=== PATIENT | female | born 1980 | race Caucasian/White ===

== ENCOUNTER 2016-10-06 09:18 | Day surgery (SDC) | payer OTHER ==
--- NOTE | 2016-10-05 11:55 | NUR ---
NN PT HAS HISTORY OF TAKAYASU ARTERITIS, CAUSES CHRONIC INFLAMMATION OF THE BLOOD VESSELS. NO BLOOD PRESSURE OR IV STARTS SHOULD BE DONE ON THE RIGHT SIDE PER PT. SHE STATES THAT SHE HAS SOME BLOCKAGE THERE AND IT HAS CAUSED PROBLEMS WITH OBTAINING SEDATION IN THE PAST DURING PROCEDURES AT ANOTHER FACILITY.
[~2016-10-06] VITALS: Ht 167.6 cm; Wt 71.5 kg
[2016-10-06] VITALS (25 sets, daily range): BP systolic 113–127; BP diastolic 60–86; PULSE 67–91; RESP 14–24; TEMP 97.4–98.2; O2SAT 96–100; Ht 167.6 cm; Wt 71.5 kg
[~2016-10-06 09:18] MED LIST: ACYC-1 PO; ASPI-725 PO; ATEN-36 PO; ATOR40TA20 PO; CALC1TAB PO; CHOL200024 PO; CLINDAMYCIN 900mg in D5W 50ml IV ONE; DULO60CA25 PO; FERR325T6 PO; FOLI-40 PO; GLIM1TAB2 PO; LEFL20TA PO; LEVO75CA5 PO; LIDOCAINE 1% (10mg/ml) 2ml SDV INJ ONE; LR 1,000 ML IV SCH; METF-200 PO; MULT-806 PO; NEBI10TA2 PO; OMEP20CA10 PO; PRAS10TA6 PO; PRED10TA PO; SAXA5TAB PO; SOLI10TA5 PO; TOPI25TA37 PO; TRAM50TA4 PO
--- OUTSIDE RECORDS SUMMARY | 2016-10-06 09:21 | XMS REPORT | Continuity of Care Document ---
Author Author [facility] Organization [facility] Address Unknown Phone Unavailable Care Team Providers Care Product Handler Name Role Phone Aleena Salcido Primary Care Physician [phone] Source Comments Some departments are not documenting in the electronic medical record. If you do not see the information that you expected, contact Release of Information in the Health Information Management department at [phone] for further assistance in locating additional records.[facility] Active Allergies and Adverse Reactions Allergen Noted Date Severity Reactions Comments Humira 03/01/2015 Medium HIVES Methotrexate 03/01/2015 Medium HIVES Penicillins 03/01/2015 High ANAPHYLAXIS Tetanus And Diphtheria 03/01/2015 High ANAPHYLAXIS Toxoids, Adsorbed, Adult Current Medications Prescription Sig. Disp. Refills Start End Date Status Date levothyroxine (SYNTHROID) Take 125 mcg by mouth Active 125 mcg tablet daily. DULoxetine DR (CYMBALTA) Take 60 mg by mouth twice Active 60 mg capsule daily. prasugrel (EFFIENT) 10 mg Take 10 mg by mouth Active tab tablet daily. aspirin (ASPIRIN Take 81 mg by mouth Active CHILDRENS) 81 mg chewable daily. tablet atorvastatin (LIPITOR) 40 Take 40 mg by mouth Active mg tablet daily. metFORMIN (GLUCOPHAGE) Take 1,000 mg by mouth Active 500 mg tablet twice daily with meals. Saxagliptin (ONGLYZA) 5 Take 1 Tab by mouth twice Active mg tab daily. folic acid (FOLVITE) 1 mg Take 5 mg by mouth daily. Active tablet CALCIUM CARBONATE Take 1 Tab by mouth Active (CALCIUM 500 PO) daily. cholecalciferol (VITAMIN Take 1,000 Units by mouth Active D-3) 1,000 units tablet daily. VIT Take 1 Tab by mouth Active W-CA,FE,FA(<1 MG) daily. ( VITAMIN PO) ferrous sulfate 325 mg Take 325 mg by mouth Active (65 mg iron) tablet twice daily. alendronate (FOSAMAX) 35 Take 35 mg by mouth every Active mg tablet 7 days. loperamide (IMODIUM) 2 mg Take 1 Cap by mouth four 90 Cap 1 03/24/20 Active capsule times daily as needed for 15 Diarrhea. psyllium (METAMUCIL) 3.4 Take 1 Packet by mouth 60 Packet 3 03/24/20 Active gram packet twice daily. 15 Food Supplement, Please drink 1 can of 30 Can 1 06/10/20 Active Lactose-Free (ENSURE) ensure per day. 15 liqd predniSONE (DELTASONE) 5 Take 4 tabs x 3 days, 3 30 Tab 1 09/29/19 Active mg tablet tabs x 3 days, 2 tabs x 3 16 days, 1 tab x 3 days, then stop apremilast 30 mg tab Take 30 mg by mouth twice Active daily. ketoconazole (NIZORAL) 2 Apply to affected area 60 g 3 11/09/19 Active % topical cream twice daily. 16 ketoconazole (NIZORAL) 2 Apply to affected area 120 mL 3 11/10/19 Active % topical shampoo three times weekly. 16 ondansetron (ZOFRAN ODT) Take 1 Tab by mouth every 30 Tab 2 12/08/19 Active 4 mg rapid dissolve 8 hours as needed for 16 tablet Nausea. TOCILIZUMAB (ACTEMRA IV) Administer through vein. Active metFORMIN (GLUCOPHAGE) Take 1,000 mg by mouth Active 1,000 mg tablet twice daily with meals. diphenoxylate/atropine Take 1 Tab by mouth four 90 Tab 3 12/15/19 Active (LOMOTIL) 2.5/0.025 mg times daily as needed for 16 tablet Diarrhea. prochlorperazine Take 1 Tab by mouth every 30 Tab 2 01/05/20 Active (COMPAZINE) 10 mg tablet 6 hours as needed. 16 betamethasone APPLY OINTMENT TOPICALLY 45 g 0 02/15/20 Active dipropionate 0.05 % TWICE DAILY FOR ONE TO 16 topical ointment TWO WEEKS TO RED ITCHY AREAS ( NOT FOR FACE/ARMPIT/GROIN) apremilast (OTEZLA) 30 mg Take 1 Tab by mouth twice 60 Tab 2 02/29/20 Active tab daily. 16 dicyclomine (BENTYL) 20 Take 1-2 Tabs by mouth 120 Tab 2 03/01/20 Active mg tablet every 6 hours. 16 prednisone (DELTASONE) 5 TAKE TWO TABLETS BY MOUTH 60 Tab 3 06/12/20 Active mg tablet ONCE DAILY 16 traMADol (ULTRAM) 50 mg Take 1 Tab by mouth every 180 Tab 2 09/20/19 Active tablet 8 hours as needed for 17 Pain. 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 03/13/14 - MRA Carotid - Patent right subclavian graft to right MCA. Collateral filling of A1, M1 and M2 segment likely from Reduced flow, patent. Distal left ICA patent, normal caliber. Left REY[place]LDO and MCA patent normal caliber. Hi-grade stenosis at preauricular segment, right subclavian to right MCA bypass graft. Occluded right ICA and miniscule caliber right hCCA. Nonvisualization of right VA may be secondary to occlusion, slow flow or retrograde flow. 2. 03/13/14 - MRA chest w/contrast - suspected moderate stenosis of proximal right subclavian artery. - assessment limited d/t overlap with signal in adjacent vein. RA patent with luminal irregularities of mid and distal right RA. 3. 03/16/14 -- UE Arterial Duplex, bilateral - Right - subclavian, axillary or innominate disease. Left - no evidence of abnormality at rest. 4. 03/16/14 - Carotid Duplex - RIGHT - 50-99% stenosis CCA; wall thickening suggestive of inflammatory disease, velocity shift consistent with stenosis at proximal vessel. ICA occluded; ECA patent; Vertebral artery with retrograde flow consistent with subclvaian steal; Innominate thickened; Subclavian 50-99% stenosis with thickened wall and elevated velocities proximally (elevated velocities distal to origin of subclavian-intracranial bypass - patent). LEFT - CCA, ECA, Subclavian - patent; ICA 0-19% stenosis; vertebral patent with antegrade flow. 5. 03/16/14 - Coronary CTA - Normal size chamger, atrioventricular and ventriculoarterial concordance. Thoracic aorta normal. Aortic arch not included. Normal coronaory artery anatomy without stnotic disease. 6. 10/15/14 - Echo - EF 70%; moderate MV prolapse with trace MR. No PHTN; normal LV systolic function. 7. 10/14/14 - MPI - No ischemia; EF 55%/rest - 65%/stress; no wall motion abnormality. Chronic diarrhea 03/24/2015 Weight loss 03/24/2015 Most Recent Encounters Date Type Specialty Providers Description 09/25/2016 Telephone Allergy,Immunology and Portillo Stephen MD Results Rheumatology 09/25/2016 Telephone Allergy,Immunology and Portillo Stephen MD Appointment Request Rheumatology 09/19/2016 [facility] Portillo Stephen MD Aortic arch syndrome Encounter (takayasu) ([facility]) 09/19/2016 Office Visit Allergy,Immunology and Portillo Stephen MD Takayasu's arteritis Rheumatology ([facility]) (Primary Dx); buttermaker continuous churn (current) use of systemic steroids; Psoriasis; Neck pain on right side; Myofacial muscle pain; Claudication ([facility]) 09/19/2016 Hospital Radiology Portillo Stephen MD Encounter 09/19/2016 Hospital Radiology Portillo Stephen MD Encounter 09/18/2016 Screening Form 09/18/2016 Ancillary Allergy,Immunology and Portillo Stephen MD Takayasu arteriopathy Orders Rheumatology ([facility]) (Primary Dx) 08/22/2016 Telephone Allergy,Immunology and Portillo Stephen MD Chest Pain Rheumatology Social History Tobacco Use Types Packs/Day Years Used Date Former Smoker Cigarettes 0.5 4 Quit: 03/01/2000 Smokeless Tobacco: Never Used Alcohol Use Drinks/Week oz/Week Comments No 0 Standard 0.0 drinks or equivalent Last Filed Vital Signs Vital Sign Reading Time Taken Blood Pressure 124/81 09/19/2016 3:17 PM CDT Pulse 88 09/19/2016 3:17 PM CDT Temperature 36.7 C (98 F) 09/19/2016 3:17 PM CDT Respiratory Rate 16 09/19/2016 3:17 PM CDT Height 1.651 m (5' 5") 09/19/2016 3:17 PM CDT Weight 72.666 kg (160 lb 3.2 oz) 09/19/2016 3:17 PM CDT Body Mass Index 26.66 09/19/2016 3:17 PM CDT Oxygen Saturation 99% 02/29/2016 10:52 AM CDT Plan of Care Health Maintenance Due Date Last Done Comments Physical (Comprehensive) 1985 Exam Pertussis Vaccine 1989 Tetanus Vaccine 11/15/1995 Cervical Cancer Screening 11/15/1999 Influenza Vaccine 03/02/2017 Results from Last 3 Months * C REACTIVE PROTEIN (CRP) (09/19/2016 4:59 PM) Component Value Range C-Reactive Protein <0.02 <1.0 MG/DL Specimen Blood * SED RATE (09/19/2016 4:59 PM) Component Value Range Sed Rate -ESR 4 0-20 MM/HR Specimen Blood * CBC AND DIFF (09/19/2016 4:59 PM) Component Value Range White Blood Cells 8.0 4.5-11.0 K/UL RBC 4.17 4.0-5.0 M/UL Hemoglobin 12.9 12.0-15.0 GM/DL Hematocrit 37.5 36-45 % MCV 89.9 80-100 FL MCH 30.9 26-34 PG MCHC 34.4 32.0-36.0 G/DL RDW 12.8 11-15 % Platelet Count 293 150-400 K/UL MPV 7.2 7-11 FL Neutrophils 72 41-77 % Lymphocytes 19 (L) 24-44 % Monocytes 8 4-12 % Eosinophils 1 0-5 % Basophils 0 0-2 % Absolute Neutrophil Count 5.80 1.8-7.0 K/UL Absolute Lymph Count 1.50 1.0-4.8 K/UL Absolute Monocyte Count 0.60 0-0.80 K/UL Absolute Eosinophil Count 0.10 0-0.45 K/UL Absolute Basophil Count 0.00 0-0.20 K/UL Specimen Blood * COMPREHENSIVE METABOLIC PANEL (09/19/2016 4:59 PM) Component Value Range Sodium 137 137-147 MMOL/L Potassium 3.6 3.5-5.1 MMOL/L Chloride 105 98-110 MMOL/L Glucose 116 (H) 70-100 MG/DL Blood Urea Nitrogen 4 (L) 7-25 MG/DL Creatinine 1.04 (H) 0.4-1.00 MG/DL Calcium 9.2 8.5-10.6 MG/DL Total Protein 7.0 6.0-8.0 G/DL Total Bilirubin 0.2 (L) 0.3-1.2 MG/DL Albumin 4.3 3.5-5.0 G/DL Alk Phosphatase 46 25-110 U/L AST (SGOT) 11 7-40 U/L CO2 26 21-30 MMOL/L ALT (SGPT) 12 7-56 U/L Anion Gap 6 3-12 eGFR Non 60 (L)Comment: >60 mL/min The eGFR is not validated for use in drug dosing adjustments. Continue to use estimated creatinine clearance per dosing reference text. Please contact the Clinical Pharmacist for questions. eGFR >60Comment: >60 mL/min The eGFR is not validated for use in drug dosing adjustments. Continue to use estimated creatinine clearance per dosing reference text. Please contact the Clinical Pharmacist for questions. Specimen Blood * MRA NECK W CONTRAST (09/19/2016 8:47 AM) Impressions MRA NECK: 1. Continued patency of right extracranial to intracranial graft. The left carotid and left vertebral arteries remain patent, however, vascular detail is limited. The [place] right internal carotid and right vertebral arteries remain occluded. MRA CHEST: 1. Persistent moderate stenosis of the right subclavian artery distal to the graft origin. Otherwise, normal appearance of the thoracic aorta and great vessels of the arch. MRI ABDOMEN: 1. Stable mild eccentric mural thickening of the aorta which most likely relates to mild involvement by known arteritis. Otherwise, normal appearance of the abdominal aorta and major visceral arteries. MRI PELVIS: 1. Normal appearance of the major pelvic arteries. Approved by Vianeny Hunt M.D. on 09/19/2016 10:27 AM By my electronic signature, I attest that I have personally reviewed the images for this examination and formulated the interpretations and opinions expressed in this report Finalized by Bill Juarez M.D. on 09/19/2016 10:39 AM. Dictated by Vianney Hunt M.D. on 09/19/2016 9:23 AM. Narrative MRA NECK, CHEST, ABDOMEN, AND PELVIS Clinical Indication:Takayasu arteritis. Diminished pulses, arm Technique:Multisequence and multiplanar MR imaging was obtained through the abdomen before and following the administration of IV gadolinium contrast. IV Contrast:20 mL Multihance Bowel contrast: None Magnet:1.5 Farzaneh Siemens Comparison: MRA chest/abdomen/pelvis 03/15/2015, CT abdomen/pelvis 01/17/2016 FINDINGS: MRA NECK: Examination is somewhat compromised by patient motion artifact. The left common carotid and left vertebral artery are opacified to the skull base, however, detail of the vessel wall is limited by motion artifact. 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 Redemonstration of graft extending from the right subclavian artery to the cerebral circulation. The graft is patent. The intracranial arteries are not imaged at this examination. The proximal right vertebral artery is not seen, however, there is collateral vertebral artery flow at the skull base. MRA CHEST: Normal caliber of the ascending thoracic aorta. The mid ascending aorta measures 3 cm diameter, previously 3 cm. The descending thoracic aorta is normal caliber. Three-vessel configuration of the aortic arch. The arch vessel origins are patent, however, vessel detail is limited secondary to motion artifact. There is continued moderate stenosis of the right subclavian artery just distal to the graft takeoff. The axillary arteries appear symmetric. MRA ABDOMEN: The abdominal aorta is normal caliber. There is mild eccentric mural thickening of the infrarenal abdominal aorta which appears unchanged since a CT examination on 01/17/2016. No significant luminal narrowing. The celiac, SMA, and renal artery origins are opacified, however, vessel detail is limited secondary to motion artifact. The VANE is patent. MRA PELVIS: The common iliac, external iliac, and internal iliac arteries are normal caliber and well opacified. The common femoral, superficial femoral, and deep femoral arteries are patent with without high-grade narrowing. Bilateral ovarian cysts or follicles are noted. Procedure Note Interface, Radiant Results - Tue Sep 19, 2016 10:42 AM CDT MRA NECK, CHEST, ABDOMEN, AND PELVIS Clinical Indication: Takayasu arteritis. Diminished pulses, arm Technique: Multisequence and multiplanar MR imaging was obtained through the abdomen before and following the administration of IV gadolinium contrast. IV Contrast:20 mL Multihance Bowel contrast: None Magnet:1.5 Farzaneh Siemens Comparison: MRA chest/abdomen/pelvis 03/15/2015, CT abdomen/pelvis 01/17/2016 FINDINGS: MRA NECK: Examination is somewhat compromised by patient motion artifact. The left common carotid and left vertebral artery are opacified to the skull base, however, detail of the vessel wall is limited by motion artifact. 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 Redemonstration of graft extending from the right subclavian artery to the cerebral circulation. The graft is patent. The intracranial arteries are not imaged at this examination. The proximal right vertebral artery is not seen, however, there is collateral vertebral artery flow at the skull base. MRA CHEST: Normal caliber of the ascending thoracic aorta. The mid ascending aorta measures 3 cm diameter, previously 3 cm. The descending thoracic aorta is normal caliber. Three-vessel configuration of the aortic arch. The arch vessel origins are patent, however, vessel detail is limited secondary to motion artifact. There is continued moderate stenosis of the right subclavian artery just distal to the graft takeoff. The axillary arteries appear symmetric. MRA ABDOMEN: The abdominal aorta is normal caliber. There is mild eccentric mural thickening of the infrarenal abdominal aorta which appears unchanged since a CT examination on 01/17/2016. No significant luminal narrowing. The celiac, SMA, and renal artery origins are opacified, however, vessel detail is limited secondary to motion artifact. The VANE is patent. MRA PELVIS: The common iliac, external iliac, and internal iliac arteries are normal caliber and well opacified. The common femoral, superficial femoral, and deep femoral arteries are patent with without high-grade narrowing. Bilateral ovarian cysts or follicles are noted. IMPRESSION MRA NECK: 1. Continued patency of right extracranial to intracranial graft. The left carotid and left vertebral arteries remain patent, however, vascular detail is limited. The [place] right internal carotid and right vertebral arteries remain occluded. MRA CHEST: 1. Persistent moderate stenosis of the right subclavian artery distal to the graft origin. Otherwise, normal appearance of the thoracic aorta and great vessels of the arch. MRI ABDOMEN: 1. Stable mild eccentric mural thickening of the aorta which most likely relates to mild involvement by known arteritis. Otherwise, normal appearance of the abdominal aorta and major visceral arteries. MRI PELVIS: 1. Normal appearance of the major pelvic arteries. Approved by Vianney Hunt M.D. on 09/19/2016 10:27 AM By my electronic signature, I attest that I have personally reviewed the images for this examination and formulated the interpretations and opinions expressed in this report Finalized by Bill Juarez M.D. on 09/19/2016 10:39 AM. Dictated by Vianney Hunt M.D. on 09/19/2016 9:23 AM. * MRA CHEST W CONTRAST (09/19/2016 8:47 AM) Impressions MRA NECK: 1. Continued patency of right extracranial to intracranial graft. The left carotid and left vertebral arteries remain patent, however, vascular detail is limited. The [place] right internal carotid and right vertebral arteries remain occluded. MRA CHEST: 1. Persistent moderate stenosis of the right subclavian artery distal to the graft origin. Otherwise, normal appearance of the thoracic aorta and great vessels of the arch. MRI ABDOMEN: 1. Stable mild eccentric mural thickening of the aorta which most likely relates to mild involvement by known arteritis. Otherwise, normal appearance of the abdominal aorta and major visceral arteries. MRI PELVIS: 1. Normal appearance of the major pelvic arteries. Approved by Vianney Hunt M.D. on 09/19/2016 10:27 AM By my electronic signature, I attest that I have personally reviewed the images for this examination and formulated the interpretations and opinions expressed in this report Finalized by Bill Juarez M.D. on 09/19/2016 10:39 AM. Dictated by Vianney Hunt M.D. on 09/19/2016 9:23 AM. Narrative MRA NECK, CHEST, ABDOMEN, AND PELVIS Clinical Indication:Takayasu arteritis. Diminished pulses, arm Technique:Multisequence and multiplanar MR imaging was obtained through the abdomen before and following the administration of IV gadolinium contrast. IV Contrast:20 mL Multihance Bowel contrast: None Magnet:1.5 Farzaneh Siemens Comparison: MRA chest/abdomen/pelvis 03/15/2015, CT abdomen/pelvis 01/17/2016 FINDINGS: MRA NECK: Examination is somewhat compromised by patient motion artifact. The left common carotid and left vertebral artery are opacified to the skull base, however, detail of the vessel wall is limited by motion artifact. 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 Redemonstration of graft extending from the right subclavian artery to the cerebral circulation. The graft is patent. The intracranial arteries are not imaged at this examination. The proximal right vertebral artery is not seen, however, there is collateral vertebral artery flow at the skull base. MRA CHEST: Normal caliber of the ascending thoracic aorta. The mid ascending aorta measures 3 cm diameter, previously 3 cm. The descending thoracic aorta is normal caliber. Three-vessel configuration of the aortic arch. The arch vessel origins are patent, however, vessel detail is limited secondary to motion artifact. There is continued moderate stenosis of the right subclavian artery just distal to the graft takeoff. The axillary arteries appear symmetric. MRA ABDOMEN: The abdominal aorta is normal caliber. There is mild eccentric mural thickening of the infrarenal abdominal aorta which appears unchanged since a CT examination on 01/17/2016. No significant luminal narrowing. The celiac, SMA, and renal artery origins are opacified, however, vessel detail is limited secondary to motion artifact. The VANE is patent. MRA PELVIS: The common iliac, external iliac, and internal iliac arteries are normal caliber and well opacified. The common femoral, superficial femoral, and deep femoral arteries are patent with without high-grade narrowing. Bilateral ovarian cysts or follicles are noted. Procedure Note Interface, Radiant Results - Tue Sep 19, 2016 10:42 AM CDT MRA NECK, CHEST, ABDOMEN, AND PELVIS Clinical Indication: Takayasu arteritis. Diminished pulses, arm Technique: Multisequence and multiplanar MR imaging was obtained through the abdomen before and following the administration of IV gadolinium contrast. IV Contrast:20 mL Multihance Bowel contrast: None Magnet:1.5 Farzaneh Siemens Comparison: MRA chest/abdomen/pelvis 03/15/2015, CT abdomen/pelvis 01/17/2016 FINDINGS: MRA NECK: Examination is somewhat compromised by patient motion artifact. The left common carotid and left vertebral artery are opacified to the skull base, however, detail of the vessel wall is limited by motion artifact. 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 Redemonstration of graft extending from the right subclavian artery to the cerebral circulation. The graft is patent. The intracranial arteries are not imaged at this examination. The proximal right vertebral artery is not seen, however, there is collateral vertebral artery flow at the skull base. MRA CHEST: Normal caliber of the ascending thoracic aorta. The mid ascending aorta measures 3 cm diameter, previously 3 cm. The descending thoracic aorta is normal caliber. Three-vessel configuration of the aortic arch. The arch vessel origins are patent, however, vessel detail is limited secondary to motion artifact. There is continued moderate stenosis of the right subclavian artery just distal to the graft takeoff. The axillary arteries appear symmetric. MRA ABDOMEN: The abdominal aorta is normal caliber. There is mild eccentric mural thickening of the infrarenal abdominal aorta which appears unchanged since a CT examination on 01/17/2016. No significant luminal narrowing. The celiac, SMA, and renal artery origins are opacified, however, vessel detail is limited secondary to motion artifact. The VANE is patent. MRA PELVIS: The common iliac, external iliac, and internal iliac arteries are normal caliber and well opacified. The common femoral, superficial femoral, and deep femoral arteries are patent with without high-grade narrowing. Bilateral ovarian cysts or follicles are noted. IMPRESSION MRA NECK: 1. Continued patency of right extracranial to intracranial graft. The left carotid and left vertebral arteries remain patent, however, vascular detail is limited. The [place] right internal carotid and right vertebral arteries remain occluded. MRA CHEST: 1. Persistent moderate stenosis of the right subclavian artery distal to the graft origin. Otherwise, normal appearance of the thoracic aorta and great vessels of the arch. MRI ABDOMEN: 1. Stable mild eccentric mural thickening of the aorta which most likely relates to mild involvement by known arteritis. Otherwise, normal appearance of the abdominal aorta and major visceral arteries. MRI PELVIS: 1. Normal appearance of the major pelvic arteries. Approved by Vianney Hunt M.D. on 09/19/2016 10:27 AM By my electronic signature, I attest that I have personally reviewed the images for this examination and formulated the interpretations and opinions expressed in this report Finalized by Bill Juarez M.D. on 09/19/2016 10:39 AM. Dictated by Vianney Hunt M.D. on 09/19/2016 9:23 AM. * MRA PELVIS W CONTRAST (09/19/2016 8:46 AM) Impressions MRA NECK: 1. Continued patency of right extracranial to intracranial graft. The left carotid and left vertebral arteries remain patent, however, vascular detail is limited. The [place] right internal carotid and right vertebral arteries remain occluded. MRA CHEST: 1. Persistent moderate stenosis of the right subclavian artery distal to the graft origin. Otherwise, normal appearance of the thoracic aorta and great vessels of the arch. MRI ABDOMEN: 1. Stable mild eccentric mural thickening of the aorta which most likely relates to mild involvement by known arteritis. Otherwise, normal appearance of the abdominal aorta and major visceral arteries. MRI PELVIS: 1. Normal appearance of the major pelvic arteries. Approved by Vianney Hunt M.D. on 09/19/2016 10:27 AM By my electronic signature, I attest that I have personally reviewed the images for this examination and formulated the interpretations and opinions expressed in this report Finalized by Bill Juarez M.D. on 09/19/2016 10:39 AM. Dictated by Vianney Hunt M.D. on 09/19/2016 9:23 AM. Narrative MRA NECK, CHEST, ABDOMEN, AND PELVIS Clinical Indication:Takayasu arteritis. Diminished pulses, arm Technique:Multisequence and multiplanar MR imaging was obtained through the abdomen before and following the administration of IV gadolinium contrast. IV Contrast:20 mL Multihance Bowel contrast: None Magnet:1.5 Farzaneh Siemens Comparison: MRA chest/abdomen/pelvis 03/15/2015, CT abdomen/pelvis 01/17/2016 FINDINGS: MRA NECK: Examination is somewhat compromised by patient motion artifact. The left common carotid and left vertebral artery are opacified to the skull base, however, detail of the vessel wall is limited by motion artifact. 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 Redemonstration of graft extending from the right subclavian artery to the cerebral circulation. The graft is patent. The intracranial arteries are not imaged at this examination. The proximal right vertebral artery is not seen, however, there is collateral vertebral artery flow at the skull base. MRA CHEST: Normal caliber of the ascending thoracic aorta. The mid ascending aorta measures 3 cm diameter, previously 3 cm. The descending thoracic aorta is normal caliber. Three-vessel configuration of the aortic arch. The arch vessel origins are patent, however, vessel detail is limited secondary to motion artifact. There is continued moderate stenosis of the right subclavian artery just distal to the graft takeoff. The axillary arteries appear symmetric. MRA ABDOMEN: The abdominal aorta is normal caliber. There is mild eccentric mural thickening of the infrarenal abdominal aorta which appears unchanged since a CT examination on 01/17/2016. No significant luminal narrowing. The celiac, SMA, and renal artery origins are opacified, however, vessel detail is limited secondary to motion artifact. The VANE is patent. MRA PELVIS: The common iliac, external iliac, and internal iliac arteries are normal caliber and well opacified. The common femoral, superficial femoral, and deep femoral arteries are patent with without high-grade narrowing. Bilateral ovarian cysts or follicles are noted. Procedure Note Interface, Radiant Results - Tue Sep 19, 2016 10:42 AM CDT MRA NECK, CHEST, ABDOMEN, AND PELVIS Clinical Indication: Takayasu arteritis. Diminished pulses, arm Technique: Multisequence and multiplanar MR imaging was obtained through the abdomen before and following the administration of IV gadolinium contrast. IV Contrast:20 mL Multihance Bowel contrast: None Magnet:1.5 Farzaneh Siemens Comparison: MRA chest/abdomen/pelvis 03/15/2015, CT abdomen/pelvis 01/17/2016 FINDINGS: MRA NECK: Examination is somewhat compromised by patient motion artifact. The left common carotid and left vertebral artery are opacified to the skull base, however, detail of the vessel wall is limited by motion artifact. 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 Redemonstration of graft extending from the right subclavian artery to the cerebral circulation. The graft is patent. The intracranial arteries are not imaged at this examination. The proximal right vertebral artery is not seen, however, there is collateral vertebral artery flow at the skull base. MRA CHEST: Normal caliber of the ascending thoracic aorta. The mid ascending aorta measures 3 cm diameter, previously 3 cm. The descending thoracic aorta is normal caliber. Three-vessel configuration of the aortic arch. The arch vessel origins are patent, however, vessel detail is limited secondary to motion artifact. There is continued moderate stenosis of the right subclavian artery just distal to the graft takeoff. The axillary arteries appear symmetric. MRA ABDOMEN: The abdominal aorta is normal caliber. There is mild eccentric mural thickening of the infrarenal abdominal aorta which appears unchanged since a CT examination on 01/17/2016. No significant luminal narrowing. The celiac, SMA, and renal artery origins are opacified, however, vessel detail is limited secondary to motion artifact. The VANE is patent. MRA PELVIS: The common iliac, external iliac, and internal iliac arteries are normal caliber and well opacified. The common femoral, superficial femoral, and deep femoral arteries are patent with without high-grade narrowing. Bilateral ovarian cysts or follicles are noted. IMPRESSION MRA NECK: 1. Continued patency of right extracranial to intracranial graft. The left carotid and left vertebral arteries remain patent, however, vascular detail is limited. The [place] right internal carotid and right vertebral arteries remain occluded. MRA CHEST: 1. Persistent moderate stenosis of the right subclavian artery distal to the graft origin. Otherwise, normal appearance of the thoracic aorta and great vessels of the arch. MRI ABDOMEN: 1. Stable mild eccentric mural thickening of the aorta which most likely relates to mild involvement by known arteritis. Otherwise, normal appearance of the abdominal aorta and major visceral arteries. MRI PELVIS: 1. Normal appearance of the major pelvic arteries. Approved by Vianney Hunt M.D. on 09/19/2016 10:27 AM By my electronic signature, I attest that I have personally reviewed the images for this examination and formulated the interpretations and opinions expressed in this report Finalized by Bill Juarez M.D. on 09/19/2016 10:39 AM. Dictated by Vianney Hunt M.D. on 09/19/2016 9:23 AM. * MRA ABDOMEN W CONTRAST (09/19/2016 8:46 AM) Impressions MRA NECK: 1. Continued patency of right extracranial to intracranial graft. The left carotid and left vertebral arteries remain patent, however, vascular detail is limited. The [place] right internal carotid and right vertebral arteries remain occluded. MRA CHEST: 1. Persistent moderate stenosis of the right subclavian artery distal to the graft origin. Otherwise, normal appearance of the thoracic aorta and great vessels of the arch. MRI ABDOMEN: 1. Stable mild eccentric mural thickening of the aorta which most likely relates to mild involvement by known arteritis. Otherwise, normal appearance of the abdominal aorta and major visceral arteries. MRI PELVIS: 1. Normal appearance of the major pelvic arteries. Approved by Vianney Hunt M.D. on 09/19/2016 10:27 AM By my electronic signature, I attest that I have personally reviewed the images for this examination and formulated the interpretations and opinions expressed in this report Finalized by Bill Juarez M.D. on 09/19/2016 10:39 AM. Dictated by Vianney Hunt M.D. on 09/19/2016 9:23 AM. Narrative MRA NECK, CHEST, ABDOMEN, AND PELVIS Clinical Indication:Takayasu arteritis. Diminished pulses, arm Technique:Multisequence and multiplanar MR imaging was obtained through the abdomen before and following the administration of IV gadolinium contrast. IV Contrast:20 mL Multihance Bowel contrast: None Magnet:1.5 Farzaneh Siemens Comparison: MRA chest/abdomen/pelvis 03/15/2015, CT abdomen/pelvis 01/17/2016 FINDINGS: MRA NECK: Examination is somewhat compromised by patient motion artifact. The left common carotid and left vertebral artery are opacified to the skull base, however, detail of the vessel wall is limited by motion artifact. 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 Redemonstration of graft extending from the right subclavian artery to the cerebral circulation. The graft is patent. The intracranial arteries are not imaged at this examination. The proximal right vertebral artery is not seen, however, there is collateral vertebral artery flow at the skull base. MRA CHEST: Normal caliber of the ascending thoracic aorta. The mid ascending aorta measures 3 cm diameter, previously 3 cm. The descending thoracic aorta is normal caliber. Three-vessel configuration of the aortic arch. The arch vessel origins are patent, however, vessel detail is limited secondary to motion artifact. There is continued moderate stenosis of the right subclavian artery just distal to the graft takeoff. The axillary arteries appear symmetric. MRA ABDOMEN: The abdominal aorta is normal caliber. There is mild eccentric mural thickening of the infrarenal abdominal aorta which appears unchanged since a CT examination on 01/17/2016. No significant luminal narrowing. The celiac, SMA, and renal artery origins are opacified, however, vessel detail is limited secondary to motion artifact. The VANE is patent. MRA PELVIS: The common iliac, external iliac, and internal iliac arteries are normal caliber and well opacified. The common femoral, superficial femoral, and deep femoral arteries are patent with without high-grade narrowing. Bilateral ovarian cysts or follicles are noted. Procedure Note Interface, Radiant Results - Tue Sep 19, 2016 10:42 AM CDT MRA NECK, CHEST, ABDOMEN, AND PELVIS Clinical Indication: Takayasu arteritis. Diminished pulses, arm Technique: Multisequence and multiplanar MR imaging was obtained through the abdomen before and following the administration of IV gadolinium contrast. IV Contrast:20 mL Multihance Bowel contrast: None Magnet:1.5 Farzaneh Siemens Comparison: MRA chest/abdomen/pelvis 03/15/2015, CT abdomen/pelvis 01/17/2016 FINDINGS: MRA NECK: Examination is somewhat compromised by patient motion artifact. The left common carotid and left vertebral artery are opacified to the skull base, however, detail of the vessel wall is limited by motion artifact. 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 Redemonstration of graft extending from the right subclavian artery to the cerebral circulation. The graft is patent. The intracranial arteries are not imaged at this examination. The proximal right vertebral artery is not seen, however, there is collateral vertebral artery flow at the skull base. MRA CHEST: Normal caliber of the ascending thoracic aorta. The mid ascending aorta measures 3 cm diameter, previously 3 cm. The descending thoracic aorta is normal caliber. Three-vessel configuration of the aortic arch. The arch vessel origins are patent, however, vessel detail is limited secondary to motion artifact. There is continued moderate stenosis of the right subclavian artery just distal to the graft takeoff. The axillary arteries appear symmetric. MRA ABDOMEN: The abdominal aorta is normal caliber. There is mild eccentric mural thickening of the infrarenal abdominal aorta which appears unchanged since a CT examination on 01/17/2016. No significant luminal narrowing. The celiac, SMA, and renal artery origins are opacified, however, vessel detail is limited secondary to motion artifact. The VANE is patent. MRA PELVIS: The common iliac, external iliac, and internal iliac arteries are normal caliber and well opacified. The common femoral, superficial femoral, and deep femoral arteries are patent with without high-grade narrowing. Bilateral ovarian cysts or follicles are noted. IMPRESSION MRA NECK: 1. Continued patency of right extracranial to intracranial graft. The left carotid and left vertebral arteries remain patent, however, vascular detail is limited. The [place] right internal carotid and right vertebral arteries remain occluded. MRA CHEST: 1. Persistent moderate stenosis of the right subclavian artery distal to the graft origin. Otherwise, normal appearance of the thoracic aorta and great vessels of the arch. MRI ABDOMEN: 1. Stable mild eccentric mural thickening of the aorta which most likely relates to mild involvement by known arteritis. Otherwise, normal appearance of the abdominal aorta and major visceral arteries. MRI PELVIS: 1. Normal appearance of the major pelvic arteries. Approved by Vianney Hunt M.D. on 09/19/2016 10:27 AM By my electronic signature, I attest that I have personally reviewed the images for this examination and formulated the interpretations and opinions expressed in this report Finalized by Bill Juarez M.D. on 09/19/2016 10:39 AM. Dictated by Vianney Hunt M.D. on 09/19/2016 9:23 AM.
--- OUTSIDE RECORDS SUMMARY | 2016-10-06 09:22 | XMS REPORT | Referral Summary ---
Author Author [facility] Organization [facility] Address Unknown Phone Unavailable Care Team Providers Care Structural Welder Name Role Phone Sarmad Kwan Primary Care Physician [phone] Encounter Date(s): 10/29/14 - 10/29/14 [facility] [address] [place] [address] BIANCA Patterson [id number] Discharge Diagnosis: Encounter for long-term (current) use of high-risk medication Discharge Diagnosis: Paresthesias Discharge Diagnosis: Chronic headaches Discharge Diagnosis: Takayasu's arteritis Discharge Disposition: 01-Home or Self Care Attending Physician: Rozina Gramajo MD Admitting Physician: Rozina Gramajo MD Referring Physician: Felisa Painting MD Vital Signs Most recent to 1 oldest [Reference Range]: Peripheral Pulse 83 bpm Rate [60-100 bpm] (10/29/14 12:54 PM) Blood Pressure 150/105 mmHg [90-140/60-90 mmHg] *HI* (10/29/14 12:54 PM) Problem List Condition Effective Dates Status Health Status Informant Allergic Active rhinitis/Hay fever(Confirmed) Amaurosis/Rt(Confirm 08/15/11 Active ed) Anxiety(Confirmed) Active Stroke(Confirmed) Active Chronic Active headache(Confirmed) Depression(Confirmed Active ) Diabetes(Confirmed) Active Disease/MTFHR Active mutation(Confirmed)1 Fibromyalgia(Confirm Active ed) Headaches(Confirmed) Resolved Dyslipidemia, goal Resolved LDL below 70(Confirmed) Hypertension(Confirm Resolved ed) Hypothyroidism(Confi Active rmed) MVP (mitral valve Active prolapse)(Confirmed) Occlusion of Active artery/R ICA(Confirmed) Overweight(Confirmed Active ) Takayasu(Confirmed) Active Tremor(Confirmed) 08/15/11 Active UTI (urinary tract Active infection)(Confirmed ) 1see nex gen Allergies, Adverse Reactions, Alerts Substance Reaction Severity Status azaTHIOprine Active methotrexate Active penicillin Anaphylaxis Active Angiodema tetanus toxoid Active Medications acyclovir 400 mg oral tablet 400 mg 1 tabs, Oral, TID, as needed., 0 Refill(s) Start Date: 12/19/13 Status: Ordered Lauren See Instructions, 180 mg Oral 1 tab prior to infusion, 0 Refill(s) Start Date: 03/27/14 Status: Ordered aspirin 81 mg, Oral, Daily, 1 tab, 0 Refill(s) Start Date: 12/19/13 Status: Ordered atorvastatin 40 mg oral tablet See Instructions, 1 tabs Oral Bedtime (once a day),Instr:* LAST REFILL UNTIL SEEN *; you will need to set up appointment with Dr. Kwan, # 30 tabs, eRx: [facility], 1 tabs Oral Bedtime (once a day),Instr:* LAST REFILL UNTIL SEEN *; you will... Start Date: 04/30/15 Status: Ordered Benadryl 25 mg, Oral, Once, 1 tab, prior to remicade, 0 Refill(s) Start Date: 09/08/14 Status: Ordered Bystolic 10 mg oral tablet See Instructions, TAKE ONE TABLET BY MOUTH ONCE DAILY, # 30 tabs, 3 Refill(s), eRx: [facility], TAKE ONE TABLET BY MOUTH ONCE DAILY Start Date: 01/29/15 Status: Ordered Calcium 600+D 1 tabs, Oral, Daily, 0 Refill(s) Start Date: 11/11/14 Status: Ordered DULoxetine 60 mg oral delayed release capsule See Instructions, TAKE ONE CAPSULE BY MOUTH TWICE DAILY, # 180 caps, 2 Refill(s) , eRx: [facility], TAKE ONE CAPSULE BY MOUTH TWICE DAILY Start Date: 08/28/14 Status: Ordered Effient 10 mg oral tablet See Instructions, TAKE ONE TABLET BY MOUTH ONCE DAILY, # 30 tabs, 12 Refill(s), eRx: [facility], TAKE ONE TABLET BY MOUTH ONCE DAILY Start Date: 04/08/15 Status: Ordered ferrous sulfate 325 mg, Oral, Daily, 1 tab, 0 Refill(s) Start Date: 03/04/15 Status: Ordered FiberCon 0 Refill(s) Start Date: 04/09/15 Status: Ordered folic acid 1 mg oral tablet 5 tabs, Oral, Daily, 0 Refill(s) Start Date: 12/19/13 Status: Ordered Fosamax 70 mg oral tablet 1 tabs, Oral, qWeek, with 6 to 8 ounces of plain water, at least 30 minutes before the first food, beverage, or medication of the day, # 4 tabs, 3 Refill(s) , Pharmacy: [facility], 1 tabs Oral qWeek,Instr:with 6 to 8 ounces of plain water, a... Start Date: 07/31/14 Status: Ordered glimepiride 4 mg oral tablet 4 mg 1 tabs, Oral, BID, PT NEEDS TO ESTABLISH WITH DR. KWAN BEFORE ANYMORE REFILLS, # 60 tabs, 1 Refill(s), Pharmacy: [facility], 1 tabs Oral BID,Instr:PT NEEDS TO ESTABLISH WITH DR. KWAN BEFORE ANYMORE REFILLS Start Date: 03/04/15 Status: Ordered inFLIXimab 100 mg intravenous injection See Instructions, Infuse 800 mg every 4 weeks as an infusion for DX: M31.4 premedicate with solumedrol 125mg IVP, tylenol 1000mg po and lauren 180mg po as an infusion, # 1 vials, 0 Refill(s), other reason (Rx) Start Date: 03/30/14 Status: Ordered insulin detemir 15 units, SubCutaneous, Bedtime (once a day), 0 Refill(s) Start Date: 03/04/15 Status: Ordered leflunomide 10 mg oral tablet 10 mg 1 tabs, Oral, Daily, 0 Refill(s) Start Date: 04/09/15 Status: Ordered levothyroxine 75 mcg (0.075 mg) oral tablet See Instructions, TAKE ONE TABLET BY MOUTH ONCE DAILY, # 90 tabs, eRx: [facility], TAKE ONE TABLET BY MOUTH ONCE DAILY Start Date: 04/19/15 Status: Ordered Levsin SL mg, SubLingual, q4hr, 0 Refill(s) Start Date: 04/09/15 Status: Ordered metFORMIN 500 mg oral tablet See Instructions, 2 tabs Oral BID,Instr:PT NEEDS TO ESTABLISH WITH DR. KWAN BEFORE ANYMORE REFILLS, # 120 tabs, eRx: [facility], 2 tabs Oral BID, Instr:PT NEEDS TO ESTABLISH WITH DR. KWAN BEFORE ANYMORE REFILLS Start Date: 04/30/15 Status: Ordered [place] 5 mg-325 mg oral tablet 1 tabs, Oral, q6hr, as needed for pain, # 60 tabs, 0 Refill(s) Start Date: 03/29/15 Status: Ordered omeprazole 20 mg oral delayed release capsule See Instructions, TAKE ONE CAPSULE BY MOUTH TWICE DAILY, # 60 caps, 5 Refill(s) , eRx: [facility], TAKE ONE CAPSULE BY MOUTH TWICE DAILY Start Date: 11/30/14 Status: Ordered ONE TOUCH ULTRA BLUE TEST STP See Instructions, USE TO TEST BLOOD SUGARS TWO DAYS PER WEEK ( FASTING AND 2 HOURS POST PRANDAL)., # 100 strip, 1 Refill(s), eRx: [facility], USE TO TEST BLOOD SUGARS TWO DAYS PER WEEK ( FASTING AND 2 HOURS POST PRANDAL). Start Date: 11/09/14 Status: Ordered Onglyza 5 mg oral tablet See Instructions, TAKE ONE TABLET BY MOUTH ONCE DAILY, # 30 tabs, 3 Refill(s), eRx: [facility], TAKE ONE TABLET BY MOUTH ONCE DAILY Start Date: 01/29/15 Status: Ordered predniSONE 1 mg oral tablet See Instructions, 4 tabs Oral Daily,Instr:TO BE TAKEN WITH PREDNISONE 5 MG TABLETS, # 120 tabs, 1 Refill(s), Pharmacy: [facility], 4 tabs Oral Daily,Instr:TO BE TAKEN WITH PREDNISONE 5 MG TABLETS Start Date: 04/29/15 Status: Ordered 1 1 caps, Oral, Daily, 0 Refill(s) Start Date: 11/11/14 Status: Ordered Solu-MEDROL 125 mg preservative-free injection See Instructions, Give 125mg IVP prior to remicade infusion as a premedication, # 1 vials, 0 Refill(s) Start Date: 03/12/15 Status: Ordered Topamax 50 mg oral tablet See Instructions, 1 tab in am and 2 in pm., # 90 tabs, 2 Refill(s), eRx: [facility], 1 tab in am and 2 in pm. Start Date: 02/18/15 Status: Ordered VESIcare 10 mg oral tablet See Instructions, 1 tabs Oral Daily, # 30 tabs, 5 Refill(s), eRx: [facility], 1 tabs Oral Daily Start Date: 02/18/15 Status: Ordered Vitamin D3 2000 intl units oral tablet 2,000 Intl_Units 1 tabs, Oral, Daily, 0 Refill(s) Start Date: 12/19/13 Status: Ordered Wellbutrin 75 mg oral tablet See Instructions, 1 tabs Oral BID, # 60 tabs, eRx: [facility], 1 tabs Oral BID Start Date: 04/08/15 Status: Ordered Results No data available for this section Immunizations Vaccine Date Refusal Reason influenza virus vaccine, inactivated 04/14/15 influenza virus vaccine, live 05/05/13 influenza virus vaccine, live 04/22/08 Procedures Procedure Date Related Diagnosis Body Site Bypass, s/p EC-IC1 04/2012 Appendectomy delivery 1Dr Francois Molina Social History Social History Type Response Smoking Status Never smoker Assessment and Plan Extracted from: Title: Office note Author: Rozina Gramajo MD Date: 10/29/14 Assessment/Plan 1.Takayasu's arteritis We will continue her medications. Appears that shehas had improvement in one areaon the MRA and otherwise stable with no progression. She will have the last done tomorrow. She may be able to have the bypass graft done of the right subclavian as she appears overall to be stable. I will maintain her medications with the infliximab, prednisone 10 mg and leflunomide 20 mg. I will recheck her inflammatory markers today. Ordered: C-Reactive Protein (CRP) CBC w/ Differential Comprehensive Metabolic Panel Sedimentation Rate 2.Encounter for long-term (current) use of high-risk medication I will check her blood counts and liver tests today as I increased her doseof leflunomide when she was last seen. 3.Paresthesias She has numbness in her fingers and also her toes. It is possible that she may have neuropathy from her diabetes. It may also be a side effect of the leflunomide. We will assess how she does with better control of her diabetes. 4.Chronic headaches I will increase the topiramate to 50 mg twice daily. Orders: inFLIXimab, See Instructions, 600 mg every 4 weeks. premed tylenol 1000mg po and lauren 180mg po as an infusion, # 1 vials, 0 Refill(s), other reason (Rx) topiramate, 1 tabs, Oral, BID, # 60 tabs, 1 Refill(s), Pharmacy: [facility], 1 tabs Oral BID Future Scheduled TestsReferral* Return to Clinic 11/11/14 10:59 AM Referrals to Other Providers Referred by: Olga Jones
--- OUTSIDE RECORDS SUMMARY | 2016-10-06 09:22 | XMS REPORT | Referral Summary ---
Author Author [facility], Family Medicine Organization [facility] Address Unknown Phone Unavailable Care Team Providers Care Child Welfare Consultant Name Role Phone Sarmad Salcido Primary Care Physician [phone] Encounter VC Date(s): 04/14/15 - 04/14/15 [facility] [address] [place] [id number] Discharge Diagnosis: Anxiety Discharge Diagnosis: Fibromyalgia Discharge Diagnosis: Depression Discharge Diagnosis: Hypertension Discharge Diagnosis: Chronic headache Discharge Disposition: 01-Home or Self Care Attending Physician: Aleena Salcido DO Admitting Physician: Aleena Salcido DO Vital Signs Most recent to 1 oldest [Reference Range]: Temperature Tympanic 36.9 degC [36.6-38.1 degC] (04/14/15 8:11 AM) Peripheral Pulse 96 bpm Rate [60-100 bpm] (04/14/15 8:11 AM) Respiratory Rate 17 br/min [14-20 br/min] (04/14/15 8:11 AM) Blood Pressure 130/78 mmHg [90-140/60-90 mmHg] (04/14/15 8:11 AM) SpO2 99 % (04/14/15 8:11 AM) Problem List Condition Effective Dates Status Health [...] 0 Refill(s) Start Date: 12/19/13 Status: Ordered alendronate 70 mg oral tablet See Instructions, TAKE ONE TABLET BY MOUTH ONCE A WEEK IN THE MORNING WITH A GLASS OF WATER, 30 MINUTES BEFORE A MEAL OR BEVERAGE. REMAIN UPRIGHT, # 4 tabs , 2 Refill(s), eRx: [facility], TAKE ONE TABLET BY MOUTH ONCE A WEEK IN THE MORNING... Start Date: 06/23/15 Status: Ordered Jesika See Instructions, 180 mg Oral 1 tab prior to infusion, 0 Refill(s) Start Date: 03/27/14 Status: Ordered apremilast 30 mg oral tablet 30 mg 1 tabs, Oral, BID, # 60 tabs, 0 Refill(s), Pharmacy: [facility] , 1 tabs Oral BID Start Date: 10/22/15 Status: Ordered aspirin 81 mg, Oral, Daily, 1 tab, 0 Refill(s) Start Date: 12/19/13 Status: Ordered atorvastatin 40 mg oral tablet 40 mg 1 tabs, Oral, Bedtime (once a day), # 30 tabs, 6 Refill(s), Pharmacy: [facility], 1 tabs Oral Bedtime (once a day) Start Date: 05/31/15 Status: Ordered Benadryl 25 mg, Oral, Once, 1 tab, prior to remicade, 0 Refill(s) Start Date: 09/08/14 Status: Ordered Bystolic 10 mg oral tablet See Instructions, TAKE ONE TABLET BY MOUTH ONCE DAILY, # 30 tabs, 6 Refill(s), Pharmacy: [facility], TAKE ONE TABLET BY MOUTH ONCE DAILY Start Date: 05/31/15 Status: Ordered Calcium 600+D 1 tabs, Oral, Daily, 0 Refill(s) Start Date: 11/11/14 Status: Ordered DULoxetine 60 mg oral delayed release capsule See Instructions, TAKE ONE CAPSULE BY MOUTH TWICE DAILY, # 180 caps, 6 Refill(s) , Pharmacy: [facility], TAKE ONE CAPSULE BY MOUTH TWICE DAILY Start Date: 05/31/15 Status: Ordered Effient 10 mg oral tablet See Instructions, TAKE ONE TABLET BY MOUTH ONCE DAILY, # 30 tabs, 12 Refill(s), eRx: [facility], TAKE ONE TABLET BY MOUTH ONCE DAILY Start Date: 04/08/15 Status: Ordered ferrous sulfate 325 mg, Oral, Daily, 1 tab, 0 Refill(s) Start Date: 03/04/15 Status: Ordered FiberCon 0 Refill(s) Start Date: 04/09/15 Status: Ordered folic acid 1 mg oral tablet 5 tabs, Oral, Daily, 0 Refill(s) Start Date: 12/19/13 Status: Ordered leflunomide 20 mg oral tablet See Instructions, TAKE ONE-HALF TABLET BY MOUTH ONCE DAILY, # 45 tabs, 2 Refill( s), eRx: [facility], TAKE ONE-HALF TABLET BY MOUTH ONCE DAILY Start Date: 06/18/15 Status: Ordered levothyroxine 75 mcg (0.075 mg) oral tablet See Instructions, TAKE ONE TABLET BY MOUTH ONCE DAILY; Need TSH at next OV, # 30 tabs, 2 Refill(s), eRx: [facility], TAKE ONE TABLET BY MOUTH ONCE DAILY; Need TSH at next OV Start Date: 08/19/15 Status: Ordered Levsin SL mg, SubLingual, q4hr, 0 Refill(s) Start Date: 04/09/15 Status: Ordered metFORMIN 500 mg oral tablet See Instructions, 2 tabs Oral BID, # 120 tabs, 1 Refill(s), eRx: [facility], 2 tabs Oral BID Start Date: 09/30/15 Status: Ordered Clinton 5 mg-325 mg oral tablet 1 tabs, Oral, q6hr, as needed for pain, # 60 tabs, 0 Refill(s) Start Date: 10/22/15 Status: Ordered omeprazole 20 mg oral delayed release capsule See Instructions, TAKE ONE CAPSULE BY MOUTH TWICE DAILY, # 60 caps, 5 Refill(s) , eRx: [facility], TAKE ONE CAPSULE BY MOUTH TWICE DAILY Start Date: 06/03/15 Status: Ordered ONE TOUCH ULTRA BLUE TEST STP See Instructions, USE TO TEST BLOOD SUGARS TWO DAYS PER WEEK ( FASTING AND 2 HOURS POST PRANDAL)., # 100 strip, 1 Refill(s), eRx: [facility], USE TO TEST BLOOD SUGARS TWO DAYS PER WEEK ( FASTING AND 2 HOURS POST PRANDAL). Start Date: 11/09/14 Status: Ordered Onglyza 5 mg oral tablet See Instructions, TAKE ONE TABLET BY MOUTH ONCE DAILY, # 30 tabs, eRx: [facility], TAKE ONE TABLET BY MOUTH ONCE DAILY Start Date: 09/30/15 Status: Ordered predniSONE 1 mg oral tablet See Instructions, 3 tabs Oral Daily,Instr:TO BE TAKEN WITH PREDNISONE 5 MG TABLETS, # 90 tabs, 0 Refill(s), Pharmacy: [facility], please note change in dose, 3 tabs Oral Daily,Instr:TO BE TAKEN WITH PREDNISONE 5 MG TABLETS Start Date: 05/07/15 Status: Ordered predniSONE 10 mg oral tablet See Instructions, 4 a dy for 2 dys, 3 a dy for 2 dys, 2 a dy for 2 dys, 1 a dy for 2 dys, 1/2 a dy for 2 dys., # 21 tabs, 0 Refill(s), Pharmacy: [facility], 4 a dy for 2 dys, 3 a dy for 2 dys, 2 a dy for 2 dys, 1 a dy for 2 dys, 1/2 a dy fo... Start Date: 10/22/15 Stop Date: 10/28/15 Status: Ordered predniSONE 20 mg oral tablet See Instructions, , 60 for 3 days, 40 for 3 days, 20 for 3 days, # 20 tabs, 0 Refill(s), Pharmacy: [facility], , 60 for 3 days, 40 for 3 days, 20 for 3 days Start Date: 06/16/15 Status: Ordered 1 1 caps, Oral, Daily, 0 Refill(s) Start Date: 11/11/14 Status: Ordered Solu-MEDROL 125 mg preservative-free injection See Instructions, Give 125mg IVP prior to remicade infusion as a premedication, # 1 vials, 0 Refill(s) Start Date: 03/12/15 Status: Ordered Topamax 50 mg oral tablet See Instructions, 1 tab in am and 2 in pm., # 90 tabs, 2 Refill(s), eRx: [facility], 1 tab in am and 2 in pm. Start Date: 08/19/15 Status: Ordered VESIcare 10 mg oral tablet See Instructions, TAKE ONE TABLET BY MOUTH ONCE DAILY, # 30 tabs, [facility], TAKE ONE TABLET BY MOUTH ONCE DAILY Start Date: 09/24/15 Status: Ordered Vitamin D3 2000 intl units oral tablet 2,000 Intl_Units 1 tabs, Oral, Daily, 0 Refill(s) Start Date: 12/19/13 Status: Ordered Wellbutrin 75 mg oral tablet See Instructions, 1 tabs Oral BID, # 60 tabs, 5 Refill(s), [facility], 1 tabs Oral BID Start Date: 05/07/15 Status: Ordered Results No data available for this section Immunizations Vaccine Date Refusal Reason influenza virus vaccine, inactivated 04/14/15 influenza virus vaccine, live 05/05/13 influenza virus vaccine, live 04/22/08 Procedures Procedure Date Related Diagnosis Body Site Bypass, 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 Why get vaccinated? Influenza ("flu") is a contagious disease that spreads around the [facility] every winter, usually between April and October. Flu is caused by influenza viruses, and is spread mainly by coughing, sneezing, and close contact. Anyone can get flu, but the risk of getting flu is highest among children. Symptoms come on suddenly and may last several days. They can include: fever/chills sore throat muscle aches fatigue cough headache runny or stuffy nose Flu can make some people much sicker than others. These people include young children, people 65 and older, women, and people with certain health conditionssuch as heart, lung or kidney disease, nervous system disorders, or a weakened immune system. Flu vaccination is especially important for these people, and anyone in close contact with them. Flu can also lead to pneumonia, and make existing medical conditions worse. It can cause diarrhea and seizures in children. Each year thousands of people in the [place] from flu, and many more are hospitalized. Flu vaccine is the best protection against flu and its complications. Flu vaccine also helps prevent spreading flu from person to person. 2. Inactivated and recombinant flu vaccines You are getting an injectable flu vaccine, which is either an "inactivated" or "recombinant" vaccine. These vaccines do not contain any live influenza virus. They are given by injection with a needle, and often called the "flu shot." A different live, attenuated (weakened) influenza vaccine is sprayed into the nostrils. This vaccine is described in a separate Vaccine Information Statement. Flu vaccination is recommended every year. Some children 6 months through 8 years of age might need two doses during one year. Flu viruses are always changing. Each year's flu vaccine is made to protect against 3 or 4 viruses that are likely to cause disease that year. Flu vaccine cannot prevent all cases of flu, but it is the best defense against the disease. It takes about 2 weeks for protection to develop after the vaccination, and protection lasts several months to a year. Some illnesses that are not caused by influenza virus are often mistaken for flu. Flu vaccine will not prevent these illnesses. It can only prevent influenza. Some inactivated flu vaccine contains a very small amount of a mercury-based preservative called thimerosal. Studies have shown that thimerosal in vaccines is not harmful, but flu vaccines that do not contain a preservative are available. 3. Some people should not get this vaccine Tell the person who gives you the vaccine: If you have any severe, life-threatening allergies. If you ever had a life- threatening allergic reaction after a dose of flu vaccine, or have a severe allergy to any part of this vaccine, including (for example) an allergy to gelatin, antibiotics, or eggs, you may be advised not to get vaccinated. Most, but not all, types of flu vaccine contain a small amount of egg protein. If you ever had Guillain-Sahu Syndrome (a severe paralyzing illness, also called GBS). Some people with a history of GBS should not get this vaccine. This should be discussed with your doctor. If you are not feeling well. It is usually okay to get flu vaccine when you have a mild illness, but you might be advised to wait until you feel better. You should come back when you are better. 4. Risks of a vaccine reaction With a vaccine, like any medicine, there is a chance of side effects. These are usually mild and go away on their own. Problems that could happen after any vaccine: Brief fainting spells can happen after any medical procedure, including vaccination. Sitting or lying down for about 15 minutes can help prevent fainting, and injuries caused by a fall. Tell your doctor if you feel dizzy, or have vision changes or ringing in the ears. Severe shoulder pain and reduced range of motion in the arm where a shot was given can happen, very rarely, after a vaccination. Severe allergic reactions from a vaccine are very rare, estimated at less than 1 in a million doses. If one were to occur, it would usually be within a few minutes to a few hours after the vaccination. Mild problems following inactivated flu vaccine: soreness, redness, or swelling where the shot was given hoarseness sore, red or itchy eyes cough fever aches headache itching fatigue If these problems occur, they usually begin soon after the shot and last 1 or 2 days. Moderate problems following inactivated flu vaccine: Young children who get inactivated flu vaccine and pneumococcal vaccine ( PCV13) at the same time may be at increased risk for seizures caused by fever. Ask your doctor for more information. Tell your doctor if a child who is getting flu vaccine has ever had a seizure. Inactivated flu vaccine does not contain live flu virus, so you cannot get the flu from this vaccine. As with any medicine, there is a very remote chance of a vaccine causing a serious injury or . The safety of vaccines is always being monitored. For more information, visit: www.cdc.gov/vaccinesafety/ 5. What if there is a serious reaction? What should I look for? Look for anything that concerns you, such as signs of a severe allergic reaction, very high fever, or behavior changes. Signs of a severe allergic reaction can include hives, swelling of the face and throat, difficulty breathing, a fast heartbeat, dizziness, and weakness. These would start a few minutes to a few hours after the vaccination. What should I do? If you think it is a severe allergic reaction or other emergency that can' t wait, call 911 and get the person to the nearest hospital. Otherwise, call your doctor. Afterward, the reaction should be reported to the Vaccine Adverse Event Reporting System (VAERS). Your doctor should file this report, or you can do it yourself through the VAERS web site at www.vaers.hhs.gov, or by calling 7-546- 256-0097. VAERS does not give medical advice. 6. The National Vaccine Injury Compensation Program The National Vaccine Injury Compensation Program (VICP) is a federal program that was created to compensate people who may have been injured by certain vaccines. Persons who believe they may have been injured by a vaccine can learn about the program and about filing a claim by calling or visiting the VICP website at www.[facility].gov/vaccinecompensation. There is a time limit to file a claim for compensation. 7. How can I learn more? Ask your health care provider. Call your local or state health department. Contact the Centers for Disease Control and Prevention (CDC): Call (8-196-DSE-INFO) or Visit CDC's website at www.cdc.gov/flu CDC Vaccine Information Statement (Interim) Inactivated Influenza Vaccine (02/17) Document Released: 04/12/2007 Document Revised: 11/02/2014 Document Reviewed: Exit[employer] Patient Information 2015 [employer]. This information is not intended to replace advice given to you by your health care provider. Make sure you discuss any questions you have with your health care provider. No follow up information was provided. Extracted from: Title: Office Visit Note Author: Aleena Salcido DO Date: 04/14/15 Assessment/Plan Anxiety Currently chronic controlled with bupropion continue. Ordered: Office Visit Level 4 Est 70674 Chronic headache stable on Topamax, continue. Ordered: Office Visit Level 4 Est 03887 Depression controlled on bupropion, continue current dose. return to clinic in 6 months. Ordered: Office Visit Level 4 Est 83908 Hypertension currently controlled on bystolic, labs done recently, continue current medication. Return to clinic in 6 months. Ordered: Office Visit Level 4 Est 66523 Immunization due Future Scheduled TestsReferral* Return to Clinic 11/11/14 10:59 AM Referrals to Other Providers Referred by: Olga Jones
--- OUTSIDE RECORDS SUMMARY | 2016-10-06 09:22 | XMS REPORT | Continuity of Care Document ---
Author Author [facility] Address Unknown Phone Unavailable Care Team Providers Care Mine Inspector Federal Name Role Phone Navid Stephen Primary Care Physician [phone] Insurance Providers Payer Name Policy Number Subscriber Name Relationship [facility] [id number] Broderick Vidal 01 Advance Directives Directive Response Recorded Date/Time Advanced Directives No 01/25/16 12:22am Chief Complaint and Reason for Visit Chief Complaint GI Complaint Reason for Visit Chronic diarrhea Metabolic acidosis Problems Active Problems Medical Problem Onset Date Status Abrasion, knee Unknown Acute Chronic diarrhea ~01/24/2016 Acute Concussion without loss of consciousness Unknown Acute Hypoglycemia Unknown Acute Metabolic acidosis Unknown Acute Weakness Unknown Acute Medications Current Home Medications Medication Dose Units Route Directions Days/Qty Instructions Start Date Atorvastatin 10 Mg Unknown Dose ORAL Daily 03/10/15 Metformin Hcl (Glucophage) 1,000 Mg Unknown Dose ORAL Daily Saxagliptin Hcl 2.5 Mg Unknown Dose ORAL Daily 03/10/15 Prasugrel Hcl 5 Mg Unknown Dose ORAL Daily 03/10/15 Aspirin 81 Mg Unknown Dose ORAL Daily 03/10/15 Folic Acid 0.4 Mg Unknown Dose ORAL Daily 03/10/15 Prednisone Micronized 5 Gm Unknown Dose Miscell Daily 03/10/15 Nebivolol Hcl 2.5 Mg Unknown Dose ORAL Daily 03/10/15 Ferrous Sulfate 15 Mg/1 Ml Unknown Dose ORAL Daily 03/10/15 Eug600/Iron Fumarate/Fa/Dss 1 Each Unknown Dose ORAL Daily Cholecalciferol (Vitamin D3) 400 Unit Unknown Dose ORAL Daily 03/16 Calcium Carbonate 500 Mg Unknown Dose ORAL Daily 03/10/15 Duloxetine Hcl 20 Mg Unknown Dose ORAL Daily 03/10/15 Topiramate 25 Mg 25 Mg ORAL Twice A Day 01/24/16 Bupropion Hcl (Wellbutrin) 75 Mg 75 Mg ORAL Twice A Day 01/24/16 Past Home Medications Medication Directions Ordered Status Infliximab 100 Mg Vial, Unknown Dose Intravenous As Directed 03/10/15 Discontinued Levothyroxine Sodium 0.5 Gm Powder, Unknown Dose Miscell Daily 03/10/15 Discontinued Insulin Detemir (Insulin Levemir) 100 Unit/1 Ml Insuln.pen, Unknown Dose Subcutaneous Daily 03/10/15 Discontinued Social History Query Response Start Date Stop Date Smoking Status Former smoker Hospital Discharge Instructions No hospital discharge instructions. Plan of Care Discharge Date 01/25/16 2:27am Disposition 01 HOME OR SELF-CARE Condition at Discharge Stable Instructions/Education Provided Chronic Diarrhea (ED) Prescriptions See Medication Section Referrals Navid Stephen - Additional Instructions/Education Push fluids, especially Gatorade or All- Sport. Meds as before, including Loperamide, Prochlorperazine & Hyoscyamine. May also try Pepto Bismol, per bottle; not more than 7 doses per 24 hours. You have a very mild case of metabolic acidosis, likely due to your diarrhea, this makes it very important that you follow up with your PCP in 1-2 days. Return to ER as needed for dizziness, excessive weakness, or other worrisome symptoms. Some of your test results may not be complete prior to your leaving the Emergency Department. The Emergency Department is not authorized to give test results over the phone. Please contact the doctor's office listed in this packet of information for your final results. Follow up with your primary care physician or return to the Emergency Department for worsening or worrisome symptoms. * Emergency Department phone number: [phone], x [phone]* MEDICAL RECORD If you need copies of your X-rays, call [phone]. If you need copies of your medical record, including lab results, a signed authorization for release of records will be required. A telephone call for release of Health Information is not allowed. BILLING Billing can sometimes be confusing and frustrating. To help avoid confusion in the future, please take a moment to acquaint yourself with the billing parties for services. SERVICE BILLING CONSTITUTION PARTY Emergency Room Services [facility] Physician Services [facility] X-rays [place] [facility] Patients will receive bills for services from the appropriate provider. If you have any questions about your [facility] bill, our staff will be happy to assist you. Please call [phone], and ask for the billing department. THANK YOU for choosing [facility] as your emergency care provider! Care Plan and Goals ~~Discharge Care Plan~~ Problem: Nausea, vomiting or diarrhea Goal: Decrease in nausea, vomiting or diarrhea Instructions: Encourage fluids approximately 6-8 glasses of water or noncarbonated fluids. Take medication(s) as directed. Follow home discharge instructions. Follow up with primary care physicians or geoduck diver as directed. Functional Status No functional status results. Allergies, Adverse Reactions, Alerts Allergen Type Severity Reaction Status Last Updated Penicillin Allergy Severe Active 01/25/16 Tetanus Vaccines & Toxoid Allergy Unknown Active 01/25/16 Methotrexate Allergy Intermediate Active 01/25/16 Immunizations No immunization records. Vital Signs Acute Vital Signs Vital Response Date/Time Temperature (Fahrenheit) 98.7 01/25/2016 2:25am Pulse 97 bpm 01/25/2016 2:25am Respirations 18 01/25/2016 2:25am Height 5 ft 5 in Weight 167 lb Body Mass Index 27.0 kg/m^2 Results Laboratory Results Test Name Result Units Flags Reference Collection Date/Time Result Date/ Time Comments Stool Weight 10 g 01/19/2016 10:20am 01/22/2016 9:11am Stool Collection Time Random h () 01/19/2016 10:20am 01/22/2016 9:44am More reliable results can be obtained from a timed collection. 48 and 72 hour collections will give the most reliable results. Percent Fat >20% in a random collection is suggestive of a fat malabsorption disorder and should be confirmed with a timed collection. Test Performed by: [place] [address] Border Inspector: Keith Toro II, M.D., Ph.D. Corrected result; previously reported as RANDOM on 01/19/16 at 17:12 by V/AUT --- 01/22/16 0911 --- Fecal Fat HR previously reported as: RANDOM More reliable results can be obtained from a timed collection. 48 and 72 hour collections will give the most reliable results. Percent Fat >20% in a random collection is suggestive of a fat malabsorption disorder and should be confirmed with a timed collection. Corrected result; previously reported as RANDOM on 01/19/16 at 17:12 by V/AUT --- 01/22/16 0944 --- Fecal Fat HR previously reported as: Random h More reliable results can be obtained from a timed collection. 48 and 72 hour collections will give the most reliable results. Percent Fat >20% in a random collection is suggestive of a fat malabsorption disorder and should be confirmed with a timed collection. Test Performed by: [place] [address] Border Inspector: Keith Toro II, M.D., Ph.D. Corrected result; previously reported as RANDOM on 01/19/16 at 17:12 by V/AUT --- 01/22/16 0911 --- Fecal Fat HR previously reported as: RANDOM Stool Percent Fat 10 % fat < 20 01/19/2016 10:20am 01/22/2016 9:44am Test Performed by: [place] [id number] Border Inspector: Keith Toro II, M.D., Ph.D. Pending Laboratory Results Test Name Collection Date/Time Procedures No known history of procedures. Encounters Encounter Location Arrival/Admit Date Discharge/Depart Date Attending Provider Departed Emergency Room [facility] 01/25/16 12:20am 01/25/16 2:27am CHARITO HOWE MD Registered Referred [facility] 01/24/16 8:17pm NAVID MUNGUIA MD Departed Emergency Room [facility] 01/24/16 3:52pm 01/24/16 5:39pm NAVID MUNGUIA MD Registered Clinic [facility] 01/19/16 10:39am WILMER GRANT MD Recent Diagnosis
--- OUTSIDE RECORDS SUMMARY | 2016-10-06 09:22 | XMS REPORT | Continuity of Care Document ---
Author Author Felisa Painting MD [facility] Address [address] [place] [address] [place] [address] Phone Care Team Providers Care Billing Analyst Name Role Phone Felisa Painting PP Unavailable Payers Payer name Insurance type Covered green party ID Authorization(s) Unknown Problems Condition Effective Dates (start - stop) Clinical Status Heavy menstrual period - *Chronic Skin nodule - *Acute Gynecological Examination - *Chronic Bright red rectal bleeding - *Resolved Hypercoagulable state - *Stable Diabetes Mellitus Type 2, Uncomplicated - *Chronic Anxiety - *Chronic Diabetes Mellitus Type 2, Uncomplicated - *Chronic HX TIA/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 - *Chronic Hypothyroidism - *Chronic Myalgia and myositis, unspecified - *Chronic Oral ulceration - *Acute Sinusitis, Acute - *Acute DM II (diabetes mellitus, type II), controlled - *Controlled HX: anticoagulation - *Chronic Excessive or frequent menstruation - *Symptomatic Other disorders of menstruation and other abnormal bleeding from female genital tract - *Symptomatic Occlusion and stenosis of carotid artery with cere - *Stable Transient cerebral ischemia - *Resolved Myalgia and myositis, unspecified - *Chronic Blurred vision - *Acute Hand numbness - *Acute Headache - *Acute Headache - *Chronic History of TIAs - *Chronic Acute venous thrombosis - *Chronic HYPOTHYROIDISM NOS - OVERWEIGHT - ANXIETY STATE NOS - TOBACCO USE DISORDER - 311 - DEPRESSIVE DISORDER NEC - MGRN WO AURA WO NTRC MGR - TRANSIENT ARTERIAL OCCLU - ALLERGIC RHINITIS NOS - DIZZINESS AND GIDDINESS - ABN INVOLUN MOVEMENT NEC - SKIN SENSATION DISTURB - HEADACHE - Coagulopathy - *Chronic History of cerebrovascular accident - *Chronic Hypertension, Benign - *Chronic Headache - *Chronic Diabetes Mellitus Type 2, Uncomplicated - *Chronic Glucosuria - *Acute Diabetes Mellitus, Adult Onset, Uncontrolled - *Chronic Headache - *Chronic 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 Tobacco Abuse - *Resolved Fibromyalgia - *Chronic Myalgia and myositis, unspecified - *Chronic Tachycardia - *Chronic Hypertension, Benign - *Chronic Conjunctivitis, unspecified - *Acute TIA (transient ischemic attack) - *Chronic Cerebrovascular disease - *Chronic Headache - *Chronic Myalgia and myositis, unspecified - *Chronic Oral ulceration - Recurrent PRIMARY HYPERCOAGULABLE STATE - *Chronic Occlusion and stenosis of carotid artery with cerebral infarction - Improved Hypertension, Unspecified - *Controlled Diabetes Mellitus Type 2, Uncomplicated - *Chronic Tobacco Abuse - *Resolved Oral ulcer - *Chronic Arterial thrombosis - *Chronic Pain in joint, site unspecified - *Chronic Family History Family Member Diagnosis Age At Onset Status Family h/o (Unknown) Allergies Yes Sister (Unknown) CVA (Stroke) Yes Sister (Unknown) Cancer - pancreatic Yes Mother (Unknown) Anemia Yes Family h/o (Unknown) CVA (Stroke) Yes Family h/o (Unknown) Hypertension Yes Family h/o (Unknown) heart disease, autoimmune/rhum Yes Family h/o (Unknown) Asthma Yes Social History Social History Element Description Quantity Unknown Allergies, Adverse Reactions, Alerts Substance Reaction Severity Status PENICILLINS Anaphylaxis Unknown TETANUS VACCINES & TOXOID Anaphylaxis Unknown TAPE, OCCLUSIVE ADHESIVE Unknown RASH Unknown Medications Medication Instructions Dosage Effective Dates (start - stop) Status folic acid 1 mg tablet take 5 Tablet by oral route every day 0 MG 2011 - Active aspirin 81 mg chewable tablet chew 1 tablet (81MG) by oral route every day 81 MG - Active multivitamin tablet take 1 Tablet by Oral route every day 0 - Active Vitamin D3 2,000 unit capsule take 1 Tablet by Oral route every day 0 - Active Effient 10 mg tablet take 1 tablet (10MG) by oral route every day 10 MG - Active Onglyza 5 mg tablet take 1 tablet (5MG) by oral route every day 5 MG - Active Lipitor 40 mg tablet Take 1 tablet by mouth every day. - Active Bystolic 10 mg tablet take 1 Tablet by Oral route every day 0 - Active Cymbalta 60 mg capsule,delayed release take 1 capsule (60MG) by oral route 2 times every day 60 MG - Active Synthroid 75 mcg tablet take 1 tablet (75MCG) by oral route every day 75 MCG - Active metformin 500 mg tablet take 2 Tablet (1000MG) by oral route 2 times every day with morning and evening meals 1000 MG - Active acyclovir 400 mg tablet 1 TID NEEDED as needed - Active Immunizations Vaccine Date Status Comments Flu (split) (3 yrs or older)(preservative free) completed Fluzone HD 0.5 ordered flu (split) (3 yrs or older) preservative free completed - Completed reason: other registry Results Test Name Date and Time Measure Units Reference Range Abnormal Flag Comments Unknown Vital Signs Date / Time: Height Weight Pulse Rate Blood Pressure Temperature /08:49:00 65.50 in 209.80 lbs 68 /min 114/84 mm[Hg] 98.7 F Procedures Procedure Date Unknown Encounters En[facility] Patient [facility] Patient [facility] Patient Visit [facility] Advance Directives Directive Effective Date Unknown
--- OUTSIDE RECORDS SUMMARY | 2016-10-06 09:22 | XMS REPORT | Referral Summary ---
Author Author [facility], [facility] Organization [facility] Address Unknown Phone Unavailable Care Team Providers Care Hot Baller Name Role Phone Sarmad Salcido Primary Care Physician [phone] Encounter VC Date(s): 06/10/15 - 06/10/15 [facility] [address] [place] [id number] Discharge Disposition: 01-Home or Self Care Attending Physician: Aleena Salcido DO Admitting Physician: Aleena Salcido DO Vital Signs Most recent to 1 oldest [Reference Range]: Peripheral Pulse 88 bpm Rate [60-100 bpm] (06/10/15 4:33 PM) Respiratory Rate 18 br/min [14-20 br/min] (06/10/15 4:33 PM) Blood Pressure 128/78 mmHg [90-140/60-90 mmHg] (06/10/15 4:33 PM) SpO2 98 % (06/10/15 4:33 PM) Problem List Condition Effective Dates Status [...] day), # 30 tabs, 6 Refill(s), Pharmacy: [facility], 1 tabs Oral Bedtime (once a day) Start Date: 05/31/15 Status: Ordered Benadryl 25 mg, Oral, Once, 1 tab, prior to remicade, 0 Refill(s) Start Date: 09/08/14 Status: Ordered Bystolic 10 mg oral tablet See Instructions, TAKE ONE TABLET BY MOUTH ONCE DAILY, # 30 tabs, 6 Refill(s), Pharmacy: [facility], TAKE ONE TABLET BY MOUTH ONCE DAILY Start Date: 05/31/15 Status: Ordered Calcium 600+D 1 tabs, Oral, Daily, 0 Refill(s) Start Date: 11/11/14 Status: Ordered DULoxetine 60 mg oral delayed release capsule See Instructions, TAKE ONE CAPSULE BY MOUTH TWICE DAILY, # 180 caps, 6 Refill(s) , Pharmacy: [facility], TAKE ONE CAPSULE BY MOUTH TWICE DAILY Start Date: 05/31/15 Status: Ordered Effient 10 mg oral tablet See Instructions, TAKE ONE TABLET BY MOUTH ONCE DAILY, # 30 tabs, 12 Refill(s), eRx: [facility], TAKE ONE TABLET BY MOUTH [...] # 4 tabs, 3 Refill(s) , Pharmacy: [facility]93, 1 tabs Oral qWeek,Instr:with 6 to 8 ounces of plain water, a... Start Date: 07/31/14 Status: Ordered glimepiride 4 mg oral tablet 4 mg 1 tabs, Oral, BID, # 60 tabs, 1 Refill(s), Pharmacy: [facility]93 , 1 tabs Oral BID Start Date: 06/03/15 Status: Ordered inFLIXimab 100 mg intravenous injection [...] MOUTH ONCE DAILY, # 90 tabs, eRx: [facility], TAKE ONE TABLET BY MOUTH ONCE DAILY Start Date: 04/19/15 Status: Ordered Levsin SL mg, SubLingual, q4hr, 0 Refill(s) Start Date: 04/09/15 Status: Ordered metFORMIN 500 mg oral tablet See Instructions, 2 tabs Oral BID, # 120 tabs, 1 Refill(s), Pharmacy: [facility]93, 2 tabs Oral BID Start Date: 06/03/15 Status: Ordered [place] 5 mg-325 mg oral tablet 1 tabs, Oral, q6hr, as needed for pain, # 60 tabs, 0 Refill(s) Start Date: 06/04/15 Status: Ordered omeprazole 20 mg oral delayed release capsule See Instructions, TAKE ONE CAPSULE BY MOUTH TWICE DAILY, # 60 caps, 5 Refill(s) , eRx: [facility]93, TAKE ONE CAPSULE BY MOUTH TWICE DAILY Start Date: 06/03/15 Status: Ordered ONE TOUCH ULTRA BLUE TEST STP See Instructions, USE TO TEST BLOOD SUGARS TWO DAYS PER WEEK ( FASTING AND 2 HOURS POST PRANDAL)., # 100 strip, 1 Refill(s), eRx: [facility], USE TO TEST BLOOD SUGARS TWO DAYS PER WEEK ( FASTING AND 2 HOURS POST PRANDAL). Start Date: 11/09/14 Status: Ordered Onglyza 5 mg oral tablet See Instructions, TAKE ONE TABLET BY MOUTH ONCE DAILY, # 30 tabs, 3 Refill(s), Pharmacy: [facility], TAKE ONE TABLET BY MOUTH ONCE DAILY Start Date: 06/03/15 Status: Ordered predniSONE 1 mg oral tablet See Instructions, 3 tabs Oral Daily,Instr:TO BE TAKEN WITH PREDNISONE 5 MG TABLETS, # 90 tabs, 0 Refill(s), Pharmacy: [place] [id number], please note change in dose, 3 tabs Oral Daily,Instr:TO BE TAKEN WITH PREDNISONE 5 MG TABLETS Start Date: 05/07/15 Status: Ordered 1 1 caps, Oral, Daily, 0 Refill(s) Start Date: 11/11/14 Status: Ordered Solu-MEDROL 125 mg preservative-free injection See Instructions, Give 125mg IVP prior to remicade infusion as a premedication, # 1 vials, 0 Refill(s) Start Date: 03/12/15 Status: Ordered Topamax 50 mg oral tablet See Instructions, 1 tab in am and 2 in pm., # 90 tabs, 2 Refill(s), eRx: [facility]93, 1 tab in am and 2 in pm. Start Date: 05/20/15 Status: Ordered VESIcare 10 mg oral tablet See Instructions, 1 tabs Oral Daily, # 30 tabs, 5 Refill(s), eRx: [facility]93, 1 tabs Oral Daily Start Date: 02/18/15 Status: Ordered Vitamin D3 2000 intl units oral tablet 2,000 Intl_Units 1 tabs, Oral, Daily, 0 Refill(s) Start Date: 12/19/13 Status: Ordered Wellbutrin 75 mg oral tablet See Instructions, 1 tabs Oral BID, # 60 tabs, 5 Refill(s), eRx: [facility], 1 tabs Oral BID Start [...] Smoking Status Never smoker Assessment and Plan Future Scheduled TestsReferral* Return to Clinic 11/11/14 10:59 AM Referrals to Other Providers Referred by: Olga Jones
--- OUTSIDE RECORDS SUMMARY | 2016-10-06 09:22 | XMS REPORT | Referral Summary ---
Author Author [facility] Organization [facility] Address Unknown Phone Unavailable Care Team Providers Care Community Midwife Name Role Phone Sarmad Salcido Primary Care Physician [phone] Encounter VC Date(s): 06/04/15 - 06/04/15 [facility] [address] [place] [id number] Discharge Disposition: 01-Home or Self Care Attending Physician: Rozina Gramajo MD Admitting Physician: Rozina Gramajo MD Vital Signs No data available for this section Problem List Condition Effective Dates Status Health [...] day), # 30 tabs, 6 Refill(s), Pharmacy: [facility] 993, 1 tabs Oral Bedtime (once a day) Start Date: 05/31/15 Status: Ordered Benadryl 25 mg, Oral, Once, 1 tab, prior to remicade, 0 Refill(s) Start Date: 09/08/14 Status: Ordered Bystolic 10 mg oral tablet See Instructions, TAKE ONE TABLET BY MOUTH ONCE DAILY, # 30 tabs, 6 Refill(s), Pharmacy: [facility]93, TAKE ONE TABLET BY MOUTH ONCE DAILY Start Date: 05/31/15 Status: Ordered Calcium 600+D 1 tabs, Oral, Daily, 0 Refill(s) Start Date: 11/11/14 Status: Ordered DULoxetine 60 mg oral delayed release capsule See Instructions, TAKE ONE CAPSULE BY MOUTH TWICE DAILY, # 180 caps, 6 Refill(s) , Pharmacy: [facility]93, TAKE ONE CAPSULE BY MOUTH TWICE DAILY Start Date: 05/31/15 Status: Ordered Effient 10 mg oral tablet See Instructions, TAKE ONE TABLET BY MOUTH ONCE DAILY, # 30 tabs, 12 Refill(s), eRx: [facility], TAKE ONE TABLET BY [...] # 4 tabs, 3 Refill(s) , Pharmacy: [facility], 1 tabs Oral qWeek,Instr:with 6 to 8 ounces of plain water, a... Start Date: 07/31/14 Status: Ordered glimepiride 4 mg oral tablet 4 mg 1 tabs, Oral, BID, # 60 tabs, 1 Refill(s), Pharmacy: [facility] , 1 tabs Oral [...] MOUTH ONCE DAILY, # 90 tabs, eRx: [facility], TAKE ONE TABLET BY MOUTH ONCE DAILY Start Date: 04/19/15 Status: Ordered Levsin SL mg, SubLingual, q4hr, 0 Refill(s) Start Date: 04/09/15 Status: Ordered metFORMIN 500 mg oral tablet See Instructions, 2 tabs Oral BID, # 120 tabs, 1 Refill(s), Pharmacy: [facility], 2 tabs Oral BID Start Date: 06/03/15 Status: Ordered [place] 5 mg-325 mg oral tablet 1 tabs, Oral, q6hr, as needed for pain, # 60 tabs, 0 Refill(s) Start Date: 06/04/15 Status: Ordered omeprazole 20 mg oral delayed release capsule See Instructions, TAKE ONE CAPSULE BY MOUTH TWICE DAILY, # 60 caps, 5 Refill(s) , eRx: [facility], TAKE ONE CAPSULE BY MOUTH TWICE DAILY Start Date: 06/03/15 Status: Ordered ONE TOUCH ULTRA BLUE TEST STP See Instructions, USE TO TEST BLOOD SUGARS TWO DAYS PER WEEK ( FASTING AND 2 HOURS POST PRANDAL)., # 100 strip, 1 Refill(s), eRx: [facility], USE TO TEST BLOOD SUGARS TWO DAYS PER WEEK ( FASTING AND 2 HOURS POST PRANDAL). Start Date: 11/09/14 Status: Ordered Onglyza 5 mg oral tablet See Instructions, TAKE ONE TABLET BY MOUTH ONCE DAILY, # 30 tabs, 3 Refill(s), Pharmacy: [facility], TAKE ONE TABLET BY MOUTH ONCE DAILY Start Date: 06/03/15 Status: Ordered predniSONE 1 mg oral tablet See Instructions, 3 tabs Oral Daily,Instr:TO BE TAKEN WITH PREDNISONE 5 MG TABLETS, # 90 tabs, 0 Refill(s), Pharmacy: [facility] 99, please note change in dose, 3 tabs [...] pm., # 90 tabs, 2 Refill(s), eRx: [facility], 1 tab in am and 2 in pm. Start Date: 05/20/15 Status: Ordered VESIcare 10 mg oral tablet See Instructions, 1 tabs Oral Daily, # 30 tabs, 5 Refill(s), eRx: [facility], 1 tabs Oral Daily Start Date: 02/18/15 Status: Ordered Vitamin D3 2000 intl units oral tablet 2,000 Intl_Units 1 tabs, Oral, Daily, 0 Refill(s) Start Date: 12/19/13 Status: Ordered Wellbutrin 75 mg oral tablet See Instructions, 1 tabs Oral BID, # 60 tabs, 5 Refill(s), eRx: [facility], 1 tabs Oral BID Start [...]
--- OUTSIDE RECORDS SUMMARY | 2016-10-06 09:22 | XMS REPORT | Referral Summary ---
Author Author [facility] Organization [facility] Address Unknown Phone Unavailable Care Team Providers Care Technical Proposal Writer Name Role Phone Sarmad Kwan Primary Care Physician [phone] Encounter VC Date(s): 11/20/14 - 11/20/14 [facility] [address] [place] [address] Discharge Diagnosis: Hematuria Discharge Disposition: 01-Home or Self Care Attending Physician: Rozina Gramajo MD Admitting Physician: Rozina Gramajo MD Referring Physician: Felisa Painting MD Vital Signs No data available for [...] with Dr. Kwan, # 30 tabs, eRx: [facility], 1 tabs Oral Bedtime (once a day),Instr:* LAST REFILL UNTIL SEEN *; you will... Start Date: 04/30/15 Status: Ordered Benadryl 25 mg, Oral, Once, 1 tab, prior to remicade, 0 Refill(s) Start Date: 09/08/14 Status: Ordered Bystolic 10 mg oral tablet See Instructions, TAKE ONE TABLET BY MOUTH ONCE DAILY, # 30 tabs, 3 Refill(s), eRx: [facility], TAKE ONE TABLET BY MOUTH ONCE DAILY Start Date: 01/29/15 Status: Ordered Calcium 600+D 1 tabs, Oral, Daily, 0 Refill(s) Start Date: 11/11/14 Status: Ordered DULoxetine 60 mg oral delayed release capsule See Instructions, TAKE ONE CAPSULE BY MOUTH TWICE DAILY, # 180 caps, 2 Refill(s) , eRx: [facility], TAKE ONE CAPSULE BY MOUTH TWICE DAILY Start Date: 08/28/14 Status: Ordered Effient 10 mg oral tablet See Instructions, TAKE ONE TABLET BY MOUTH ONCE DAILY, # 30 tabs, 12 Refill(s), eRx: [facility], TAKE ONE TABLET BY [...] # 4 tabs, 3 Refill(s) , Pharmacy: [facility], 1 tabs Oral qWeek,Instr:with 6 to 8 ounces of plain water, a... Start Date: 07/31/14 Status: Ordered glimepiride 4 mg oral tablet 4 mg 1 tabs, Oral, BID, PT NEEDS TO ESTABLISH WITH DR. KWAN BEFORE ANYMORE REFILLS, # 60 tabs, 1 Refill(s), Pharmacy: [facility] 993, 1 tabs Oral BID,Instr:PT NEEDS TO ESTABLISH [...] MOUTH ONCE DAILY, # 90 tabs, eRx: [facility], TAKE ONE TABLET BY MOUTH ONCE DAILY Start Date: 04/19/15 Status: Ordered Levsin SL mg, SubLingual, q4hr, 0 Refill(s) Start Date: 04/09/15 Status: Ordered metFORMIN 500 mg oral tablet See Instructions, 2 tabs Oral BID,Instr:PT NEEDS TO ESTABLISH WITH DR. KWAN BEFORE ANYMORE REFILLS, # 120 tabs, eRx: [facility], 2 tabs Oral BID, Instr:PT NEEDS TO ESTABLISH WITH DR. KWAN BEFORE ANYMORE REFILLS Start Date: 04/30/15 Status: Ordered [place] 5 mg-325 mg oral tablet 1 tabs, Oral, q6hr, as needed for pain, # 60 tabs, 0 Refill(s) Start Date: 05/07/15 Status: Ordered omeprazole 20 mg oral delayed release capsule See Instructions, TAKE ONE CAPSULE BY MOUTH TWICE DAILY, # 60 caps, 5 Refill(s) , eRx: [facility], TAKE ONE CAPSULE BY MOUTH TWICE DAILY Start Date: 11/30/14 Status: Ordered ONE TOUCH ULTRA BLUE TEST STP See Instructions, USE TO TEST BLOOD SUGARS TWO DAYS PER WEEK ( FASTING AND 2 HOURS POST PRANDAL)., # 100 strip, 1 Refill(s), eRx: [facility], USE TO TEST BLOOD SUGARS TWO DAYS PER WEEK ( FASTING AND 2 HOURS POST PRANDAL). Start Date: 11/09/14 Status: Ordered Onglyza 5 mg oral tablet See Instructions, TAKE ONE TABLET BY MOUTH ONCE DAILY, # 30 tabs, 3 Refill(s), eRx: [facility]93, TAKE ONE TABLET BY MOUTH ONCE DAILY Start Date: 01/29/15 Status: Ordered predniSONE 1 mg oral tablet See Instructions, 3 tabs Oral Daily,Instr:TO BE TAKEN WITH PREDNISONE 5 MG TABLETS, # 90 tabs, 0 Refill(s), Pharmacy: [facility] 993, please note change in dose, 3 [...] pm., # 90 tabs, 2 Refill(s), eRx: [facility], 1 tab in am and 2 in pm. Start Date: 02/18/15 Status: Ordered VESIcare 10 mg oral tablet See Instructions, 1 tabs Oral Daily, # 30 tabs, 5 Refill(s), eRx: [facility], 1 tabs Oral Daily Start Date: 02/18/15 Status: Ordered Vitamin D3 2000 intl units oral tablet 2,000 Intl_Units 1 tabs, Oral, Daily, 0 Refill(s) Start Date: 12/19/13 Status: Ordered Wellbutrin 75 mg oral tablet See Instructions, 1 tabs Oral BID, # 60 tabs, 5 Refill(s), eRx: [facility], 1 tabs Oral BID [...]
--- OUTSIDE RECORDS SUMMARY | 2016-10-06 09:22 | XMS REPORT | Referral Summary ---
Author Author [facility] Organization [facility] Address Unknown Phone Unavailable Care Team Providers Care Brass Pickler Name Role Phone Sarmad Salcido Primary Care Physician [phone] Encounter VC Date(s): 11/11/15 - 11/11/15 [facility] [address] [place] [address] Discharge Disposition: 01-Home or Self Care Attending Physician: Rozina Gramajo MD Admitting Physician: Rozina Gramajo MD Referring Physician: Rozina Gramajo MD Vital Signs No [...] Anaphylaxis Active Angiodema tetanus toxoid Active Medications Actemra 20 mg/mL intravenous solution See Instructions, 4 mg/kg IV 1st dose then 8 mg/KG IV EVERY 4 WEEKS, # 1 vials, 0 Refill(s), other reason (Rx) Start Date: 11/10/15 Status: Ordered acyclovir 400 mg oral tablet 400 mg 1 tabs, Oral, TID, as needed., 0 Refill(s) Start Date: 12/19/13 Status: Ordered alendronate 70 mg oral tablet See Instructions, TAKE ONE TABLET BY MOUTH ONCE A WEEK IN THE MORNING WITH A GLASS OF WATER, 30 MINUTES BEFORE A MEAL OR BEVERAGE. REMAIN UPRIGHT, # 4 tabs , 2 Refill(s), eRx: [facility], TAKE ONE TABLET BY MOUTH ONCE A WEEK IN THE MORNING... Start Date: 06/23/15 Status: Ordered Jesika See Instructions, 180 mg Oral 1 tab prior to infusion, 0 Refill(s) Start Date: 03/27/14 Status: Ordered apremilast 30 mg oral tablet 30 mg 1 tabs, Oral, BID, # 60 tabs, 0 Refill(s), Pharmacy: [facility] , 1 tabs Oral BID Start Date: 10/22/15 Status: Ordered aspirin 81 mg, Oral, Daily, 1 tab, 0 Refill(s) Start Date: 12/19/13 Status: Ordered atorvastatin 40 mg oral tablet 40 mg 1 tabs, Oral, Bedtime (once a day), # 30 tabs, 6 Refill(s), Pharmacy: [facility], 1 tabs Oral Bedtime (once a day) Start Date: 05/31/15 Status: Ordered Benadryl 25 mg, Oral, Once, 1 tab, prior to remicade, 0 Refill(s) Start Date: 09/08/14 Status: Ordered Bystolic 10 mg oral tablet See Instructions, TAKE ONE TABLET BY MOUTH ONCE DAILY, # 30 tabs, 6 Refill(s), Pharmacy: [facility], TAKE ONE TABLET BY MOUTH ONCE DAILY Start Date: 05/31/15 Status: Ordered Calcium 600+D 1 tabs, Oral, Daily, 0 Refill(s) Start Date: 11/11/14 Status: Ordered DULoxetine 60 mg oral delayed release capsule See Instructions, TAKE ONE CAPSULE BY MOUTH TWICE DAILY, # 180 caps, 6 Refill(s) , Pharmacy: [facility], TAKE ONE CAPSULE BY MOUTH TWICE DAILY Start Date: 05/31/15 Status: Ordered Effient 10 mg oral tablet See Instructions, TAKE ONE TABLET BY MOUTH ONCE DAILY, # 30 tabs, 12 Refill(s), eRx: [facility], TAKE ONE TABLET BY [...] # 45 tabs, 2 Refill( s), eRx: [facility], TAKE ONE-HALF TABLET BY MOUTH ONCE DAILY Start Date: 06/18/15 Status: Ordered levothyroxine 75 mcg (0.075 mg) oral tablet See Instructions, TAKE ONE TABLET BY MOUTH ONCE DAILY; Need TSH at next OV, # 30 tabs, 2 Refill(s), eRx: [facility], TAKE ONE TABLET BY MOUTH ONCE DAILY; Need TSH at next OV Start Date: 08/19/15 Status: Ordered Levsin SL mg, SubLingual, q4hr, 0 Refill(s) Start Date: 04/09/15 Status: Ordered metFORMIN 500 mg oral tablet See Instructions, 2 tabs Oral BID, # 120 tabs, 1 Refill(s), [facility]: [email or web address], 2 tabs Oral BID Start Date: 09/30/15 Status: Ordered [place] 5 mg-325 mg oral tablet 1 tabs, Oral, q6hr, as needed for pain, # 60 tabs, 0 Refill(s) Start Date: 10/22/15 Status: Ordered omeprazole 20 mg oral delayed release capsule See Instructions, TAKE ONE CAPSULE BY MOUTH TWICE DAILY, # 60 caps, 5 Refill(s) , eRx: [facility], TAKE ONE CAPSULE BY MOUTH TWICE DAILY Start Date: 06/03/15 Status: Ordered ONE TOUCH ULTRA BLUE TEST STP See Instructions, USE TO TEST BLOOD SUGARS TWO DAYS PER WEEK ( FASTING AND 2 HOURS POST PRANDAL)., # 100 strip, 1 Refill(s), [email or web address], USE TO TEST BLOOD SUGARS TWO DAYS PER WEEK ( FASTING AND 2 HOURS POST PRANDAL). Start Date: 11/09/14 Status: Ordered Onglyza 5 mg oral tablet See Instructions, TAKE ONE TABLET BY MOUTH ONCE DAILY, # 30 tabs, eRx: [facility], TAKE ONE TABLET BY MOUTH ONCE DAILY Start Date: 09/30/15 Status: Ordered predniSONE 1 mg oral tablet See Instructions, 3 tabs Oral Daily,Instr:TO BE TAKEN WITH PREDNISONE 5 MG TABLETS, # 90 tabs, 0 Refill(s), Pharmacy: [place] [id number], please note change in dose, 3 tabs Oral Daily,Instr:TO BE TAKEN WITH PREDNISONE 5 MG TABLETS Start Date: 05/07/15 Status: Ordered predniSONE 10 mg oral tablet See Instructions, Take 3 tablets for 3days then 2 tablets for 3days then 1 tablet for 3 days then 1/2 tablet for 3 days., # 20 tabs, 0 Refill(s), Pharmacy : [place] [address], Take 3 tablets for 3days then 2 tablets for 3days then 1 tablet for 3 da... Start Date: 11/03/15 Stop Date: 11/15/15 Status: Ordered predniSONE 20 mg oral tablet See Instructions, , 60 for 3 days, 40 for 3 days, 20 for 3 days, # 20 tabs, 0 Refill(s), Pharmacy: [place] [address], , 60 for 3 days, 40 for [...] pm., # 90 tabs, 2 Refill(s), eRx: [facility], 1 tab in am and 2 in pm. Start Date: 08/19/15 Status: Ordered VESIcare 10 mg oral tablet See Instructions, TAKE ONE TABLET BY MOUTH ONCE DAILY, # 30 tabs, 2 Refill(s), eRx: [facility], TAKE ONE TABLET BY MOUTH ONCE DAILY Start Date: 11/01/15 Status: Ordered Vitamin D3 2000 intl units oral tablet 2,000 Intl_Units 1 tabs, Oral, Daily, 0 Refill(s) Start Date: 12/19/13 Status: Ordered Wellbutrin 75 mg oral tablet See Instructions, 1 tabs Oral BID, # 60 tabs, 5 Refill(s), eRx: [facility], 1 tabs Oral BID [...]
--- OUTSIDE RECORDS SUMMARY | 2016-10-06 09:22 | XMS REPORT | Referral Summary ---
Author Organization Unknown Address Unknown Phone Unavailable Care Team Providers Care Informaticist Name Role Phone Eva Painting Primary Care Physician [phone] Encounter VC DESTINY [id number] Date(s): 10/14/14 - 10/14/14 [facility] [place] [address] [place], [place] [address] Discharge Diagnosis: SHORTNESS OF BREATH Discharge Disposition: Home or Self Care Attending Physician: Christian Espana MD Admitting Physician: Christian Espana MD Vital Signs No data available for this section Problem List Condition Effective Dates Status Health Status Informant Allergic Active rhinitis/Hay fever(Confirmed) Amaurosis/Rt(Confirm 08/15/11 Active ed) Anxiety(Confirmed) Active Stroke(Confirmed) Active Depression(Confirmed Active ) Diabetes(Confirmed) Resolved Disease/MTFHR Active mutation(Confirmed)1 Dizzinesses(Confirme Active d) Fibromyalgia(Confirm Active ed) Headaches(Confirmed) Resolved Hyperlipidemia(Confi Resolved rmed) Hypertension(Confirm Resolved ed) Hypothyroidism(Confi Active rmed) Numbness(Confirmed) 08/15/11 Active Occlusion of Active artery/R ICA(Confirmed) Overweight(Confirmed Active ) Takayasu(Confirmed) Active Tobacco use Active disorder(Confirmed) Tremor(Confirmed) 08/15/11 Active UTI (urinary tract Active infection)(Confirmed ) 1see nex gen Allergies, Adverse Reactions, Alerts Substance Reaction Severity Status azaTHIOprine Active methotrexate Active penicillin Anaphylaxis Active Angiodema tetanus toxoid Active Medications acyclovir 400 mg oral tablet tabs, Oral, TID, as needed., 0 Refill(s) Special Instructions: as needed. Start Date: 12/19/13 Status: Ordered Lauren See Instructions, 180 mg Oral prior to infusion, 0 Refill(s) Special Instructions: 180 mg Oral prior to infusion Start Date: 03/27/14 Status: Ordered aspirin 81 mg, 0 Refill(s) Start Date: 12/19/13 Status: Ordered Benadryl 25 mg, Oral, Once, prior to remicade, 0 Refill(s) Special Instructions: prior to remicade Start Date: 09/08/14 Status: Ordered Bystolic 10 mg oral tablet See Instructions, TAKE ONE TABLET BY MOUTH ONCE DAILY, # 30 tabs, 2 Refill(s), eRx: [facility], TAKE ONE TABLET BY MOUTH ONCE DAILY Special Instructions: TAKE ONE TABLET BY MOUTH ONCE DAILY Start Date: 07/27/14 Status: Ordered DULoxetine 60 mg oral delayed release capsule See Instructions, TAKE ONE CAPSULE BY MOUTH TWICE DAILY, # 180 caps, 2 Refill(s) , eRx: [facility], TAKE ONE CAPSULE BY MOUTH TWICE DAILY Special Instructions: TAKE ONE CAPSULE BY MOUTH TWICE DAILY Start Date: 08/28/14 Status: Ordered Effient 10 mg oral tablet 1 tabs, Oral, Daily, # 30 tabs, 3 Refill(s), Pharmacy: [facility], 1 tabs Oral Daily Start Date: 10/07/14 Status: Ordered folic acid 1 mg oral tablet 5 tabs, Oral, Daily, 0 Refill(s) Start Date: 12/19/13 Status: Ordered Fosamax 70 mg oral tablet 1 tabs, Oral, qWeek, with 6 to 8 ounces of plain water, at least 30 minutes before the first food, beverage, or medication of the day, # 4 tabs, 3 Refill(s) , Pharmacy: [facility], 1 tabs Oral qWeek,Instr:with 6 to 8 ounces of plain water, a... Special Instructions: with 6 to 8 ounces of plain water, at least 30 minutes before the first food, beverage, or medication of the day Start Date: 07/31/14 Status: Ordered gabapentin 100 mg oral capsule See Instructions, 2 tabs tid for 5 day, 1 tab tid for 5 day, 1 tab bid for 5 day , 1 tab daily for 5 days then stop, # 60 caps, 0 Refill(s), Pharmacy: [facility], 2 tabs tid for 5 day, 1 tab tid for 5 day, 1 tab bid for 5 day, 1 tab daily fo... Special Instructions: 2 tabs tid for 5 day, 1 tab tid for 5 day, 1 tab bid for 5 day, 1 tab daily for 5 days then stop Start Date: 10/01/14 Status: Ordered gabapentin 300 mg oral capsule 1-2 caps, Oral, TID, # 180 tabs, 1 Refill(s), Pharmacy: [facility], please see change in dose, 1-2 caps Oral TID Start Date: 06/01/14 Status: Ordered glimepiride 4 mg oral tablet 1 tabs, Oral, BID, # 60 tabs, 0 Refill(s), Pharmacy: [facility], 1 tabs Oral BID Start Date: 10/07/14 Status: Ordered inFLIXimab 100 mg intravenous injection See Instructions, 600 mg every 6 weeks. premed tylenol 1000mg po and lauren 180mg po as an infusion, # 1 vials, 0 Refill(s), other reason (Rx) Special Instructions: 600 mg every 6 weeks. premed tylenol 1000mg po and lauren 180mg po as an infusion Start Date: 03/30/14 Status: Ordered leflunomide 20 mg oral tablet 1 tabs, Oral, Daily, # 30 tabs, 2 Refill(s), Pharmacy: [facility], 1 tabs Oral Daily Start Date: 10/01/14 Status: Ordered Lipitor 40 mg oral tablet tabs, Oral, Bedtime (once a day), 0 Refill(s) Start Date: 12/19/13 Status: Ordered metFORMIN 500 mg oral tablet See Instructions, 2 tabs Oral BID, # 120 tabs, 2 Refill(s), eRx: [facility], 2 tabs Oral BID Special Instructions: 2 tabs Oral BID Start Date: 08/28/14 Status: Ordered multivitamin Daily, 0 Refill(s) Start Date: 12/19/13 Status: Ordered [place] 5 mg-325 mg oral tablet 1 tabs, Oral, q6hr, as needed for pain, # 60 tabs, 0 Refill(s) Start Date: 09/07/14 Status: Ordered omeprazole 20 mg oral delayed release capsule See Instructions, TAKE ONE CAPSULE BY MOUTH TWICE DAILY, # 60 caps, eRx: [facility], TAKE ONE CAPSULE BY MOUTH TWICE DAILY Special Instructions: TAKE ONE CAPSULE BY MOUTH TWICE DAILY Start Date: 09/28/14 Status: Ordered Onglyza 5 mg oral tablet See Instructions, TAKE ONE TABLET BY MOUTH ONCE DAILY, # 30 tabs, 2 Refill(s), eRx: [facility], TAKE ONE TABLET BY MOUTH ONCE DAILY Special Instructions: TAKE ONE TABLET BY MOUTH ONCE DAILY Start Date: 07/27/14 Status: Ordered predniSONE 5 mg oral tablet 2 tabs, Oral, Daily, # 60 tabs, 0 Refill(s), Pharmacy: [facility], 2 tabs Oral Daily Start Date: 10/01/14 Status: Ordered Synthroid 75 mcg (0.075 mg) oral tablet 1 tabs, Oral, Daily, # 90 tabs, 1 Refill(s), Pharmacy: [facility], 1 tabs Oral Daily Start Date: 02/03/14 Status: Ordered Topamax 25 mg oral tablet See Instructions, 1 tabs Oral daily for 7 days then 1 tab bid, # 60 tabs, 0 Refill(s), Pharmacy: [facility], 1 tabs Oral daily for 7 days then 1 tab bid Special Instructions: 1 tabs Oral daily for 7 days then 1 tab bid Start Date: 10/01/14 Status: Ordered Tylenol Extra Strength See Instructions, 1,000 mg Oral prior to infusion, 0 Refill(s) Special Instructions: 1,000 mg Oral prior to infusion Start Date: 03/27/14 Status: Ordered VESIcare 10 mg oral tablet See Instructions, 1 tabs Oral Daily, # 30 tabs, 1 Refill(s), eRx: [facility], 1 tabs Oral Daily Special Instructions: 1 tabs Oral Daily Start Date: 10/05/14 Status: Ordered Vitamin D3 2000 intl units oral tablet tabs, Oral, Daily, 0 Refill(s) Start Date: 12/19/13 Status: Ordered Results No data available for this section Immunizations Vaccine Date Refusal Reason influenza virus vaccine, live 05/05/13 influenza virus vaccine, live 04/22/08 Procedures Procedure Date Related Diagnosis Body Site Bypass, s/p EC-IC1 04/2012 Appendectomy delivery 1Dr Francois Molina Social History Social History Type Response Smoking Status Never smoker Assessment and Plan No data available for this section
--- OUTSIDE RECORDS SUMMARY | 2016-10-06 09:23 | XMS REPORT | Referral Summary ---
Author Author [facility] Organization [facility] Address Unknown Phone Unavailable Care Team Providers Care Aoc Director Combat Operations Officer Name Role Phone Sarmad Kwan Primary Care Physician [phone] Encounter VC Date(s): 12/18/14 - 12/18/14 [facility] [address] [place] [address] Discharge Diagnosis: TAKAYASU'S DISEASE Discharge Diagnosis: HEMATURIA Discharge Diagnosis: Anemia Discharge Disposition: 01-Home or Self Care Attending [...] prior to infusion, 0 Refill(s) Start Date: 9/26/14 Status: Ordered aspirin 81 mg, Oral, Daily, 1 tab, 0 Refill(s) Start Date: 12/19/13 Status: Ordered atorvastatin 40 mg oral tablet See Instructions, 1 tabs Oral Bedtime (once a day),Instr:* LAST REFILL UNTIL SEEN *; you will need to set up appointment with Dr. Kwan, # 30 tabs, eRx: [facility], 1 tabs Oral Bedtime (once a day),Instr:* LAST REFILL UNTIL SEEN *; you will... Start Date: 04/30/15 Status: Ordered Benadryl 25 mg, Oral, Once, 1 tab, prior to remicade, 0 Refill(s) Start Date: 09/08/14 Status: Ordered Bystolic 10 mg oral tablet See Instructions, TAKE ONE TABLET BY MOUTH ONCE DAILY, # 30 tabs, 3 Refill(s), eRx: [facility], TAKE ONE TABLET BY MOUTH ONCE DAILY Start Date: 01/29/15 Status: Ordered Calcium 600+D 1 tabs, Oral, Daily, 0 Refill(s) Start Date: 11/11/14 Status: Ordered DULoxetine 60 mg oral delayed release capsule See Instructions, TAKE ONE CAPSULE BY MOUTH TWICE DAILY, # 180 caps, 2 Refill(s) , eRx: [facility], TAKE ONE CAPSULE BY MOUTH TWICE DAILY Start Date: 08/28/14 Status: Ordered Effient 10 mg oral tablet See Instructions, TAKE ONE TABLET BY MOUTH ONCE DAILY, # 30 tabs, 12 Refill(s), eRx: [facility], TAKE ONE TABLET BY [...] # 4 tabs, 3 Refill(s) , Pharmacy: [facility], 1 tabs Oral qWeek,Instr:with 6 to 8 ounces of plain water, a... Start Date: 07/31/14 Status: Ordered glimepiride 4 mg oral tablet 4 mg 1 tabs, Oral, BID, PT NEEDS TO ESTABLISH WITH DR. KWAN BEFORE ANYMORE REFILLS, # 60 tabs, 1 Refill(s), Pharmacy: [facility], 1 tabs Oral BID,Instr:PT NEEDS TO [...] MOUTH ONCE DAILY, # 90 tabs, eRx: [facility], TAKE ONE TABLET BY MOUTH ONCE DAILY Start Date: 04/19/15 Status: Ordered Levsin SL mg, SubLingual, q4hr, 0 Refill(s) Start Date: 04/09/15 Status: Ordered metFORMIN 500 mg oral tablet See Instructions, 2 tabs Oral BID,Instr:PT NEEDS TO ESTABLISH WITH DR. KWAN BEFORE ANYMORE REFILLS, # 120 tabs, eRx: [facility], 2 tabs Oral BID, Instr:PT NEEDS TO ESTABLISH WITH DR. KWAN BEFORE ANYMORE REFILLS Start Date: 04/30/15 Status: Ordered [place] 5 mg-325 mg oral tablet 1 tabs, Oral, q6hr, as needed for pain, # 60 tabs, 0 Refill(s) Start Date: 05/07/15 Status: Ordered omeprazole 20 mg oral delayed release capsule See Instructions, TAKE ONE CAPSULE BY MOUTH TWICE DAILY, # 60 caps, 5 Refill(s) , eRx: [facility], TAKE ONE CAPSULE BY MOUTH TWICE DAILY Start Date: 11/30/14 Status: Ordered ONE TOUCH ULTRA BLUE TEST STP See Instructions, USE TO TEST BLOOD SUGARS TWO DAYS PER WEEK ( FASTING AND 2 HOURS POST PRANDAL)., # 100 strip, 1 Refill(s), eRx: [facility], USE TO TEST BLOOD SUGARS TWO DAYS PER WEEK ( FASTING AND 2 HOURS POST PRANDAL). Start Date: 11/09/14 Status: Ordered Onglyza 5 mg oral tablet See Instructions, TAKE ONE TABLET BY MOUTH ONCE DAILY, # 30 tabs, 3 Refill(s), eRx: [facility], TAKE ONE TABLET BY MOUTH ONCE DAILY Start Date: 01/29/15 Status: Ordered predniSONE 1 mg oral tablet See Instructions, 3 tabs Oral Daily,Instr:TO BE TAKEN WITH PREDNISONE 5 MG TABLETS, # 90 tabs, 0 Refill(s), Pharmacy: [facility]93, please note change in dose, [...] pm., # 90 tabs, 2 Refill(s), eRx: [facility], 1 tab in am and 2 in pm. Start Date: 02/18/15 Status: Ordered VESIcare 10 mg oral tablet See Instructions, 1 tabs Oral Daily, # 30 tabs, 5 Refill(s), eRx: [facility], 1 tabs Oral Daily Start Date: 02/18/15 Status: Ordered Vitamin D3 2000 intl units oral tablet 2,000 Intl_Units 1 tabs, Oral, Daily, 0 Refill(s) Start Date: 12/19/13 Status: Ordered Wellbutrin 75 mg oral tablet See Instructions, 1 tabs Oral BID, # 60 tabs, 5 Refill(s), eRx: [facility], 1 tabs Oral BID Start Date: 05/07/15 Status: Ordered Results Hematology Most recent to 1 oldest [Reference Range]: Sed Rate [0-23 20 mm/hr mm/hr] (12/18/14 8:45 AM) Immunizations Vaccine Date Refusal Reason influenza virus [...]
--- OUTSIDE RECORDS SUMMARY | 2016-10-06 09:23 | XMS REPORT | Referral Summary ---
Author Author [facility] Organization [facility] Address Unknown Phone Unavailable Care Team Providers Care Welding Machine Operator Submerged Arc Name Role Phone Sarmad Kwan Primary Care Physician [phone] Encounter Date(s): 11/11/14 - 11/11/14 [facility] [address] [place] [address] [place] [id number] Discharge Diagnosis: MVP (mitral valve prolapse) Discharge Diagnosis: Diabetes Discharge Diagnosis: Disease/MTFHR mutation Discharge Diagnosis: Hypertension Discharge Diagnosis: Takayasu Discharge Diagnosis: Dyslipidemia, goal LDL below 70 Discharge Disposition: 01-Home or Self Care Attending Physician: Olga Jones Admitting Physician: Olga Jones Referring Physician: Felisa Painting MD Vital Signs Most recent to 1 oldest [Reference Range]: Peripheral Pulse 72 bpm Rate [60-100 bpm] (11/11/14 10:37 AM) Blood Pressure 122/86 mmHg [90-140/60-90 mmHg] (11/11/14 10:37 AM) Problem List Condition Effective Dates Status [...] with Dr. Kwan, # 30 tabs, eRx: [facility], 1 tabs Oral Bedtime (once a day),Instr:* LAST REFILL UNTIL SEEN *; you will... Start Date: 04/30/15 Status: Ordered Benadryl 25 mg, Oral, Once, 1 tab, prior to remicade, 0 Refill(s) Start Date: 09/08/14 Status: Ordered Bystolic 10 mg oral tablet See Instructions, TAKE ONE TABLET BY MOUTH ONCE DAILY, # 30 tabs, 3 Refill(s), eRx: [facility], TAKE ONE TABLET BY MOUTH ONCE DAILY Start Date: 01/29/15 Status: Ordered Calcium 600+D 1 tabs, Oral, Daily, 0 Refill(s) Start Date: 11/11/14 Status: Ordered DULoxetine 60 mg oral delayed release capsule See Instructions, TAKE ONE CAPSULE BY MOUTH TWICE DAILY, # 180 caps, 2 Refill(s) , eRx: [facility], TAKE ONE CAPSULE BY MOUTH TWICE DAILY Start Date: 08/28/14 Status: Ordered Effient 10 mg oral tablet See Instructions, TAKE ONE TABLET BY MOUTH ONCE DAILY, # 30 tabs, 12 Refill(s), eRx: [facility], TAKE ONE TABLET BY [...] # 4 tabs, 3 Refill(s) , Pharmacy: [facility], 1 tabs Oral qWeek,Instr:with 6 to 8 ounces of plain water, a... Start Date: 07/31/14 Status: Ordered glimepiride 4 mg oral tablet 4 mg 1 tabs, Oral, BID, PT NEEDS TO ESTABLISH WITH DR. KWAN BEFORE ANYMORE REFILLS, # 60 tabs, 1 Refill(s), Pharmacy: [facility]93, 1 tabs Oral BID,Instr:PT NEEDS TO [...] MOUTH ONCE DAILY, # 90 tabs, eRx: [facility], TAKE ONE TABLET BY MOUTH ONCE DAILY Start Date: 04/19/15 Status: Ordered Levsin SL mg, SubLingual, q4hr, 0 Refill(s) Start Date: 04/09/15 Status: Ordered metFORMIN 500 mg oral tablet See Instructions, 2 tabs Oral BID,Instr:PT NEEDS TO ESTABLISH WITH DR. KWAN BEFORE ANYMORE REFILLS, # 120 tabs, eRx: [facility], 2 tabs Oral BID, Instr:PT NEEDS TO ESTABLISH WITH DR. KWAN BEFORE ANYMORE REFILLS Start Date: 04/30/15 Status: Ordered [place] 5 mg-325 mg oral tablet 1 tabs, Oral, q6hr, as needed for pain, # 60 tabs, 0 Refill(s) Start Date: 05/07/15 Status: Ordered omeprazole 20 mg oral delayed release capsule See Instructions, TAKE ONE CAPSULE BY MOUTH TWICE DAILY, # 60 caps, 5 Refill(s) , eRx: [facility], TAKE ONE CAPSULE BY MOUTH TWICE DAILY Start Date: 11/30/14 Status: Ordered ONE TOUCH ULTRA BLUE TEST STP See Instructions, USE TO TEST BLOOD SUGARS TWO DAYS PER WEEK ( FASTING AND 2 HOURS POST PRANDAL)., # 100 strip, 1 Refill(s), eRx: [facility]93, USE TO TEST BLOOD SUGARS TWO DAYS PER WEEK ( FASTING AND 2 HOURS POST PRANDAL). Start Date: 11/09/14 Status: Ordered Onglyza 5 mg oral tablet See Instructions, TAKE ONE TABLET BY MOUTH ONCE DAILY, # 30 tabs, 3 Refill(s), eRx: [facility]93, TAKE ONE TABLET BY MOUTH ONCE DAILY Start Date: 01/29/15 Status: Ordered predniSONE 1 mg oral tablet See Instructions, 3 tabs Oral Daily,Instr:TO BE TAKEN WITH PREDNISONE 5 MG TABLETS, # 90 tabs, 0 Refill(s), Pharmacy: [place] [id number], please note change in dose, 3 tabs [...] pm., # 90 tabs, 2 Refill(s), eRx: [facility], 1 tab in am and 2 in pm. Start Date: 02/18/15 Status: Ordered VESIcare 10 mg oral tablet See Instructions, 1 tabs Oral Daily, # 30 tabs, 5 Refill(s), eRx: [facility], 1 tabs Oral Daily Start Date: 02/18/15 Status: Ordered Vitamin D3 2000 intl units oral tablet 2,000 Intl_Units 1 tabs, Oral, Daily, 0 Refill(s) Start Date: 12/19/13 Status: Ordered Wellbutrin 75 mg oral tablet See Instructions, 1 tabs Oral BID, # 60 tabs, 5 Refill(s), eRx: [facility], 1 tabs Oral BID Start [...] Assessment and Plan Extracted from: Title: Office Visit Note Author: Olga Jones Date: 11/11/14 Assessment/Plan 1.Hypertension Encouraged patient to try to cut down on sodium intake and increase exercise; call blood pressures in 2 weeks if consistently greater than 140 systolic will adjust medications 2.MVP (mitral valve prolapse) Mild on most recent 2-D echocardiogram; educated patient on signs and symptoms; no SBE prophylaxis indicated 3.Dyslipidemia, goal LDL below 70 Continue atorvastatin; will be do for fasting lipid profile with next lab draw 4.Takayasu Managed by Dr. Guevaramatologurbano and [facility] 5.Diabetes Currently managed by PCP, patient requesting evaluation by float operator 6.Disease/MTFHR mutation Continue folic acid, aspirin and Effient I discussed the patient with the preceptor. Follow-up with Dr. Espana 6 months Orders: Return to Clinic Future Scheduled TestsReferral* Return to Clinic 11/11/14 10:59 AM Referrals to Other Providers Referred by: Olga Jones
--- OUTSIDE RECORDS SUMMARY | 2016-10-06 09:23 | XMS REPORT | Referral Summary ---
Author Author [facility] Organization [facility] Address Unknown Phone Unavailable Care Team Providers Care Windows Desktop Support Name Role Phone Sarmad Salcido Primary Care Physician [phone] Encounter VC Date(s): 01/25/16 - 01/25/16 [facility] [address] [place] [id number] Discharge Diagnosis: Chronic diarrhea Discharge Disposition: 01-Home or Self Care Attending Physician: Aleena Salcido DO Admitting Physician: Aleena Salcido DO Vital Signs Most recent to 1 oldest [Reference Range]: Peripheral Pulse 88 bpm Rate [60-100 bpm] (01/25/16 1:44 PM) Respiratory Rate 18 br/min [14-20 br/min] (01/25/16 1:44 PM) Blood Pressure 120/72 mmHg [90-140/60-90 mmHg] (01/25/16 1:44 PM) SpO2 98 % (01/25/16 1:44 PM) Problem List Condition Effective Dates Status [...] Actemra 20 mg/mL intravenous solution See Instructions, Infuse 8 mg/KG IV every 4 weeks. 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 Start Date: 06/23/15 Status: Ordered Jesika See Instructions, 180 mg Oral 1 tab prior to infusion, 0 Refill(s) Start Date: 03/27/14 Status: Ordered apremilast 30 mg oral tablet 30 mg 1 tabs, Oral, BID, # 60 tabs, 0 Refill(s), Pharmacy: [facility] , 1 tabs Oral BID Start Date: 10/22/15 Status: Ordered aspirin 81 mg, Oral, Daily, 1 tab, 0 Refill(s) Start Date: 12/19/13 Status: Ordered atorvastatin 40 mg oral tablet See Instructions, TAKE ONE TABLET BY MOUTH AT BEDTIME (ONCE A DAY), # 30 tabs, 1 Refill(s), eRx: [facility], TAKE ONE TABLET BY MOUTH AT BEDTIME ( ONCE A DAY) Start Date: 01/21/16 Status: Ordered Benadryl 25 mg, Oral, Once, 1 tab, prior to remicade, 0 Refill(s) Start Date: 09/08/14 Status: Ordered Bentyl 20 mg oral tablet 20 mg 1 tabs, Oral, QID, # 56 tabs, 0 Refill(s), Pharmacy: [facility] , 1 tabs Oral QID,x14 days Start Date: 01/25/16 Stop Date: 02/08/16 Status: Ordered buPROPion 75 mg oral tablet See Instructions, TAKE ONE TABLET BY MOUTH TWICE DAILY, # 60 tabs, eRx: [facility]93, TAKE ONE TABLET BY MOUTH TWICE DAILY Start Date: 01/17/16 Status: Ordered Bystolic 10 mg oral tablet See Instructions, TAKE ONE TABLET BY MOUTH ONCE DAILY, # 30 tabs, eRx: [facility] 993, TAKE ONE TABLET BY MOUTH ONCE DAILY Start Date: 01/17/16 Status: Ordered Bystolic 10 mg oral tablet See Instructions, TAKE ONE TABLET BY MOUTH ONCE DAILY, # 30 tabs, 6 Refill(s), Pharmacy: [place] [id number], TAKE ONE TABLET BY MOUTH ONCE DAILY Start Date: 05/31/15 Status: Ordered Calcium 600+D 1 tabs, Oral, Daily, 0 Refill(s) Start Date: 11/11/14 Status: Ordered DULoxetine 60 mg oral delayed release capsule See Instructions, TAKE ONE CAPSULE BY MOUTH TWICE DAILY, # 180 caps, 6 Refill(s) , Pharmacy: [place] [address], TAKE ONE CAPSULE BY MOUTH TWICE DAILY Start Date: 05/31/15 Status: Ordered Effient 10 mg oral tablet See Instructions, TAKE ONE TABLET BY MOUTH ONCE DAILY, # 30 tabs, 12 Refill(s), eRx: [place] [address], TAKE ONE TABLET BY MOUTH ONCE DAILY [...] # 45 tabs, 2 Refill( s), eRx: [facility] 993, TAKE ONE-HALF TABLET BY MOUTH ONCE DAILY Start Date: 06/18/15 Status: Ordered levothyroxine 75 mcg (0.075 mg) oral tablet See Instructions, TAKE ONE TABLET BY MOUTH ONCE DAILY, # 30 tabs, 2 Refill(s), eRx: [facility]93, TAKE ONE TABLET BY MOUTH ONCE DAILY Start Date: 11/15/15 Status: Ordered Levsin SL mg, SubLingual, q4hr, 0 Refill(s) Start Date: 04/09/15 Status: Ordered loperamide 2 mg oral capsule 2 mg 1 caps, Oral, QID, as needed for loose stool, # 60 caps, 0 Refill(s) Start Date: 12/13/15 Status: Ordered metFORMIN 1000 mg oral tablet, extended release See Instructions, TAKE ONE TABLET BY MOUTH TWICE DAILY, # 60 tabs, eRx: [facility], TAKE ONE TABLET BY MOUTH TWICE DAILY Start Date: 01/10/16 Status: Ordered [place] 5 mg-325 mg oral tablet 1 tabs, Oral, q6hr, as needed for pain, MAY REFILL ON 01-28-16, # 60 tabs, 0 Refill(s) Start Date: 01/25/16 Status: Ordered omeprazole 20 mg oral delayed release capsule See Instructions, TAKE ONE CAPSULE BY MOUTH TWICE DAILY, # 60 caps, 5 Refill(s) , eRx: [facility], TAKE ONE CAPSULE BY MOUTH TWICE DAILY Start Date: 12/20/15 Status: Ordered ONE TOUCH ULTRA BLUE TEST STP See Instructions, USE TO TEST BLOOD SUGARS TWO DAYS PER WEEK ( FASTING AND 2 HOURS POST PRANDAL)., # 100 strip, 1 Refill(s), eRx: [facility], USE TO TEST BLOOD SUGARS TWO DAYS PER WEEK ( FASTING AND 2 HOURS POST PRANDAL). Start Date: 11/09/14 Status: Ordered Onglyza 5 mg oral tablet See Instructions, TAKE ONE TABLET BY MOUTH ONCE DAILY, # 30 tabs, 1 Refill(s), eRx: [facility], TAKE ONE TABLET BY MOUTH ONCE DAILY Start Date: 01/21/16 Status: Ordered predniSONE 1 mg oral tablet See Instructions, 3 tabs Oral Daily,Instr:TO BE TAKEN WITH PREDNISONE 5 MG TABLETS, # 90 tabs, 0 Refill(s), Pharmacy: [facility], please note change in dose, 3 tabs Oral Daily,Instr:TO BE TAKEN WITH PREDNISONE 5 MG TABLETS Start Date: 05/07/15 Status: Ordered predniSONE 20 mg oral tablet See Instructions, , 60 for 3 days, 40 for 3 days, 20 for 3 days, # 20 tabs, 0 Refill(s), Pharmacy: [facility], , 60 for 3 days, 40 for 3 days, 20 for 3 days Start Date: 06/16/15 Status: Ordered 1 1 caps, Oral, Daily, 0 Refill(s) Start Date: 11/11/14 Status: Ordered prochlorperazine 1 tabs, Oral, q6hr, as needed for nausea/vomiting, 0 Refill(s) Start Date: 01/14/16 Status: Ordered Solu-MEDROL 125 mg preservative-free injection See Instructions, Give 125mg IVP prior to remicade infusion as a premedication, # 1 vials, 0 Refill(s) Start Date: 03/12/15 Status: Ordered topiramate 50 mg oral tablet See Instructions, TAKE ONE TABLET BY MOUTH IN THE MORNING AND TWO IN THE EVENING , # 90 tabs, 2 Refill(s), eRx: [facility], TAKE ONE TABLET BY MOUTH IN THE MORNING AND TWO IN THE EVENING Start Date: 11/15/15 Status: Ordered VESIcare 10 mg oral tablet See Instructions, TAKE ONE TABLET BY MOUTH ONCE DAILY, # 30 tabs, 2 Refill(s), eRx: [facility], TAKE ONE TABLET BY MOUTH ONCE DAILY Start Date: 11/01/15 Status: Ordered Vitamin D3 2000 intl units oral tablet 2,000 Intl_Units 1 tabs, Oral, Daily, 0 Refill(s) Start Date: 12/19/13 Status: Ordered Wellbutrin 75 mg oral tablet See Instructions, 1 tabs Oral BID, # 60 tabs, 1 Refill(s), Pharmacy: [facility], 1 tabs Oral BID Start Date: 11/15/15 Status: Ordered Results Chemistry Most recent to 1 oldest [Reference Range]: Sodium Venous 141 mmol/L [136-145 mmol/L] (01/25/16 2:30 PM) Potassium Venous 4.1 mmol/L 1 [3.5-5.1 mmol/L] (01/25/16 2:30 PM) Calcium Ionized 1.22 mmol/L Venous [1.10-1.30 (01/25/16 2:30 PM) mmol/L] Total CO2 Venous 17 mmol/L [24-29 mmol/L] *LOW* (01/25/16 2:30 PM) Glucose Venous 126 mg/dL [70-100 mg/dL] *HI* (01/25/16 2:30 PM) BUN Venous [8-26] <3 *LOW* (01/25/16 2:30 PM) Creatinine Venous 0.8 mg/dL [0.6-1.2 mg/dL] (01/25/16 2:30 PM) Venous CL [98-109 109 mmol/L mmol/L] (01/25/16 2:30 PM) 1Result Comment: This test was performed on a whole blood specimen. The presence or absence of hemolysis cannot be assessed. Hemolysis can falsely elevate potassium levels. Normals are for venous specimens only. 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 Ordered: Office Visit Level 3 Est 37132 Metabolic acidosis This appears to be stable on stat BMP. Her B UN is less than 3soit's clear that she is in a little bit of fluid overload as well. We will hold off on IV fluids and have her replace fluids orallyand go from there. Ordered: Office Visit Level 3 Est [id number] Orders: dicyclomine, 20 mg 1 tabs, Oral, QID, # 56 tabs, 0 Refill(s), Pharmacy : [facility], 1 tabs Oral QID,x14 days HYDROcodone-acetaminophen, 1 tabs, Oral, q6hr, as needed for pain, MAY REFILL ON 01-28-16, # 60 tabs, 0 Refill(s)
--- OUTSIDE RECORDS SUMMARY | 2016-10-06 09:23 | XMS REPORT | Referral Summary ---
Author Author [facility] Organization [facility] Address Unknown Phone Unavailable Care Team Providers Care Director Dietetics Department Name Role Phone Sarmad Kwan Primary Care Physician [phone] Encounter Date(s): 11/11/14 - 11/11/14 [facility] [address] [place] [address] [place] [id number] Discharge Diagnosis: MVP (mitral valve [...] with Dr. Kwan, # 30 tabs, eRx: [facility], 1 tabs Oral Bedtime (once a day),Instr:* LAST REFILL UNTIL SEEN *; you will... Start Date: 04/30/15 Status: Ordered Benadryl 25 mg, Oral, Once, 1 tab, prior to remicade, 0 Refill(s) Start Date: 09/08/14 Status: Ordered Bystolic 10 mg oral tablet See Instructions, TAKE ONE TABLET BY MOUTH ONCE DAILY, # 30 tabs, 3 Refill(s), eRx: [facility], TAKE ONE TABLET BY MOUTH ONCE DAILY Start Date: 01/29/15 Status: Ordered Calcium 600+D 1 tabs, Oral, Daily, 0 Refill(s) Start Date: 11/11/14 Status: Ordered DULoxetine 60 mg oral delayed release capsule See Instructions, TAKE ONE CAPSULE BY MOUTH TWICE DAILY, # 180 caps, 2 Refill(s) , eRx: [facility], TAKE ONE CAPSULE BY MOUTH TWICE DAILY Start Date: 08/28/14 Status: Ordered Effient 10 mg oral tablet See Instructions, TAKE ONE TABLET BY MOUTH ONCE DAILY, # 30 tabs, 12 Refill(s), eRx: [facility], TAKE ONE TABLET [...] # 4 tabs, 3 Refill(s) , Pharmacy: [facility], 1 tabs Oral qWeek,Instr:with 6 to 8 ounces of plain water, a... Start Date: 07/31/14 Status: Ordered glimepiride 4 mg oral tablet 4 mg 1 tabs, Oral, BID, PT NEEDS TO ESTABLISH WITH DR. KWAN BEFORE ANYMORE REFILLS, # 60 tabs, 1 Refill(s), Pharmacy: [facility] 993, 1 tabs Oral BID,Instr:PT NEEDS TO [...] MOUTH ONCE DAILY, # 90 tabs, eRx: [facility], TAKE ONE TABLET BY MOUTH ONCE DAILY Start Date: 04/19/15 Status: Ordered Levsin SL mg, SubLingual, q4hr, 0 Refill(s) Start Date: 04/09/15 Status: Ordered metFORMIN 500 mg oral tablet See Instructions, 2 tabs Oral BID,Instr:PT NEEDS TO ESTABLISH WITH DR. KWAN BEFORE ANYMORE REFILLS, # 120 tabs, eRx: [facility], 2 tabs Oral BID, Instr:PT NEEDS TO ESTABLISH WITH DR. KWAN BEFORE ANYMORE REFILLS Start Date: 04/30/15 Status: Ordered [place] 5 mg-325 mg oral tablet 1 tabs, Oral, q6hr, as needed for pain, # 60 tabs, 0 Refill(s) Start Date: 05/07/15 Status: Ordered omeprazole 20 mg oral delayed release capsule See Instructions, TAKE ONE CAPSULE BY MOUTH TWICE DAILY, # 60 caps, 5 Refill(s) , eRx: [facility], TAKE ONE CAPSULE BY MOUTH TWICE DAILY Start Date: 11/30/14 Status: Ordered ONE TOUCH ULTRA BLUE TEST STP See Instructions, USE TO TEST BLOOD SUGARS TWO DAYS PER WEEK ( FASTING AND 2 HOURS POST PRANDAL)., # 100 strip, 1 Refill(s), eRx: [facility]93, USE TO TEST BLOOD SUGARS TWO DAYS PER WEEK ( FASTING AND 2 HOURS POST PRANDAL). Start Date: 11/09/14 Status: Ordered Onglyza 5 mg oral tablet See Instructions, TAKE ONE TABLET BY MOUTH ONCE DAILY, # 30 tabs, 3 Refill(s), eRx: [facility] 993, TAKE ONE TABLET BY MOUTH ONCE DAILY Start Date: 01/29/15 Status: Ordered predniSONE 1 mg oral tablet See Instructions, 3 tabs Oral Daily,Instr:TO BE TAKEN WITH PREDNISONE 5 MG TABLETS, # 90 tabs, 0 Refill(s), Pharmacy: [place] [address], please note change in dose, 3 tabs [...] pm., # 90 tabs, 2 Refill(s), eRx: [facility], 1 tab in am and 2 in pm. Start Date: 05/20/15 Status: Ordered VESIcare 10 mg oral tablet See Instructions, 1 tabs Oral Daily, # 30 tabs, 5 Refill(s), eRx: [facility], 1 tabs Oral Daily Start Date: 02/18/15 Status: Ordered Vitamin D3 2000 intl units oral tablet 2,000 Intl_Units 1 tabs, Oral, Daily, 0 Refill(s) Start Date: 12/19/13 Status: Ordered Wellbutrin 75 mg oral tablet See Instructions, 1 tabs Oral BID, # 60 tabs, 5 Refill(s), eRx: [facility], 1 tabs Oral BID Start [...] draw 4.Takayasu Managed by Dr. Guevaramatologurbano and [facility] 5.Diabetes Currently managed by PCP, patient requesting evaluation by environmental protection specialist 6.Disease/MTFHR mutation Continue folic acid, aspirin and Effient I discussed the patient with the preceptor. Follow-up with Dr. Espana 6 months Orders: Return to Clinic Future Scheduled TestsReferral* Return to Clinic 11/11/14 10:59 AM Referrals to Other Providers Referred by: Olga Jones
--- OUTSIDE RECORDS SUMMARY | 2016-10-06 09:23 | XMS REPORT | Referral Summary ---
Author Author Via LIZZETH Duarte [facility] Medicine Organization Via FanyLIZZETH Fermin [facility] Address Unknown Phone Unavailable Care Team Providers Care Oncology Admin Name Role Phone Sarmad Salcido Primary Care Physician [phone] Encounter VC Date(s): 07/30/15 - 07/30/15 [facility] LIZZETH Duarte [place] [address] [place] [id number] Discharge Disposition: 01-Home or Self Care [...] # 4 tabs , 2 Refill(s), eRx: [facility], TAKE ONE TABLET BY MOUTH ONCE A WEEK IN THE MORNING... Start Date: 06/23/15 Status: Ordered Lauren See Instructions, 180 mg Oral 1 tab prior to infusion, 0 Refill(s) Start Date: 03/27/14 Status: Ordered aspirin 81 mg, Oral, Daily, 1 tab, 0 Refill(s) Start Date: 12/19/13 Status: Ordered atorvastatin 40 mg oral tablet 40 mg 1 tabs, Oral, Bedtime (once a day), # 30 tabs, 6 Refill(s), Pharmacy: [facility], 1 tabs Oral Bedtime (once a day) Start Date: 05/31/15 Status: Ordered Benadryl 25 mg, Oral, Once, 1 tab, prior to remicade, 0 Refill(s) Start Date: 09/08/14 Status: Ordered Bystolic 10 mg oral tablet See Instructions, TAKE ONE TABLET BY MOUTH ONCE DAILY, # 30 tabs, 6 Refill(s), Pharmacy: [facility], TAKE ONE TABLET BY MOUTH ONCE DAILY Start Date: 05/31/15 Status: Ordered Calcium 600+D 1 tabs, Oral, Daily, 0 Refill(s) Start Date: 11/11/14 Status: Ordered DULoxetine 60 mg oral delayed release capsule See Instructions, TAKE ONE CAPSULE BY MOUTH TWICE DAILY, # 180 caps, 6 Refill(s) , Pharmacy: [facility], TAKE ONE CAPSULE BY MOUTH TWICE DAILY Start Date: 05/31/15 Status: Ordered Effient 10 mg oral tablet See Instructions, TAKE ONE TABLET BY MOUTH ONCE DAILY, # 30 tabs, 12 Refill(s), eRx: [facility], TAKE ONE TABLET BY MOUTH ONCE DAILY Start Date: 04/08/15 Status: Ordered ferrous sulfate 325 mg, Oral, Daily, 1 tab, 0 Refill(s) Start Date: 03/04/15 Status: Ordered FiberCon 0 Refill(s) Start Date: 04/09/15 Status: Ordered folic acid 1 mg oral tablet 5 tabs, Oral, Daily, 0 Refill(s) Start Date: 12/19/13 Status: Ordered glimepiride 4 mg oral tablet 4 mg 1 tabs, Oral, BID, # 60 tabs, 1 Refill(s), Pharmacy: [facility] , 1 tabs Oral BID Start Date: 06/03/15 Status: Ordered inFLIXimab 100 mg intravenous injection See Instructions, Infuse 700 mg every 4 weeks as an infusion for DX: M31.4 premedicate with solumedrol 125mg IVP, tylenol 1000mg po and lauren 180mg po as an infusion, # 1 vials, 0 Refill(s), other reason (Rx) Start Date: 03/30/14 Status: Ordered insulin detemir 15 units, SubCutaneous, Bedtime (once a day), 0 Refill(s) Start Date: 03/04/15 Status: Ordered leflunomide 20 mg oral tablet See Instructions, TAKE ONE-HALF TABLET BY MOUTH ONCE DAILY, # 45 tabs, 2 Refill( s), eRx: [facility], TAKE ONE-HALF TABLET BY MOUTH ONCE DAILY Start Date: 06/18/15 Status: Ordered levothyroxine 75 mcg (0.075 mg) oral tablet See Instructions, TAKE ONE TABLET BY MOUTH ONCE DAILY Need TSH at next OV, # 30 tabs, 0 Refill(s), Pharmacy: [facility], TAKE ONE TABLET BY MOUTH ONCE DAILY; Need TSH at next OV Start Date: 07/22/15 Status: Ordered Levsin SL mg, SubLingual, q4hr, 0 Refill(s) Start Date: 04/09/15 Status: Ordered metFORMIN 500 mg oral tablet See Instructions, 2 tabs Oral BID, # 120 tabs, 1 Refill(s), eRx: [facility], 2 tabs Oral BID Start Date: 07/29/15 Status: Ordered [place] 5 mg-325 mg oral tablet 1 tabs, Oral, q6hr, as needed for pain, # 60 tabs, 0 Refill(s) Start Date: 07/05/15 Status: Ordered omeprazole 20 mg oral delayed release capsule See Instructions, TAKE ONE CAPSULE BY MOUTH TWICE DAILY, # 60 caps, 5 Refill(s) , eRx: [facility], TAKE ONE CAPSULE BY MOUTH TWICE DAILY Start Date: 06/03/15 Status: Ordered ONE TOUCH ULTRA BLUE TEST STP See Instructions, USE TO TEST BLOOD SUGARS TWO DAYS PER WEEK ( FASTING AND 2 HOURS POST PRANDAL)., # 100 strip, 1 Refill(s), eRx: [facility], USE TO TEST BLOOD SUGARS TWO DAYS PER WEEK ( FASTING AND 2 HOURS POST PRANDAL). Start Date: 11/09/14 Status: Ordered Onglyza 5 mg oral tablet See Instructions, TAKE ONE TABLET BY MOUTH ONCE DAILY, # 30 tabs, 3 Refill(s), Pharmacy: [facility], TAKE ONE TABLET BY MOUTH ONCE DAILY Start Date: 06/03/15 Status: Ordered predniSONE 1 mg oral tablet See Instructions, 3 tabs Oral Daily,Instr:TO BE TAKEN WITH PREDNISONE 5 MG TABLETS, # 90 tabs, 0 Refill(s), Pharmacy: [place] [id number], please note change in dose, 3 tabs Oral Daily,Instr:TO BE TAKEN WITH PREDNISONE 5 MG TABLETS Start Date: 05/07/15 Status: Ordered predniSONE 20 mg oral tablet See Instructions, , 60 for 3 days, 40 for 3 days, 20 for 3 days, # 20 tabs, 0 Refill(s), Pharmacy: [place] [id number], , 60 for 3 days, 40 for [...] pm., # 90 tabs, 2 Refill(s), eRx: [facility], 1 tab in am and 2 in pm. Start Date: 05/20/15 Status: Ordered VESIcare 10 mg oral tablet See Instructions, 1 tabs Oral Daily, # 30 tabs, 5 Refill(s), eRx: [facility]93, 1 tabs Oral Daily Start Date: 02/18/15 Status: Ordered Vitamin D3 2000 intl units oral tablet 2,000 Intl_Units 1 tabs, Oral, Daily, 0 Refill(s) Start Date: 12/19/13 Status: Ordered Wellbutrin 75 mg oral tablet See Instructions, 1 tabs Oral BID, # 60 tabs, 5 Refill(s), eRx: [facility], 1 tabs Oral BID Start Date: 05/07/15 Status: Ordered Results Hematology Most recent to 1 oldest [Reference Range]: WBC [4.8-10.8 9.8 10*3/uL 10*3/uL] (07/30/15 9:00 AM) RBC [4.00-5.20] 4.48 (07/30/15 9:00 AM) Hgb [12.0-16.0 13.2 gm/dL gm/dL] (07/30/15 9:00 AM) Hct [37.0-47.0 %] 40.0 % (07/30/15 9:00 AM) MCV [82.0-99.0 fL] 89.3 fL (07/30/15 9:00 AM) MCH [27.0-32.0 pg] 29.5 pg (07/30/15 9:00 AM) MCHC [32.0-36.0 33.0 gm/dL gm/dL] (07/30/15 9:00 AM) RDW [11.5-14.5 %] 14.1 % (07/30/15 9:00 AM) Platelet [150-400 356 10*3/uL 10*3/uL] (07/30/15 9:00 AM) MPV [8.8-14.8 fL] 9.1 fL (07/30/15 9:00 AM) Immature 0.5 % Granulocytes (07/30/15 9:00 AM) [0.0-1.0 %] Neutrophils [51-75 75 % %] (07/30/15 9:00 AM) Lymphocytes [20-46 17 % %] *LOW* (07/30/15 9:00 AM) Monocytes [4-11 %] 6 % (07/30/15 9:00 AM) Eosinophils [0-4 %] 1 % (07/30/15 9:00 AM) Basophils [0-2 %] 0 % (07/30/15 9:00 AM) Neutro Absolute 7.35 10*3 [1.90-7.00 10*3] *HI* (07/30/15 9:00 AM) Lymph Absolute 1.69 10*3 [0.80-3.30 10*3] (07/30/15 9:00 AM) Lee Absolute 0.60 10*3 [0.30-1.00 10*3] (07/30/15 9:00 AM) Eos Absolute 0.09 10*3 [0.00-0.50 10*3] (07/30/15 9:00 AM) Baso Absolute 0.03 10*3 [0.00-0.20 10*3] (07/30/15 9:00 AM) Sed Rate [0-23] 7 (07/30/15 9:00 AM) Chemistry Most recent to 1 oldest [Reference Range]: Sodium Lvl [135-144 136 mEq/L mEq/L] (07/30/15 9:00 AM) Potassium Lvl 3.4 mEq/L [3.5-5.2 mEq/L] *LOW* (07/30/15 9:00 AM) Chloride [99-111 101 mEq/L mEq/L] (07/30/15 9:00 AM) CO2 [22-31 mEq/L] 22 mEq/L (07/30/15 9:00 AM) AGAP [3-20] 13 (07/30/15 9:00 AM) BUN [7-19 mg/dL] 9 mg/dL (07/30/15 9:00 AM) Glucose Lvl [70-99 100 mg/dL mg/dL] *HI* (07/30/15 9:00 AM) Creatinine Lvl 0.81 mg/dL [0.57-1.11 mg/dL] (07/30/15 9:00 AM) eGFR [>60 mL/min] >60 mL/min 1 (07/30/15 9:00 AM) Calcium Lvl 9.5 mg/dL [8.9-10.5 mg/dL] (07/30/15 9:00 AM) Albumin Lvl [3.5-5.0 4.1 gm/dL gm/dL] (07/30/15 9:00 AM) Total Protein 6.8 gm/dL [6.4-8.3 gm/dL] (07/30/15 9:00 AM) Globulin [1.8-4.0 2.7 gm/dL gm/dL] (07/30/15 9:00 AM) ALT [0-55 U/L] 20 U/L (07/30/15 9:00 AM) AST [5-34 U/L] 11 U/L (07/30/15 9:00 AM) Alk Phos [40-150 50 U/L U/L] (07/30/15 9:00 AM) Bili Total [0.2-1.2 0.2 mg/dL mg/dL] (07/30/15 9:00 AM) 1Result Comment: Multiply eGFR results by 1.21 for race. Immunizations Vaccine Date Refusal Reason influenza virus [...]
--- OUTSIDE RECORDS SUMMARY | 2016-10-06 09:23 | XMS REPORT | Continuity of Care Document ---
Author Author Dora Chavez APRN Ambulatory Address 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 Hypothyroidism - *Chronic Heavy menstrual period - *Chronic Skin nodule - *Acute Gynecological Examination - *Chronic Myalgia and myositis, unspecified - [...] Dosage Effective Dates (start - stop) Status Cymbalta 60 mg capsule,delayed release take 1 capsule (60MG) by oral route 2 times every day 60 MG - Active folic acid 1 mg tablet take 5 [...] Oral route every day 0 - Active Synthroid 75 mcg tablet take [...] Measure Units Reference Range Abnormal Flag Comments Panel Description: Hemoglobin [id number] Hemoglobin A1C 10:46:00 6.1 % 4.1-5.6 H Testing performed at [facility] [address] [id number] Agronomy Teacher Reji Ozuna MD Panel Description: EAG Calculation-AMS Estimated Average Glucose 10:46:00 128.4 mg/dL Testing performed at [facility] [address] [place], [place] [address] Agronomy Teacher Reji Ozuna MD Panel Description: Yuybsxndzsbi-NT-Hnhszx Urine-AMS Albumin Random Urine 10:46:00 <0.5 mg/dL 0.0-1.7 Testing performed at [facility] [address] [place] [address] Agronomy Teacher Reji Ozuna MD Vital Signs Date / Time: Height Weight Pulse Rate Blood Pressure Temperature /10:12:00 65.50 in 213.40 lbs 94 /min 122/74 mm[Hg] 98.6 F Procedures Procedure Date Unknown Encounters Encounter Location Date Patient Visit [facility] Patient Visit [facility] Patient Visit [facility] Patient [facility] Patient Visit [facility] Neuro Patient [facility] Advance Directives Directive Effective Date Unknown
--- OUTSIDE RECORDS SUMMARY | 2016-10-06 09:23 | XMS REPORT | Referral Summary ---
Author Author Via LIZZETH Duarte [facility] Medicine Organization Via LIZZETH Duarte [facility] Address Unknown Phone Unavailable Care Team Providers Care Rehab Care Assistant Name Role Phone Sarmad Salcido Primary Care Physician [phone] Encounter VC Date(s): 12/09/15 - 12/09/15 Via LIZZETH Duarte [place] [address] [place] [address] Discharge Disposition: 01-Home or Self Care Attending Physician: Rozina Gramajo MD Admitting Physician: Mariposa Merritt MD Vital Signs No data available for [...] # 4 tabs , 2 Refill(s), eRx: [facility], TAKE ONE TABLET BY MOUTH ONCE A WEEK IN THE MORNING... Start Date: 06/23/15 Status: Ordered Jesika See Instructions, 180 mg Oral 1 tab prior to infusion, 0 Refill(s) Start Date: 03/27/14 Status: Ordered apremilast 30 mg oral tablet 30 mg 1 tabs, Oral, BID, # 60 tabs, 0 Refill(s), Pharmacy: [facility] , 1 tabs Oral BID Start Date: 10/22/15 Status: Ordered aspirin 81 mg, Oral, Daily, 1 tab, 0 Refill(s) Start Date: 12/19/13 Status: Ordered atorvastatin 40 mg oral tablet 40 mg 1 tabs, Oral, Bedtime (once a day), # 30 tabs, 6 Refill(s), Pharmacy: [facility], 1 tabs Oral Bedtime (once a day) Start Date: 05/31/15 Status: Ordered Benadryl 25 mg, Oral, Once, 1 tab, prior to remicade, 0 Refill(s) Start Date: 09/08/14 Status: Ordered Bystolic 10 mg oral tablet See Instructions, TAKE ONE TABLET BY MOUTH ONCE DAILY, # 30 tabs, 6 Refill(s), Pharmacy: [facility], TAKE ONE TABLET BY MOUTH ONCE DAILY Start Date: 05/31/15 Status: Ordered Calcium 600+D 1 tabs, Oral, Daily, 0 Refill(s) Start Date: 11/11/14 Status: Ordered DULoxetine 60 mg oral delayed release capsule See Instructions, TAKE ONE CAPSULE BY MOUTH TWICE DAILY, # 180 caps, 6 Refill(s) , Pharmacy: [facility], TAKE ONE CAPSULE BY MOUTH TWICE DAILY Start Date: 05/31/15 Status: Ordered Effient 10 mg oral tablet See Instructions, TAKE ONE TABLET BY MOUTH ONCE DAILY, # 30 tabs, 12 Refill(s), eRx: [facility], TAKE ONE TABLET BY MOUTH [...] # 45 tabs, 2 Refill( s), eRx: [facility], TAKE ONE-HALF TABLET BY MOUTH ONCE DAILY Start Date: 06/18/15 Status: Ordered levothyroxine 75 mcg (0.075 mg) oral tablet See Instructions, TAKE ONE TABLET BY MOUTH ONCE DAILY, # 30 tabs, 2 Refill(s), eRx: [facility], TAKE ONE TABLET BY MOUTH ONCE DAILY Start Date: 11/15/15 Status: Ordered Levsin SL mg, SubLingual, q4hr, 0 Refill(s) Start Date: 04/09/15 Status: Ordered metFORMIN 500 mg oral tablet See Instructions, 2 tabs Oral BID, # 120 tabs, 1 Refill(s), eRx: [facility], 2 tabs Oral BID Start Date: 09/30/15 Status: Ordered metFORMIN 500 mg oral tablet See Instructions, TAKE TWO TABLETS BY MOUTH TWICE DAILY, # 120 tabs, eRx: [facility], TAKE TWO TABLETS BY MOUTH TWICE DAILY Start Date: 11/30/15 Status: Ordered Alpha 5 mg-325 mg oral tablet 1 tabs, Oral, q6hr, as needed for pain, # 60 tabs, 0 Refill(s) Start Date: 11/24/15 Status: Ordered omeprazole 20 mg oral delayed release capsule See Instructions, TAKE ONE CAPSULE BY MOUTH TWICE DAILY, # 60 caps, 5 Refill(s) , eRx: [facility], TAKE ONE CAPSULE BY MOUTH TWICE DAILY Start Date: 06/03/15 Status: Ordered ONE TOUCH ULTRA BLUE TEST STP See Instructions, USE TO TEST BLOOD SUGARS TWO DAYS PER WEEK ( FASTING AND 2 HOURS POST PRANDAL)., # 100 strip, 1 Refill(s), eRx: [facility], USE TO TEST BLOOD SUGARS TWO DAYS PER WEEK ( FASTING AND 2 HOURS POST PRANDAL). Start Date: 11/09/14 Status: Ordered Onglyza 5 mg oral tablet See Instructions, TAKE ONE TABLET BY MOUTH ONCE DAILY, # 30 tabs, eRx: [facility], TAKE ONE TABLET BY MOUTH ONCE DAILY Start Date: 11/15/15 Status: Ordered predniSONE 1 mg oral tablet See Instructions, 3 tabs Oral Daily,Instr:TO BE TAKEN WITH PREDNISONE 5 MG TABLETS, # 90 tabs, 0 Refill(s), Pharmacy: [place] [id number], please note change in dose, 3 tabs Oral Daily,Instr:TO BE TAKEN WITH PREDNISONE 5 MG TABLETS Start Date: 05/07/15 Status: Ordered predniSONE 20 mg oral tablet See Instructions, , 60 for 3 days, 40 for 3 days, 20 for 3 days, # 20 tabs, 0 Refill(s), Pharmacy: [place] [address], , 60 for 3 days, 40 for [...] , # 90 tabs, 2 Refill(s), eRx: [facility], TAKE ONE TABLET BY MOUTH IN THE MORNING AND TWO IN THE EVENING Start Date: 11/15/15 Status: Ordered VESIcare 10 mg oral tablet See Instructions, TAKE ONE TABLET BY MOUTH ONCE DAILY, # 30 tabs, 2 Refill(s), eRx: [facility], TAKE ONE TABLET BY MOUTH ONCE DAILY Start Date: 11/01/15 Status: Ordered Vitamin D3 2000 intl units oral tablet 2,000 Intl_Units 1 tabs, Oral, Daily, 0 Refill(s) Start Date: 12/19/13 Status: Ordered Wellbutrin 75 mg oral tablet See Instructions, 1 tabs Oral BID, # 60 tabs, 1 Refill(s), Pharmacy: [facility], 1 tabs Oral BID Start Date: 11/15/15 Status: Ordered Results No data available for [...]
--- OUTSIDE RECORDS SUMMARY | 2016-10-06 09:23 | XMS REPORT | Referral Summary ---
Author Organization Unknown Address Unknown Phone Unavailable Care Team Providers Care Kit Planner Name Role Phone Eva Painting Primary Care Physician [phone] Encounter VC Date(s): 10/14/14 - 10/14/14 Via LIZZETH Duarte, [place] [address] [place], [place] [address] Discharge Disposition: Home or Self Care Attending Physician: Felisa Painting MD Admitting Physician: Felisa Painting MD Referring Physician: Felisa Painting MD Vital [...] DAILY, # 30 tabs, 2 Refill(s), eRx: [facility], TAKE ONE TABLET BY MOUTH ONCE DAILY Special Instructions: TAKE ONE TABLET BY MOUTH ONCE DAILY Start Date: 07/27/14 Status: Ordered DULoxetine 60 mg oral delayed release capsule See Instructions, TAKE ONE CAPSULE BY MOUTH TWICE DAILY, # 180 caps, 2 Refill(s) , eRx: [facility], TAKE ONE CAPSULE BY MOUTH TWICE DAILY Special Instructions: TAKE ONE CAPSULE BY MOUTH TWICE DAILY Start Date: 08/28/14 Status: Ordered Effient 10 mg oral tablet 1 tabs, Oral, Daily, # 30 tabs, 3 Refill(s), Pharmacy: [facility], 1 tabs Oral Daily Start [...] # 4 tabs, 3 Refill(s) , Pharmacy: [facility], 1 tabs Oral [...] stop, # 60 caps, 0 Refill(s), Pharmacy: [facility], 2 tabs tid for 5 [...] TID, # 180 tabs, 1 Refill(s), Pharmacy: [facility], please see change in dose, 1-2 caps Oral TID Start Date: 06/01/14 Status: Ordered glimepiride 4 mg oral tablet 1 tabs, Oral, BID, # 60 tabs, 0 Refill(s), Pharmacy: [facility], 1 tabs Oral BID Start [...] Daily, # 30 tabs, 2 Refill(s), Pharmacy: [facility], 1 tabs Oral Daily Start Date: 10/01/14 Status: Ordered Lipitor 40 mg oral tablet tabs, Oral, Bedtime (once a day), 0 Refill(s) Start Date: 12/19/13 Status: Ordered metFORMIN 500 mg oral tablet See Instructions, 2 tabs Oral BID, # 120 tabs, 2 Refill(s), eRx: [facility], 2 tabs Oral BID Special Instructions: 2 tabs Oral BID Start Date: 08/28/14 Status: Ordered multivitamin Daily, 0 Refill(s) Start Date: 12/19/13 Status: Ordered [place] 5 mg-325 mg oral tablet 1 tabs, Oral, q6hr, as needed for pain, # 60 tabs, 0 Refill(s) Start Date: 09/07/14 Status: Ordered omeprazole 20 mg oral delayed release capsule See Instructions, TAKE ONE CAPSULE BY MOUTH TWICE DAILY, # 60 caps, eRx: [facility], TAKE ONE CAPSULE BY MOUTH TWICE DAILY Special Instructions: TAKE ONE CAPSULE BY MOUTH TWICE DAILY Start Date: 09/28/14 Status: Ordered Onglyza 5 mg oral tablet See Instructions, TAKE ONE TABLET BY MOUTH ONCE DAILY, # 30 tabs, 2 Refill(s), eRx: [facility], TAKE ONE TABLET BY MOUTH ONCE DAILY Special Instructions: TAKE ONE TABLET BY MOUTH ONCE DAILY Start Date: 07/27/14 Status: Ordered predniSONE 5 mg oral tablet 2 tabs, Oral, Daily, # 60 tabs, 0 Refill(s), Pharmacy: [facility], 2 tabs Oral Daily Start Date: 10/01/14 Status: Ordered Synthroid 75 mcg (0.075 mg) oral tablet 1 tabs, Oral, Daily, # 90 tabs, 1 Refill(s), Pharmacy: [facility], 1 tabs Oral Daily Start Date: 02/03/14 Status: Ordered Topamax 25 mg oral tablet See Instructions, 1 tabs Oral daily for 7 days then 1 tab bid, # 60 tabs, 0 Refill(s), Pharmacy: [facility], 1 tabs Oral daily for [...] Daily, # 30 tabs, 1 Refill(s), eRx: [facility], 1 tabs Oral Daily Special [...]
--- OUTSIDE RECORDS SUMMARY | 2016-10-06 09:24 | XMS REPORT | Referral Summary ---
Author Author [facility] Organization [facility] Address Unknown Phone Unavailable Care Team Providers Care Lumber Mover Name Role Phone Sarmad Kwan Primary Care Physician [phone] Encounter VC Date(s): 02/15/15 - 02/15/15 [facility] [address] [place] [address] BIANCA Patterson [id number] Discharge Diagnosis: Overactive bladder Discharge Disposition: 01-Home or Self Care Attending Physician: Montez Gómez JR, MD Admitting Physician: Montez Gómez JR, MD Referring Physician: Felisa Painting MD Vital Signs Most recent to 1 oldest [Reference Range]: Peripheral Pulse 94 bpm Rate [60-100 bpm] (02/15/15 2:27 PM) Blood Pressure 120/84 mmHg [90-140/60-90 mmHg] (02/15/15 2:27 PM) Problem List Condition Effective Dates Status [...] 0 Refill(s) Start Date: 12/19/13 Status: Ordered Jesika See Instructions, 180 mg [...] with Dr. Kwan, # 30 tabs, eRx: [facility], 1 tabs Oral Bedtime (once a day),Instr:* LAST REFILL UNTIL SEEN *; you will... Start Date: 04/30/15 Status: Ordered Benadryl 25 mg, Oral, Once, 1 tab, prior to remicade, 0 Refill(s) Start Date: 09/08/14 Status: Ordered Bystolic 10 mg oral tablet See Instructions, TAKE ONE TABLET BY MOUTH ONCE DAILY, # 30 tabs, 3 Refill(s), eRx: [facility], TAKE ONE TABLET BY MOUTH ONCE DAILY Start Date: 01/29/15 Status: Ordered Calcium 600+D 1 tabs, Oral, Daily, 0 Refill(s) Start Date: 11/11/14 Status: Ordered DULoxetine 60 mg oral delayed release capsule See Instructions, TAKE ONE CAPSULE BY MOUTH TWICE DAILY, # 180 caps, 2 Refill(s) , eRx: [facility], TAKE ONE CAPSULE BY MOUTH TWICE DAILY Start Date: 08/28/14 Status: Ordered Effient 10 mg oral tablet See Instructions, TAKE ONE TABLET BY MOUTH ONCE DAILY, # 30 tabs, 12 Refill(s), eRx: [facility], TAKE ONE TABLET BY [...] # 4 tabs, 3 Refill(s) , Pharmacy: [facility], 1 tabs Oral qWeek,Instr:with 6 to 8 ounces of plain water, a... Start Date: 07/31/14 Status: Ordered glimepiride 4 mg oral tablet 4 mg 1 tabs, Oral, BID, PT NEEDS TO ESTABLISH WITH DR. KWAN BEFORE ANYMORE REFILLS, # 60 tabs, 1 Refill(s), Pharmacy: [facility], 1 tabs Oral BID,Instr:PT NEEDS TO ESTABLISH WITH DR. 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 KWAN BEFORE ANYMORE REFILLS, # 120 tabs, eRx: [facility], 2 tabs Oral BID, Instr:PT NEEDS TO ESTABLISH WITH DR. KWAN BEFORE ANYMORE REFILLS Start Date: 04/30/15 Status: Ordered Kinsley 5 mg-325 mg oral tablet 1 tabs, Oral, q6hr, as needed for pain, # 60 tabs, 0 Refill(s) Start Date: 05/07/15 Status: Ordered omeprazole 20 mg oral delayed release capsule See Instructions, TAKE ONE CAPSULE BY MOUTH TWICE DAILY, # 60 caps, 5 Refill(s) , eRx: [facility], TAKE ONE CAPSULE BY MOUTH TWICE DAILY Start Date: 11/30/14 Status: Ordered ONE TOUCH ULTRA BLUE TEST STP See Instructions, USE TO TEST BLOOD SUGARS TWO DAYS PER WEEK ( FASTING AND 2 HOURS POST PRANDAL)., # 100 strip, 1 Refill(s), eRx: [facility], USE TO TEST BLOOD SUGARS TWO DAYS PER WEEK ( FASTING AND 2 HOURS POST PRANDAL). Start Date: 11/09/14 Status: Ordered Onglyza 5 mg oral tablet See Instructions, TAKE ONE TABLET BY MOUTH ONCE DAILY, # 30 tabs, 3 Refill(s), eRx: [facility], TAKE ONE TABLET BY MOUTH ONCE DAILY Start Date: 01/29/15 Status: Ordered predniSONE 1 mg oral tablet See Instructions, 3 tabs Oral Daily,Instr:TO BE TAKEN WITH PREDNISONE 5 MG TABLETS, # 90 tabs, 0 Refill(s), Pharmacy: [facility], please note change in dose, 3 [...] pm., # 90 tabs, 2 Refill(s), eRx: [facility], 1 tab in am and 2 in pm. Start Date: 02/18/15 Status: Ordered VESIcare 10 mg oral tablet See Instructions, 1 tabs Oral Daily, # 30 tabs, 5 Refill(s), eRx: [facility], 1 tabs Oral Daily Start Date: 02/18/15 Status: Ordered Vitamin D3 2000 intl units oral tablet 2,000 Intl_Units 1 tabs, Oral, Daily, 0 Refill(s) Start Date: 12/19/13 Status: Ordered Wellbutrin 75 mg oral tablet See Instructions, 1 tabs Oral BID, # 60 tabs, 5 Refill(s), eRx: [facility], 1 tabs Oral BID Start [...] Extracted from: Title: Ambulatory Patient Education Author: Montez Gómez JR, MD Date : 02/15/15 Follow Up With: Where: When: Felisa Painting [address] [place] [address] Drive; [address] [place], [place] [id number] Business (1) Within 3 to 5 days Comments: Follow Up With: Where: When: Montez Weems[address]; [address] [place], [place] [id number] Business (1) In 6 months 08/18/2015 Comments: Extracted from: Title: Office Visit Note Author: Montez Gómez JR, MD Date: 02/15/15 Assessment/Plan Overactive bladder continue Vesicare 10 mg once a day. Reduce intake of caffeine highly acidic and highly spiced food. This patient has multiple other medical problems including type II diabetes mellitus insulin-dependent, depression and anxiety, vascular disorder,. Continue taking all medications. Recheck in my office in 6 months or sooner if needed. This was a 30 minute face to face visit with 1/2 of the visit devoted to counseling the patient. Ordered: Office Visit Level 4 Est 23998 Future Scheduled TestsReferral* Return to Clinic 11/11/14 10:59 AM Referrals to Other Providers Referred by: Olga Jones
--- OUTSIDE RECORDS SUMMARY | 2016-10-06 09:24 | XMS REPORT | Referral Summary ---
Author Author [facility] Organization [facility] Address Unknown Phone Unavailable Care Team Providers Care Gastroenterology Nurse Name Role Phone Sarmad Kwan Primary Care Physician [phone] Encounter Date(s): 10/29/14 - 10/29/14 [facility] [address] [place] [address] BIANCA Patterson [address] Discharge Diagnosis: Encounter for long-term (current) [...] with Dr. Kwan, # 30 tabs, eRx: [facility], 1 tabs Oral Bedtime (once a day),Instr:* LAST REFILL UNTIL SEEN *; you will... Start Date: 04/30/15 Status: Ordered Benadryl 25 mg, Oral, Once, 1 tab, prior to remicade, 0 Refill(s) Start Date: 09/08/14 Status: Ordered Bystolic 10 mg oral tablet See Instructions, TAKE ONE TABLET BY MOUTH ONCE DAILY, # 30 tabs, 3 Refill(s), eRx: [facility], TAKE ONE TABLET BY MOUTH ONCE DAILY Start Date: 01/29/15 Status: Ordered Calcium 600+D 1 tabs, Oral, Daily, 0 Refill(s) Start Date: 11/11/14 Status: Ordered DULoxetine 60 mg oral delayed release capsule See Instructions, TAKE ONE CAPSULE BY MOUTH TWICE DAILY, # 180 caps, 2 Refill(s) , eRx: [facility], TAKE ONE CAPSULE BY MOUTH TWICE DAILY Start Date: 08/28/14 Status: Ordered Effient 10 mg oral tablet See Instructions, TAKE ONE TABLET BY MOUTH ONCE DAILY, # 30 tabs, 12 Refill(s), eRx: [facility], TAKE ONE TABLET BY [...] # 4 tabs, 3 Refill(s) , Pharmacy: [facility], 1 tabs Oral qWeek,Instr:with 6 to 8 ounces of plain water, a... Start Date: 07/31/14 Status: Ordered glimepiride 4 mg oral tablet 4 mg 1 tabs, Oral, BID, PT NEEDS TO ESTABLISH WITH DR. KWAN BEFORE ANYMORE REFILLS, # 60 tabs, 1 Refill(s), Pharmacy: [facility], 1 tabs Oral BID,Instr:PT NEEDS [...] MOUTH ONCE DAILY, # 90 tabs, eRx: [facility], TAKE ONE TABLET BY MOUTH ONCE DAILY Start Date: 04/19/15 Status: Ordered Levsin SL mg, SubLingual, q4hr, 0 Refill(s) Start Date: 04/09/15 Status: Ordered metFORMIN 500 mg oral tablet See Instructions, 2 tabs Oral BID,Instr:PT NEEDS TO ESTABLISH WITH DR. KWAN BEFORE ANYMORE REFILLS, # 120 tabs, eRx: [facility], 2 tabs Oral BID, Instr:PT NEEDS TO ESTABLISH WITH DR. KWAN BEFORE ANYMORE REFILLS Start Date: 04/30/15 Status: Ordered [place] 5 mg-325 mg oral tablet 1 tabs, Oral, q6hr, as needed for pain, # 60 tabs, 0 Refill(s) Start Date: 03/29/15 Status: Ordered omeprazole 20 mg oral delayed release capsule See Instructions, TAKE ONE CAPSULE BY MOUTH TWICE DAILY, # 60 caps, 5 Refill(s) , eRx: [facility], TAKE ONE CAPSULE BY MOUTH TWICE DAILY Start Date: 11/30/14 Status: Ordered ONE TOUCH ULTRA BLUE TEST STP See Instructions, USE TO TEST BLOOD SUGARS TWO DAYS PER WEEK ( FASTING AND 2 HOURS POST PRANDAL)., # 100 strip, 1 Refill(s), eRx: [facility]93, USE TO TEST BLOOD SUGARS TWO DAYS PER WEEK ( FASTING AND 2 HOURS POST PRANDAL). Start Date: 11/09/14 Status: Ordered Onglyza 5 mg oral tablet See Instructions, TAKE ONE TABLET BY MOUTH ONCE DAILY, # 30 tabs, 3 Refill(s), eRx: [facility]93, TAKE ONE TABLET BY MOUTH ONCE DAILY Start Date: 01/29/15 Status: Ordered predniSONE 1 mg oral tablet See Instructions, 4 tabs Oral Daily,Instr:TO BE TAKEN WITH PREDNISONE 5 MG TABLETS, # 120 tabs, 1 Refill(s), Pharmacy: [facility] 99, 4 tabs Oral Daily,Instr:TO BE TAKEN [...] pm., # 90 tabs, 2 Refill(s), eRx: [facility], 1 tab in am and 2 in pm. Start Date: 02/18/15 Status: Ordered VESIcare 10 mg oral tablet See Instructions, 1 tabs Oral Daily, # 30 tabs, 5 Refill(s), eRx: [facility], 1 tabs Oral Daily Start Date: 02/18/15 Status: Ordered Vitamin D3 2000 intl units oral tablet 2,000 Intl_Units 1 tabs, Oral, Daily, 0 Refill(s) Start Date: 12/19/13 Status: Ordered Wellbutrin 75 mg oral tablet See Instructions, 1 tabs Oral BID, # 60 tabs, 5 Refill(s), eRx: [facility], 1 tabs Oral BID Start [...] BID, # 60 tabs, 1 Refill(s), Pharmacy: [facility], 1 tabs Oral BID Future Scheduled TestsReferral* Return to Clinic 11/11/14 10:59 AM Referrals to Other Providers Referred by: Olga Jones
--- OUTSIDE RECORDS SUMMARY | 2016-10-06 09:24 | XMS REPORT | Referral Summary ---
Author Author [facility], [facility] Organization [facility] Address Unknown Phone Unavailable Care Team Providers Care Fruit And Vegetable Inspector Name Role Phone Sarmad Kwan Primary Care Physician [phone] Encounter Date(s): 05/07/15 - 05/07/15 [facility] BIAN[place] [id number] Discharge Diagnosis: High risk medication use Discharge Diagnosis: intermediate current use of systemic steroids Discharge Diagnosis: Takayasu's arteritis Discharge Diagnosis: Chronic headaches Discharge Disposition: 01-Home or Self Care Attending Physician: Aleena Kwan DO Admitting Physician: Aleena Kwan DO Vital Signs Most recent to 1 oldest [Reference Range]: Peripheral Pulse 91 bpm Rate [60-100 bpm] (05/07/15 9:06 AM) Blood Pressure 135/83 mmHg [90-140/60-90 mmHg] (05/07/15 9:06 AM) Problem List Condition Effective Dates Status [...] with Dr. Kwan, # 30 tabs, eRx: [facility], 1 tabs Oral Bedtime (once a day),Instr:* LAST REFILL UNTIL SEEN *; you will... Start Date: 04/30/15 Status: Ordered Benadryl 25 mg, Oral, Once, 1 tab, prior to remicade, 0 Refill(s) Start Date: 09/08/14 Status: Ordered Bystolic 10 mg oral tablet See Instructions, TAKE ONE TABLET BY MOUTH ONCE DAILY, # 30 tabs, 3 Refill(s), eRx: [facility], TAKE ONE TABLET BY MOUTH ONCE DAILY Start Date: 01/29/15 Status: Ordered Calcium 600+D 1 tabs, Oral, Daily, 0 Refill(s) Start Date: 11/11/14 Status: Ordered DULoxetine 60 mg oral delayed release capsule See Instructions, TAKE ONE CAPSULE BY MOUTH TWICE DAILY, # 180 caps, 2 Refill(s) , eRx: [facility], TAKE ONE CAPSULE BY MOUTH TWICE DAILY Start Date: 08/28/14 Status: Ordered Effient 10 mg oral tablet See Instructions, TAKE ONE TABLET BY MOUTH ONCE DAILY, # 30 tabs, 12 Refill(s), eRx: [facility], TAKE [...] # 4 tabs, 3 Refill(s) , Pharmacy: [facility], 1 tabs Oral qWeek,Instr:with 6 to 8 ounces of plain water, a... Start Date: 07/31/14 Status: Ordered glimepiride 4 mg oral tablet 4 mg 1 tabs, Oral, BID, PT NEEDS TO ESTABLISH WITH DR. KWAN BEFORE ANYMORE REFILLS, # 60 tabs, 1 Refill(s), Pharmacy: [facility], 1 tabs Oral BID,Instr:PT [...] MOUTH ONCE DAILY, # 90 tabs, eRx: [facility], TAKE ONE TABLET BY MOUTH ONCE DAILY Start Date: 04/19/15 Status: Ordered Levsin SL mg, SubLingual, q4hr, 0 Refill(s) Start Date: 04/09/15 Status: Ordered metFORMIN 500 mg oral tablet See Instructions, 2 tabs Oral BID,Instr:PT NEEDS TO ESTABLISH WITH DR. KWAN BEFORE ANYMORE REFILLS, # 120 tabs, eRx: [facility], 2 tabs Oral BID, Instr:PT NEEDS TO ESTABLISH WITH DR. KWAN BEFORE ANYMORE REFILLS Start Date: 04/30/15 Status: Ordered Joseph 5 mg-325 mg oral tablet 1 tabs, [...] pm., # 90 tabs, 2 Refill(s), eRx: [facility], 1 tab in am and 2 in pm. Start Date: 02/18/15 Status: Ordered VESIcare 10 mg oral tablet See Instructions, 1 tabs Oral Daily, # 30 tabs, 5 Refill(s), eRx: [facility], 1 tabs Oral Daily Start Date: 02/18/15 Status: Ordered Vitamin D3 2000 intl units oral tablet 2,000 Intl_Units 1 tabs, Oral, Daily, 0 Refill(s) Start Date: 12/19/13 Status: Ordered Wellbutrin 75 mg oral tablet See Instructions, 1 tabs Oral BID, # 60 tabs, 5 Refill(s), eRx: [facility], 1 tabs Oral BID Start [...] Extracted from: Title: Office Visit Note Author: Rozina Gramajo MD Date: 05/07/15 Assessment/Plan 1.Takayasu's arteritis She will get her infliximab today. We will continue leflunomide 10 mg. we will decrease the prednisone to 8 mg. She is also on antiplatelet medications. Ordered: C-Reactive Protein (CRP) CBC w/ Differential Comprehensive Metabolic Panel 2.High risk medication use I will check blood counts liver tests today. Ordered: BD Bone Density DEXA Axial Skeleton CBC w/ Differential Comprehensive Metabolic Panel 3.Chronic headaches Continue thecurrent medications including Topamax. She is also on duloxetine. 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 Ordered: BD Bone Density DEXA Axial Skeleton Future Scheduled TestsReferral* Return to Clinic 11/11/14 10:59 AM Referrals to Other Providers Referred by: Olga Jones
--- OUTSIDE RECORDS SUMMARY | 2016-10-06 09:24 | XMS REPORT | Referral Summary ---
Author Author [facility] Organization [facility] Address Unknown Phone Unavailable Care Team Providers Care Assorter Name Role Phone Sarmad Kwan Primary Care Physician [phone] Encounter Date(s): 04/09/15 - 04/09/15 [facility] [address] [place] [address] BIANCA Patterson [id number] Discharge Diagnosis: Chronic headache disorder Discharge Diagnosis: Arteritis, Takayasu Discharge Diagnosis: High risk medication use Discharge Disposition: 01-Home or Self Care Attending Physician: Rozina Gramajo MD Admitting Physician: Rozina Gramajo MD Vital Signs Most recent to 1 oldest [Reference Range]: Peripheral Pulse 88 bpm Rate [60-100 bpm] (04/09/15 8:59 AM) Blood Pressure 139/99 mmHg [90-140/60-90 mmHg] (04/09/15 8:59 AM) Problem List Condition Effective Dates Status Health Status Informant Allergic Active rhinitis/Hay fever(Confirmed) Amaurosis/Rt(Confirm 08/15/11 Active ed) Anxiety(Confirmed) Active Stroke(Confirmed) Active Depression(Confirmed Active ) Diabetes(Confirmed) Active Disease/MTFHR Active [...] 1 tabs, Oral, Bedtime (once a day), * LAST REFILL UNTIL SEEN * you will need to set up appointment with Dr. Kwan, # 30 tabs, 0 Refill(s), Pharmacy: [facility], 1 tabs Oral Bedtime (once a day),Instr:* LAST REFILL UNTIL SEEN *; you wi... Start Date: 04/01/15 Status: Ordered Benadryl 25 mg, Oral, Once, 1 tab, prior to remicade, 0 Refill(s) Start Date: 09/08/14 Status: Ordered Bystolic 10 mg oral tablet See Instructions, TAKE ONE TABLET BY MOUTH ONCE DAILY, # 30 tabs, 3 Refill(s), eRx: [facility], TAKE ONE TABLET BY MOUTH ONCE DAILY Start Date: 01/29/15 Status: Ordered Calcium 600+D 1 tabs, Oral, Daily, 0 Refill(s) Start Date: 11/11/14 Status: Ordered DULoxetine 60 mg oral delayed release capsule See Instructions, TAKE ONE CAPSULE BY MOUTH TWICE DAILY, # 180 caps, 2 Refill(s) , eRx: [facility], TAKE ONE CAPSULE BY MOUTH TWICE DAILY Start Date: 08/28/14 Status: Ordered Effient 10 mg oral tablet See Instructions, TAKE ONE TABLET BY MOUTH ONCE DAILY, # 30 tabs, 12 Refill(s), eRx: [facility], TAKE ONE TABLET [...] # 4 tabs, 3 Refill(s) , Pharmacy: [facility], 1 tabs Oral qWeek,Instr:with 6 to 8 ounces of plain water, a... Start Date: 07/31/14 Status: Ordered glimepiride 4 mg oral tablet 4 mg 1 tabs, Oral, BID, PT NEEDS TO ESTABLISH WITH DR. KWAN BEFORE ANYMORE REFILLS, # 60 tabs, 1 Refill(s), Pharmacy: [facility], 1 tabs Oral BID,Instr:PT NEEDS TO ESTABLISH WITH DR. KWAN BEFORE ANYMORE REFILLS Start Date: 03/04/15 Status: Ordered inFLIXimab 100 mg intravenous injection See Instructions, 800 mg every 4 weeks as an [...] MOUTH ONCE DAILY, # 90 tabs, eRx: [facility], TAKE ONE TABLET BY MOUTH ONCE DAILY Start Date: 01/21/15 Status: Ordered Levsin SL mg, SubLingual, q4hr, 0 Refill(s) Start Date: 04/09/15 Status: Ordered metFORMIN 500 mg oral tablet 1,000 mg 2 tabs, Oral, BID, PT NEEDS TO ESTABLISH WITH DR. KWAN BEFORE ANYMORE REFILLS, # 120 tabs, 1 Refill(s), Pharmacy: [facility], 2 tabs Oral BID,Instr:PT NEEDS TO ESTABLISH WITH DR. KWAN BEFORE ANYMORE REFILLS Start Date: 03/04/15 Status: Ordered [place] 5 mg-325 mg oral tablet 1 tabs, Oral, q6hr, as needed for pain, # 60 tabs, 0 Refill(s) Start Date: 03/29/15 Status: Ordered omeprazole 20 mg oral delayed release capsule See Instructions, TAKE ONE CAPSULE BY MOUTH TWICE DAILY, # 60 caps, 5 Refill(s) , eRx: [facility]93, TAKE ONE CAPSULE BY MOUTH TWICE DAILY Start Date: 11/30/14 Status: Ordered ONE TOUCH ULTRA BLUE TEST STP See Instructions, USE TO TEST BLOOD SUGARS TWO DAYS PER WEEK ( FASTING AND 2 HOURS POST PRANDAL)., # 100 strip, 1 Refill(s), eRx: [facility], USE TO TEST BLOOD SUGARS TWO DAYS PER WEEK ( FASTING AND 2 HOURS POST PRANDAL). Start Date: 11/09/14 Status: Ordered Onglyza 5 mg oral tablet See Instructions, TAKE ONE TABLET BY MOUTH ONCE DAILY, # 30 tabs, 3 Refill(s), eRx: [facility]93, TAKE ONE TABLET BY MOUTH ONCE DAILY Start Date: 01/29/15 Status: Ordered predniSONE 5 mg oral tablet See Instructions, TAKE ONE TABLET BY MOUTH INSTRUCTED WITH 1MG TABLETS, # 30 tabs, 2 Refill(s), eRx: [facility]93, TAKE ONE TABLET BY MOUTH INSTRUCTED WITH 1MG TABLETS Start Date: 04/07/15 Status: Ordered 1 1 caps, Oral, Daily, 0 Refill(s) Start Date: 11/11/14 Status: Ordered Solu-MEDROL 125 mg preservative-free injection See Instructions, Give 125mg IVP prior to remicade infusion as a premedication, # 1 vials, 0 Refill(s) Start Date: 03/12/15 Status: Ordered Topamax 50 mg oral tablet See Instructions, 1 tab in am and 2 in pm., # 90 tabs, 2 Refill(s), eRx: [facility], 1 tab in am and 2 in pm. Start Date: 02/18/15 Status: Ordered VESIcare 10 mg oral tablet See Instructions, 1 tabs Oral Daily, # 30 tabs, 5 Refill(s), eRx: [facility], 1 tabs Oral Daily Start Date: 02/18/15 Status: Ordered Vitamin D3 2000 intl units oral tablet 2,000 Intl_Units 1 tabs, Oral, Daily, 0 Refill(s) Start Date: 12/19/13 Status: Ordered Wellbutrin 75 mg oral tablet See Instructions, 1 tabs Oral BID, # 60 tabs, eRx: [facility], 1 tabs Oral [...] Visit Note Author: Rozina Gramajo MD Date: 04/09/15 Assessment/Plan 1.Arteritis, Takayasu We willrequest the records from the vasculitis specialist wereferred her to. She will get herinfliximab today. I have her resume the leflunomide and we will assess if this causes any change in her diarrhea. She will restart 10 milligrams. She appears to have improved pulse through the right upper extremity. 2.High risk medication use We will plan on checking her lab work next week. 3.Chronic headache disorder Continue theTopamax. Orders: inFLIXimab, See Instructions, 800 mg every 4 weeks as an infusion for DX: M31.4 premedicate with solumedrol 125mg IVP, tylenol 1000mg po and lauren 180mg po as an infusion, # 1 vials, 0 Refill(s), other reason (Rx) Future Scheduled TestsReferral* Return to Clinic 11/11/14 10:59 AM Referrals to Other Providers Referred by: Olga Jones
--- OUTSIDE RECORDS SUMMARY | 2016-10-06 09:24 | XMS REPORT | Referral Summary ---
Author Author [facility], [facility] Medicine Organization [facility] Address Unknown Phone Unavailable Care Team Providers Care Vp Name Role Phone Sarmad Salcido Primary Care Physician [phone] Encounter VC Date(s): 01/08/15 - 01/08/15 [facility] [address] [place] [address] Discharge Diagnosis: Migraine headache Discharge Diagnosis: Blood in ear canal Discharge Disposition: 01-Home or Self Care Attending Physician: Keegan Brito DO Admitting Physician: Keegan Brito DO Vital Signs Most recent to 1 oldest [Reference Range]: Temperature Tympanic 36.3 degC [36.6-38.1 degC] *LOW* (01/08/15 2:50 PM) Peripheral Pulse 72 bpm Rate [60-100 bpm] (01/08/15 2:50 PM) Blood Pressure 125/75 mmHg [90-140/60-90 mmHg] (01/08/15 2:50 PM) Problem List Condition Effective Dates Status [...] # 4 tabs , 2 Refill(s), eRx: [facility], TAKE ONE TABLET BY [...] day), # 30 tabs, 6 Refill(s), Pharmacy: [facility], 1 tabs Oral Bedtime (once a day) Start Date: 05/31/15 Status: Ordered Benadryl 25 mg, Oral, Once, 1 tab, prior to remicade, 0 Refill(s) Start Date: 09/08/14 Status: Ordered Bystolic 10 mg oral tablet See Instructions, TAKE ONE TABLET BY MOUTH ONCE DAILY, # 30 tabs, 6 Refill(s), Pharmacy: [facility], TAKE ONE TABLET BY MOUTH ONCE DAILY Start Date: 05/31/15 Status: Ordered Calcium 600+D 1 tabs, Oral, Daily, 0 Refill(s) Start Date: 11/11/14 Status: Ordered cephalexin 500 mg oral tablet 500 mg 1 tabs, Oral, QID, X 10 days, # 40 tabs, 0 Refill(s), Pharmacy: [facility], 1 tabs Oral QID,x10 days Start Date: 07/15/15 Stop Date: 07/25/15 Status: Ordered DULoxetine 60 mg oral delayed release capsule See Instructions, TAKE ONE CAPSULE BY MOUTH TWICE DAILY, # 180 caps, 6 Refill(s) , Pharmacy: [facility], TAKE ONE CAPSULE BY MOUTH TWICE DAILY Start Date: 05/31/15 Status: Ordered Effient 10 mg oral tablet See Instructions, TAKE ONE TABLET BY MOUTH ONCE DAILY, # 30 tabs, 12 Refill(s), eRx: [facility], TAKE ONE TABLET BY [...] BID, # 60 tabs, 1 Refill(s), Pharmacy: [facility] , 1 tabs Oral [...] # 45 tabs, 2 Refill( s), eRx: [facility], TAKE ONE-HALF TABLET BY MOUTH ONCE DAILY Start Date: 06/18/15 Status: Ordered levothyroxine 75 mcg (0.075 mg) oral tablet See Instructions, TAKE ONE TABLET BY MOUTH ONCE DAILY, # 90 tabs, eRx: [facility], TAKE ONE TABLET BY MOUTH ONCE DAILY Start Date: 04/19/15 Status: Ordered Levsin SL mg, SubLingual, q4hr, 0 Refill(s) Start Date: 04/09/15 Status: Ordered metFORMIN 500 mg oral tablet See Instructions, 2 tabs Oral BID, # 120 tabs, 1 Refill(s), Pharmacy: [facility], 2 tabs Oral BID Start Date: 06/03/15 Status: Ordered [place] 5 mg-325 mg oral tablet 1 tabs, Oral, q6hr, as needed for pain, # 60 tabs, 0 Refill(s) Start Date: 07/05/15 Status: Ordered omeprazole 20 mg oral delayed release capsule See Instructions, TAKE ONE CAPSULE BY MOUTH TWICE DAILY, # 60 caps, 5 Refill(s) , eRx: [facility], TAKE ONE CAPSULE BY MOUTH TWICE DAILY Start Date: 06/03/15 Status: Ordered ONE TOUCH ULTRA BLUE TEST STP See Instructions, USE TO TEST BLOOD SUGARS TWO DAYS PER WEEK ( FASTING AND 2 HOURS POST PRANDAL)., # 100 strip, 1 Refill(s), eRx: [facility], USE TO TEST BLOOD SUGARS TWO DAYS PER WEEK ( FASTING AND 2 HOURS POST PRANDAL). Start Date: 11/09/14 Status: Ordered Onglyza 5 mg oral tablet See Instructions, TAKE ONE TABLET BY MOUTH ONCE DAILY, # 30 tabs, 3 Refill(s), Pharmacy: [facility], TAKE ONE TABLET BY MOUTH ONCE DAILY Start Date: 06/03/15 Status: Ordered predniSONE 1 mg oral tablet See Instructions, 3 tabs Oral Daily,Instr:TO BE TAKEN WITH PREDNISONE 5 MG TABLETS, # 90 tabs, 0 Refill(s), Pharmacy: [facility]93, please note change in dose, 3 tabs Oral Daily,Instr:TO BE TAKEN WITH PREDNISONE 5 MG TABLETS Start Date: 05/07/15 Status: Ordered predniSONE 10 mg oral tablet See Instructions, Start with 6 tabs PO daily for 3 days and decrease by one tablet every 3 days, # 63 tabs, 0 Refill(s), Pharmacy: [facility], Start with 6 tabs PO daily for 3 days and decrease by one tablet every 3 days Start Date: 07/15/15 Stop Date: 07/29/15 Status: Ordered predniSONE 20 mg oral tablet See Instructions, , 60 for 3 days, 40 for 3 days, 20 for 3 days, # 20 tabs, 0 Refill(s), Pharmacy: [facility], , 60 for 3 [...] pm., # 90 tabs, 2 Refill(s), eRx: [facility], 1 tab in am and 2 in pm. Start Date: 05/20/15 Status: Ordered VESIcare 10 mg oral tablet See Instructions, 1 tabs Oral Daily, # 30 tabs, 5 Refill(s), eRx: [facility], 1 tabs Oral Daily Start Date: 02/18/15 Status: Ordered Vitamin D3 2000 intl units oral tablet 2,000 Intl_Units 1 tabs, Oral, Daily, 0 Refill(s) Start Date: 12/19/13 Status: Ordered Wellbutrin 75 mg oral tablet See Instructions, 1 tabs Oral BID, # 60 tabs, 5 Refill(s), eRx: [facility], 1 tabs Oral BID Start [...] Extracted from: Title: Office Visit Note Author: Keegan Brito DO Date: 01/08/15 Assessment/Plan Blood in ear canal This is likely trauma from use of Q-tips or some other foreign object in the ear canal. There's no signs of infection at this time. Ordered: Office Visit Level 3 Est 12173 Migraine headache 1. Neurologically she's intact. This is likely secondary to her migraines. 2. Continue her current regimen for migraine management. 3. She may increase her [place] to 2 tablets every 6 hours as needed. 4. Follow-up with primary care provider if no improvement or if worsening symptoms. Ordered: Office Visit Level 3 Est 99597 Future Scheduled TestsReferral* Return to Clinic 11/11/14 10:59 AM Referrals to Other Providers Referred by: Olga Jones
--- OUTSIDE RECORDS SUMMARY | 2016-10-06 09:24 | XMS REPORT | Referral Summary ---
Author Author [facility], [facility] Organization [facility] Address Unknown Phone Unavailable Care Team Providers Care Ledger Clerk Name Role Phone Sarmad Kwan Primary Care Physician [phone] Encounter VC Date(s): 02/15/15 - 02/15/15 [facility], Urology [address] [place] [address] [place] [id number] Discharge Diagnosis: Overactive bladder Discharge [...] with Dr. Kwan, # 30 tabs, eRx: [facility], 1 tabs Oral Bedtime (once a day),Instr:* LAST REFILL UNTIL SEEN *; you will... Start Date: 04/30/15 Status: Ordered Benadryl 25 mg, Oral, Once, 1 tab, prior to remicade, 0 Refill(s) Start Date: 09/08/14 Status: Ordered Bystolic 10 mg oral tablet See Instructions, TAKE ONE TABLET BY MOUTH ONCE DAILY, # 30 tabs, 3 Refill(s), eRx: [facility], TAKE ONE TABLET BY MOUTH ONCE DAILY Start Date: 01/29/15 Status: Ordered Calcium 600+D 1 tabs, Oral, Daily, 0 Refill(s) Start Date: 11/11/14 Status: Ordered DULoxetine 60 mg oral delayed release capsule See Instructions, TAKE ONE CAPSULE BY MOUTH TWICE DAILY, # 180 caps, 2 Refill(s) , eRx: [facility], TAKE ONE CAPSULE BY MOUTH TWICE DAILY Start Date: 08/28/14 Status: Ordered Effient 10 mg oral tablet See Instructions, TAKE ONE TABLET BY MOUTH ONCE DAILY, # 30 tabs, 12 Refill(s), eRx: [facility], TAKE ONE TABLET [...] # 4 tabs, 3 Refill(s) , Pharmacy: [facility], 1 tabs Oral qWeek,Instr:with 6 to 8 ounces of plain water, a... Start Date: 07/31/14 Status: Ordered glimepiride 4 mg oral tablet 4 mg 1 tabs, Oral, BID, PT NEEDS TO ESTABLISH WITH DR. KWAN BEFORE ANYMORE REFILLS, # 60 tabs, 1 Refill(s), Pharmacy: [facility], 1 tabs Oral BID,Instr:PT NEEDS TO [...] MOUTH ONCE DAILY, # 90 tabs, eRx: [facility], TAKE ONE TABLET BY MOUTH ONCE DAILY Start Date: 04/19/15 Status: Ordered Levsin SL mg, SubLingual, q4hr, 0 Refill(s) Start Date: 04/09/15 Status: Ordered metFORMIN 500 mg oral tablet See Instructions, 2 tabs Oral BID,Instr:PT NEEDS TO ESTABLISH WITH DR. KWAN BEFORE ANYMORE REFILLS, # 120 tabs, eRx: [facility], 2 tabs Oral BID, Instr:PT NEEDS TO ESTABLISH WITH DR. KWAN BEFORE ANYMORE REFILLS Start Date: 04/30/15 Status: Ordered [place] 5 mg-325 mg oral tablet 1 tabs, Oral, q6hr, as needed for pain, # 60 tabs, 0 Refill(s) Start Date: 05/07/15 Status: Ordered omeprazole 20 mg oral delayed release capsule See Instructions, TAKE ONE CAPSULE BY MOUTH TWICE DAILY, # 60 caps, 5 Refill(s) , eRx: [facility], TAKE ONE CAPSULE BY MOUTH TWICE DAILY Start Date: 11/30/14 Status: Ordered ONE TOUCH ULTRA BLUE TEST STP See Instructions, USE TO TEST BLOOD SUGARS TWO DAYS PER WEEK ( FASTING AND 2 HOURS POST PRANDAL)., # 100 strip, 1 Refill(s), eRx: [facility], USE TO TEST BLOOD SUGARS TWO DAYS PER WEEK ( FASTING AND 2 HOURS POST PRANDAL). Start Date: 11/09/14 Status: Ordered Onglyza 5 mg oral tablet See Instructions, TAKE ONE TABLET BY MOUTH ONCE DAILY, # 30 tabs, 3 Refill(s), eRx: [facility]93, TAKE ONE TABLET BY MOUTH ONCE DAILY Start Date: 01/29/15 Status: Ordered predniSONE 1 mg oral tablet See Instructions, 3 tabs Oral Daily,Instr:TO BE TAKEN WITH PREDNISONE 5 MG TABLETS, # 90 tabs, 0 Refill(s), Pharmacy: [facility]93, please note change in dose, 3 [...] pm., # 90 tabs, 2 Refill(s), eRx: [facility], 1 tab in am and 2 in pm. Start Date: 02/18/15 Status: Ordered VESIcare 10 mg oral tablet See Instructions, 1 tabs Oral Daily, # 30 tabs, 5 Refill(s), eRx: [facility], 1 tabs Oral Daily Start Date: 02/18/15 Status: Ordered Vitamin D3 2000 intl units oral tablet 2,000 Intl_Units 1 tabs, Oral, Daily, 0 Refill(s) Start Date: 12/19/13 Status: Ordered Wellbutrin 75 mg oral tablet See Instructions, 1 tabs Oral BID, # 60 tabs, 5 Refill(s), eRx: [facility], 1 tabs Oral BID Start [...] Follow Up With: Where: When: [facility] [address] [place] [address] Drive; [place], [place] [phone] Business (1) Within 3 to 5 days Comments: Follow Up With: Where: When: Montez Weems[address]; [place], [place] [phone] Business (1) In 6 months 08/18/2015 Comments: [...] patient. Ordered: Office Visit Level 4 Est 69943 Future Scheduled TestsReferral* Return to Clinic 11/11/14 10:59 AM Referrals to Other Providers Referred by: Olga Jones
--- OUTSIDE RECORDS SUMMARY | 2016-10-06 09:24 | XMS REPORT | Referral Summary ---
Author Organization Unknown Address Unknown Phone Unavailable Care Team Providers Care Pattern Molder Name Role Phone Eva Painting Primary Care Physician [phone] Encounter VC Date(s): 10/14/14 - 10/14/14 [facility], [place], Card[facility] [address] [place], [place] [address] Discharge Disposition: Home or Self Care Attending Physician: Christian Espana MD Admitting Physician: Christian Espana MD Referring Physician: Felisa Painting MD Vital Signs Most recent to 1 oldest [Reference Range]: Peripheral Pulse 108 bpm Rate [60-100 bpm] *HI* (10/14/14 3:20 PM) Blood Pressure 137/95 mmHg [90-140/60-90 mmHg] (10/14/14 3:20 PM) Problem List Condition Effective Dates Status [...] DAILY, # 30 tabs, 2 Refill(s), eRx: [facility], TAKE ONE TABLET BY MOUTH ONCE DAILY Special Instructions: TAKE ONE TABLET BY MOUTH ONCE DAILY Start Date: 07/27/14 Status: Ordered DULoxetine 60 mg oral delayed release capsule See Instructions, TAKE ONE CAPSULE BY MOUTH TWICE DAILY, # 180 caps, 2 Refill(s) , eRx: [facility], TAKE ONE CAPSULE BY MOUTH TWICE DAILY Special Instructions: TAKE ONE CAPSULE BY MOUTH TWICE DAILY Start Date: 08/28/14 Status: Ordered Effient 10 mg oral tablet 1 tabs, Oral, Daily, # 30 tabs, 3 Refill(s), Pharmacy: [facility], 1 tabs Oral Daily Start Date: 10/07/14 [...] # 4 tabs, 3 Refill(s) , Pharmacy: [facility], 1 tabs Oral qWeek,Instr:with [...] stop, # 60 caps, 0 Refill(s), Pharmacy: [facility], 2 tabs tid for [...] TID, # 180 tabs, 1 Refill(s), Pharmacy: [facility], please see change in dose, 1-2 caps Oral TID Start Date: 06/01/14 Status: Ordered glimepiride 4 mg oral tablet 1 tabs, Oral, BID, # 60 tabs, 0 Refill(s), Pharmacy: [facility], 1 tabs Oral BID Start Date: 10/07/14 [...] Daily, # 30 tabs, 2 Refill(s), Pharmacy: [facility], 1 tabs Oral Daily Start Date: 10/01/14 Status: Ordered Lipitor 40 mg oral tablet tabs, Oral, Bedtime (once a day), 0 Refill(s) Start Date: 12/19/13 Status: Ordered metFORMIN 500 mg oral tablet See Instructions, 2 tabs Oral BID, # 120 tabs, 2 Refill(s), eRx: [facility], 2 tabs Oral BID Special Instructions: 2 tabs Oral BID Start Date: 08/28/14 Status: Ordered multivitamin Daily, 0 Refill(s) Start Date: 12/19/13 Status: Ordered [place] 5 mg-325 mg oral tablet 1 tabs, Oral, q6hr, as needed for pain, # 60 tabs, 0 Refill(s) Start Date: 09/07/14 Status: Ordered omeprazole 20 mg oral delayed release capsule See Instructions, TAKE ONE CAPSULE BY MOUTH TWICE DAILY, # 60 caps, eRx: [facility], TAKE ONE CAPSULE BY MOUTH TWICE DAILY Special Instructions: TAKE ONE CAPSULE BY MOUTH TWICE DAILY Start Date: 09/28/14 Status: Ordered Onglyza 5 mg oral tablet See Instructions, TAKE ONE TABLET BY MOUTH ONCE DAILY, # 30 tabs, 2 Refill(s), eRx: [facility], TAKE ONE TABLET BY MOUTH ONCE DAILY Special Instructions: TAKE ONE TABLET BY MOUTH ONCE DAILY Start Date: 07/27/14 Status: Ordered predniSONE 5 mg oral tablet 2 tabs, Oral, Daily, # 60 tabs, 0 Refill(s), Pharmacy: [facility], 2 tabs Oral Daily Start Date: 10/01/14 Status: Ordered Synthroid 75 mcg (0.075 mg) oral tablet 1 tabs, Oral, Daily, # 90 tabs, 1 Refill(s), Pharmacy: [facility], 1 tabs Oral Daily Start Date: 02/03/14 Status: Ordered Topamax 25 mg oral tablet See Instructions, 1 tabs Oral daily for 7 days then 1 tab bid, # 60 tabs, 0 Refill(s), Pharmacy: [facility], 1 tabs Oral daily [...] Daily, # 30 tabs, 1 Refill(s), eRx: [facility], 1 tabs Oral Daily [...]
--- OUTSIDE RECORDS SUMMARY | 2016-10-06 09:24 | XMS REPORT | Referral Summary ---
Author Organization Unknown Address Unknown Phone Unavailable Care Team Providers Care Court Security Officer Name Role Phone Eva Painting Primary Care Physician [phone] Encounter VC Date(s): 09/08/14 - 09/08/14 [facility], [place], Family [address] [place], [place] [address] Discharge Disposition: Home or Self Care Attending Physician: Kely Rock MD Admitting Physician: Kely Rock MD Referring Physician: Felisa Painting MD Vital [...] DAILY, # 30 tabs, 2 Refill(s), eRx: [facility], TAKE ONE TABLET BY MOUTH ONCE DAILY Special Instructions: TAKE ONE TABLET BY MOUTH ONCE DAILY Start Date: 07/27/14 Status: Ordered Diflucan 150 mg oral tablet 1 tabs, Oral, q72hr, # 10 tabs, 2 Refill(s), Pharmacy: [facility], 1 tabs Oral q72hr Start Date: 08/06/14 Status: Ordered DULoxetine 60 mg oral delayed release capsule See Instructions, TAKE ONE CAPSULE BY MOUTH TWICE DAILY, # 180 caps, 2 Refill(s) , eRx: [facility], TAKE ONE CAPSULE BY MOUTH TWICE DAILY Special Instructions: TAKE ONE CAPSULE BY MOUTH TWICE DAILY Start Date: 08/28/14 Status: Ordered Effient 10 mg oral tablet See Instructions, TAKE ONE TABLET BY MOUTH EVERY DAY, # 30 tabs, eRx: [facility], TAKE ONE TABLET BY MOUTH EVERY DAY Special Instructions: TAKE ONE TABLET BY MOUTH EVERY DAY Start Date: 08/28/14 Status: Ordered folic acid 1 mg oral tablet 5 tabs, Oral, Daily, 0 Refill(s) Start Date: 12/19/13 Status: Ordered Fosamax 70 mg oral tablet 1 tabs, Oral, qWeek, with 6 to 8 ounces of plain water, at least 30 minutes before the first food, beverage, or medication of the day, # 4 tabs, 3 Refill(s) , Pharmacy: [facility], 1 tabs Oral qWeek,Instr:with 6 to 8 ounces of plain water, a... Special Instructions: with 6 to 8 ounces of plain water, at least 30 minutes before the first food, beverage, or medication of the day Start Date: 07/31/14 Status: Ordered gabapentin 300 mg oral capsule 1-2 caps, Oral, TID, # 180 tabs, 1 Refill(s), Pharmacy: [facility], please see change in dose, 1-2 caps Oral TID Start Date: 06/01/14 Status: Ordered glimepiride 2 mg oral tablet See Instructions, 1 tabs Oral BID, # 180 tabs, 2 Refill(s), eRx: [facility]93, 1 tabs Oral BID Special Instructions: 1 tabs Oral BID Start Date: 08/24/14 Status: Ordered inFLIXimab 100 mg intravenous injection See Instructions, 600 mg every 6 weeks. premed tylenol 1000mg po and lauren 180mg po as an infusion, # 1 vials, 0 Refill(s), other reason (Rx) Special Instructions: 600 mg every 6 weeks. premed tylenol 1000mg po and lauren 180mg po as an infusion Start Date: 03/30/14 Status: Ordered leflunomide 10 mg oral tablet See Instructions, 1 tabs Oral Daily, # 30 tabs, 2 Refill(s), eRx: [facility]93, 1 tabs Oral Daily Special Instructions: 1 tabs Oral Daily Start Date: 08/17/14 Status: Ordered Lipitor 40 mg oral tablet tabs, Oral, Bedtime (once a day), 0 Refill(s) Start Date: 12/19/13 Status: Ordered metFORMIN 500 mg oral tablet See Instructions, 2 tabs Oral BID, # 120 tabs, 2 Refill(s), eRx: [facility]93, 2 tabs Oral BID Special Instructions: 2 tabs Oral BID Start Date: 08/28/14 Status: Ordered multivitamin Daily, 0 Refill(s) Start Date: 12/19/13 Status: Ordered [place] 5 mg-325 mg oral tablet 1 tabs, Oral, q6hr, as needed for pain, # 60 tabs, 0 Refill(s) Start Date: 09/07/14 Status: Ordered omeprazole 20 mg oral delayed release capsule See Instructions, 1 caps Oral BID, # 60 caps, 2 Refill(s), eRx: [facility]93, 1 caps Oral BID Special Instructions: 1 caps Oral BID Start Date: 06/12/14 Status: Ordered Onglyza 5 mg oral tablet See Instructions, TAKE ONE TABLET BY MOUTH ONCE DAILY, # 30 tabs, 2 Refill(s), eRx: [facility], TAKE ONE TABLET BY MOUTH ONCE DAILY Special Instructions: TAKE ONE TABLET BY MOUTH ONCE DAILY Start Date: 07/27/14 Status: Ordered predniSONE 10 mg oral tablet See Instructions, 3 and half tabs Daily for 2 weeks and then 3 tabs daily for 2 weeks then 2 and half until follow up, # 120 tabs, 0 Refill(s), Pharmacy: [facility], 3 and half tabs Daily for 2 weeks and then 3 tabs daily for 2 weeks then 2... Special Instructions: 3 and half tabs Daily for 2 weeks and then 3 tabs daily for 2 weeks then 2 and half until follow up Start Date: 06/24/14 Status: Ordered Synthroid 75 mcg (0.075 mg) oral tablet 1 tabs, Oral, Daily, # 90 tabs, 1 Refill(s), Pharmacy: [facility], 1 tabs Oral Daily Start Date: 02/03/14 Status: Ordered Tylenol Extra Strength See Instructions, 1,000 mg Oral prior to infusion, 0 Refill(s) Special Instructions: 1,000 mg Oral prior to infusion Start Date: 03/27/14 Status: Ordered VESIcare 10 mg oral tablet 1 tabs, Oral, Daily, # 30 tabs, 2 Refill(s), Pharmacy: [facility], 1 tabs Oral Daily Start Date: 07/09/14 Status: Ordered Vitamin D3 2000 intl units [...]
--- OUTSIDE RECORDS SUMMARY | 2016-10-06 09:24 | XMS REPORT | Referral Summary ---
Author Author [facility] Organization [facility] Address Unknown Phone Unavailable Care Team Providers Care Warper Creeler Name Role Phone Sarmad Kwan Primary Care Physician [phone] Encounter Date(s): 10/29/14 - 10/29/14 [facility] [address] [place] [address] [place] [address] Discharge Diagnosis: Encounter for long-term (current) use [...] with Dr. Kwan, # 30 tabs, eRx: [facility], 1 tabs Oral Bedtime (once a day),Instr:* LAST REFILL UNTIL SEEN *; you will... Start Date: 04/30/15 Status: Ordered Benadryl 25 mg, Oral, Once, 1 tab, prior to remicade, 0 Refill(s) Start Date: 09/08/14 Status: Ordered Bystolic 10 mg oral tablet See Instructions, TAKE ONE TABLET BY MOUTH ONCE DAILY, # 30 tabs, 3 Refill(s), eRx: [facility]93, TAKE ONE TABLET BY MOUTH ONCE DAILY Start Date: 01/29/15 Status: Ordered Calcium 600+D 1 tabs, Oral, Daily, 0 Refill(s) Start Date: 11/11/14 Status: Ordered DULoxetine 60 mg oral delayed release capsule See Instructions, TAKE ONE CAPSULE BY MOUTH TWICE DAILY, # 180 caps, 2 Refill(s) , eRx: [facility]93, TAKE ONE CAPSULE BY MOUTH TWICE DAILY Start Date: 08/28/14 Status: Ordered Effient 10 mg oral tablet See Instructions, TAKE ONE TABLET BY MOUTH ONCE DAILY, # 30 tabs, 12 Refill(s), eRx: [facility]93, TAKE ONE TABLET BY [...] # 4 tabs, 3 Refill(s) , Pharmacy: [facility], 1 tabs Oral qWeek,Instr:with 6 to 8 ounces of plain water, a... Start Date: 07/31/14 Status: Ordered glimepiride 4 mg oral tablet 4 mg 1 tabs, Oral, BID, PT NEEDS TO ESTABLISH WITH DR. KWAN BEFORE ANYMORE REFILLS, # 60 tabs, 1 Refill(s), Pharmacy: [facility] 99, 1 tabs Oral BID,Instr:PT NEEDS [...] MOUTH ONCE DAILY, # 90 tabs, eRx: [facility]93, TAKE ONE TABLET BY MOUTH ONCE DAILY Start Date: 04/19/15 Status: Ordered Levsin SL mg, SubLingual, q4hr, 0 Refill(s) Start Date: 04/09/15 Status: Ordered metFORMIN 500 mg oral tablet See Instructions, 2 tabs Oral BID,Instr:PT NEEDS TO ESTABLISH WITH DR. KWAN BEFORE ANYMORE REFILLS, # 120 tabs, eRx: [facility]93, 2 tabs Oral BID, Instr:PT NEEDS TO ESTABLISH WITH DR. KWAN BEFORE ANYMORE REFILLS Start Date: 04/30/15 Status: Ordered [place] 5 mg-325 mg oral tablet 1 tabs, Oral, q6hr, as needed for pain, # 60 tabs, 0 Refill(s) Start Date: 03/29/15 Status: Ordered omeprazole 20 mg oral delayed release capsule See Instructions, TAKE ONE CAPSULE BY MOUTH TWICE DAILY, # 60 caps, 5 Refill(s) , eRx: [facility]93, TAKE ONE CAPSULE BY MOUTH TWICE DAILY Start Date: 11/30/14 Status: Ordered ONE TOUCH ULTRA BLUE TEST STP See Instructions, USE TO TEST BLOOD SUGARS TWO DAYS PER WEEK ( FASTING AND 2 HOURS POST PRANDAL)., # 100 strip, 1 Refill(s), eRx: [facility] 993, USE TO TEST BLOOD SUGARS TWO DAYS PER WEEK ( FASTING AND 2 HOURS POST PRANDAL). Start Date: 11/09/14 Status: Ordered Onglyza 5 mg oral tablet See Instructions, TAKE ONE TABLET BY MOUTH ONCE DAILY, # 30 tabs, 3 Refill(s), eRx: [facility] 993, TAKE ONE TABLET BY MOUTH ONCE DAILY Start Date: 01/29/15 Status: Ordered predniSONE 1 mg oral tablet See Instructions, 4 tabs Oral Daily,Instr:TO BE TAKEN WITH PREDNISONE 5 MG TABLETS, # 120 tabs, 1 Refill(s), Pharmacy: [facility] 99, 4 tabs Oral Daily,Instr:TO BE [...] Daily, # 30 tabs, 5 Refill(s), eRx: [facility]93, 1 tabs Oral Daily Start Date: 02/18/15 Status: Ordered Vitamin D3 2000 intl units oral tablet 2,000 Intl_Units 1 tabs, Oral, Daily, 0 Refill(s) Start Date: 12/19/13 Status: Ordered Wellbutrin 75 mg oral tablet See Instructions, 1 tabs Oral BID, # 60 tabs, eRx: [facility]93, 1 tabs Oral BID Start [...] BID, # 60 tabs, 1 Refill(s), Pharmacy: [facility]93, 1 tabs Oral BID Future Scheduled TestsReferral* Return to Clinic 11/11/14 10:59 AM Referrals to Other Providers Referred by: Olga Jones
--- OUTSIDE RECORDS SUMMARY | 2016-10-06 09:25 | XMS REPORT | Referral Summary ---
Author Author [facility] Organization [facility] Address Unknown Phone Unavailable Care Team Providers Care Commander Internal Affairs Name Role Phone Sarmad Kwan Primary Care Physician [phone] Encounter VC Date(s): 11/20/14 - 11/20/14 [facility] [address] [place] [address] Discharge Diagnosis: Hematuria Discharge Disposition: 01-Home or Self Care Attending Physician: Rozina Grmaajo MD Admitting Physician: Rozina Gramajo MD Referring [...] with Dr. Kwan, # 30 tabs, eRx: [facility]93, 1 tabs Oral Bedtime (once a day),Instr:* LAST REFILL UNTIL SEEN *; you will... Start Date: 04/30/15 Status: Ordered Benadryl 25 mg, Oral, Once, 1 tab, prior to remicade, 0 Refill(s) Start Date: 09/08/14 Status: Ordered Bystolic 10 mg oral tablet See Instructions, TAKE ONE TABLET BY MOUTH ONCE DAILY, # 30 tabs, 3 Refill(s), eRx: [facility]93, TAKE ONE TABLET BY MOUTH ONCE DAILY Start Date: 01/29/15 Status: Ordered Calcium 600+D 1 tabs, Oral, Daily, 0 Refill(s) Start Date: 11/11/14 Status: Ordered DULoxetine 60 mg oral delayed release capsule See Instructions, TAKE ONE CAPSULE BY MOUTH TWICE DAILY, # 180 caps, 2 Refill(s) , eRx: [facility]93, TAKE ONE CAPSULE BY MOUTH TWICE DAILY Start Date: 08/28/14 Status: Ordered Effient 10 mg oral tablet See Instructions, TAKE ONE TABLET BY MOUTH ONCE DAILY, # 30 tabs, 12 Refill(s), eRx: [facility]93, TAKE ONE TABLET [...] # 4 tabs, 3 Refill(s) , Pharmacy: [facility]93, 1 tabs Oral qWeek,Instr:with 6 to 8 ounces of plain water, a... Start Date: 07/31/14 Status: Ordered glimepiride 4 mg oral tablet 4 mg 1 tabs, Oral, BID, PT NEEDS TO ESTABLISH WITH DR. KWAN BEFORE ANYMORE REFILLS, # 60 tabs, 1 Refill(s), Pharmacy: [facility] 993, 1 tabs Oral BID,Instr:PT NEEDS TO [...] MOUTH ONCE DAILY, # 90 tabs, eRx: [facility]93, TAKE ONE TABLET BY MOUTH ONCE DAILY Start Date: 04/19/15 Status: Ordered Levsin SL mg, SubLingual, q4hr, 0 Refill(s) Start Date: 04/09/15 Status: Ordered metFORMIN 500 mg oral tablet See Instructions, 2 tabs Oral BID,Instr:PT NEEDS TO ESTABLISH WITH DR. KWAN BEFORE ANYMORE REFILLS, # 120 tabs, eRx: [facility]93, 2 tabs Oral BID, Instr:PT NEEDS TO ESTABLISH WITH DR. KWAN BEFORE ANYMORE REFILLS Start Date: 04/30/15 Status: Ordered [place] 5 mg-325 mg oral tablet 1 tabs, Oral, q6hr, as needed for pain, # 60 tabs, 0 Refill(s) Start Date: 05/07/15 Status: Ordered omeprazole 20 mg oral delayed release capsule See Instructions, TAKE ONE CAPSULE BY MOUTH TWICE DAILY, # 60 caps, 5 Refill(s) , eRx: [facility]93, TAKE ONE CAPSULE BY MOUTH TWICE DAILY Start Date: 11/30/14 Status: Ordered ONE TOUCH ULTRA BLUE TEST STP See Instructions, USE TO TEST BLOOD SUGARS TWO DAYS PER WEEK ( FASTING AND 2 HOURS POST PRANDAL)., # 100 strip, 1 Refill(s), eRx: [facility]93, USE TO TEST BLOOD SUGARS TWO DAYS PER WEEK ( FASTING AND 2 HOURS POST PRANDAL). Start Date: 11/09/14 Status: Ordered Onglyza 5 mg oral tablet See Instructions, TAKE ONE TABLET BY MOUTH ONCE DAILY, # 30 tabs, 3 Refill(s), eRx: [facility] 993, TAKE ONE TABLET BY MOUTH ONCE DAILY Start Date: 01/29/15 Status: Ordered predniSONE 1 mg oral tablet See Instructions, 3 tabs Oral Daily,Instr:TO BE TAKEN WITH PREDNISONE 5 MG TABLETS, # 90 tabs, 0 Refill(s), Pharmacy: [facility] 993, please note change in dose, 3 [...] pm., # 90 tabs, 2 Refill(s), eRx: [facility]93, 1 tab in am and 2 in pm. Start Date: 02/18/15 Status: Ordered VESIcare 10 mg oral tablet See Instructions, 1 tabs Oral Daily, # 30 tabs, 5 Refill(s), eRx: [facility]93, 1 tabs Oral Daily Start Date: 02/18/15 Status: Ordered Vitamin D3 2000 intl units oral tablet 2,000 Intl_Units 1 tabs, Oral, Daily, 0 Refill(s) Start Date: 12/19/13 Status: Ordered Wellbutrin 75 mg oral tablet See Instructions, 1 tabs Oral BID, # 60 tabs, 5 Refill(s), eRx: [facility]93, 1 tabs Oral [...]
--- OUTSIDE RECORDS SUMMARY | 2016-10-06 09:25 | XMS REPORT | Referral Summary ---
Author Author [facility] Organization [facility] Address Unknown Phone Unavailable Care Team Providers Care Chief Minister Name Role Phone Sarmad Salcido Primary Care Physician [phone] Encounter VC Date(s): 08/23/16 - 08/23/16 [facility] [address] [place] [address] Discharge Diagnosis: Diabetes Discharge Diagnosis: Menorrhagia Discharge Diagnosis: High blood cholesterol Discharge Disposition: 01-Home or Self Care Attending Physician: Aleena Salcido DO Admitting Physician: Aleena Salcido DO Vital Signs Most recent to 1 oldest [Reference Range]: Temperature Tympanic 37.0 degC [36.6-38.1 degC] (08/23/16 9:07 AM) Peripheral Pulse 88 bpm Rate [60-100 bpm] (08/23/16 9:07 AM) Respiratory Rate 16 br/min [14-20 br/min] (08/23/16 9:07 AM) Blood Pressure 138/70 mmHg [90-140/60-90 mmHg] (08/23/16 9:07 AM) SpO2 97 % (08/23/16 9:07 AM) Problem List Condition Effective Dates Status Health Status Informant Allergic Active rhinitis/Hay fever(Confirmed) Amaurosis/Rt(Confirm 08/15/11 Active ed) Anxiety(Confirmed) Active Benign essential Active HTN(Confirmed) Stroke(Confirmed) Active Chronic Active headache(Confirmed) Depression(Confirmed Active ) Diabetes(Confirmed) Active Disease/MTFHR Active mutation(Confirmed)1 Fibromyalgia(Confirm Active ed) Headaches(Confirmed) Resolved High blood Active cholesterol(Confirme d) Dyslipidemia, goal Resolved LDL below 70(Confirmed) Hypertension(Confirm [...] # 4 tabs , 2 Refill(s), eRx: [facility] 993, TAKE ONE TABLET BY [...] Instructions, TAKE ONE TABLET BY MOUTH AT BEDTIME, # 30 tabs, [facility] Start Date: 07/24/16 Status: Ordered Benadryl 25 mg, Oral, Once, 1 tab, prior to remicade, 0 Refill(s) Start Date: 09/08/14 Status: Ordered buPROPion 75 mg oral tablet See Instructions, TAKE ONE TABLET BY MOUTH TWICE DAILY, # 60 tabs, eRx: [facility] 993 Start Date: 08/15/16 Status: Ordered Bystolic 10 mg oral tablet See Instructions, TAKE ONE TABLET BY MOUTH ONCE DAILY, # 30 tabs, eRx: [facility] 993 Start Date: 08/15/16 Status: Ordered Calcium 600+D 1 tabs, Oral, Daily, 0 Refill(s) Start Date: 11/11/14 Status: Ordered dicyclomine 20 mg oral tablet See Instructions, TAKE ONE TABLET BY MOUTH 4 TIMES DAILY FOR 14 DAYS, # 56 tabs , eRx: [facility] 993, TAKE ONE TABLET BY MOUTH 4 TIMES DAILY FOR 14 DAYS Start Date: 02/10/16 Status: Ordered dicyclomine 20 mg oral tablet 1-2 tabs, Oral, QID, 0 Refill(s) Start Date: 03/10/16 Status: Ordered DULoxetine 60 mg oral delayed release capsule See Instructions, TAKE ONE CAPSULE BY MOUTH TWICE DAILY, # 180 caps, eRx: [place] [id number] Start Date: 08/15/16 Status: Ordered Effient 10 mg oral tablet See Instructions, TAKE ONE TABLET BY MOUTH ONCE DAILY, # 30 tabs, 8 Refill(s), eRx: [facility] 99 Start Date: 07/24/16 Status: Ordered ferrous sulfate 325 mg, Oral, Daily, 1 tab, 0 Refill(s) Start Date: 03/04/15 Status: Ordered FiberCon 0 Refill(s) Start Date: 04/09/15 Status: Ordered folic acid 1 mg oral tablet 5 tabs, Oral, Daily, 0 Refill(s) Start Date: 12/19/13 Status: Ordered leflunomide 20 mg oral tablet See Instructions, TAKE ONE-HALF TABLET BY MOUTH ONCE DAILY, # 45 tabs, 2 Refill( s), eRx: [facility] 993, TAKE ONE-HALF TABLET BY MOUTH ONCE DAILY Start Date: 05/08/16 Status: Ordered levothyroxine 75 mcg (0.075 mg) oral tablet See Instructions, TAKE ONE TABLET BY MOUTH ONCE DAILY, # 30 tabs, eRx: [place] [id number] Start Date: 08/15/16 Status: Ordered Levsin SL mg, SubLingual, q4hr, 0 Refill(s) Start Date: 04/09/15 Status: Ordered loperamide 2 mg oral capsule 2 mg 1 caps, Oral, QID, as needed for loose stool, # 60 caps, 0 Refill(s) Start Date: 12/13/15 Status: Ordered metFORMIN 1000 mg oral tablet, extended release See Instructions, TAKE ONE TABLET BY MOUTH TWICE DAILY, # 60 tabs, eRx: [facility] 993, TAKE ONE TABLET BY MOUTH TWICE DAILY Start Date: 06/12/16 Status: Ordered [place] 5 mg-325 mg oral tablet 1 tabs, Oral, q6hr, as needed for pain, # 60 tabs, 0 Refill(s) Start Date: 03/10/16 Status: Ordered omeprazole 20 mg oral delayed release capsule See Instructions, TAKE ONE CAPSULE BY MOUTH TWICE DAILY, # 60 caps, 5 Refill(s) , eRx: [facility] 993, TAKE ONE CAPSULE BY MOUTH TWICE DAILY Start Date: 12/20/15 Status: Ordered ONE TOUCH ULTRA BLUE TEST STP See Instructions, USE TO TEST BLOOD SUGARS TWO DAYS PER WEEK ( FASTING AND 2 HOURS POST PRANDAL)., # 100 strip, 1 Refill(s), eRx: [facility] 993, USE TO TEST BLOOD SUGARS TWO DAYS PER WEEK ( FASTING AND 2 HOURS POST PRANDAL). Start Date: 11/09/14 Status: Ordered Onglyza 5 mg oral tablet See Instructions, TAKE ONE TABLET BY MOUTH ONCE DAILY, # 30 tabs, eRx: [facility] 99 Start Date: 07/24/16 Status: Ordered [place] 30 mg oral tablet See Instructions, TAKE ONE TABLET BY MOUTH TWICE DAILY, # 60 tabs, 2 Refill(s), eRx: [facility] 99 Start Date: 07/10/16 Status: Ordered predniSONE 1 mg oral tablet See Instructions, 3 tabs Oral Daily,Instr:TO BE TAKEN WITH PREDNISONE 5 MG TABLETS, # 90 tabs, 3 Refill(s), Pharmacy: [place] [id number], 3 tabs Oral Daily,Instr:TO BE TAKEN WITH PREDNISONE 5 MG TABLETS Start Date: 03/29/16 Status: Ordered 1 1 caps, Oral, Daily, 0 Refill(s) Start Date: 11/11/14 Status: Ordered prochlorperazine 1 tabs, Oral, q6hr, as needed for nausea/vomiting, 0 Refill(s) Start Date: 01/14/16 Status: Ordered topiramate 50 mg oral tablet See Instructions, TAKE ONE TABLET BY MOUTH IN THE MORNING AND TWO IN THE EVENING , # 90 tabs, 2 Refill(s), eRx: [facility] 993 Start Date: 07/17/16 Status: Ordered VESIcare 10 mg oral tablet See Instructions, TAKE ONE TABLET BY MOUTH ONCE DAILY, # 30 tabs, 2 Refill(s), eRx: [facility] 993, TAKE ONE TABLET BY MOUTH ONCE DAILY Start Date: 11/01/15 Status: Ordered Vitamin D3 2000 intl units oral tablet 2,000 Intl_Units 1 tabs, Oral, Daily, 0 Refill(s) Start Date: 12/19/13 Status: Ordered Results No data available for this section Immunizations Given and Recorded Vaccine Date Status Refusal Reason influenza virus vaccine, inactivated 04/14/15 Given influenza virus vaccine, live 05/05/13 Given influenza virus vaccine, live 04/22/08 Given Procedures Procedure Date Related Diagnosis Body Site Bone densimetry normal 06/15/15 Mammogram 12/08/14 Bypass, 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 Then she could go back on the metformin. Advised her to also let Dr. Scott now. Ordered: Office Visit Level 4 Est 48824 High blood cholesterol Lab work is up today, continue current regimen, return to clinic in 6 months or sooner with problems. Ordered: Office Visit Level 4 Est 36514 Menorrhagia At this time we'll go ahead and refer her to [facility] for their recommendations. We did discuss avoidance of estrogen andif possible progesterone given patient's history of Takayasu's leaving me withlittle option to help her without some type of intervention from specialists. Ordered: Office Visit Level 4 Est 46030
--- OUTSIDE RECORDS SUMMARY | 2016-10-06 09:25 | XMS REPORT | Referral Summary ---
Author Author [facility] Organization [facility] Address Unknown Phone Unavailable Care Team Providers Care Art Handler Name Role Phone Sarmad Kwan Primary Care Physician [phone] Encounter Date(s): 11/20/14 - 11/20/14 [facility] [address] [place] [address] [place] [address] Discharge Diagnosis: Encounter for long-term (current) use of high-risk medication Discharge Diagnosis: Takayasu's arteritis Discharge Diagnosis: Headache Discharge Disposition: -Home or Self Care Attending Physician: Rozina Gramajo MD Admitting Physician: Rozina Gramajo MD Referring Physician: Felisa Painting MD Vital Signs Most recent to 1 oldest [Reference Range]: Temperature Tympanic 37.1 degC [36.6-38.1 degC] (11/20/14 8:09 AM) Peripheral Pulse 100 bpm Rate [60-100 bpm] (11/20/14 8:09 AM) Blood Pressure 127/95 mmHg [90-140/60-90 mmHg] (11/20/14 8:09 AM) Problem List Condition Effective Dates Status [...] with Dr. Kwan, # 30 tabs, eRx: [facility]93, 1 tabs Oral Bedtime (once a day),Instr:* LAST REFILL UNTIL SEEN *; you will... Start Date: 04/30/15 Status: Ordered Benadryl 25 mg, Oral, Once, 1 tab, prior to remicade, 0 Refill(s) Start Date: 09/08/14 Status: Ordered Bystolic 10 mg oral tablet See Instructions, TAKE ONE TABLET BY MOUTH ONCE DAILY, # 30 tabs, 3 Refill(s), eRx: [facility]93, TAKE ONE TABLET BY MOUTH ONCE DAILY Start Date: 01/29/15 Status: Ordered Calcium 600+D 1 tabs, Oral, Daily, 0 Refill(s) Start Date: 11/11/14 Status: Ordered DULoxetine 60 mg oral delayed release capsule See Instructions, TAKE ONE CAPSULE BY MOUTH TWICE DAILY, # 180 caps, 2 Refill(s) , eRx: [facility]93, TAKE ONE CAPSULE BY MOUTH TWICE DAILY Start Date: 08/28/14 Status: Ordered Effient 10 mg oral tablet See Instructions, TAKE ONE TABLET BY MOUTH ONCE DAILY, # 30 tabs, 12 Refill(s), eRx: [facility]93, TAKE ONE TABLET [...] # 4 tabs, 3 Refill(s) , Pharmacy: [facility] 99, 1 tabs Oral qWeek,Instr:with 6 to 8 ounces of plain water, a... Start Date: 07/31/14 Status: Ordered glimepiride 4 mg oral tablet 4 mg 1 tabs, Oral, BID, PT NEEDS TO ESTABLISH WITH DR. KWAN BEFORE ANYMORE REFILLS, # 60 tabs, 1 Refill(s), Pharmacy: [facility] 99, 1 tabs Oral BID,Instr:PT NEEDS TO [...] DAILY, # 90 tabs, eRx: [facility]93, TAKE ONE TABLET BY MOUTH ONCE DAILY Start Date: 04/19/15 Status: Ordered Levsin SL mg, SubLingual, q4hr, 0 Refill(s) Start Date: 04/09/15 Status: Ordered metFORMIN 500 mg oral tablet See Instructions, 2 tabs Oral BID,Instr:PT NEEDS TO ESTABLISH WITH DR. KWAN BEFORE ANYMORE REFILLS, # 120 tabs, eRx: [facility]93, 2 tabs Oral BID, Instr:PT NEEDS TO ESTABLISH WITH DR. KWAN BEFORE ANYMORE REFILLS Start Date: 04/30/15 Status: Ordered [place] 5 mg-325 mg oral tablet 1 tabs, Oral, q6hr, as needed for pain, # 60 tabs, 0 Refill(s) Start Date: 05/07/15 Status: Ordered omeprazole 20 mg oral delayed release capsule See Instructions, TAKE ONE CAPSULE BY MOUTH TWICE DAILY, # 60 caps, 5 Refill(s) , eRx: [facility]93, TAKE ONE CAPSULE BY MOUTH TWICE DAILY Start Date: 11/30/14 Status: Ordered ONE TOUCH ULTRA BLUE TEST STP See Instructions, USE TO TEST BLOOD SUGARS TWO DAYS PER WEEK ( FASTING AND 2 HOURS POST PRANDAL)., # 100 strip, 1 Refill(s), eRx: [facility]93, USE TO TEST BLOOD SUGARS TWO DAYS PER WEEK ( FASTING AND 2 HOURS POST PRANDAL). Start Date: 11/09/14 Status: Ordered Onglyza 5 mg oral tablet See Instructions, TAKE ONE TABLET BY MOUTH ONCE DAILY, # 30 tabs, 3 Refill(s), eRx: [facility]93, TAKE ONE TABLET BY MOUTH ONCE DAILY Start Date: 01/29/15 Status: Ordered predniSONE 1 mg oral tablet See Instructions, 3 tabs Oral Daily,Instr:TO BE TAKEN WITH PREDNISONE 5 MG TABLETS, # 90 tabs, 0 Refill(s), Pharmacy: [facility] 993, please note change in dose, [...] pm., # 90 tabs, 2 Refill(s), eRx: [facility]93, 1 tab in am and 2 in pm. Start Date: 02/18/15 Status: Ordered VESIcare 10 mg oral tablet See Instructions, 1 tabs Oral Daily, # 30 tabs, 5 Refill(s), eRx: [facility]93, 1 tabs Oral Daily Start Date: 02/18/15 Status: Ordered Vitamin D3 2000 intl units oral tablet 2,000 Intl_Units 1 tabs, Oral, Daily, 0 Refill(s) Start Date: 12/19/13 Status: Ordered Wellbutrin 75 mg oral tablet See Instructions, 1 tabs Oral BID, # 60 tabs, 5 Refill(s), eRx: [facility]93, 1 tabs Oral BID Start [...] Visit Note Author: Rozina Gramajo MD Date: 11/20/14 Assessment/Plan 1.Takayasu's arteritis We will administer the infliximab 600 mg today. We will continue leflunomide 20 mg. I will decrease the prednisone to 9 mg. 2.Headache Continue the Topamax. 3.Encounter for long-term (current) use of high-risk medication No labs needed today. Future Scheduled TestsReferral* Return to Clinic 11/11/14 10:59 AM Referrals to Other Providers Referred by: Olga Jones
--- OUTSIDE RECORDS SUMMARY | 2016-10-06 09:25 | XMS REPORT | Referral Summary ---
Author Author [facility], Family Medicine Organization [facility] Address Unknown Phone Unavailable Care Team Providers Care Pulp Maker Name Role Phone Sarmad Kwan Primary Care Physician [phone] Encounter VC Date(s): 10/29/14 - 10/29/14 [facility] [address] [place] [address] Discharge Diagnosis: TAKAYASU'S DISEASE Discharge Disposition: 01-Home or Self Care Attending [...] with Dr. Kwan, # 30 tabs, eRx: [facility], 1 tabs Oral Bedtime [...] # 4 tabs, 3 Refill(s) , Pharmacy: [facility], 1 tabs Oral qWeek,Instr:with 6 to 8 ounces of plain water, a... Start Date: 07/31/14 Status: Ordered glimepiride 4 mg oral tablet 4 mg 1 tabs, Oral, BID, PT NEEDS TO ESTABLISH WITH DR. KWAN BEFORE ANYMORE REFILLS, # 60 tabs, 1 Refill(s), Pharmacy: [facility], 1 tabs Oral BID,Instr:PT [...] ANYMORE REFILLS Start Date: 04/30/15 Status: Ordered [place] 5 mg-325 mg oral tablet 1 tabs, [...] TABLETS, # 120 tabs, 1 Refill(s), Pharmacy: [facility], 4 tabs Oral Daily,Instr:TO BE TAKEN WITH [...] pm., # 90 tabs, 2 Refill(s), eRx: [facility], 1 tab in am and 2 in pm. Start Date: 02/18/15 Status: Ordered VESIcare 10 mg oral tablet See Instructions, 1 tabs Oral Daily, # 30 tabs, 5 Refill(s), eRx: [facility], 1 tabs Oral Daily Start Date: 02/18/15 Status: Ordered Vitamin D3 2000 intl units oral tablet 2,000 Intl_Units 1 tabs, Oral, Daily, 0 Refill(s) Start Date: 12/19/13 Status: Ordered Wellbutrin 75 mg oral tablet See Instructions, 1 tabs Oral BID, # 60 tabs, eRx: [facility], 1 tabs Oral BID Start Date: 04/08/15 Status: Ordered Results Hematology Most recent to 1 oldest [Reference Range]: WBC [4.8-10.8 11.4 10*3/uL 10*3/uL] *HI* (10/29/14 1:30 PM) RBC [4.00-5.20 4.40 10*6/uL 10*6/uL] (10/29/14 1:30 PM) Hgb [12.0-16.0 12.0 gm/dL gm/dL] (10/29/14 1:30 PM) Hct [37.0-47.0 %] 37.5 % (10/29/14 1:30 PM) MCV [82.0-99.0 fL] 85.2 fL (10/29/14 1:30 PM) MCH [27.0-32.0 pg] 27.3 pg (10/29/14 1:30 PM) MCHC [32.0-36.0 32.0 gm/dL gm/dL] (10/29/14 1:30 PM) RDW [11.5-14.5 %] 14.2 % (10/29/14 1:30 PM) Platelet [150-400 402 10*3/uL 10*3/uL] *HI* (10/29/14 1:30 PM) MPV [8.8-14.8 fL] 9.0 fL (10/29/14 1:30 PM) Neutrophils [51-75 96 % %] *HI* (10/29/14 1:30 PM) Lymphocytes [20-46 4 % %] *LOW* (10/29/14 1:30 PM) Monocytes [4-11 %] 0 % *LOW* (10/29/14 1:30 PM) Eosinophils [0-4 %] 0 % (10/29/14 1:30 PM) Basophils [0-2 %] 0 % (10/29/14 1:30 PM) Neutro Absolute 10.94 THOUS [1.90-7.00 THOUS] *HI* (10/29/14 1:30 PM) Lymph Absolute 0.46 THOUS [0.80-3.30 THOUS] *LOW* (10/29/14 1:30 PM) [place] Absolute 0.00 THOUS [0.30-1.00 THOUS] *LOW* (10/29/14 1:30 PM) Eos Absolute 0.00 THOUS [0.00-0.50 THOUS] (10/29/14 1:30 PM) Baso Absolute 0.00 THOUS [0.00-0.20 THOUS] (10/29/14 1:30 PM) Differential Manual *ABN* (10/29/14 1:30 PM) Sed Rate [0-23 20 mm/hr mm/hr] (10/29/14 1:30 PM) Chemistry Most recent to 1 oldest [Reference Range]: Sodium Lvl [135-144 137 mEq/L mEq/L] (10/29/14 1:30 PM) Potassium Lvl 4.3 mEq/L [3.5-5.2 mEq/L] (10/29/14 1:30 PM) Chloride [99-111 106 mEq/L mEq/L] (10/29/14 1:30 PM) CO2 [22-31 mEq/L] 22 mEq/L (10/29/14 1:30 PM) AGAP [3-20] 9 (10/29/14 1:30 PM) BUN [7-19 mg/dL] 7 mg/dL (10/29/14 1:30 PM) Glucose Lvl [70-99 231 mg/dL mg/dL] *HI* (10/29/14 1:30 PM) Creatinine Lvl 0.96 mg/dL [0.57-1.11 mg/dL] (10/29/14 1:30 PM) eGFR [>60 mL/min] >60 mL/min 1 (10/29/14 1:30 PM) Calcium Lvl 10.2 mg/dL [8.9-10.5 mg/dL] (10/29/14 1:30 PM) Albumin Lvl [3.5-5.0 4.3 gm/dL gm/dL] (10/29/14 1:30 PM) Total Protein 7.4 gm/dL [6.4-8.3 gm/dL] (10/29/14 1:30 PM) Globulin [1.8-4.0 3.1 gm/dL gm/dL] (10/29/14 1:30 PM) ALT [0-55 U/L] 26 U/L (10/29/14 1:30 PM) AST [5-34 U/L] 17 U/L (10/29/14 1:30 PM) Alk Phos [40-150 64 U/L U/L] (10/29/14 1:30 PM) Bili Total [0.2-1.2 0.2 mg/dL mg/dL] (10/29/14 1:30 PM) 1Result Comment: Multiply eGFR results by 1.21 [...]
--- OUTSIDE RECORDS SUMMARY | 2016-10-06 09:25 | XMS REPORT | Referral Summary ---
Author Author [facility], [facility] Medicine Organization [facility] Address Unknown Phone Unavailable Care Team Providers Care Medical Center Director Name Role Phone Sarmad Kwan Primary Care Physician [phone] Encounter VC Date(s): 12/18/14 - 12/18/14 [facility] [address] [place] [address] Discharge Diagnosis: TAKAYASU'S DISEASE Discharge Diagnosis: HEMATURIA [...] with Dr. Kwan, # 30 tabs, eRx: [facility], 1 tabs Oral Bedtime (once a day),Instr:* LAST REFILL UNTIL SEEN *; you will... Start Date: 04/30/15 Status: Ordered Benadryl 25 mg, Oral, Once, 1 tab, prior to remicade, 0 Refill(s) Start Date: 09/08/14 Status: Ordered Bystolic 10 mg oral tablet See Instructions, TAKE ONE TABLET BY MOUTH ONCE DAILY, # 30 tabs, 3 Refill(s), eRx: [facility], TAKE ONE TABLET BY MOUTH ONCE DAILY Start Date: 01/29/15 Status: Ordered Calcium 600+D 1 tabs, Oral, Daily, 0 Refill(s) Start Date: 11/11/14 Status: Ordered DULoxetine 60 mg oral delayed release capsule See Instructions, TAKE ONE CAPSULE BY MOUTH TWICE DAILY, # 180 caps, 2 Refill(s) , eRx: [facility], TAKE ONE CAPSULE BY MOUTH TWICE DAILY Start Date: 08/28/14 Status: Ordered Effient 10 mg oral tablet See Instructions, TAKE ONE TABLET BY MOUTH ONCE DAILY, # 30 tabs, 12 Refill(s), eRx: [facility], TAKE ONE TABLET BY [...] # 4 tabs, 3 Refill(s) , Pharmacy: [facility], 1 tabs Oral qWeek,Instr:with 6 to 8 ounces of plain water, a... Start Date: 07/31/14 Status: Ordered glimepiride 4 mg oral tablet 4 mg 1 tabs, Oral, BID, PT NEEDS TO ESTABLISH WITH DR. KWAN BEFORE ANYMORE REFILLS, # 60 tabs, 1 Refill(s), Pharmacy: [facility], 1 tabs Oral BID,Instr:PT [...] MOUTH ONCE DAILY, # 90 tabs, eRx: [facility], TAKE ONE TABLET BY MOUTH ONCE DAILY Start Date: 04/19/15 Status: Ordered Levsin SL mg, SubLingual, q4hr, 0 Refill(s) Start Date: 04/09/15 Status: Ordered metFORMIN 500 mg oral tablet See Instructions, 2 tabs Oral BID,Instr:PT NEEDS TO ESTABLISH WITH DR. KWAN BEFORE ANYMORE REFILLS, # 120 tabs, eRx: [facility], 2 tabs Oral BID, Instr:PT NEEDS TO ESTABLISH WITH DR. KWAN BEFORE ANYMORE REFILLS Start Date: 04/30/15 Status: Ordered [place] 5 mg-325 mg oral tablet 1 tabs, Oral, q6hr, as needed for pain, # 60 tabs, 0 Refill(s) Start Date: 05/07/15 Status: Ordered omeprazole 20 mg oral delayed release capsule See Instructions, TAKE ONE CAPSULE BY MOUTH TWICE DAILY, # 60 caps, 5 Refill(s) , eRx: [facility], TAKE ONE CAPSULE BY MOUTH TWICE DAILY Start Date: 11/30/14 Status: Ordered ONE TOUCH ULTRA BLUE TEST STP See Instructions, USE TO TEST BLOOD SUGARS TWO DAYS PER WEEK ( FASTING AND 2 HOURS POST PRANDAL)., # 100 strip, 1 Refill(s), eRx: [facility], USE TO TEST BLOOD SUGARS TWO DAYS PER WEEK ( FASTING AND 2 HOURS POST PRANDAL). Start Date: 11/09/14 Status: Ordered Onglyza 5 mg oral tablet See Instructions, TAKE ONE TABLET BY MOUTH ONCE DAILY, # 30 tabs, 3 Refill(s), eRx: [facility], TAKE ONE TABLET BY MOUTH ONCE DAILY Start Date: 01/29/15 Status: Ordered predniSONE 1 mg oral tablet See Instructions, 3 tabs Oral Daily,Instr:TO BE TAKEN WITH PREDNISONE 5 MG TABLETS, # 90 tabs, 0 Refill(s), Pharmacy: [facility] 993, please note change in dose, [...] pm., # 90 tabs, 2 Refill(s), eRx: [facility], 1 tab in am and 2 in pm. Start Date: 02/18/15 Status: Ordered VESIcare 10 mg oral tablet See Instructions, 1 tabs Oral Daily, # 30 tabs, 5 Refill(s), eRx: [facility], 1 tabs Oral Daily Start Date: 02/18/15 Status: Ordered Vitamin D3 2000 intl units oral tablet 2,000 Intl_Units 1 tabs, Oral, Daily, 0 Refill(s) Start Date: 12/19/13 Status: Ordered Wellbutrin 75 mg oral tablet See Instructions, 1 tabs Oral BID, # 60 tabs, 5 Refill(s), eRx: [facility], 1 tabs Oral BID [...]
--- OUTSIDE RECORDS SUMMARY | 2016-10-06 09:25 | XMS REPORT | Referral Summary ---
Author Author [facility], Rheumatology Organization [facility] Address Unknown Phone Unavailable Care Team Providers Care Progressive Care Unit Registered Nurse Name Role Phone Sarmad Salcido Primary Care Physician [phone] Encounter Date(s): 12/18/14 - 12/18/14 [facility], Rheumatology [address] [place] [address] [place] [id number] Discharge Diagnosis: Takayasu's arteritis Discharge Diagnosis: Encounter for long-term (current) use of high-risk medication Discharge Diagnosis: Headache Discharge Disposition: 01-Home or Self Care Attending Physician: Rozina Gramajo MD Admitting Physician: Rozina Gramajo MD Vital Signs Most recent to 1 oldest [Reference Range]: Peripheral Pulse 100 bpm Rate [60-100 bpm] (12/18/14 8:19 AM) Blood Pressure 134/100 mmHg [90-140/60-90 mmHg] (12/18/14 8:19 AM) Problem List Condition Effective Dates Status [...] # 4 tabs , 2 Refill(s), eRx: [facility], TAKE ONE TABLET BY [...] day), # 30 tabs, 6 Refill(s), Pharmacy: [facility], 1 tabs Oral Bedtime (once a day) Start Date: 05/31/15 Status: Ordered Benadryl 25 mg, Oral, Once, 1 tab, prior to remicade, 0 Refill(s) Start Date: 09/08/14 Status: Ordered Bystolic 10 mg oral tablet See Instructions, TAKE ONE TABLET BY MOUTH ONCE DAILY, # 30 tabs, 6 Refill(s), Pharmacy: [facility]93, TAKE ONE TABLET BY MOUTH ONCE DAILY Start Date: 05/31/15 Status: Ordered Calcium 600+D 1 tabs, Oral, Daily, 0 Refill(s) Start Date: 11/11/14 Status: Ordered DULoxetine 60 mg oral delayed release capsule See Instructions, TAKE ONE CAPSULE BY MOUTH TWICE DAILY, # 180 caps, 6 Refill(s) , Pharmacy: [facility]93, TAKE ONE CAPSULE BY MOUTH TWICE DAILY Start Date: 05/31/15 Status: Ordered Effient 10 mg oral tablet See Instructions, TAKE ONE TABLET BY MOUTH ONCE DAILY, # 30 tabs, 12 Refill(s), eRx: [facility], TAKE ONE TABLET BY [...] BID, # 60 tabs, 1 Refill(s), Pharmacy: [facility] , 1 tabs Oral [...] # 45 tabs, 2 Refill( s), eRx: [facility], TAKE ONE-HALF TABLET BY MOUTH ONCE DAILY Start Date: 06/18/15 Status: Ordered levothyroxine 75 mcg (0.075 mg) oral tablet See Instructions, TAKE ONE TABLET BY MOUTH ONCE DAILY, # 90 tabs, eRx: [facility], TAKE ONE TABLET BY MOUTH ONCE DAILY Start Date: 04/19/15 Status: Ordered Levsin SL mg, SubLingual, q4hr, 0 Refill(s) Start Date: 04/09/15 Status: Ordered metFORMIN 500 mg oral tablet See Instructions, 2 tabs Oral BID, # 120 tabs, 1 Refill(s), Pharmacy: [facility], 2 tabs Oral BID Start Date: 06/03/15 Status: Ordered [place] 5 mg-325 mg oral tablet 1 tabs, Oral, q6hr, as needed for pain, # 60 tabs, 0 Refill(s) Start Date: 06/04/15 Status: Ordered omeprazole 20 mg oral delayed release capsule See Instructions, TAKE ONE CAPSULE BY MOUTH TWICE DAILY, # 60 caps, 5 Refill(s) , eRx: [facility]93, TAKE ONE CAPSULE BY MOUTH TWICE DAILY Start Date: 06/03/15 Status: Ordered ONE TOUCH ULTRA BLUE TEST STP See Instructions, USE TO TEST BLOOD SUGARS TWO DAYS PER WEEK ( FASTING AND 2 HOURS POST PRANDAL)., # 100 strip, 1 Refill(s), eRx: [facility], USE TO TEST BLOOD SUGARS TWO DAYS PER WEEK ( FASTING AND 2 HOURS POST PRANDAL). Start Date: 11/09/14 Status: Ordered Onglyza 5 mg oral tablet See Instructions, TAKE ONE TABLET BY MOUTH ONCE DAILY, # 30 tabs, 3 Refill(s), Pharmacy: [facility] 993, TAKE ONE TABLET BY MOUTH ONCE DAILY Start Date: 06/03/15 Status: Ordered predniSONE 1 mg oral tablet See Instructions, 3 tabs Oral Daily,Instr:TO BE TAKEN WITH PREDNISONE 5 MG TABLETS, # 90 tabs, 0 Refill(s), Pharmacy: [facility] 99, please note change in dose, 3 tabs Oral Daily,Instr:TO BE TAKEN WITH PREDNISONE 5 MG TABLETS Start Date: 05/07/15 Status: Ordered predniSONE 20 mg oral tablet See Instructions, , 60 for 3 days, 40 for 3 days, 20 for 3 days, # 20 tabs, 0 Refill(s), Pharmacy: [facility] 993, , 60 for 3 days, 40 [...] Refill(s), eRx: [facility], 1 tab in am and 2 in pm. Start Date: 05/20/15 Status: Ordered VESIcare 10 mg oral tablet See Instructions, 1 tabs Oral Daily, # 30 tabs, 5 Refill(s), eRx: [facility], 1 tabs Oral Daily Start Date: 02/18/15 Status: Ordered Vitamin D3 2000 intl units oral tablet 2,000 Intl_Units 1 tabs, Oral, Daily, 0 Refill(s) Start Date: 12/19/13 Status: Ordered Wellbutrin 75 mg oral tablet See Instructions, 1 tabs Oral BID, # 60 tabs, 5 Refill(s), [facility], 1 tabs Oral [...] Visit Note Author: Rozina Gramajo MD Date: 12/18/14 Assessment/Plan 1.Takayasu's arteritis She will get her infliximab today which we will increase to 700 mg. I will also give her a smaller dose of Solu-Medrol 62.5 mg. she does appear to have some symptoms of possible mildreaction following the medication though I have been hesitant to give her to a sign Medrol because of her glucose. We will increase her leflunomide to 10 mg. we will assess if this helpswith herparesthesias. I will continue to prednisone 9 mg. Ordered: C-Reactive Protein (CRP) Sedimentation Rate 2.Headache I will increase her Topamax to 100 mg at bedtime and continue 50 in the morning. I believe her increased headaches may related to stress. 3.Encounter for long-term (current) use of high-risk medication She had her blood counts checked earlier this week. Future Scheduled TestsReferral* Return to Clinic 11/11/14 10:59 AM Referrals to Other Providers Referred by: Olga Jones
--- OUTSIDE RECORDS SUMMARY | 2016-10-06 09:25 | XMS REPORT | Referral Summary ---
Author Organization Unknown Address Unknown Phone Unavailable Care Team Providers Care Technical Rep Name Role Phone Eva Painting Primary Care Physician [phone] Encounter VC Date(s): 08/06/14 - 08/06/14 [facility], [place], [address] [place], [place] [address] Discharge Diagnosis: TAKAYASU'S DISEASE Discharge Disposition: Home or Self Care Attending Physician: Rozina Gramajo MD Admitting Physician: Rozina Gramajo MD Referring Physician: Felisa Painting MD Vital Signs Most recent to 1 oldest [Reference Range]: Peripheral Pulse 107 bpm Rate [60-100 bpm] *HI* (08/06/14 4:20 PM) Blood Pressure 111/77 mmHg [90-140/60-90 mmHg] (08/06/14 4:20 PM) Problem List Condition Effective Dates Status [...] 0 Refill(s) Start Date: 12/19/13 Status: Ordered Bystolic 10 mg oral tablet See Instructions, TAKE ONE TABLET BY MOUTH ONCE DAILY, # 30 tabs, 2 Refill(s), eRx: [facility], TAKE ONE TABLET BY MOUTH ONCE DAILY Special Instructions: TAKE ONE TABLET BY MOUTH ONCE DAILY Start Date: 07/27/14 Status: Ordered Cymbalta 60 mg oral delayed release capsule caps, Oral, BID, 0 Refill(s) Start Date: 12/19/13 Status: Ordered Diflucan 150 mg oral tablet 1 tabs, Oral, q72hr, # 10 tabs, 2 Refill(s), Pharmacy: [facility] 993, 1 tabs Oral q72hr Start Date: 08/06/14 Status: Ordered Effient 10 mg oral tablet See Instructions, TAKE ONE TABLET BY MOUTH EVERY DAY, # 30 tabs, 3 Refill(s), eRx: [facility]93, TAKE ONE TABLET BY MOUTH EVERY DAY Special Instructions: TAKE ONE TABLET BY MOUTH EVERY DAY Start Date: 05/01/14 Status: Ordered folic acid 1 mg oral tablet 5 tabs, Oral, Daily, 0 Refill(s) Start Date: 12/19/13 Status: Ordered Fosamax 70 mg oral tablet 1 tabs, Oral, qWeek, with 6 to 8 ounces of plain water, at least 30 minutes before the first food, beverage, or medication of the day, # 4 tabs, 3 Refill(s) , Pharmacy: [facility]93, 1 tabs Oral qWeek,Instr:with 6 to 8 ounces of plain water, a... Special Instructions: with 6 to 8 ounces of plain water, at least 30 minutes before the first food, beverage, or medication of the day Start Date: 07/31/14 Status: Ordered gabapentin 300 mg oral capsule 1-2 caps, Oral, TID, # 180 tabs, 1 Refill(s), Pharmacy: [facility]93, please see change in dose, 1-2 caps Oral TID Start Date: 06/01/14 Status: Ordered glimepiride 2 mg oral tablet 1 tabs, Oral, BID, # 180 tabs, 0 Refill(s), Pharmacy: [facility], 1 tabs Oral BID Start Date: 05/08/14 Status: Ordered inFLIXimab 100 mg intravenous injection See Instructions, 600 mg every 6 weeks. premed tylenol 1000mg po and lauren 180mg po as an infusion, # 1 vials, 0 Refill(s), other reason (Rx) Special Instructions: 600 mg every 6 weeks. premed tylenol 1000mg po and lauren 180mg po as an infusion Start Date: 03/30/14 Status: Ordered leflunomide 10 mg oral tablet 1 tabs, Oral, Daily, # 30 tabs, 1 Refill(s), Pharmacy: [facility]93, please note change in dose, 1 tabs Oral Daily Start Date: 06/08/14 Status: Ordered Lipitor 40 mg oral tablet tabs, Oral, Bedtime (once a day), 0 Refill(s) Start Date: 12/19/13 Status: Ordered metFORMIN 500 mg oral tablet See Instructions, 2 tabs Oral BID, # 120 tabs, 2 Refill(s), eRx: [facility], 2 tabs Oral BID Special Instructions: 2 tabs Oral BID Start Date: 06/01/14 Status: Ordered multivitamin Daily, 0 Refill(s) Start Date: 12/19/13 Status: Ordered [place] 5 mg-325 mg oral tablet 1 tabs, Oral, q6hr, as needed for pain, # 60 tabs, 0 Refill(s) Start Date: 08/04/14 Status: Ordered omeprazole 20 mg oral delayed release capsule See Instructions, 1 caps Oral BID, # 60 caps, 2 Refill(s), eRx: [facility]93, 1 caps Oral BID Special Instructions: 1 caps Oral BID Start Date: 06/12/14 Status: Ordered Onglyza 5 mg oral tablet See Instructions, TAKE ONE TABLET BY MOUTH ONCE DAILY, # 30 tabs, 2 Refill(s), eRx: [facility]93, TAKE ONE TABLET BY MOUTH ONCE DAILY Special Instructions: TAKE ONE TABLET BY MOUTH ONCE DAILY Start Date: 07/27/14 Status: Ordered predniSONE 10 mg oral tablet See Instructions, 3 and half tabs Daily for 2 weeks and then 3 tabs daily for 2 weeks then 2 and half until follow up, # 120 tabs, 0 Refill(s), Pharmacy: [facility]93, 3 and half tabs [...] Daily, # 90 tabs, 1 Refill(s), Pharmacy: [facility], 1 tabs Oral Daily Start Date: 02/03/14 Status: Ordered Tylenol Extra Strength See Instructions, 1,000 mg Oral prior to infusion, 0 Refill(s) Special Instructions: 1,000 mg Oral prior to infusion Start Date: 03/27/14 Status: Ordered VESIcare 10 mg oral tablet 1 tabs, Oral, Daily, # 30 tabs, 2 Refill(s), Pharmacy: [facility], 1 tabs Oral Daily Start Date: 07/09/14 Status: Ordered Vitamin D3 2000 intl units oral tablet tabs, Oral, Daily, 0 Refill(s) Start Date: 12/19/13 Status: Ordered Results Hematology Most recent to 1 oldest [Reference Range]: WBC [4.8-10.8 K/uL] 11.1 K/uL *HI* (08/06/14 1:30 PM) RBC [4.00-5.20 M/uL] 4.35 M/uL (08/06/14 1:30 PM) Hgb [12.0-16.0 12.5 gm/dL gm/dL] (08/06/14 1:30 PM) Hct [37.0-47.0 %] 38.3 % (08/06/14 1:30 PM) MCV [82.0-99.0 fL] 88.0 fL (08/06/14 1:30 PM) MCH [27.0-32.0 pg] 28.7 pg (08/06/14 1:30 PM) MCHC [32.0-36.0 32.6 gm/dL gm/dL] (08/06/14 1:30 PM) RDW [11.5-14.5 %] 14.5 % (08/06/14 1:30 PM) Platelet [150-400 317 K/uL K/uL] (08/06/14 1:30 PM) MPV [8.8-14.8 fL] 9.1 fL (08/06/14 1:30 PM) Neutrophils [51-75 98 % %] *HI* (08/06/14 1:30 PM) Lymphocytes [20-46 1 % %] *LOW* (08/06/14 1:30 PM) Monocytes [4-11 %] 1 % *LOW* (08/06/14 1:30 PM) Eosinophils [0-4 %] 0 % (08/06/14 1:30 PM) Basophils [0-2 %] 0 % (08/06/14 1:30 PM) Neutro Absolute 10.88 THOUS [1.90-7.00 THOUS] *HI* (08/06/14 1:30 PM) Lymph Absolute 0.11 THOUS [0.80-3.30 THOUS] *LOW* (08/06/14 1:30 PM) [place] Absolute 0.11 THOUS [0.30-1.00 THOUS] *LOW* (08/06/14 1:30 PM) Eos Absolute 0.00 THOUS [0.00-0.50 THOUS] (08/06/14 1:30 PM) Baso Absolute 0.00 THOUS [0.00-0.20 THOUS] (08/06/14 1:30 PM) Differential Manual *ABN* (08/06/14 1:30 PM) Chemistry Most recent to 1 oldest [Reference Range]: Sodium Lvl [135-144 131 mEq/L mEq/L] *LOW* (08/06/14 1:30 PM) Potassium Lvl 4.7 mEq/L [3.5-5.2 mEq/L] (08/06/14 1:30 PM) Chloride [99-111 98 mEq/L mEq/L] *LOW* (08/06/14 1:30 PM) CO2 [22-31 mEq/L] 18 mEq/L *LOW* (08/06/14 1:30 PM) AGAP [3-20] 15 (08/06/14 1:30 PM) BUN [7-19 mg/dL] 6 mg/dL *LOW* (08/06/14 1:30 PM) Glucose Lvl [70-99 726 mg/dL mg/dL] *HHI* (08/06/14 1:30 PM) Creatinine Lvl 1.17 mg/dL [0.57-1.11 mg/dL] *HI* (08/06/14 1:30 PM) eGFR [>60 mL/min] 52 mL/min 1 *ABN* (08/06/14 1:30 PM) Calcium Lvl 9.7 mg/dL [8.9-10.5 mg/dL] (08/06/14 1:30 PM) Albumin Lvl [3.5-5.0 3.8 gm/dL gm/dL] (08/06/14 1:30 PM) Total Protein 7.0 gm/dL [6.4-8.3 gm/dL] (08/06/14 1:30 PM) Globulin [1.8-4.0 3.2 gm/dL gm/dL] (08/06/14 1:30 PM) ALT [0-55 unit/L] 41 unit/L (08/06/14 1:30 PM) AST [5-34 unit/L] 21 unit/L (08/06/14 1:30 PM) Alk Phos [40-150 95 unit/L unit/L] (08/06/14 1:30 PM) Bili Total [0.2-1.2 0.3 mg/dL mg/dL] (08/06/14 1:30 PM) 1Result Comment: Multiply eGFR results [...]
--- OUTSIDE RECORDS SUMMARY | 2016-10-06 09:25 | XMS REPORT | Referral Summary ---
Author Author [facility] Organization [facility] Address Unknown Phone Unavailable Care Team Providers Care Depot Manager Name Role Phone Sarmad Salcido Primary Care Physician [phone] Encounter VC Date(s): 07/30/15 - 07/30/15 [facility] [address] [place] [address] [place] [id number]- Discharge Diagnosis: High risk medication use Discharge Diagnosis: Right hip pain Discharge Diagnosis: Chronic headaches Discharge Diagnosis: Takayasu's [...] # 4 tabs , 2 Refill(s), eRx: [facility], TAKE ONE TABLET [...] day), # 30 tabs, 6 Refill(s), Pharmacy: [facility], 1 tabs Oral Bedtime (once a day) Start Date: 05/31/15 Status: Ordered Benadryl 25 mg, Oral, Once, 1 tab, prior to remicade, 0 Refill(s) Start Date: 09/08/14 Status: Ordered Bystolic 10 mg oral tablet See Instructions, TAKE ONE TABLET BY MOUTH ONCE DAILY, # 30 tabs, 6 Refill(s), Pharmacy: [facility], TAKE ONE TABLET BY MOUTH ONCE DAILY Start Date: 05/31/15 Status: Ordered Calcium 600+D 1 tabs, Oral, Daily, 0 Refill(s) Start Date: 11/11/14 Status: Ordered DULoxetine 60 mg oral delayed release capsule See Instructions, TAKE ONE CAPSULE BY MOUTH TWICE DAILY, # 180 caps, 6 Refill(s) , Pharmacy: [facility], TAKE ONE CAPSULE BY MOUTH TWICE DAILY Start Date: 05/31/15 Status: Ordered Effient 10 mg oral tablet See Instructions, TAKE ONE TABLET BY MOUTH ONCE DAILY, # 30 tabs, 12 Refill(s), eRx: [facility], TAKE ONE TABLET [...] BID, # 60 tabs, 1 Refill(s), Pharmacy: [facility] , 1 tabs Oral BID Start [...] # 45 tabs, 2 Refill( s), eRx: [facility], TAKE ONE-HALF TABLET BY MOUTH ONCE DAILY Start Date: 06/18/15 Status: Ordered levothyroxine 75 mcg (0.075 mg) oral tablet See Instructions, TAKE ONE TABLET BY MOUTH ONCE DAILY Need TSH at next OV, # 30 tabs, 0 Refill(s), Pharmacy: [facility], TAKE ONE TABLET BY MOUTH ONCE DAILY; Need TSH at next OV Start Date: 07/22/15 Status: Ordered Levsin SL mg, SubLingual, q4hr, 0 Refill(s) Start Date: 04/09/15 Status: Ordered metFORMIN 500 mg oral tablet See Instructions, 2 tabs Oral BID, # 120 tabs, 1 Refill(s), eRx: [facility], 2 tabs Oral BID Start Date: 07/29/15 Status: Ordered [place] 5 mg-325 mg oral tablet 1 tabs, Oral, q6hr, as needed for pain, # 60 tabs, 0 Refill(s) Start Date: 07/05/15 Status: Ordered omeprazole 20 mg oral delayed release capsule See Instructions, TAKE ONE CAPSULE BY MOUTH TWICE DAILY, # 60 caps, 5 Refill(s) , eRx: [facility], TAKE ONE CAPSULE BY MOUTH TWICE DAILY Start Date: 06/03/15 Status: Ordered ONE TOUCH ULTRA BLUE TEST STP See Instructions, USE TO TEST BLOOD SUGARS TWO DAYS PER WEEK ( FASTING AND 2 HOURS POST PRANDAL)., # 100 strip, 1 Refill(s), eRx: [facility], USE TO TEST BLOOD SUGARS TWO DAYS PER WEEK ( FASTING AND 2 HOURS POST PRANDAL). Start Date: 11/09/14 Status: Ordered Onglyza 5 mg oral tablet See Instructions, TAKE ONE TABLET BY MOUTH ONCE DAILY, # 30 tabs, 3 Refill(s), Pharmacy: [place] [address], TAKE ONE TABLET BY MOUTH ONCE DAILY Start Date: 06/03/15 Status: Ordered predniSONE 1 mg oral tablet See Instructions, 3 tabs Oral Daily,Instr:TO BE TAKEN WITH PREDNISONE 5 MG TABLETS, # 90 tabs, 0 Refill(s), Pharmacy: [place] [address], please note change in dose, 3 tabs Oral Daily,Instr:TO BE TAKEN WITH PREDNISONE 5 MG TABLETS Start Date: 05/07/15 Status: Ordered predniSONE 20 mg oral tablet See Instructions, , 60 for 3 days, 40 for 3 days, 20 for 3 days, # 20 tabs, 0 Refill(s), Pharmacy: [place] [address], , 60 for 3 days, 40 for [...] # 90 tabs, 2 Refill(s), eRx: [facility]93, 1 tab in am and 2 in pm. Start Date: 05/20/15 Status: Ordered VESIcare 10 mg oral tablet See Instructions, 1 tabs Oral Daily, # 30 tabs, 5 Refill(s), eRx: [facility], 1 tabs Oral Daily Start Date: 02/18/15 Status: Ordered Vitamin D3 2000 intl units oral tablet 2,000 Intl_Units 1 tabs, Oral, Daily, 0 Refill(s) Start Date: 12/19/13 Status: Ordered Wellbutrin 75 mg oral tablet See Instructions, 1 tabs Oral BID, # 60 tabs, 5 Refill(s), eRx: [facility], 1 tabs Oral [...]
--- OUTSIDE RECORDS SUMMARY | 2016-10-06 09:26 | XMS REPORT | Referral Summary ---
Author Author [facility] Organization [facility] Address Unknown Phone Unavailable Care Team Providers Care Caustic Operator Name Role Phone Sarmad Kwan Primary Care Physician [phone] Encounter VC Date(s): 10/29/14 - 10/29/14 [facility] [address] [place] [address] Discharge Diagnosis: TAKAYASU'S DISEASE Discharge Disposition: 01-Home [...] with Dr. Kwan, # 30 tabs, eRx: [facility], 1 tabs Oral Bedtime (once a day),Instr:* LAST REFILL UNTIL SEEN *; you will... Start Date: 04/30/15 Status: Ordered Benadryl 25 mg, Oral, Once, 1 tab, prior to remicade, 0 Refill(s) Start Date: 09/08/14 Status: Ordered Bystolic 10 mg oral tablet See Instructions, TAKE ONE TABLET BY MOUTH ONCE DAILY, # 30 tabs, 3 Refill(s), eRx: [facility], TAKE ONE TABLET BY MOUTH ONCE DAILY Start Date: 01/29/15 Status: Ordered Calcium 600+D 1 tabs, Oral, Daily, 0 Refill(s) Start Date: 11/11/14 Status: Ordered DULoxetine 60 mg oral delayed release capsule See Instructions, TAKE ONE CAPSULE BY MOUTH TWICE DAILY, # 180 caps, 2 Refill(s) , eRx: [facility], TAKE ONE CAPSULE BY MOUTH TWICE DAILY Start Date: 08/28/14 Status: Ordered Effient 10 mg oral tablet See Instructions, TAKE ONE TABLET BY MOUTH ONCE DAILY, # 30 tabs, 12 Refill(s), eRx: [facility], TAKE ONE TABLET BY [...] # 4 tabs, 3 Refill(s) , Pharmacy: [facility], 1 tabs Oral qWeek,Instr:with 6 to 8 ounces of plain water, a... Start Date: 07/31/14 Status: Ordered glimepiride 4 mg oral tablet 4 mg 1 tabs, Oral, BID, PT NEEDS TO ESTABLISH WITH DR. KWAN BEFORE ANYMORE REFILLS, # 60 tabs, 1 Refill(s), Pharmacy: [facility], 1 tabs Oral BID,Instr:PT [...] MOUTH ONCE DAILY, # 90 tabs, eRx: [facility], TAKE ONE TABLET BY MOUTH ONCE DAILY Start Date: 04/19/15 Status: Ordered Levsin SL mg, SubLingual, q4hr, 0 Refill(s) Start Date: 04/09/15 Status: Ordered metFORMIN 500 mg oral tablet See Instructions, 2 tabs Oral BID,Instr:PT NEEDS TO ESTABLISH WITH DR. KWAN BEFORE ANYMORE REFILLS, # 120 tabs, eRx: [facility], 2 tabs Oral BID, Instr:PT NEEDS TO ESTABLISH WITH DR. KWAN BEFORE ANYMORE REFILLS Start Date: 04/30/15 Status: Ordered [place] 5 mg-325 mg oral tablet 1 tabs, Oral, q6hr, as needed for pain, # 60 tabs, 0 Refill(s) Start Date: 03/29/15 Status: Ordered omeprazole 20 mg oral delayed release capsule See Instructions, TAKE ONE CAPSULE BY MOUTH TWICE DAILY, # 60 caps, 5 Refill(s) , eRx: [facility], TAKE ONE CAPSULE BY MOUTH TWICE DAILY Start Date: 11/30/14 Status: Ordered ONE TOUCH ULTRA BLUE TEST STP See Instructions, USE TO TEST BLOOD SUGARS TWO DAYS PER WEEK ( FASTING AND 2 HOURS POST PRANDAL)., # 100 strip, 1 Refill(s), eRx: [facility], USE TO TEST BLOOD SUGARS TWO DAYS PER WEEK ( FASTING AND 2 HOURS POST PRANDAL). Start Date: 11/09/14 Status: Ordered Onglyza 5 mg oral tablet See Instructions, TAKE ONE TABLET BY MOUTH ONCE DAILY, # 30 tabs, 3 Refill(s), eRx: [facility], TAKE ONE TABLET BY MOUTH ONCE DAILY Start Date: 01/29/15 Status: Ordered predniSONE 1 mg oral tablet See Instructions, 4 tabs Oral Daily,Instr:TO BE TAKEN WITH PREDNISONE 5 MG TABLETS, # 120 tabs, 1 Refill(s), Pharmacy: [facility]93, 4 tabs Oral Daily,Instr:TO BE TAKEN [...] pm., # 90 tabs, 2 Refill(s), eRx: [facility], 1 tab in am and 2 in pm. Start Date: 02/18/15 Status: Ordered VESIcare 10 mg oral tablet See Instructions, 1 tabs Oral Daily, # 30 tabs, 5 Refill(s), eRx: [facility], 1 tabs Oral Daily Start Date: 02/18/15 Status: Ordered Vitamin D3 2000 intl units oral tablet 2,000 Intl_Units 1 tabs, Oral, Daily, 0 Refill(s) Start Date: 12/19/13 Status: Ordered Wellbutrin 75 mg oral tablet See Instructions, 1 tabs Oral BID, # 60 tabs, 5 Refill(s), eRx: [facility], 1 tabs Oral BID [...] THOUS [0.80-3.30 THOUS] *LOW* (10/29/14 1:30 PM) [place] [facility] 0.00 THOUS [0.30-1.00 THOUS] *LOW* (10/29/14 [...]
--- OUTSIDE RECORDS SUMMARY | 2016-10-06 09:26 | XMS REPORT | Referral Summary ---
Author Author [facility] Organization [facility] Address Unknown Phone Unavailable Care Team Providers Care Mosaic Tile Maker Name Role Phone Sarmad Kwan Primary Care Physician [phone] Encounter VC Date(s): 01/15/15 - 01/15/15 [facility] [address] [place] [address] Discharge Disposition: 01-Home or Self Care [...] with Dr. Kwan, # 30 tabs, eRx: [facility], 1 tabs Oral Bedtime (once a day),Instr:* LAST REFILL UNTIL SEEN *; you will... Start Date: 04/30/15 Status: Ordered Benadryl 25 mg, Oral, Once, 1 tab, prior to remicade, 0 Refill(s) Start Date: 09/08/14 Status: Ordered Bystolic 10 mg oral tablet See Instructions, TAKE ONE TABLET BY MOUTH ONCE DAILY, # 30 tabs, 3 Refill(s), eRx: [facility], TAKE ONE TABLET BY MOUTH ONCE DAILY Start Date: 01/29/15 Status: Ordered Calcium 600+D 1 tabs, Oral, Daily, 0 Refill(s) Start Date: 11/11/14 Status: Ordered DULoxetine 60 mg oral delayed release capsule See Instructions, TAKE ONE CAPSULE BY MOUTH TWICE DAILY, # 180 caps, 2 Refill(s) , eRx: [facility], TAKE ONE CAPSULE BY MOUTH TWICE DAILY Start Date: 08/28/14 Status: Ordered Effient 10 mg oral tablet See Instructions, TAKE ONE TABLET BY MOUTH ONCE DAILY, # 30 tabs, 12 Refill(s), eRx: [facility], TAKE ONE TABLET [...] # 4 tabs, 3 Refill(s) , Pharmacy: [facility], 1 tabs Oral qWeek,Instr:with 6 to 8 ounces of plain water, a... Start Date: 07/31/14 Status: Ordered glimepiride 4 mg oral tablet 4 mg 1 tabs, Oral, BID, PT NEEDS TO ESTABLISH WITH DR. KWAN BEFORE ANYMORE REFILLS, # 60 tabs, 1 Refill(s), Pharmacy: [facility], 1 tabs Oral BID,Instr:PT [...] MOUTH ONCE DAILY, # 90 tabs, eRx: [facility], TAKE ONE TABLET BY MOUTH ONCE DAILY Start Date: 04/19/15 Status: Ordered Levsin SL mg, SubLingual, q4hr, 0 Refill(s) Start Date: 04/09/15 Status: Ordered metFORMIN 500 mg oral tablet See Instructions, 2 tabs Oral BID,Instr:PT NEEDS TO ESTABLISH WITH DR. KWAN BEFORE ANYMORE REFILLS, # 120 tabs, eRx: [facility], 2 tabs Oral BID, Instr:PT NEEDS TO ESTABLISH WITH DR. KWAN BEFORE ANYMORE REFILLS Start Date: 04/30/15 Status: Ordered [place] 5 mg-325 mg oral tablet 1 tabs, Oral, q6hr, as needed for pain, # 60 tabs, 0 Refill(s) Start Date: 05/07/15 Status: Ordered omeprazole 20 mg oral delayed release capsule See Instructions, TAKE ONE CAPSULE BY MOUTH TWICE DAILY, # 60 caps, 5 Refill(s) , eRx: [facility], TAKE ONE CAPSULE BY MOUTH TWICE DAILY Start Date: 11/30/14 Status: Ordered ONE TOUCH ULTRA BLUE TEST STP See Instructions, USE TO TEST BLOOD SUGARS TWO DAYS PER WEEK ( FASTING AND 2 HOURS POST PRANDAL)., # 100 strip, 1 Refill(s), eRx: [facility], USE TO TEST BLOOD SUGARS TWO DAYS PER WEEK ( FASTING AND 2 HOURS POST PRANDAL). Start Date: 11/09/14 Status: Ordered Onglyza 5 mg oral tablet See Instructions, TAKE ONE TABLET BY MOUTH ONCE DAILY, # 30 tabs, 3 Refill(s), eRx: [facility]93, TAKE ONE TABLET BY MOUTH ONCE DAILY Start Date: 01/29/15 Status: Ordered predniSONE 1 mg oral tablet See Instructions, 3 tabs Oral Daily,Instr:TO BE TAKEN WITH PREDNISONE 5 MG TABLETS, # 90 tabs, 0 Refill(s), Pharmacy: [facility]93, please note change in [...] pm., # 90 tabs, 2 Refill(s), eRx: [facility], 1 tab in am and 2 in pm. Start Date: 02/18/15 Status: Ordered VESIcare 10 mg oral tablet See Instructions, 1 tabs Oral Daily, # 30 tabs, 5 Refill(s), eRx: [facility], 1 tabs Oral Daily Start Date: 02/18/15 Status: Ordered Vitamin D3 2000 intl units oral tablet 2,000 Intl_Units 1 tabs, Oral, Daily, 0 Refill(s) Start Date: 12/19/13 Status: Ordered Wellbutrin 75 mg oral tablet See Instructions, 1 tabs Oral BID, # 60 tabs, 5 Refill(s), eRx: [facility], 1 tabs Oral [...]
--- OUTSIDE RECORDS SUMMARY | 2016-10-06 09:26 | XMS REPORT | Continuity of Care Document ---
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 Hypothyroidism - *Chronic Bright red rectal bleeding - *Resolved Hypercoagulable state - *Stable Diabetes Mellitus Type 2, Uncomplicated - *Chronic Anxiety - *Chronic Diabetes Mellitus Type 2, Uncomplicated - *Chronic Takayasu's arteritis - *Chronic Diabetes Mellitus, Adult Onset, Uncontrolled - *Chronic Heavy menstrual period - *Chronic [...] Dosage Effective Dates (start - stop) Status Synthroid 75 mcg tablet take 1 tablet (75MCG) by oral route every day 75 MCG - Active folic acid 1 mg tablet [...] times every day 60 MG - Active metformin 500 mg tablet take 2 Tablet (1000MG) by oral route 2 times every day with morning and evening meals 1000 MG - Active acyclovir 400 mg tablet 1 TID NEEDED as needed - Active prednisone 10 mg tablet take 4.5 Tablet by Oral route every day 0 2013 - Active methotrexate sodium 2.5 mg tablet take 4 (10MG) by oral route every week for 2 weeks and then 6 tabs weekly 10 MG - Active Fosamax 70 mg tablet take 1 tablet (70MG) by oral route every week in am with 8 oz water 30 mins before other intake and upright 30 min 70 MG 2013 - Active nortriptyline 25 mg capsule take 1 Capsule (25MG) by oral route every bedtime 25 MG - Active glimepiride 2 mg tablet take 1 tablet (2MG) by oral route every day 2 MG - Active Immunizations Vaccine Date Status Comments Flu (split) (3 yrs or older)(preservative free) completed Fluzone HD 0.5 ordered flu (split) (3 yrs or older) preservative free completed - Completed reason: other registry Results Test Name Date and Time Measure Units Reference Range Abnormal Flag Comments Unknown Vital Signs Date / Time: Height Weight Pulse Rate Blood Pressure Temperature /13:12:00 65.50 in 207.00 lbs 68 /min 122/80 mm[Hg] 99.8 F Procedures Procedure Date Unknown Encounters Encounter Location Date Patient Visit [facility] Patient Visit [facility] Card Patient Visit [facility] Mur Card Patient Visit [facility] Patient Visit [facility] Patient [facility] Patient Visit Patient Visit [facility] Patient [facility] Patient [facility] Patient [facility] Patient [facility] Patient [facility] Patient Visit [facility] Patient Visit [facility] Patient [facility] Patient Visit [facility] Patient [facility] Patient Visit [facility] Patient Visit [facility] Patient [facility] Patient [facility] Neuro Patient Visit [facility] Patient Visit [facility] Mur Card Patient Visit [facility] Mur Rheum Advance Directives Directive Effective Date Unknown
--- OUTSIDE RECORDS SUMMARY | 2016-10-06 09:26 | XMS REPORT | Referral Summary ---
Author Author [facility] Organization [facility] Address Unknown Phone Unavailable Care Team Providers Care Street Light Repairer Name Role Phone Sarmad Kwan Primary Care Physician [phone] Encounter VC Date(s): 04/14/15 - 04/14/15 [facility] [address] [place] [address] Discharge Diagnosis: Anxiety Discharge Diagnosis: [...] Kwan, # 30 tabs, 0 Refill(s), Pharmacy: [facility], 1 tabs Oral Bedtime (once a day),Instr:* LAST REFILL UNTIL SEEN *; you wi... Start Date: 04/01/15 Status: Ordered Benadryl 25 mg, Oral, Once, 1 tab, prior to remicade, 0 Refill(s) Start Date: 09/08/14 Status: Ordered Bystolic 10 mg oral tablet See Instructions, TAKE ONE TABLET BY MOUTH ONCE DAILY, # 30 tabs, 3 Refill(s), eRx: [facility], TAKE ONE TABLET BY MOUTH ONCE DAILY Start Date: 01/29/15 Status: Ordered Calcium 600+D 1 tabs, Oral, Daily, 0 Refill(s) Start Date: 11/11/14 Status: Ordered DULoxetine 60 mg oral delayed release capsule See Instructions, TAKE ONE CAPSULE BY MOUTH TWICE DAILY, # 180 caps, 2 Refill(s) , eRx: [facility], TAKE ONE CAPSULE BY MOUTH TWICE DAILY Start Date: 08/28/14 Status: Ordered Effient 10 mg oral tablet See Instructions, TAKE ONE TABLET BY MOUTH ONCE DAILY, # 30 tabs, 12 Refill(s), eRx: [facility], TAKE ONE TABLET BY [...] # 4 tabs, 3 Refill(s) , Pharmacy: [facility], 1 tabs Oral qWeek,Instr:with 6 to 8 ounces of plain water, a... Start Date: 07/31/14 Status: Ordered glimepiride 4 mg oral tablet 4 mg 1 tabs, Oral, BID, PT NEEDS TO ESTABLISH WITH DR. KWAN BEFORE ANYMORE REFILLS, # 60 tabs, 1 Refill(s), Pharmacy: [facility], 1 tabs Oral BID,Instr:PT [...] MOUTH ONCE DAILY, # 90 tabs, eRx: [facility], TAKE ONE TABLET BY MOUTH ONCE DAILY Start Date: 01/21/15 Status: Ordered Levsin SL mg, SubLingual, q4hr, 0 Refill(s) Start Date: 04/09/15 Status: Ordered metFORMIN 500 mg oral tablet 1,000 mg 2 tabs, Oral, BID, PT NEEDS TO ESTABLISH WITH DR. KWAN BEFORE ANYMORE REFILLS, # 120 tabs, 1 Refill(s), Pharmacy: [facility], 2 tabs Oral BID,Instr:PT NEEDS TO ESTABLISH WITH DR. KWAN BEFORE ANYMORE REFILLS Start Date: 03/04/15 Status: Ordered [place] 5 mg-325 mg oral tablet 1 tabs, Oral, q6hr, as needed for pain, # 60 tabs, 0 Refill(s) Start Date: 03/29/15 Status: Ordered omeprazole 20 mg oral delayed release capsule See Instructions, TAKE ONE CAPSULE BY MOUTH TWICE DAILY, # 60 caps, 5 Refill(s) , eRx: [facility], TAKE ONE CAPSULE BY MOUTH TWICE DAILY Start Date: 11/30/14 Status: Ordered ONE TOUCH ULTRA BLUE TEST STP See Instructions, USE TO TEST BLOOD SUGARS TWO DAYS PER WEEK ( FASTING AND 2 HOURS POST PRANDAL)., # 100 strip, 1 Refill(s), eRx: [facility], USE TO TEST BLOOD SUGARS TWO DAYS PER WEEK ( FASTING AND 2 HOURS POST PRANDAL). Start Date: 11/09/14 Status: Ordered Onglyza 5 mg oral tablet See Instructions, TAKE ONE TABLET BY MOUTH ONCE DAILY, # 30 tabs, 3 Refill(s), eRx: [facility], TAKE ONE TABLET BY MOUTH ONCE DAILY Start Date: 01/29/15 Status: Ordered predniSONE 5 mg oral tablet See Instructions, TAKE ONE TABLET BY MOUTH INSTRUCTED WITH 1MG TABLETS, # 30 tabs, 2 Refill(s), eRx: [facility], TAKE ONE TABLET BY MOUTH INSTRUCTED [...] pm., # 90 tabs, 2 Refill(s), eRx: [facility], 1 tab in am and 2 in pm. Start Date: 02/18/15 Status: Ordered VESIcare 10 mg oral tablet See Instructions, 1 tabs Oral Daily, # 30 tabs, 5 Refill(s), eRx: [facility], 1 tabs Oral Daily Start Date: 02/18/15 Status: Ordered Vitamin D3 2000 intl units oral tablet 2,000 Intl_Units 1 tabs, Oral, Daily, 0 Refill(s) Start Date: 12/19/13 Status: Ordered Wellbutrin 75 mg oral tablet See Instructions, 1 tabs Oral BID, # 60 tabs, eRx: [facility], 1 tabs Oral BID Start [...] from: Title: Ambulatory Patient Education Author: Aleena Kwan DO Date: [facility] Influenza Vaccine (Flu Vaccine, Inactivated or Recombinant) : What You Need to Know 1. Why get vaccinated? Influenza ("flu") is a contagious disease that spreads around the [place] [facility] every winter, usually between April and [...] yourself through the [facility]ERS web site at www.vaers.[facility].gov, or by calling 8-390- 999-3876. [facility] does not give medical advice. 6. The [...] calling or visiting the [facility] website at www.[facility].gov/vaccinecompensation. There is a time limit to file a claim for compensation. 7. How can I learn more? Ask your health care provider. Call your local or state health department. Contact the Centers for Disease Control and Prevention (CDC): Call (6-727-YSQ-INFO) or Visit CDC's website at www.cdc.gov/flu CDC Vaccine Information Statement (Interim) Inactivated Influenza Vaccine (02/17) Document Released: 04/12/2007 Document Revised: 11/02/2014 Document Reviewed: [employer] Patient Information 2015 [employer]. This information is not intended to replace advice given to you by your health care provider. Make sure you discuss any questions you have with your health care provider. No follow up information was provided. Extracted from: Title: Office Visit Note Author: Aleena Kwan DO Date: 04/14/15 Assessment/Plan Anxiety Currently chronic controlled with bupropion continue. Ordered: Office Visit Level 4 Est 56466 Chronic headache stable on Topamax, continue. Ordered: Office Visit Level 4 Est 22381 Depression controlled on bupropion, continue current dose. return to clinic in 6 months. Ordered: Office Visit Level 4 Est 46577 Hypertension currently controlled on bystolic, labs done recently, continue current medication. Return to clinic in 6 months. Ordered: Office Visit Level 4 Est 68430 Immunization due Future Scheduled TestsReferral* Return to Clinic 11/11/14 10:59 AM Referrals to Other Providers Referred by: Olga Jones
--- OUTSIDE RECORDS SUMMARY | 2016-10-06 09:26 | XMS REPORT | Referral Summary ---
Author Author [facility] Organization [facility] Address Unknown Phone Unavailable Care Team Providers Care Senior Data Quality Analyst Name Role Phone Sarmad Kwan Primary Care Physician [phone] Encounter VC Date(s): 02/15/15 - 02/15/15 [facility] [address] [place] [address] B[place] [id number] Discharge Diagnosis: Overactive bladder Discharge Disposition: 01-Home [...] with Dr. Kwan, # 30 tabs, eRx: [facility], 1 tabs Oral Bedtime (once a day),Instr:* LAST REFILL UNTIL SEEN *; you will... Start Date: 04/30/15 Status: Ordered Benadryl 25 mg, Oral, Once, 1 tab, prior to remicade, 0 Refill(s) Start Date: 09/08/14 Status: Ordered Bystolic 10 mg oral tablet See Instructions, TAKE ONE TABLET BY MOUTH ONCE DAILY, # 30 tabs, 3 Refill(s), eRx: [facility], TAKE ONE TABLET BY MOUTH ONCE DAILY Start Date: 01/29/15 Status: Ordered Calcium 600+D 1 tabs, Oral, Daily, 0 Refill(s) Start Date: 11/11/14 Status: Ordered DULoxetine 60 mg oral delayed release capsule See Instructions, TAKE ONE CAPSULE BY MOUTH TWICE DAILY, # 180 caps, 2 Refill(s) , eRx: [facility], TAKE ONE CAPSULE BY MOUTH TWICE DAILY Start Date: 08/28/14 Status: Ordered Effient 10 mg oral tablet See Instructions, TAKE ONE TABLET BY MOUTH ONCE DAILY, # 30 tabs, 12 Refill(s), eRx: [facility], TAKE ONE TABLET BY MOUTH [...] # 4 tabs, 3 Refill(s) , Pharmacy: [facility] 993, 1 tabs Oral qWeek,Instr:with 6 to 8 ounces of plain water, a... Start Date: 07/31/14 Status: Ordered glimepiride 4 mg oral tablet 4 mg 1 tabs, Oral, BID, PT NEEDS TO ESTABLISH WITH DR. KWAN BEFORE ANYMORE REFILLS, # 60 tabs, 1 Refill(s), Pharmacy: [facility] 99, 1 tabs Oral BID,Instr:PT NEEDS TO [...] ONCE DAILY, # 90 tabs, eRx: [facility], TAKE ONE TABLET BY MOUTH ONCE DAILY Start Date: 04/19/15 Status: Ordered Levsin SL mg, SubLingual, q4hr, 0 Refill(s) Start Date: 04/09/15 Status: Ordered metFORMIN 500 mg oral tablet See Instructions, 2 tabs Oral BID,Instr:PT NEEDS TO ESTABLISH WITH DR. KWAN BEFORE ANYMORE REFILLS, # 120 tabs, eRx: [facility], 2 tabs Oral BID, Instr:PT NEEDS TO ESTABLISH WITH DR. KWAN BEFORE ANYMORE REFILLS Start Date: 04/30/15 Status: Ordered [place] 5 mg-325 mg oral tablet 1 tabs, Oral, q6hr, as needed for pain, # 60 tabs, 0 Refill(s) Start Date: 03/29/15 Status: Ordered omeprazole 20 mg oral delayed release capsule See Instructions, TAKE ONE CAPSULE BY MOUTH TWICE DAILY, # 60 caps, 5 Refill(s) , eRx: [facility], TAKE ONE CAPSULE BY MOUTH TWICE DAILY Start Date: 11/30/14 Status: Ordered ONE TOUCH ULTRA BLUE TEST STP See Instructions, USE TO TEST BLOOD SUGARS TWO DAYS PER WEEK ( FASTING AND 2 HOURS POST PRANDAL)., # 100 strip, 1 Refill(s), eRx: [facility], USE TO TEST BLOOD SUGARS TWO DAYS PER WEEK ( FASTING AND 2 HOURS POST PRANDAL). Start Date: 11/09/14 Status: Ordered Onglyza 5 mg oral tablet See Instructions, TAKE ONE TABLET BY MOUTH ONCE DAILY, # 30 tabs, 3 Refill(s), eRx: [facility] 993, TAKE ONE TABLET BY MOUTH ONCE DAILY Start Date: 01/29/15 Status: Ordered predniSONE 1 mg oral tablet See Instructions, 4 tabs Oral Daily,Instr:TO BE TAKEN WITH PREDNISONE 5 MG TABLETS, # 120 tabs, 1 Refill(s), Pharmacy: [facility] 993, 4 tabs Oral Daily,Instr:TO BE TAKEN [...] pm., # 90 tabs, 2 Refill(s), eRx: [facility], 1 tab in am and 2 in pm. Start Date: 02/18/15 Status: Ordered VESIcare 10 mg oral tablet See Instructions, 1 tabs Oral Daily, # 30 tabs, 5 Refill(s), eRx: [facility], 1 tabs Oral Daily Start Date: 02/18/15 Status: Ordered Vitamin D3 2000 intl units oral tablet 2,000 Intl_Units 1 tabs, Oral, Daily, 0 Refill(s) Start Date: 12/19/13 Status: Ordered Wellbutrin 75 mg oral tablet See Instructions, 1 tabs Oral BID, # 60 tabs, [facility], 1 tabs Oral BID [...] Follow Up With: Where: When: [facility] [address] [place] [address] Drive; [place] [address] [employer] (1) Within 3 to 5 days Comments: Follow Up With: Where: When: [facility] [address]; [place] [address] [employer] (1) In 6 months 08/18/2015 Comments: Extracted [...] patient. Ordered: Office Visit Level 4 Est 57394 Future Scheduled TestsReferral* Return to Clinic 11/11/14 10:59 AM Referrals to Other Providers Referred by: Olga Jones
--- OUTSIDE RECORDS SUMMARY | 2016-10-06 09:26 | XMS REPORT | Referral Summary ---
Author Author [facility] Organization [facility] Address Unknown Phone Unavailable Care Team Providers Care Shutdown Planner Name Role Phone Sarmad Kwan Primary Care Physician [phone] Encounter VC Date(s): 01/15/15 - 01/15/15 [facility] [address] [place] [id number] Discharge Disposition: 01-Home or Self [...] with Dr. Kwan, # 30 tabs, eRx: [facility], 1 tabs Oral Bedtime (once a day),Instr:* LAST REFILL UNTIL SEEN *; you will... Start Date: 04/30/15 Status: Ordered Benadryl 25 mg, Oral, Once, 1 tab, prior to remicade, 0 Refill(s) Start Date: 09/08/14 Status: Ordered Bystolic 10 mg oral tablet See Instructions, TAKE ONE TABLET BY MOUTH ONCE DAILY, # 30 tabs, 3 Refill(s), eRx: [facility]93, TAKE ONE TABLET BY MOUTH ONCE DAILY Start Date: 01/29/15 Status: Ordered Calcium 600+D 1 tabs, Oral, Daily, 0 Refill(s) Start Date: 11/11/14 Status: Ordered DULoxetine 60 mg oral delayed release capsule See Instructions, TAKE ONE CAPSULE BY MOUTH TWICE DAILY, # 180 caps, 2 Refill(s) , eRx: [facility]93, TAKE ONE CAPSULE BY MOUTH TWICE DAILY Start Date: 08/28/14 Status: Ordered Effient 10 mg oral tablet See Instructions, TAKE ONE TABLET BY MOUTH ONCE DAILY, # 30 tabs, 12 Refill(s), eRx: [facility]93, TAKE ONE TABLET BY [...] # 4 tabs, 3 Refill(s) , Pharmacy: [facility], 1 tabs Oral qWeek,Instr:with 6 to 8 ounces of plain water, a... Start Date: 07/31/14 Status: Ordered glimepiride 4 mg oral tablet 4 mg 1 tabs, Oral, BID, PT NEEDS TO ESTABLISH WITH DR. KWAN BEFORE ANYMORE REFILLS, # 60 tabs, 1 Refill(s), Pharmacy: [facility]93, 1 tabs Oral BID,Instr:PT [...] MOUTH ONCE DAILY, # 90 tabs, eRx: [facility], TAKE ONE TABLET BY MOUTH ONCE DAILY Start Date: 04/19/15 Status: Ordered Levsin SL mg, SubLingual, q4hr, 0 Refill(s) Start Date: 04/09/15 Status: Ordered metFORMIN 500 mg oral tablet See Instructions, 2 tabs Oral BID,Instr:PT NEEDS TO ESTABLISH WITH DR. KWAN BEFORE ANYMORE REFILLS, # 120 tabs, eRx: [facility]93, 2 tabs Oral BID, Instr:PT NEEDS TO ESTABLISH WITH DR. KWAN BEFORE ANYMORE REFILLS Start Date: 04/30/15 Status: Ordered [place] 5 mg-325 mg oral tablet 1 tabs, Oral, q6hr, as needed for pain, # 60 tabs, 0 Refill(s) Start Date: 05/07/15 Status: Ordered omeprazole 20 mg oral delayed release capsule See Instructions, TAKE ONE CAPSULE BY MOUTH TWICE DAILY, # 60 caps, 5 Refill(s) , eRx: [facility]93, TAKE ONE CAPSULE BY MOUTH TWICE DAILY Start Date: 11/30/14 Status: Ordered ONE TOUCH ULTRA BLUE TEST STP See Instructions, USE TO TEST BLOOD SUGARS TWO DAYS PER WEEK ( FASTING AND 2 HOURS POST PRANDAL)., # 100 strip, 1 Refill(s), eRx: [facility], USE TO TEST BLOOD SUGARS TWO DAYS PER WEEK ( FASTING AND 2 HOURS POST PRANDAL). Start Date: 11/09/14 Status: Ordered Onglyza 5 mg oral tablet See Instructions, TAKE ONE TABLET BY MOUTH ONCE DAILY, # 30 tabs, 3 Refill(s), eRx: [facility] 993, TAKE ONE TABLET BY MOUTH ONCE DAILY Start Date: 01/29/15 Status: Ordered predniSONE 1 mg oral tablet See Instructions, 3 tabs Oral Daily,Instr:TO BE TAKEN WITH PREDNISONE 5 MG TABLETS, # 90 tabs, 0 Refill(s), Pharmacy: [facility] 993, please note change in dose, [...] pm., # 90 tabs, 2 Refill(s), eRx: [facility]93, 1 tab in am and 2 in pm. Start Date: 02/18/15 Status: Ordered VESIcare 10 mg oral tablet See Instructions, 1 tabs Oral Daily, # 30 tabs, 5 Refill(s), eRx: [facility]93, 1 tabs Oral Daily Start Date: 02/18/15 Status: Ordered Vitamin D3 2000 intl units oral tablet 2,000 Intl_Units 1 tabs, Oral, Daily, 0 Refill(s) Start Date: 12/19/13 Status: Ordered Wellbutrin 75 mg oral tablet See Instructions, 1 tabs Oral BID, # 60 tabs, 5 Refill(s), eRx: [facility], 1 tabs Oral BID [...]
--- OUTSIDE RECORDS SUMMARY | 2016-10-06 09:26 | XMS REPORT | Referral Summary ---
Author Author [facility] Organization [facility] Address Unknown Phone Unavailable Care Team Providers Care Model Maker Name Role Phone Sarmad Salcido Primary Care Physician [phone] Encounter VC Date(s): 07/15/15 - 07/15/15 [facility] [address] [place] [id number] Discharge Disposition: 01-Home or Self Care Attending Physician: Rupert Mon APRN Admitting Physician: Rupert Mon APRN Vital Signs Most recent to 1 oldest [Reference Range]: Temperature Tympanic 36.5 degC [36.6-38.1 degC] *LOW* (07/15/15 1:06 PM) Peripheral Pulse 100 bpm Rate [60-100 bpm] (07/15/15 1:06 PM) Respiratory Rate 18 br/min [14-20 br/min] (07/15/15 1:06 PM) Blood Pressure 110/88 mmHg [90-140/60-90 mmHg] (07/15/15 1:06 PM) SpO2 98 % (07/15/15 1:06 PM) Problem List Condition Effective Dates Status [...] ICA(Confirmed) Overweight(Confirmed Active ) Takayasu(Confirmed) Active Tremor(Confirmed) 2/14/12 Active UTI (urinary tract Active infection)(Confirmed ) [...] tabs , 2 Refill(s), eRx: [facility] [...] day), # 30 tabs, 6 Refill(s), Pharmacy: [facility]93, 1 tabs Oral Bedtime (once a day) Start Date: 05/31/15 Status: Ordered Benadryl 25 mg, Oral, Once, 1 tab, prior to remicade, 0 Refill(s) Start Date: 09/08/14 Status: Ordered Bystolic 10 mg oral tablet See Instructions, TAKE ONE TABLET BY MOUTH ONCE DAILY, # 30 tabs, 6 Refill(s), Pharmacy: [facility]93, TAKE ONE TABLET BY MOUTH ONCE DAILY Start Date: 05/31/15 Status: Ordered Calcium 600+D 1 tabs, Oral, Daily, 0 Refill(s) Start Date: 11/11/14 Status: Ordered cephalexin 500 mg oral tablet 500 mg 1 tabs, Oral, QID, X 10 days, # 40 tabs, 0 Refill(s), Pharmacy: [facility]93, 1 tabs Oral QID,x10 days Start Date: 07/15/15 Stop Date: 07/25/15 Status: Ordered DULoxetine 60 mg oral delayed release capsule See Instructions, TAKE ONE CAPSULE BY MOUTH TWICE DAILY, # 180 caps, 6 Refill(s) , Pharmacy: [facility], [...] BID, # 60 tabs, 1 Refill(s), Pharmacy: [facility] , 1 tabs Oral BID Start Date: [...] tabs, 2 Refill( s), eRx: [facility], TAKE ONE-HALF TABLET BY MOUTH [...] 120 tabs, 1 Refill(s), Pharmacy: [facility], 2 tabs Oral BID Start Date: 06/03/15 Status: Ordered [place] 5 mg-325 mg oral tablet 1 tabs, [...] DAILY, # 30 tabs, 3 Refill(s), Pharmacy: [facility]93, TAKE ONE TABLET BY MOUTH ONCE DAILY Start Date: 06/03/15 Status: Ordered predniSONE 1 mg oral tablet See Instructions, 3 tabs Oral Daily,Instr:TO BE TAKEN WITH PREDNISONE 5 MG TABLETS, # 90 tabs, 0 Refill(s), Pharmacy: [facility], please note change in dose, 3 tabs Oral Daily,Instr:TO BE TAKEN WITH PREDNISONE 5 MG TABLETS Start Date: 05/07/15 Status: Ordered predniSONE 10 mg oral tablet See Instructions, Start with 6 tabs PO daily for 3 days and decrease by one tablet every 3 days, # 63 tabs, 0 Refill(s), Pharmacy: [facility], Start with 6 tabs PO daily for 3 days and decrease by one tablet every 3 days Start Date: 07/15/15 Stop Date: 07/29/15 Status: Ordered predniSONE 20 mg oral tablet See Instructions, , 60 for 3 days, 40 for 3 days, 20 for 3 days, # 20 tabs, 0 Refill(s), Pharmacy: [facility], , 60 for 3 days, [...] pm., # 90 tabs, 2 Refill(s), eRx: [facility], 1 tab in am and 2 in pm. Start Date: 05/20/15 Status: Ordered VESIcare 10 mg oral tablet See Instructions, 1 tabs Oral Daily, # 30 tabs, 5 Refill(s), eRx: [facility], 1 tabs Oral Daily Start Date: 02/18/15 Status: Ordered Vitamin D3 2000 intl units oral tablet 2,000 Intl_Units 1 tabs, Oral, Daily, 0 Refill(s) Start Date: 12/19/13 Status: Ordered Wellbutrin 75 mg oral tablet See Instructions, 1 tabs Oral BID, # 60 tabs, 5 Refill(s), eRx: [facility], 1 tabs Oral BID Start [...]
--- OUTSIDE RECORDS SUMMARY | 2016-10-06 09:26 | XMS REPORT | Referral Summary ---
Author Organization Unknown Address Unknown Phone Unavailable Care Team Providers Care Valve Setter Name Role Phone Eva Painting Primary Care Physician [phone] Encounter VC Date(s): 08/10/14 - 08/10/14 [facility], Family [address] [place] [address] Discharge Diagnosis: Takayasu Discharge Diagnosis: T2DM (type 2 diabetes mellitus) Discharge Disposition: Home or Self Care Attending Physician: Felisa Painting MD Admitting Physician: Felisa Painting MD Vital Signs Most recent to 1 oldest [Reference Range]: Temperature Tympanic 37.2 degC [36.6-38.1 degC] (08/10/14 10:14 AM) Peripheral Pulse 96 bpm Rate [60-100 bpm] (08/10/14 10:14 AM) Blood Pressure 120/72 mmHg [90-140/60-90 mmHg] (08/10/14 10:14 AM) Problem List Condition Effective Dates Status [...] # 30 tabs, 2 Refill(s), eRx: [facility]93, TAKE ONE TABLET BY MOUTH ONCE DAILY Special Instructions: TAKE ONE TABLET BY MOUTH ONCE DAILY Start Date: 07/27/14 Status: Ordered Cymbalta 60 mg oral delayed release capsule caps, Oral, BID, 0 Refill(s) Start Date: 12/19/13 Status: Ordered Diflucan 150 mg oral tablet 1 tabs, Oral, q72hr, # 10 tabs, 2 Refill(s), Pharmacy: [facility]93, 1 tabs Oral q72hr Start Date: 08/06/14 Status: Ordered Effient 10 mg oral tablet See Instructions, TAKE ONE TABLET BY MOUTH EVERY DAY, # 30 tabs, 3 Refill(s), eRx: [facility], TAKE ONE TABLET BY [...] 4 tabs, 3 Refill(s) , Pharmacy: [facility]93, 1 tabs Oral qWeek,Instr:with 6 to 8 ounces of plain water, a... Special Instructions: with 6 to 8 ounces of plain water, at least 30 minutes before the first food, beverage, or medication of the day Start Date: 07/31/14 Status: Ordered gabapentin 300 mg oral capsule 1-2 caps, Oral, TID, # 180 tabs, 1 Refill(s), Pharmacy: [facility]93, please see change in dose, 1-2 caps Oral TID Start Date: 06/01/14 Status: Ordered glimepiride 2 mg oral tablet 1 tabs, Oral, BID, # 180 tabs, 0 Refill(s), Pharmacy: [facility]93, 1 tabs Oral BID [...] Daily, # 30 tabs, 1 Refill(s), Pharmacy: [facility] 99, please note change in dose, 1 tabs Oral Daily Start Date: 06/08/14 Status: Ordered Lipitor 40 mg oral tablet tabs, Oral, Bedtime (once a day), 0 Refill(s) Start Date: 12/19/13 Status: Ordered metFORMIN 500 mg oral tablet See Instructions, 2 tabs Oral BID, # 120 tabs, 2 Refill(s), eRx: [facility], 2 tabs Oral BID Special Instructions: 2 tabs Oral BID Start Date: 06/01/14 Status: Ordered multivitamin Daily, 0 Refill(s) Start Date: 12/19/13 Status: Ordered [place] 5 mg-325 mg oral tablet 1 tabs, Oral, q6hr, as needed for pain, # 60 tabs, 0 Refill(s) Start Date: 08/04/14 Status: Ordered omeprazole 20 mg oral delayed release capsule See Instructions, 1 caps Oral BID, # 60 caps, 2 Refill(s), eRx: [facility], 1 caps Oral BID Special Instructions: 1 caps Oral BID Start Date: 06/12/14 Status: Ordered Onglyza 5 mg oral tablet See Instructions, TAKE ONE TABLET BY MOUTH ONCE DAILY, # 30 tabs, 2 Refill(s), eRx: [facility], TAKE ONE TABLET BY [...] # 90 tabs, 1 Refill(s), Pharmacy: [facility], 1 tabs Oral Daily Start Date: 02/03/14 Status: Ordered Tylenol Extra Strength See Instructions, 1,000 mg Oral prior to infusion, 0 Refill(s) Special Instructions: 1,000 mg Oral prior to infusion Start Date: 03/27/14 Status: Ordered VESIcare 10 mg oral tablet 1 tabs, Oral, Daily, # 30 tabs, 2 Refill(s), Pharmacy: [facility], 1 tabs Oral Daily [...] Extracted from: Title: Ambulatory Patient Education Author: Felisa Painting MD Date: 08/10/14 Family Medicine Correction Insulin Your caregiver has decided you need insulin at home. You have been given a correctional scale (sliding scale) in case you need extra insulin when your blood sugar is too high (hyperglycemia ). The following instructions will assist you in how to use that correctional scale. WHAT IS A CORRECTIONAL SCALE (SLIDING SCALE)? When you check your blood sugar, sometimes it will be higher than your caregiver wants it to be. You may need an extra dose of insulin to bring your blood sugar to your desired level (also known as your goal, target level, or normal level.) The correctional scale is prescribed by your caregiver based on your specific needs. Your correctional scale has 2 parts. The first shows you a blood sugar range. The second part tells you how much extra insulin to give yourself if your blood sugar falls within this range. You will not need an extra dose of insulin if your blood glucose is in the desired range. You should always give yourself the normal amount of insulin your caregiver ordered as well. The most common time to check your blood sugar is before eating and at bedtime. Check with your caregiver so he or she can tell you what the best times are for you. WHY IS IT IMPORTANT TO KEEP YOUR BLOOD SUGAR LEVELS AT YOUR DESIRED LEVEL? It helps to prevent long-term complications of diabetes, such as eye disease, kidney failure, and other serious complications. WHAT TYPE OF INSULIN WILL YOU USE? To help bring down blood sugars that are too high, your caregiver has prescribed a short-acting or a rapid-acting insulin. An example of a short- acting insulin would be Regular. Remember, you may also have a longer-acting insulin. WHAT DO I NEED TO DO? Check your blood sugar with your home blood glucose meter as recommended by your caregiver. Using your correctional scale, find the range your blood sugar lies in. Look for the units of insulin that matches the blood sugar range. Give yourself the dose of correctional insulin your caregiver has prescribed. Always make sure you are using the right type of insulin. Prior to the injection make sure you have food available that you can eat in the next 15 to 30 minutes. If your correctional insulin is rapid acting, start eating your meal within 15 minutes after you have given yourself the insulin injection. If you wait longer than 15 minutes to eat, your blood sugar might get too low. If your correctional insulin is short acting (Regular), start eating your meal within 30 minutes after you have given yourself the insulin injection. If you wait longer than 30 minutes to eat, your blood sugar might get too low. Symptoms of low blood sugar (hypoglycemia ) may include feeling shaky or weak, sweating a lot, not thinking straight, difficulty seeing, agitation, or crankiness. Check your blood sugar immediately and treat your results as directed by your caregiver. Keep a log of your blood sugar results with the time you took the test and the amount of insulin that you injected. This information will help your caregiver manage your medications. Note on your log anything that may affect your blood sugars such as: Changes in normal exercise or activity. Changes in your normal schedule, such as staying up late, going on vacation, changing your diet, or holidays. New medications. This includes all medications. Some medications, even those that do not require a prescription, may cause high blood sugars. Illness or stress. Changes in when you actually took your medication. Changes in your meals, such as skipping a meal, a late meal, or dining out. Eating things that may affect blood glucose, such as snacks, larger meal portions than normal, or drinks with sugar. Ask your caregiver any questions you have. WHY DO I NEED A CORRECTIONAL SCALE (SLIDING SCALE) IF I HAVE NEVER BEEN DIAGNOSED WITH DIABETES? Keeping your blood glucose in range is important for your overall health. You may have been prescribed medications that cause your blood glucose to be higher than normal. Your discharging caregiver can provide additional information as needed. WHEN SHOULD I SEEK MEDICAL CARE? If you have experienced hypoglycemia that you are unable to treat with your usual routine. You have questions about your care. You have persistent hypoglycemia or hyperglycemia. Someone who lives with you should seek emergency medical care if you become unresponsive. MAKE SURE YOU: Understand these instructions. Will watch your condition. Will get help right away if you are not doing well or get worse. Document Released: 11/09/2011 Document Revised: 09/09/2012 Document Reviewed: [employer] Patient Information 2014 [employer]. No follow up information was provided. Extracted from: Title: Office Visit Note Author: Felisa Painting MD Date: 08/10/14 Assessment/Plan T2DM (type 2 diabetes mellitus) increase glimeperide to 4 mg BID. Report BS's weekly via portal, and we'll make further adjustments as needed. Check BS 's daily for the next week. [place]
--- OUTSIDE RECORDS SUMMARY | 2016-10-06 09:27 | XMS REPORT | Referral Summary ---
Author Author [facility] Organization [facility] Address Unknown Phone Unavailable Care Team Providers Care Loan Counselor Name Role Phone Sarmad Kwan Primary Care Physician [phone] Encounter Date(s): 11/20/14 - 11/20/14 [facility] [address] [place] [address] [place] [id number] Discharge Diagnosis: Encounter for long-term [...] Dr. Kwan, # 30 tabs, eRx: [facility], 1 tabs Oral Bedtime (once a day),Instr:* LAST REFILL UNTIL SEEN *; you will... Start Date: 04/30/15 Status: Ordered Benadryl 25 mg, Oral, Once, 1 tab, prior to remicade, 0 Refill(s) Start Date: 09/08/14 Status: Ordered Bystolic 10 mg oral tablet See Instructions, TAKE ONE TABLET BY MOUTH ONCE DAILY, # 30 tabs, 3 Refill(s), eRx: [facility], TAKE ONE TABLET BY MOUTH ONCE DAILY Start Date: 01/29/15 Status: Ordered Calcium 600+D 1 tabs, Oral, Daily, 0 Refill(s) Start Date: 11/11/14 Status: Ordered DULoxetine 60 mg oral delayed release capsule See Instructions, TAKE ONE CAPSULE BY MOUTH TWICE DAILY, # 180 caps, 2 Refill(s) , eRx: [facility], TAKE ONE CAPSULE BY MOUTH TWICE DAILY Start Date: 08/28/14 Status: Ordered Effient 10 mg oral tablet See Instructions, TAKE ONE TABLET BY MOUTH ONCE DAILY, # 30 tabs, 12 Refill(s), eRx: [facility], TAKE ONE TABLET BY [...] # 4 tabs, 3 Refill(s) , Pharmacy: [facility], 1 tabs Oral qWeek,Instr:with 6 to 8 ounces of plain water, a... Start Date: 07/31/14 Status: Ordered glimepiride 4 mg oral tablet 4 mg 1 tabs, Oral, BID, PT NEEDS TO ESTABLISH WITH DR. KWAN BEFORE ANYMORE REFILLS, # 60 tabs, 1 Refill(s), Pharmacy: [facility], 1 tabs Oral BID,Instr:PT NEEDS [...] MOUTH ONCE DAILY, # 90 tabs, eRx: [facility], TAKE ONE TABLET BY MOUTH ONCE DAILY Start Date: 04/19/15 Status: Ordered Levsin SL mg, SubLingual, q4hr, 0 Refill(s) Start Date: 04/09/15 Status: Ordered metFORMIN 500 mg oral tablet See Instructions, 2 tabs Oral BID,Instr:PT NEEDS TO ESTABLISH WITH DR. KWAN BEFORE ANYMORE REFILLS, # 120 tabs, eRx: [facility], 2 tabs Oral BID, Instr:PT NEEDS TO ESTABLISH WITH DR. KWAN BEFORE ANYMORE REFILLS Start Date: 04/30/15 Status: Ordered [place] 5 mg-325 mg oral tablet 1 tabs, Oral, q6hr, as needed for pain, # 60 tabs, 0 Refill(s) Start Date: 05/07/15 Status: Ordered omeprazole 20 mg oral delayed release capsule See Instructions, TAKE ONE CAPSULE BY MOUTH TWICE DAILY, # 60 caps, 5 Refill(s) , eRx: [facility], TAKE ONE CAPSULE BY MOUTH TWICE DAILY Start Date: 11/30/14 Status: Ordered ONE TOUCH ULTRA BLUE TEST STP See Instructions, USE TO TEST BLOOD SUGARS TWO DAYS PER WEEK ( FASTING AND 2 HOURS POST PRANDAL)., # 100 strip, 1 Refill(s), eRx: [facility], USE TO TEST BLOOD SUGARS TWO DAYS PER WEEK ( FASTING AND 2 HOURS POST PRANDAL). Start Date: 11/09/14 Status: Ordered Onglyza 5 mg oral tablet See Instructions, TAKE ONE TABLET BY MOUTH ONCE DAILY, # 30 tabs, 3 Refill(s), eRx: [facility], TAKE ONE TABLET BY MOUTH ONCE DAILY Start Date: 01/29/15 Status: Ordered predniSONE 1 mg oral tablet See Instructions, 3 tabs Oral Daily,Instr:TO BE TAKEN WITH PREDNISONE 5 MG TABLETS, # 90 tabs, 0 Refill(s), Pharmacy: [facility], please note change in dose, 3 [...] # 90 tabs, 2 Refill(s), eRx: [facility], 1 tab in am and 2 in pm. Start Date: 02/18/15 Status: Ordered VESIcare 10 mg oral tablet See Instructions, 1 tabs Oral Daily, # 30 tabs, 5 Refill(s), eRx: [facility], 1 tabs Oral Daily Start Date: 02/18/15 Status: Ordered Vitamin D3 2000 intl units oral tablet 2,000 Intl_Units 1 tabs, Oral, Daily, 0 Refill(s) Start Date: 12/19/13 Status: Ordered Wellbutrin 75 mg oral tablet See Instructions, 1 tabs Oral BID, # 60 tabs, 5 Refill(s), eRx: [facility], 1 tabs Oral BID Start [...]
--- OUTSIDE RECORDS SUMMARY | 2016-10-06 09:27 | XMS REPORT | Referral Summary ---
Author Author [facility] Organization [facility] Address Unknown Phone Unavailable Care Team Providers Care Title Inspector Name Role Phone Sarmad Salcido Primary Care Physician [phone] Encounter VC Date(s): 02/12/15 - 02/12/15 [facility] [place] [address] Discharge Diagnosis: TAKAYASU'S DISEASE Discharge Disposition: 01-Home [...] # 4 tabs , 2 Refill(s), eRx: [facility], TAKE [...] day), # 30 tabs, 6 Refill(s), Pharmacy: [facility], 1 tabs Oral Bedtime (once a day) Start Date: 05/31/15 Status: Ordered Benadryl 25 mg, Oral, Once, 1 tab, prior to remicade, 0 Refill(s) Start Date: 09/08/14 Status: Ordered Bystolic 10 mg oral tablet See Instructions, TAKE ONE TABLET BY MOUTH ONCE DAILY, # 30 tabs, 6 Refill(s), Pharmacy: [facility], TAKE ONE TABLET BY MOUTH ONCE DAILY Start Date: 05/31/15 Status: Ordered Calcium 600+D 1 tabs, Oral, Daily, 0 Refill(s) Start Date: 11/11/14 Status: Ordered DULoxetine 60 mg oral delayed release capsule See Instructions, TAKE ONE CAPSULE BY MOUTH TWICE DAILY, # 180 caps, 6 Refill(s) , Pharmacy: [facility], TAKE ONE CAPSULE [...] # 45 tabs, 2 Refill( s), eRx: [facility], TAKE ONE-HALF TABLET BY MOUTH ONCE DAILY Start Date: 06/18/15 Status: Ordered levothyroxine 75 mcg (0.075 mg) oral tablet See Instructions, TAKE ONE TABLET BY MOUTH ONCE DAILY; Need TSH at next OV, # 30 tabs, 2 Refill(s), eRx: [facility], TAKE ONE TABLET BY MOUTH ONCE DAILY; Need TSH at next OV Start Date: 08/19/15 Status: Ordered Levsin SL mg, SubLingual, q4hr, 0 Refill(s) Start Date: 04/09/15 Status: Ordered metFORMIN 500 mg oral tablet See Instructions, 2 tabs Oral BID, # 120 tabs, 1 Refill(s), eRx: [facility], 2 tabs Oral BID Start Date: 07/29/15 Status: Ordered Page 5 mg-325 mg oral tablet 1 tabs, Oral, q6hr, as needed for pain, # 60 tabs, 0 Refill(s) Start Date: 07/05/15 Status: Ordered omeprazole 20 mg oral delayed release capsule See Instructions, TAKE ONE CAPSULE BY MOUTH TWICE DAILY, # 60 caps, 5 Refill(s) , eRx: [facility], TAKE ONE CAPSULE BY MOUTH TWICE [...] DAILY, # 30 tabs, 3 Refill(s), Pharmacy: [facility], TAKE ONE TABLET BY MOUTH ONCE DAILY Start Date: 06/03/15 Status: Ordered predniSONE 1 mg oral tablet See Instructions, 3 tabs Oral Daily,Instr:TO BE TAKEN WITH PREDNISONE 5 MG TABLETS, # 90 tabs, 0 Refill(s), Pharmacy: [facility], please note change in dose, 3 tabs Oral Daily,Instr:TO BE TAKEN WITH PREDNISONE 5 MG TABLETS Start Date: 05/07/15 Status: Ordered predniSONE 20 mg oral tablet See Instructions, , 60 for 3 days, 40 for 3 days, 20 for 3 days, # 20 tabs, 0 Refill(s), Pharmacy: [facility], , 60 for 3 [...] pm., # 90 tabs, 2 Refill(s), eRx: [facility], 1 tab in am [...] to 1 oldest [Reference Range]: WBC [4.8-10.8 9.7 10*3/uL 10*3/uL] (02/12/15 9:15 AM) RBC [4.00-5.20 4.54 10*6/uL 10*6/uL] (02/12/15 9:15 AM) Hgb [12.0-16.0 11.3 gm/dL gm/dL] *LOW* (02/12/1515 AM) Hct [37.0-47.0 %] 37.0 % (02/12/15:15 AM) MCV [82.0-99.0 fL] 81.5 fL *LOW* (02/12/1515 AM) MCH [27.0-32.0 pg] 24.9 pg *LOW* (02/12/15:15 AM) MCHC [32.0-36.0 30.5 gm/dL gm/dL] *LOW* (02/12/15:15 AM) RDW [11.5-14.5 %] 15.5 % *HI* (02/12/15:15 AM) Platelet [150-400 400 10*3/uL 10*3/uL] (02/12/15 9:15 AM) MPV [8.8-14.8 fL] 9.8 fL (02/12/15 9:15 AM) Immature 0.1 % Granulocytes (02/12/15:15 AM) [0.0-1.0 %] Neutrophils [51-75 79 % %] *HI* (02/12/15:15 AM) Lymphocytes [20-46 14 % %] *LOW* (02/12/15:15 AM) Monocytes [4-11 %] 7 % (02/12/15 9:15 AM) Eosinophils [0-4 %] 1 % (02/12/15 9:15 AM) Basophils [0-2 %] 0 % (02/12/15 9:15 AM) Neutro Absolute 7.62 10*3 [1.90-7.00 10*3] *HI* (02/12/15 9:15 AM) Lymph Absolute 1.32 10*3 [0.80-3.30 10*3] (02/12/15 9:15 AM) [place] Absolute 0.63 10*3 [0.30-1.00 10*3] (02/12/15 9:15 AM) Eos Absolute 0.07 10*3 [0.00-0.50 10*3] (02/12/15 9:15 AM) Baso Absolute 0.03 10*3 [0.00-0.20 10*3] (02/12/1515 AM) Sed Rate [0-23 16 mm/hr mm/hr] (02/12/1515 AM) Chemistry Most recent to 1 oldest [Reference Range]: Sodium Lvl [135-144 136 mEq/L mEq/L] (02/12/15:15 AM) Potassium Lvl 3.5 mEq/L [3.5-5.2 mEq/L] (02/12/15:15 AM) Chloride [99-111 104 mEq/L mEq/L] (02/12/1515 AM) CO2 [22-31 mEq/L] 23 mEq/L (02/12/1515 AM) AGAP [3-20] 9 (02/12/1515 AM) BUN [7-19 mg/dL] 5 mg/dL *LOW* (02/12/1515 AM) Glucose Lvl [70-99 121 mg/dL mg/dL] *HI* (02/12/1515 AM) Creatinine Lvl 0.87 mg/dL [0.57-1.11 mg/dL] (02/12/15:15 AM) eGFR [>60 mL/min] >60 mL/min 1 (02/12/1515 AM) Calcium Lvl 9.3 mg/dL [8.9-10.5 mg/dL] (02/12/1515 AM) Albumin Lvl [3.5-5.0 4.3 gm/dL gm/dL] (02/12/1515 AM) Total Protein 7.3 gm/dL [6.4-8.3 gm/dL] (02/12/1515 AM) Globulin [1.8-4.0 3.0 gm/dL gm/dL] (02/12/15:15 AM) ALT [0-55 U/L] 15 U/L (02/12/1515 AM) AST [5-34 U/L] 14 U/L (02/12/15:15 AM) Alk Phos [40-150 48 U/L U/L] (02/12/15:15 AM) Bili Total [0.2-1.2 0.2 mg/dL mg/dL] (02/12/15 9:15 AM) 1Result Comment: Multiply eGFR results by 1.21 for race. 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
--- OUTSIDE RECORDS SUMMARY | 2016-10-06 09:27 | XMS REPORT | Continuity of Care Document ---
Author Author Jina MENDEZ, [facility] Address [address] [place] [address] Phone Care Team Providers Care Special Service Representative Name Role Phone Felisa Painting RAYMOND Unavailable Payers Payer name Insurance type Covered alliance party ID Authorization(s) Unknown Problems Condition Effective Dates (start - stop) Clinical Status TIA (transient ischemic attack) - *Chronic Cerebrovascular disease - *Chronic Headache - *Chronic Bright red rectal bleeding - *Resolved Hypercoagulable state - *Stable Diabetes Mellitus Type 2, Uncomplicated - *Chronic Anxiety - *Chronic Diabetes Mellitus Type 2, Uncomplicated - *Chronic HX TIA/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 - *Chronic Hypothyroidism - *Chronic Takayasu's arteritis - *Chronic Diabetes [...] Benign - *Chronic Conjunctivitis, unspecified - *Acute Myalgia and myositis, unspecified - *Chronic Oral [...] Height Weight Pulse Rate Blood Pressure Temperature /10:14:00 65.50 in 208.80 lbs 60 /min 120/80 mm[Hg] Procedures Procedure Date Unknown Encounters Encounter Location Date Patient Visit [facility] Neuro Patient Visit [facility] Mur Card Patient Visit [facility] Mur Card Patient Visit [facility] Patient Visit [facility] Patient Visit [facility] Patient Visit [facility] Patient Visit [facility] Patient Visit [facility] Patient Visit [facility] Patient Visit [facility] Mur Rheum Patient Visit Patient Visit [facility] Rheum Patient Visit [facility] Patient Visit [facility] Patient Visit [facility] Rheum Patient Visit [facility] Patient Visit [facility] OB Patient Visit [facility] Mur Card Patient Visit [facility] Mur Rheum Patient Visit [facility] Patient Visit [facility] Patient Visit [facility] Patient Visit [facility] Patient Visit [facility] Patient Visit [facility] Patient Visit [facility] Patient Visit [facility] Mur Rheum Patient Visit [facility] New Patient Visit [facility] Mur Rheum Patient Visit [facility] Mur Card Patient Visit [facility] Mur Rheum Advance Directives Directive Effective Date Unknown
--- OUTSIDE RECORDS SUMMARY | 2016-10-06 09:27 | XMS REPORT | Referral Summary ---
Author Author [facility] Organization [facility] Address Unknown Phone Unavailable Care Team Providers Care Bending Press Operator Name Role Phone Sarmad Salcido Primary Care Physician [phone] Encounter VC Date(s): 07/05/15 - 07/05/15 [facility], Kiran [address] [place], [place] [address] Discharge Disposition: 01-Home or Self Care [...] # 4 tabs , 2 Refill(s), eRx: [facility], TAKE ONE TABLET BY MOUTH [...] day), # 30 tabs, 6 Refill(s), Pharmacy: [facility], 1 tabs Oral Bedtime (once a day) Start Date: 05/31/15 Status: Ordered Benadryl 25 mg, Oral, Once, 1 tab, prior to remicade, 0 Refill(s) Start Date: 09/08/14 Status: Ordered Bystolic 10 mg oral tablet See Instructions, TAKE ONE TABLET BY MOUTH ONCE DAILY, # 30 tabs, 6 Refill(s), Pharmacy: [facility], TAKE ONE TABLET BY MOUTH ONCE DAILY Start Date: 05/31/15 Status: Ordered Calcium 600+D 1 tabs, Oral, Daily, 0 Refill(s) Start Date: 11/11/14 Status: Ordered DULoxetine 60 mg oral delayed release capsule See Instructions, TAKE ONE CAPSULE BY MOUTH TWICE DAILY, # 180 caps, 6 Refill(s) , Pharmacy: [facility], TAKE ONE CAPSULE BY MOUTH TWICE DAILY Start Date: 05/31/15 Status: Ordered Effient 10 mg oral tablet See Instructions, TAKE ONE TABLET BY MOUTH ONCE DAILY, # 30 tabs, 12 Refill(s), eRx: [facility], TAKE ONE TABLET BY MOUTH [...] BID, # 60 tabs, 1 Refill(s), Pharmacy: [facility] , 1 tabs Oral BID [...] # 45 tabs, 2 Refill( s), eRx: [facility], TAKE ONE-HALF TABLET BY MOUTH ONCE DAILY Start Date: 06/18/15 Status: Ordered levothyroxine 75 mcg (0.075 mg) oral tablet See Instructions, TAKE ONE TABLET BY MOUTH ONCE DAILY, # 90 tabs, eRx: [facility], TAKE ONE TABLET BY MOUTH ONCE DAILY Start Date: 04/19/15 Status: Ordered Levsin SL mg, SubLingual, q4hr, 0 Refill(s) Start Date: 04/09/15 Status: Ordered metFORMIN 500 mg oral tablet See Instructions, 2 tabs Oral BID, # 120 tabs, 1 Refill(s), Pharmacy: [facility], 2 tabs Oral BID Start Date: 06/03/15 Status: Ordered [place] 5 mg-325 mg oral tablet 1 tabs, Oral, q6hr, as needed for pain, # 60 tabs, 0 Refill(s) Start Date: 07/05/15 Status: Ordered omeprazole 20 mg oral delayed release capsule See Instructions, TAKE ONE CAPSULE BY MOUTH TWICE DAILY, # 60 caps, 5 Refill(s) , eRx: [facility], TAKE ONE CAPSULE BY MOUTH TWICE DAILY Start Date: 06/03/15 Status: Ordered ONE TOUCH ULTRA BLUE TEST STP See Instructions, USE TO TEST BLOOD SUGARS TWO DAYS PER WEEK ( FASTING AND 2 HOURS POST PRANDAL)., # 100 strip, 1 Refill(s), eRx: [facility], USE TO TEST BLOOD SUGARS TWO DAYS PER WEEK ( FASTING AND 2 HOURS POST PRANDAL). Start Date: 11/09/14 Status: Ordered Onglyza 5 mg oral tablet See Instructions, TAKE ONE TABLET BY MOUTH ONCE DAILY, # 30 tabs, 3 Refill(s), Pharmacy: [place] [id number], TAKE ONE TABLET BY MOUTH ONCE DAILY Start Date: 06/03/15 Status: Ordered predniSONE 1 mg oral tablet See Instructions, 3 tabs Oral Daily,Instr:TO BE TAKEN WITH PREDNISONE 5 MG TABLETS, # 90 tabs, 0 Refill(s), Pharmacy: [place] [id number], please note change in dose, 3 tabs Oral Daily,Instr:TO BE TAKEN WITH PREDNISONE 5 MG TABLETS Start Date: 05/07/15 Status: Ordered predniSONE 20 mg oral tablet See Instructions, , 60 for 3 days, 40 for 3 days, 20 for 3 days, # 20 tabs, 0 Refill(s), Pharmacy: [place] [address], , 60 for 3 days, 40 for [...] 90 tabs, 2 Refill(s), eRx: [facility]93, 1 tab in am and 2 in pm. Start Date: 05/20/15 Status: Ordered VESIcare 10 mg oral tablet See Instructions, 1 tabs Oral Daily, # 30 tabs, 5 Refill(s), eRx: [facility]93, 1 tabs Oral Daily Start Date: 02/18/15 Status: Ordered Vitamin D3 2000 intl units oral tablet 2,000 Intl_Units 1 tabs, Oral, Daily, 0 Refill(s) Start Date: 12/19/13 Status: Ordered Wellbutrin 75 mg oral tablet See Instructions, 1 tabs Oral BID, # 60 tabs, 5 Refill(s), eRx: [facility], 1 tabs Oral BID Start [...]
--- OUTSIDE RECORDS SUMMARY | 2016-10-06 09:27 | XMS REPORT | Continuity of Care Document ---
Author Author [facility] Organization [facility] Address Unknown Phone Unavailable Allergies Active Description Code Type Severity Reaction Onset Reported/Identified Relationship to Patient Clinical Status Yes METHOTREXATE [id number] Drug Allergy N/A N/A Yes PENICILLIN Drug Allergy N/A N/A Yes TETANUS Drug Allergy N/A N/A Yes Penicillins Drug Allergy Angiodema 03/05/2012 Yes Penicillins Drug Allergy N/A Angiodema 03/05/2012 Yes Tetanus Drug Allergy Angiodema 03/05/2012 Yes Tetanus Drug Allergy N/A Angiodema 03/05/2012 Yes No Known Food Allergies Food Allergy 04/05/2012 Yes No Known Food Allergies Food Allergy N/A N/A 04/05/2012 Yes Penicillins [id number] Drug Allergy Severe N/A 01/25/2016 Yes methotrexate [id number] Drug Allergy Moderate N/A 01/25/2016 Yes Tetanus Vaccines Toxoid [id number] Drug Allergy Unknown N /A 01/25/2016 Yes Tetanus Vaccines and Toxoid [id number] Drug Allergy Unknown N/A 01/25/2016 Medications Medication Packaging Start Date Stop Date Route Dosage Sig [id number] 03/23/2014 ORAL daily [id number] 10/12/2014 ORAL at bedtime Problems Date Dx Coded Attending Type Code Diagnosis Diagnosed By 03/05/2012 Portillo Sierra MD Final 401.9 HYPERTENSION NOS 03/05/2012 Portillo Sierra MD Final 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 03/05/2012 Portillo Sierra MD Admitting 435.9 TRANS CEREB ISCHEMIA NOS 03/05/2012 Portilol Sierra MD Final 729.1 MYALGIA MYOSITIS NOS 03/05/2012 Portillo Sierra MD Admitting 435.9 TRANS CEREB ISCHEMIA NOS 03/12/2012 Ot 453.40 03/12/2012 Ot V58.61 04/01/2012 Final 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 04/01/2012 Portillo Sierra MD Admitting 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 09/18/2013 Felisa Painting MD Final V12.54 HX TIA/INFARCT W/O RESID 09/18/2013 Felisa Painting MD Final V67.59 FOLLOW-UP EXAM NEC 09/18/2013 Felisa Painting MD Admitting V12.54 HX TIA/INFARCT W/O RESID 09/23/2013 Felisa Painting MD Final 794.09 ABN PHLEBOTOMIST PRN FUNCT STUDY NEC 09/23/2013 Felisa Painting MD Final V12.54 HX TIA/INFARCT W/O RESID 09/23/2013 Felisa Painting MD Final V58.73 SURG AFTERCARE-CIRC SYST 05/15/2014 Ot 453.40 05/15/2014 Ot 729.5 05/15/2014 Ot 729.82 05/15/2014 Ot V58.61 05/15/2014 Ot 453.40 05/15/2014 Ot V58.61 05/15/2014 Ot 272.4 03/10/2015 Ot 453.40 03/10/2015 Ot V58.61 12/21/2015 JUANITA MENDEZ, WILMER Ot K92.2 GASTROINTESTINAL HEMORRHAGE, UNSPECIFIED 12/21/2015 JUANITA MENDEZ, WILMER Ot R19.7 DIARRHEA, UNSPECIFIED 01/24/2016 Ot 453.40 ACUTE VENOUS EMBOLISM THROMBOSIS [facility] 01/24/2016 Ot V58.61 ANTICOAGULANTS,LT,CURRENT USE 01/24/2016 Ot 453.40 ACUTE VENOUS EMBOLISM THROMBOSIS [facility] 01/24/2016 Ot V58.61 ANTICOAGULANTS,LT,CURRENT USE 01/25/2016 Ot 453.40 ACUTE VENOUS EMBOLISM THROMBOSIS [facility] 01/25/2016 Ot V58.61 ANTICOAGULANTS,LT,CURRENT USE 01/27/2016 NAVID MUNGUIA MD Ot R11.2 NAUSEA WITH VOMITING, UNSPECIFIED 01/27/2016 NAVID MUNGUIA MD Ot R19.7 DIARRHEA, UNSPECIFIED 01/28/2016 CARLEY MENDEZ, CHARITO Sanchez Ot E87.2 ACIDOSIS 01/28/2016 CHARITO HOWE MD Ot K52.9 NONINFECTIVE GASTROENTERITIS AND COLITIS 01/28/2016 CHARITO HOWE MD Ot R19.7 DIARRHEA, UNSPECIFIED 02/02/2016 JUANITA MENDEZ WILMER Ot K52.9 NONINFECTIVE GASTROENTERITIS AND COLITIS 02/02/2016 JUANITA MENDEZ WILMER Ot R10.9 UNSPECIFIED ABDOMINAL PAIN 02/02/2016 JUANITA MENDEZ WILMER Ot R63.4 ABNORMAL WEIGHT LOSS 02/02/2016 JUANITA MENDEZ WILMER Ot K52.9 NONINFECTIVE GASTROENTERITIS AND COLITIS 02/02/2016 JUANITA MENDEZ WILMER Ot R10.9 UNSPECIFIED ABDOMINAL PAIN 02/02/2016 JUANITA MENDEZ, WILMER Ot R63.4 ABNORMAL WEIGHT LOSS 02/02/2016 EZRA MENDEZ, NAVID Freeman Ot R19.7 DIARRHEA, UNSPECIFIED 02/04/2016 EZRA MENDEZ, NAVID Freeman Ot R19.7 DIARRHEA, UNSPECIFIED 05/26/2016 JUANITA MENDEZ, WILMER Ot K92.2 GASTROINTESTINAL HEMORRHAGE, UNSPECIFIED 05/26/2016 JUANITA MENDEZ WILMER Ot R19.7 DIARRHEA, UNSPECIFIED 05/26/2016 JUANITA MENDEZ WILMER Ot K52.9 NONINFECTIVE GASTROENTERITIS AND COLITIS 05/26/2016 JUANITA MENDEZ, WILMER Ot R10.9 UNSPECIFIED ABDOMINAL PAIN 05/26/2016 JUANITA MENDEZ, WILMER Ot R63.4 ABNORMAL WEIGHT LOSS Procedures Results Test Result Range 24 hour fecal fat measurement - 01/19/16 10:20 Measurement of weight of stool specimen 10 * Fecal fat panel Random () Fecal fat measurement 10 < 20 TRYPSIN,FECAL - 01/19/16 10:20 Elastase.pancreatic 342.4 Pancreatic Elastase Interpreta Normal Examination of specimen for ova and parasites - 01/24/16 20:03 Stool leukocytes detection by light microscopy - 01/24/16 20:03 Stool leukocytes detection by light microscopy CRAVEN FOR RESULTS: * - NEW RESULT - RESULT WAS MODIFIED AFTER FINAL STATUS SET General health panel - 01/24/16 20:03 Total cell count CRAVEN FOR RESULTS: * - NEW RESULT - RESULT WAS MODIFIED AFTER FINAL STATUS SET Encounters ACCT No. Visit Date/Time Discharge Status Pt. Type Provider Facility Loc./Unit Complaint [id number] 09/23/2013 12:38:00 2013 23:59:59 [facility] Outpatient Mert MENDEZ, Felisa Velasquez [facility] [id number] 09/18/2013 08:36:00 2013 23:59:59 CLS Outpatient Felisa Painting MD [facility] [id number] 04/01/2012 13:00:00 2011 17:17:00 DIS Outpatient Portillo Sierra MD [facility] [id number] 04/01/2012 12:38:00 2011 23:59:59 CLS Outpatient [id number] 03/05/2012 07:14:00 2011 13:25:00 DIS Outpatient Portillo Sierra MD [facility] [place] [id number]
--- OUTSIDE RECORDS SUMMARY | 2016-10-06 09:27 | XMS REPORT | Referral Summary ---
Author Organization Unknown Address Unknown Phone Unavailable Care Team Providers Care Hair Worker Name Role Phone Eva Painting Primary Care Physician [phone] Encounter VC Date(s): 10/29/14 - 10/29/14 [facility] LIZZETH Duarte, [facility], Rheumatology [address] [place] [address] [place], [place] [id number] Discharge Diagnosis: Encounter for long-term (current) use of high-risk medication Discharge Diagnosis: Paresthesias Discharge Diagnosis: Chronic headaches Discharge Diagnosis: Takayasu's arteritis Discharge Disposition: Home or Self Care Attending [...] Active mutation(Confirmed)1 Fibromyalgia(Confirm Active ed) Headaches(Confirmed) Resolved Hyperlipidemia(Confi Resolved rmed) Hypertension(Confirm Resolved ed) Hypothyroidism(Confi Active rmed) Occlusion of Active artery/R ICA(Confirmed) Overweight(Confirmed Active ) Takayasu(Confirmed) Active Tremor(Confirmed) 08/15/11 Active UTI (urinary tract Active infection)(Confirmed ) 1see nex gen Allergies, Adverse Reactions, Alerts Substance Reaction Severity Status azaTHIOprine Active methotrexate Active penicillin Anaphylaxis Active Angiodema tetanus toxoid Active Medications acyclovir 400 mg oral tablet tabs, Oral, TID, as needed., 0 Refill(s) Special Instructions: as needed. Start Date: 6/20/14 Status: Ordered Lauren See Instructions, 180 mg [...] DAILY, # 30 tabs, 2 Refill(s), eRx: [facility], TAKE ONE TABLET BY MOUTH ONCE DAILY Special Instructions: TAKE ONE TABLET BY MOUTH ONCE DAILY Start Date: 07/27/14 Status: Ordered DULoxetine 60 mg oral delayed release capsule See Instructions, TAKE ONE CAPSULE BY MOUTH TWICE DAILY, # 180 caps, 2 Refill(s) , eRx: [facility], TAKE ONE CAPSULE BY MOUTH TWICE DAILY Special Instructions: TAKE ONE CAPSULE BY MOUTH TWICE DAILY Start Date: 08/28/14 Status: Ordered Effient 10 mg oral tablet 1 tabs, Oral, Daily, # 30 tabs, 3 Refill(s), Pharmacy: [facility], 1 tabs Oral Daily [...] # 4 tabs, 3 Refill(s) , Pharmacy: [facility], 1 tabs Oral qWeek,Instr:with 6 to 8 ounces of plain water, a... Special Instructions: with 6 to 8 ounces of plain water, at least 30 minutes before the first food, beverage, or medication of the day Start Date: 07/31/14 Status: Ordered glimepiride 4 mg oral tablet 1 tabs, Oral, BID, # 60 tabs, 0 Refill(s), Pharmacy: [facility], 1 tabs Oral BID Start Date: 10/07/14 Status: Ordered inFLIXimab 100 mg intravenous injection See Instructions, 600 mg every 4 weeks. premed tylenol 1000mg po and lauren 180mg po as an infusion, # 1 vials, 0 Refill(s), other reason (Rx) Special Instructions: 600 mg every 4 weeks. premed tylenol 1000mg po and lauren 180mg po as an infusion Start Date: 03/30/14 Status: Ordered leflunomide 20 mg oral tablet 1 tabs, Oral, Daily, # 30 tabs, 2 Refill(s), Pharmacy: [facility]93, 1 tabs Oral Daily Start Date: 10/01/14 Status: Ordered Levemir FlexPen 100 units/mL subcutaneous solution 10 units, SubCutaneous, Bedtime (once a day), DX. 250.00, # 15 mL, 11 Refill(s) , Pharmacy: [facility] 99, 10 units SubCutaneous Bedtime (once a day), Instr:DX. 250.00 Special Instructions: DX. 250.00 Start Date: 10/16/14 Status: Ordered Lipitor 40 mg oral tablet tabs, Oral, Bedtime (once a day), 0 Refill(s) Start Date: 12/19/13 Status: Ordered metFORMIN 500 mg oral tablet See Instructions, 2 tabs Oral BID, # 120 tabs, 2 Refill(s), eRx: [facility] 993, 2 tabs Oral BID Special Instructions: 2 tabs Oral BID Start Date: 08/28/14 Status: Ordered multivitamin Daily, 0 Refill(s) Start Date: 12/19/13 Status: Ordered Auberry 5 mg-325 mg oral tablet 1 tabs, Oral, q6hr, as needed for pain, # 60 tabs, 0 Refill(s) Start Date: 09/07/14 Status: Ordered omeprazole 20 mg oral delayed release capsule See Instructions, TAKE ONE CAPSULE BY MOUTH TWICE DAILY, # 60 caps, eRx: [facility]93, TAKE ONE CAPSULE BY MOUTH TWICE DAILY Special Instructions: TAKE ONE CAPSULE BY MOUTH TWICE DAILY Start Date: 09/28/14 Status: Ordered Onglyza 5 mg oral tablet See Instructions, TAKE ONE TABLET BY MOUTH ONCE DAILY, # 30 tabs, 2 Refill(s), eRx: [facility]93, TAKE ONE TABLET BY MOUTH ONCE DAILY Special Instructions: TAKE ONE TABLET BY MOUTH ONCE DAILY Start Date: 07/27/14 Status: Ordered predniSONE 5 mg oral tablet 2 tabs, Oral, Daily, # 60 tabs, 0 Refill(s), Pharmacy: [facility], 2 tabs Oral Daily Start Date: 10/01/14 Status: Ordered Synthroid 75 mcg (0.075 mg) oral tablet 1 tabs, Oral, Daily, # 90 tabs, 1 Refill(s), Pharmacy: [facility], 1 tabs Oral Daily Start Date: 02/03/14 Status: Ordered Topamax 50 mg oral tablet 1 tabs, Oral, BID, # 60 tabs, 1 Refill(s), Pharmacy: [facility], 1 tabs Oral BID Start Date: 10/29/14 Status: Ordered Tylenol Extra Strength See Instructions, 1,000 mg Oral prior to infusion, 0 Refill(s) Special Instructions: 1,000 mg Oral prior to infusion Start Date: 03/27/14 Status: Ordered VESIcare 10 mg oral tablet See Instructions, 1 tabs Oral Daily, # 30 tabs, 1 Refill(s), eRx: [facility], 1 tabs Oral Daily [...] BID, # 60 tabs, 1 Refill(s), Pharmacy: [facility], 1 tabs Oral BID
--- OUTSIDE RECORDS SUMMARY | 2016-10-06 09:27 | XMS REPORT | Referral Summary ---
Author Author [facility] Organization [facility] Address Unknown Phone Unavailable Care Team Providers Care Bait Tier Name Role Phone Sarmad Kwan Primary Care Physician [phone] Encounter VC Date(s): 02/15/15 - 02/15/15 [facility]arte [facility], U[facility] [address] [place] [address] [place] [id number] Discharge Diagnosis: Overactive bladder Discharge Disposition: [...] DAILY, # 30 tabs, 3 Refill(s), eRx: [facility], TAKE ONE TABLET BY MOUTH ONCE DAILY Start Date: 01/29/15 Status: Ordered Calcium 600+D 1 tabs, Oral, Daily, 0 Refill(s) Start Date: 11/11/14 Status: Ordered DULoxetine 60 mg oral delayed release capsule See Instructions, TAKE ONE CAPSULE BY MOUTH TWICE DAILY, # 180 caps, 2 Refill(s) , eRx: [facility]93, TAKE ONE CAPSULE BY MOUTH TWICE DAILY Start Date: 08/28/14 Status: Ordered Effient 10 mg oral tablet See Instructions, TAKE ONE TABLET BY MOUTH ONCE DAILY, # 30 tabs, 12 Refill(s), eRx: [facility]93, TAKE ONE TABLET [...] Refill(s) , Pharmacy: [facility] 993, 1 tabs Oral qWeek,Instr:with 6 to 8 ounces of plain water, a... Start Date: 07/31/14 Status: Ordered glimepiride 4 mg oral tablet 4 mg 1 tabs, Oral, BID, PT NEEDS TO ESTABLISH WITH DR. KWAN BEFORE ANYMORE REFILLS, # 60 tabs, 1 Refill(s), Pharmacy: [facility] 99, 1 tabs Oral BID,Instr:PT [...] MOUTH ONCE DAILY, # 90 tabs, eRx: [facility], TAKE ONE TABLET BY MOUTH ONCE DAILY Start Date: 04/19/15 Status: Ordered Levsin SL mg, SubLingual, q4hr, 0 Refill(s) Start Date: 04/09/15 Status: Ordered metFORMIN 500 mg oral tablet See Instructions, 2 tabs Oral BID,Instr:PT NEEDS TO ESTABLISH WITH DR. KWAN BEFORE ANYMORE REFILLS, # 120 tabs, eRx: [facility], 2 tabs Oral BID, Instr:PT NEEDS TO ESTABLISH WITH DR. KWAN BEFORE ANYMORE REFILLS Start Date: 04/30/15 Status: Ordered [place] 5 mg-325 mg oral tablet 1 tabs, Oral, q6hr, as needed for pain, # 60 tabs, 0 Refill(s) Start Date: 03/29/15 Status: Ordered omeprazole 20 mg oral delayed release capsule See Instructions, TAKE ONE CAPSULE BY MOUTH TWICE DAILY, # 60 caps, 5 Refill(s) , eRx: [facility]93, TAKE ONE CAPSULE BY MOUTH TWICE DAILY Start Date: 11/30/14 Status: Ordered ONE TOUCH ULTRA BLUE TEST STP See Instructions, USE TO TEST BLOOD SUGARS TWO DAYS PER WEEK ( FASTING AND 2 HOURS POST PRANDAL)., # 100 strip, 1 Refill(s), eRx: [facility], USE TO TEST BLOOD SUGARS TWO DAYS PER WEEK ( FASTING AND 2 HOURS POST PRANDAL). Start Date: 11/09/14 Status: Ordered Onglyza 5 mg oral tablet See Instructions, TAKE ONE TABLET BY MOUTH ONCE DAILY, # 30 tabs, 3 Refill(s), eRx: [facility] 993, TAKE ONE TABLET BY MOUTH ONCE DAILY Start Date: 01/29/15 Status: Ordered predniSONE 1 mg oral tablet See Instructions, 4 tabs Oral Daily,Instr:TO BE TAKEN WITH PREDNISONE 5 MG TABLETS, # 120 tabs, 1 Refill(s), Pharmacy: [facility] 993, 4 tabs Oral Daily,Instr:TO BE TAKEN [...] Daily, # 30 tabs, 5 Refill(s), eRx: [facility], 1 tabs Oral Daily Start Date: 02/18/15 Status: Ordered Vitamin D3 2000 intl units oral tablet 2,000 Intl_Units 1 tabs, Oral, Daily, 0 Refill(s) Start Date: 12/19/13 Status: Ordered Wellbutrin 75 mg oral tablet See Instructions, 1 tabs Oral BID, # 60 tabs, [facility]Rx: [facility], 1 tabs [...] Follow Up With: Where: When: Felisa [facility]ting [address] [place] [address] Drive; [place] [address] [employer] (1) Within 3 to 5 days Comments: Follow Up With: Where: When: [facility] [address]; [place] [address] [employer] (1) In 6 months 08/18/2015 Comments: Extracted [...] patient. Ordered: Office Visit Level 4 Est 13198 Future Scheduled TestsReferral* Return to Clinic 11/11/14 10:59 AM Referrals to Other Providers Referred by: Olga Jones
--- OUTSIDE RECORDS SUMMARY | 2016-10-06 09:27 | XMS REPORT | Referral Summary ---
Author Author [facility] Medicine Organization [facility] Address Unknown Phone Unavailable Care Team Providers Care Global Climate Change Analyst Name Role Phone Sarmad Salcido Primary Care Physician [phone] Encounter VC Date(s): 01/14/16 - 01/14/16 [facility] LIZZ[facility] Duarte [facility] [address] [place] [address] Discharge Disposition: 01-Home or Self Care [...] # 4 tabs , 2 Refill(s), eRx: [facility], TAKE ONE TABLET BY MOUTH ONCE A WEEK IN THE MORNING... Start Date: 06/23/15 Status: Ordered Jesika See Instructions, 180 mg Oral 1 tab prior to infusion, 0 Refill(s) Start Date: 03/27/14 Status: Ordered apremilast 30 mg oral tablet 30 mg 1 tabs, Oral, BID, # 60 tabs, 0 Refill(s), Pharmacy: [facility] 993 , 1 tabs Oral BID Start Date: 10/22/15 Status: Ordered aspirin 81 mg, Oral, Daily, 1 tab, 0 Refill(s) Start Date: 12/19/13 Status: Ordered atorvastatin 40 mg oral tablet 40 mg 1 tabs, Oral, Bedtime (once a day), # 30 tabs, 6 Refill(s), Pharmacy: [facility] 993, 1 tabs Oral Bedtime (once a day) Start Date: 05/31/15 Status: Ordered Benadryl 25 mg, Oral, Once, 1 tab, prior to remicade, 0 Refill(s) Start Date: 09/08/14 Status: Ordered Bystolic 10 mg oral tablet See Instructions, TAKE ONE TABLET BY MOUTH ONCE DAILY, # 30 tabs, 6 Refill(s), Pharmacy: [facility]93, TAKE ONE TABLET BY MOUTH ONCE DAILY Start Date: 05/31/15 Status: Ordered Calcium 600+D 1 tabs, Oral, Daily, 0 Refill(s) Start Date: 11/11/14 Status: Ordered DULoxetine 60 mg oral delayed release capsule See Instructions, TAKE ONE CAPSULE BY MOUTH TWICE DAILY, # 180 caps, 6 Refill(s) , Pharmacy: [facility]93, TAKE ONE CAPSULE BY MOUTH TWICE DAILY Start Date: 05/31/15 Status: Ordered Effient 10 mg oral tablet See Instructions, TAKE ONE TABLET BY MOUTH ONCE DAILY, # 30 tabs, 12 Refill(s), eRx: [facility]93, TAKE ONE TABLET BY [...] # 45 tabs, 2 Refill( s), eRx: [facility]93, TAKE ONE-HALF TABLET BY MOUTH ONCE DAILY Start Date: 06/18/15 Status: Ordered levothyroxine 75 mcg (0.075 mg) oral tablet See Instructions, TAKE ONE TABLET BY MOUTH ONCE DAILY, # 30 tabs, 2 Refill(s), eRx: [facility] 993, TAKE ONE TABLET BY MOUTH [...] MOUTH TWICE DAILY, # 60 tabs, eRx: [facility] 993, TAKE ONE TABLET BY MOUTH TWICE DAILY Start Date: 01/10/16 Status: Ordered [place] 5 mg-325 mg oral tablet 1 tabs, Oral, q6hr, as needed for pain, # 60 tabs, 0 Refill(s) Start Date: 12/29/15 Status: Ordered omeprazole 20 mg oral delayed release capsule See Instructions, TAKE ONE CAPSULE BY MOUTH TWICE DAILY, # 60 caps, 5 Refill(s) , [facility]Rx: [facility], TAKE ONE CAPSULE BY MOUTH TWICE DAILY Start Date: 12/20/15 Status: Ordered ONE TOUCH ULTRA BLUE TEST STP See Instructions, USE TO TEST BLOOD SUGARS TWO DAYS PER WEEK ( FASTING AND 2 HOURS POST PRANDAL)., # 100 strip, 1 Refill(s), [facility]: [facility], USE TO TEST BLOOD SUGARS TWO DAYS PER WEEK ( FASTING AND 2 HOURS POST PRANDAL). Start Date: 11/09/14 Status: Ordered Onglyza 5 mg oral tablet See Instructions, TAKE ONE TABLET BY MOUTH ONCE DAILY, # 30 tabs, eRx: [facility]93, TAKE ONE TABLET BY MOUTH ONCE DAILY Start Date: 12/20/15 Status: Ordered predniSONE 1 mg oral tablet See Instructions, 3 tabs Oral Daily,Instr:TO BE TAKEN WITH PREDNISONE 5 MG TABLETS, # 90 tabs, 0 Refill(s), Pharmacy: [facility] [address], please note change in dose, 3 tabs Oral Daily,Instr:TO BE TAKEN WITH PREDNISONE 5 MG TABLETS Start Date: 05/07/15 Status: Ordered predniSONE 20 mg oral tablet See Instructions, , 60 for 3 days, 40 for 3 days, 20 for 3 days, # 20 tabs, 0 Refill(s), Pharmacy: [facility] [address], , 60 for 3 days, 40 for [...] , # 90 tabs, 2 Refill(s), eRx: [facility], TAKE ONE TABLET BY MOUTH IN THE MORNING AND TWO IN THE EVENING Start Date: 11/15/15 Status: Ordered VESIcare 10 mg oral tablet See Instructions, TAKE ONE TABLET BY MOUTH ONCE DAILY, # 30 tabs, 2 Refill(s), eRx: [facility]93, TAKE ONE TABLET BY MOUTH ONCE DAILY Start Date: 11/01/15 Status: Ordered Vitamin D3 2000 intl units oral tablet 2,000 Intl_Units 1 tabs, Oral, Daily, 0 Refill(s) Start Date: 12/19/13 Status: Ordered Wellbutrin 75 mg oral tablet See Instructions, 1 tabs Oral BID, # 60 tabs, 1 Refill(s), Pharmacy: [facility], 1 tabs Oral BID Start Date: 11/15/15 Status: Ordered Results Hematology Most recent to 1 oldest [Reference Range]: WBC [4.8-10.8 15.4 10*3/uL 10*3/uL] *HI* (01/14/16 8:45 AM) RBC [4.00-5.20] 4.44 (01/14/16 8:45 AM) Hgb [12.0-16.0 13.4 gm/dL gm/dL] (01/14/16 8:45 AM) Hct [37.0-47.0 %] 39.9 % (01/14/16 8:45 AM) MCV [82.0-99.0 fL] 89.9 fL (01/14/16 8:45 AM) MCH [27.0-32.0 pg] 30.2 pg (01/14/16 8:45 AM) MCHC [32.0-36.0 33.6 gm/dL gm/dL] (01/14/16 8:45 AM) RDW [11.5-14.5 %] 13.6 % (01/14/16 8:45 AM) Platelet [150-400 506 10*3/uL 10*3/uL] *HI* (01/14/16 8:45 AM) MPV [8.8-14.8 fL] 9.1 fL (01/14/16 8:45 AM) Immature 0.3 % Granulocytes (01/14/16 8:45 AM) [0.0-1.0 %] Neutrophils [51-75 84 % %] *HI* (01/14/16 8:45 AM) Lymphocytes [20-46 9 % %] *LOW* (01/14/16 8:45 AM) Monocytes [4-11 %] 5 % (01/14/16 8:45 AM) Eosinophils [0-4 %] 1 % (01/14/16 8:45 AM) Basophils [0-2 %] 0 % (01/14/16 8:45 AM) Neutro Absolute 12.97 10*3 [1.90-7.00 10*3] *HI* (01/14/16 8:45 AM) Lymph Absolute 1.45 10*3 [0.80-3.30 10*3] (01/14/16 8:45 AM) [place] Absolute 0.83 10*3 [0.30-1.00 10*3] (01/14/16 8:45 AM) Eos Absolute 0.09 10*3 [0.00-0.50 10*3] (01/14/16 8:45 AM) Baso Absolute 0.02 10*3 [0.00-0.20 10*3] (01/14/16 8:45 AM) Chemistry Most recent to 1 oldest [Reference Range]: Sodium Lvl [135-144 137 mEq/L mEq/L] (01/14/16 8:45 AM) Potassium Lvl 3.3 mEq/L [3.5-5.2 mEq/L] *LOW* (01/14/16 8:45 AM) Chloride [99-111 102 mEq/L mEq/L] (01/14/16 8:45 AM) CO2 [22-31 mEq/L] 24 mEq/L (01/14/16 8:45 AM) AGAP [3-20] 11 (01/14/16 8:45 AM) BUN [7-19 mg/dL] 6 mg/dL *LOW* (01/14/16 8:45 AM) Glucose Lvl [70-99 69 mg/dL mg/dL] *LOW* (01/14/16 8:45 AM) Creatinine Lvl 0.98 mg/dL [0.57-1.11 mg/dL] (01/14/16 8:45 AM) Calcium Lvl 9.8 mg/dL [8.9-10.5 mg/dL] (01/14/16 8:45 AM) Albumin Lvl [3.5-5.0 4.5 gm/dL gm/dL] (01/14/16 8:45 AM) Total Protein 7.1 gm/dL 1 [6.1-7.7 gm/dL] (01/14/16 8:45 AM) Globulin [1.8-4.0 2.6 gm/dL gm/dL] (01/14/16 8:45 AM) ALT [0-55 U/L] 15 U/L (01/14/16 8:45 AM) AST [5-34 U/L] 11 U/L (01/14/16 8:45 AM) Alk Phos [40-150 64 U/L U/L] (01/14/16 8:45 AM) Bili Total [0.2-1.2 0.2 mg/dL mg/dL] (01/14/16 8:45 AM) 1Result Comment: Please note new reference range for adult Protein. 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
--- OUTSIDE RECORDS SUMMARY | 2016-10-06 09:28 | XMS REPORT | Referral Summary ---
Author Author [facility] Medicine Organization Via Fany[facility]ZZETH Fermin [facility] Address Unknown Phone Unavailable Care Team Providers Care Health Plan Manager Name Role Phone Sarmad Salcido Primary Care Physician [phone] Encounter VC Date(s): 04/09/15 - 04/09/15 [facility]arte [facility] [address] [place] [id number] Discharge Disposition: 01-Home or Self Care Attending [...] # 4 tabs , 2 Refill(s), eRx: [facility], TAKE ONE TABLET BY MOUTH [...] day), # 30 tabs, 6 Refill(s), Pharmacy: [facility], 1 tabs Oral Bedtime (once a day) Start Date: 05/31/15 Status: Ordered Benadryl 25 mg, Oral, Once, 1 tab, prior to remicade, 0 Refill(s) Start Date: 09/08/14 Status: Ordered Bystolic 10 mg oral tablet See Instructions, TAKE ONE TABLET BY MOUTH ONCE DAILY, # 30 tabs, 6 Refill(s), Pharmacy: [facility]93, TAKE ONE TABLET BY MOUTH ONCE DAILY Start Date: 05/31/15 Status: Ordered Calcium 600+D 1 tabs, Oral, Daily, 0 Refill(s) Start Date: 11/11/14 Status: Ordered DULoxetine 60 mg oral delayed release capsule See Instructions, TAKE ONE CAPSULE BY MOUTH TWICE DAILY, # 180 caps, 6 Refill(s) , Pharmacy: [facility]93, TAKE ONE CAPSULE BY MOUTH TWICE DAILY Start Date: 05/31/15 Status: Ordered Effient 10 mg oral tablet See Instructions, TAKE ONE TABLET BY MOUTH ONCE DAILY, # 30 tabs, 12 Refill(s), eRx: [facility]93, TAKE ONE TABLET [...] # 45 tabs, 2 Refill( s), eRx: [facility] 993, TAKE ONE-HALF TABLET BY MOUTH ONCE DAILY Start Date: 06/18/15 Status: Ordered levothyroxine 75 mcg (0.075 mg) oral tablet See Instructions, TAKE ONE TABLET BY MOUTH ONCE DAILY; Need TSH at next OV, # 30 tabs, 2 Refill(s), eRx: [facility] 993, TAKE ONE TABLET BY MOUTH ONCE DAILY; Need TSH at next OV Start Date: 08/19/15 Status: Ordered Levsin SL mg, SubLingual, q4hr, 0 Refill(s) Start Date: 04/09/15 Status: Ordered metFORMIN 500 mg oral tablet See Instructions, 2 tabs Oral BID, # 120 tabs, 1 Refill(s), eRx: [facility] 993, 2 tabs Oral BID Start Date: 09/30/15 Status: Ordered [place] 5 mg-325 mg oral tablet 1 tabs, Oral, q6hr, as needed for pain, # 60 tabs, 0 Refill(s) Start Date: 09/24/15 Status: Ordered omeprazole 20 mg oral delayed release capsule See Instructions, TAKE ONE CAPSULE BY MOUTH TWICE DAILY, # 60 caps, 5 Refill(s) , eRx: [facility] 993, TAKE ONE CAPSULE BY MOUTH TWICE DAILY Start Date: 06/03/15 Status: Ordered ONE TOUCH ULTRA BLUE TEST STP See Instructions, USE TO TEST BLOOD SUGARS TWO DAYS PER WEEK ( FASTING AND 2 HOURS POST PRANDAL)., # 100 strip, 1 Refill(s), eRx: [facility] 993, USE TO TEST BLOOD SUGARS TWO DAYS PER WEEK ( FASTING AND 2 HOURS POST PRANDAL). Start Date: 11/09/14 Status: Ordered Onglyza 5 mg oral tablet See Instructions, TAKE ONE TABLET BY MOUTH ONCE DAILY, # 30 tabs, eRx: [facility] 993, TAKE [...] days, # 20 tabs, 0 Refill(s), [facility], , 60 for 3 days, [...] pm., # 90 tabs, 2 Refill(s), eRx: [facility], 1 tab in am and 2 in pm. Start Date: 08/19/15 Status: Ordered VESIcare 10 mg oral tablet See Instructions, TAKE ONE TABLET BY MOUTH ONCE DAILY, # 30 tabs, eRx: [facility]93, TAKE ONE TABLET BY MOUTH ONCE DAILY Start Date: 09/24/15 Status: Ordered Vitamin D3 2000 intl units oral tablet 2,000 Intl_Units 1 tabs, Oral, Daily, 0 Refill(s) Start Date: 12/19/13 Status: Ordered Wellbutrin 75 mg oral tablet See Instructions, 1 tabs Oral BID, # 60 tabs, 5 Refill(s), eRx: [facility], 1 tabs Oral BID [...]
--- OUTSIDE RECORDS SUMMARY | 2016-10-06 09:28 | XMS REPORT | Referral Summary ---
Author Author [facility] Organization [facility] Address Unknown Phone Unavailable Care Team Providers Care Senior Benefits Analyst Name Role Phone Sarmad Kwan Primary Care Physician [phone] Encounter VC Date(s): 01/15/15 - 01/15/15 [facility] [address] [place] [id number] Discharge Disposition: 01-Home or Self Care Attending [...] with Dr. Kwan, # 30 tabs, eRx: [facility], 1 tabs Oral Bedtime (once a day),Instr:* LAST REFILL UNTIL SEEN *; you will... Start Date: 04/30/15 Status: Ordered Benadryl 25 mg, Oral, Once, 1 tab, prior to remicade, 0 Refill(s) Start Date: 09/08/14 Status: Ordered Bystolic 10 mg oral tablet See Instructions, TAKE ONE TABLET BY MOUTH ONCE DAILY, # 30 tabs, 3 Refill(s), eRx: [facility], TAKE ONE TABLET BY MOUTH ONCE DAILY Start Date: 01/29/15 Status: Ordered Calcium 600+D 1 tabs, Oral, Daily, 0 Refill(s) Start Date: 11/11/14 Status: Ordered DULoxetine 60 mg oral delayed release capsule See Instructions, TAKE ONE CAPSULE BY MOUTH TWICE DAILY, # 180 caps, 2 Refill(s) , eRx: [facility], TAKE ONE CAPSULE BY MOUTH TWICE DAILY Start Date: 08/28/14 Status: Ordered Effient 10 mg oral tablet See Instructions, TAKE ONE TABLET BY MOUTH ONCE DAILY, # 30 tabs, 12 Refill(s), eRx: [facility], TAKE ONE TABLET [...] # 4 tabs, 3 Refill(s) , Pharmacy: [facility], 1 tabs Oral qWeek,Instr:with 6 to 8 ounces of plain water, a... Start Date: 07/31/14 Status: Ordered glimepiride 4 mg oral tablet 4 mg 1 tabs, Oral, BID, PT NEEDS TO ESTABLISH WITH DR. KWAN BEFORE ANYMORE REFILLS, # 60 tabs, 1 Refill(s), Pharmacy: [facility], 1 tabs Oral BID,Instr:PT NEEDS [...] MOUTH ONCE DAILY, # 90 tabs, eRx: [facility], TAKE ONE TABLET BY MOUTH ONCE DAILY Start Date: 04/19/15 Status: Ordered Levsin SL mg, SubLingual, q4hr, 0 Refill(s) Start Date: 04/09/15 Status: Ordered metFORMIN 500 mg oral tablet See Instructions, 2 tabs Oral BID,Instr:PT NEEDS TO ESTABLISH WITH DR. KWAN BEFORE ANYMORE REFILLS, # 120 tabs, eRx: [facility], 2 tabs Oral BID, Instr:PT NEEDS TO ESTABLISH WITH DR. KWAN BEFORE ANYMORE REFILLS Start Date: 04/30/15 Status: Ordered [place] 5 mg-325 mg oral tablet 1 tabs, Oral, q6hr, as needed for pain, # 60 tabs, 0 Refill(s) Start Date: 05/07/15 Status: Ordered omeprazole 20 mg oral delayed release capsule See Instructions, TAKE ONE CAPSULE BY MOUTH TWICE DAILY, # 60 caps, 5 Refill(s) , eRx: [facility], TAKE ONE CAPSULE BY MOUTH TWICE DAILY Start Date: 11/30/14 Status: Ordered ONE TOUCH ULTRA BLUE TEST STP See Instructions, USE TO TEST BLOOD SUGARS TWO DAYS PER WEEK ( FASTING AND 2 HOURS POST PRANDAL)., # 100 strip, 1 Refill(s), eRx: [facility], USE TO TEST [...] pm., # 90 tabs, 2 Refill(s), eRx: [facility], 1 tab in am and 2 in pm. Start Date: 02/18/15 Status: Ordered VESIcare 10 mg oral tablet See Instructions, 1 tabs Oral Daily, # 30 tabs, 5 Refill(s), eRx: [facility], 1 tabs Oral Daily Start Date: 02/18/15 Status: Ordered Vitamin D3 2000 intl units oral tablet 2,000 Intl_Units 1 tabs, Oral, Daily, 0 Refill(s) Start Date: 12/19/13 Status: Ordered Wellbutrin 75 mg oral tablet See Instructions, 1 tabs Oral BID, # 60 tabs, 5 Refill(s), eRx: [facility], 1 tabs Oral [...]
--- OUTSIDE RECORDS SUMMARY | 2016-10-06 09:28 | XMS REPORT | Referral Summary ---
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 Discharge Diagnosis: Diabetes Discharge Diagnosis: Hypertension Discharge Diagnosis: Disease/MTFHR mutation Discharge Diagnosis: Dyslipidemia, goal LDL below 70 Discharge Disposition: 01-Home or Self Care Attending Physician: Cooper Harrison MD Admitting Physician: Cooper Harrison MD Vital Signs Most recent to 1 oldest [Reference Range]: Peripheral Pulse 84 bpm Rate [60-100 bpm] (03/04/15 10:18 AM) Blood Pressure 130/90 mmHg [90-140/60-90 mmHg] (03/04/15 10:18 AM) Problem List Condition Effective Dates Status [...] # 4 tabs , 2 Refill(s), eRx: [facility], TAKE ONE TABLET [...] day), # 30 tabs, 6 Refill(s), Pharmacy: [facility], 1 tabs Oral Bedtime (once a day) Start Date: 05/31/15 Status: Ordered Benadryl 25 mg, Oral, Once, 1 tab, prior to remicade, 0 Refill(s) Start Date: 09/08/14 Status: Ordered Bystolic 10 mg oral tablet See Instructions, TAKE ONE TABLET BY MOUTH ONCE DAILY, # 30 tabs, 6 Refill(s), Pharmacy: [facility], TAKE ONE TABLET BY MOUTH ONCE DAILY Start Date: 05/31/15 Status: Ordered Calcium 600+D 1 tabs, Oral, Daily, 0 Refill(s) Start Date: 11/11/14 Status: Ordered DULoxetine 60 mg oral delayed release capsule See Instructions, TAKE ONE CAPSULE BY MOUTH TWICE DAILY, # 180 caps, 6 Refill(s) , Pharmacy: [facility], TAKE ONE CAPSULE BY MOUTH TWICE DAILY Start Date: 05/31/15 Status: Ordered Effient 10 mg oral tablet See Instructions, TAKE ONE TABLET BY MOUTH ONCE DAILY, # 30 tabs, 12 Refill(s), eRx: [facility], TAKE ONE TABLET [...] # 45 tabs, 2 Refill( s), [facility]: [facility], TAKE ONE-HALF TABLET BY MOUTH ONCE DAILY Start Date: 06/18/15 Status: Ordered levothyroxine 75 mcg (0.075 mg) oral tablet See Instructions, TAKE ONE TABLET BY MOUTH ONCE DAILY; Need TSH at next OV, # 30 tabs, 2 Refill(s), [facility], TAKE ONE TABLET BY MOUTH ONCE DAILY; Need TSH at next OV Start Date: 08/19/15 Status: Ordered Levsin SL mg, SubLingual, q4hr, 0 Refill(s) Start Date: 04/09/15 Status: Ordered metFORMIN 500 mg oral tablet See Instructions, 2 tabs Oral BID, # 120 tabs, 1 Refill(s), [facility]: [facility], 2 tabs Oral BID Start Date: 07/29/15 Status: Ordered [place] 5 mg-325 mg oral tablet 1 tabs, Oral, q6hr, as needed for pain, # 60 tabs, 0 Refill(s) Start Date: 07/05/15 Status: Ordered omeprazole 20 mg oral delayed release capsule See Instructions, TAKE ONE CAPSULE BY MOUTH TWICE DAILY, # 60 caps, 5 Refill(s) , [facility]: [facility], TAKE ONE CAPSULE BY MOUTH TWICE DAILY Start Date: 06/03/15 Status: Ordered ONE TOUCH ULTRA BLUE TEST STP See Instructions, USE TO TEST BLOOD SUGARS TWO DAYS PER WEEK ( FASTING AND 2 HOURS POST PRANDAL)., # 100 strip, 1 Refill(s), [facility]Rx: [facility], USE TO TEST BLOOD SUGARS TWO DAYS PER WEEK ( FASTING AND 2 HOURS POST PRANDAL). Start Date: 11/09/14 Status: Ordered Onglyza 5 mg oral tablet See Instructions, TAKE ONE TABLET BY MOUTH ONCE DAILY, # 30 tabs, 3 Refill(s), Pharmacy: [facility], TAKE ONE TABLET BY MOUTH ONCE DAILY Start Date: 06/03/15 Status: Ordered predniSONE 1 mg oral tablet See Instructions, 3 tabs Oral Daily,Instr:TO BE TAKEN WITH PREDNISONE 5 MG TABLETS, # 90 tabs, 0 Refill(s), Pharmacy: [place] [address], please note change in dose, 3 tabs Oral Daily,Instr:TO BE TAKEN WITH PREDNISONE 5 MG TABLETS Start Date: 05/07/15 Status: Ordered predniSONE 20 mg oral tablet See Instructions, , 60 for 3 days, 40 for 3 days, 20 for 3 days, # 20 tabs, 0 Refill(s), Pharmacy: [place] [address], , 60 for 3 days, 40 for [...] pm., # 90 tabs, 2 Refill(s), eRx: [facility], 1 tab in am and 2 in pm. Start Date: 08/19/15 Status: Ordered VESIcare 10 mg oral tablet See Instructions, 1 tabs Oral Daily, # 30 tabs, 5 Refill(s), eRx: [facility], 1 tabs Oral Daily Start Date: 02/18/15 Status: Ordered Vitamin D3 2000 intl units oral tablet 2,000 Intl_Units 1 tabs, Oral, Daily, 0 Refill(s) Start Date: 12/19/13 Status: Ordered Wellbutrin 75 mg oral tablet See Instructions, 1 tabs Oral BID, # 60 tabs, 5 Refill(s), eRx: [facility], 1 tabs Oral BID Start Date: 11/6/15 Status: Ordered Results No data available for [...] Extracted from: Title: Ambulatory Patient Education Author: Cooper Harrison MD Date: 03/04/15 Family Medicine Mitral Valve Prolapse The mitral valve is located between the top and bottom parts of the heart on the left side. A mitral valve prolapse (MVP) is an abnormal bulging of 1 or both of the 2 mitral leaflets. The valve bulges into the top chamber (atrium) of the heart when the bottom chamber (ventricle) squeezes or contracts. MVP is more common in females. It is an inherited problem and is usually not found until adolescence. It is not harmful and rarely needs other treatment. PROBLEMS MAY INCLUDE: Chest pain. Palpitations. Anxiety. Panic attacks. Stroke, rarely. HOME CARE INSTRUCTIONS Taking antibiotics before a dental or other medical procedure is no longer routine. Consult with your caregiver. Exercise as your caregiver instructs. Discuss cardiac risk factors associated with MVP with your caregiver. SEEK IMMEDIATE MEDICAL CARE IF: You develop frequent episodes of chest pain or an irregular heartbeat. You faint or pass out. You have severe chest pain or shortness of breath. You develop palpitations with weakness or dizziness. You have difficulty with vision or swallowing or weakness or numbness on one side of your body. MAKE SURE YOU: Understand these instructions. Will watch your condition. Will get help right away if you are not doing well or get worse. Document Released: 06/15/2001 Document Revised: 09/09/2012 Document Reviewed: ExitCare Patient Information 2015 [employer]. This information is not intended to replace advice given to you by your health care provider. Make sure you discuss any questions you have with your health care provider. No follow up information was provided. Extracted from: Title: Office Visit Note Author: Cooper Harrison MD Date: 03/04/15 Assessment/Plan 1.RESENDIZ (dyspnea on exertion) Stable,echocardiogram with normalejection fraction, moderate diastolic dysfunction. Stress test negative for ischemia. Encouraged patient towalk as much aspossible. 2.MVP (mitral valve prolapse) No significant regurgitationper last echo. 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 Orders: prasugrel, See Instructions, TAKE ONE TABLET BY MOUTH ONCE DAILY, # 30 tabs, 0 Refill(s), Pharmacy: [facility], TAKE ONE TABLET BY MOUTH ONCE DAILY Future Scheduled TestsReferral* Return to Clinic 11/11/14 10:59 AM Referrals to Other Providers Referred by: Olga Jones
--- OUTSIDE RECORDS SUMMARY | 2016-10-06 09:28 | XMS REPORT | Referral Summary ---
Author Author [facility] Organization [facility] Address Unknown Phone Unavailable Care Team Providers Care Survey Cad Technician Name Role Phone Sarmad Salcido Primary Care Physician [phone] Encounter VC Date(s): 01/15/15 - 01/15/15 [facility] [address] [place] [id number] Discharge Disposition: 01-Home or Self Care [...] # 4 tabs , 2 Refill(s), eRx: [facility], TAKE ONE TABLET [...] day), # 30 tabs, 6 Refill(s), Pharmacy: [facility], 1 tabs Oral Bedtime (once a day) Start Date: 05/31/15 Status: Ordered Benadryl 25 mg, Oral, Once, 1 tab, prior to remicade, 0 Refill(s) Start Date: 09/08/14 Status: Ordered Bystolic 10 mg oral tablet See Instructions, TAKE ONE TABLET BY MOUTH ONCE DAILY, # 30 tabs, 6 Refill(s), Pharmacy: [facility], TAKE ONE TABLET BY MOUTH ONCE DAILY Start Date: 05/31/15 Status: Ordered Calcium 600+D 1 tabs, Oral, Daily, 0 Refill(s) Start Date: 11/11/14 Status: Ordered DULoxetine 60 mg oral delayed release capsule See Instructions, TAKE ONE CAPSULE BY MOUTH TWICE DAILY, # 180 caps, 6 Refill(s) , Pharmacy: [facility], TAKE ONE CAPSULE BY MOUTH TWICE DAILY Start Date: 05/31/15 Status: Ordered Effient 10 mg oral tablet See Instructions, TAKE ONE TABLET BY MOUTH ONCE DAILY, # 30 tabs, 12 Refill(s), eRx: [facility], TAKE ONE TABLET [...] BID, # 60 tabs, 1 Refill(s), Pharmacy: [facility] , 1 tabs Oral [...] # 45 tabs, 2 Refill( s), eRx: [facility], TAKE ONE-HALF TABLET BY MOUTH ONCE DAILY Start Date: 06/18/15 Status: Ordered levothyroxine 75 mcg (0.075 mg) oral tablet See Instructions, TAKE ONE TABLET BY MOUTH ONCE DAILY Need TSH at next OV, # 30 tabs, 0 Refill(s), Pharmacy: [facility], TAKE ONE TABLET BY MOUTH ONCE DAILY; Need TSH at next OV Start Date: 07/22/15 Status: Ordered Levsin SL mg, SubLingual, q4hr, 0 Refill(s) Start Date: 04/09/15 Status: Ordered metFORMIN 500 mg oral tablet See Instructions, 2 tabs Oral BID, # 120 tabs, 1 Refill(s), Pharmacy: [facility], 2 tabs Oral BID Start Date: 06/03/15 Status: Ordered [place] 5 mg-325 mg oral tablet 1 tabs, Oral, q6hr, as needed for pain, # 60 tabs, 0 Refill(s) Start Date: 07/05/15 Status: Ordered omeprazole 20 mg oral delayed release capsule See Instructions, TAKE ONE CAPSULE BY MOUTH TWICE DAILY, # 60 caps, 5 Refill(s) , eRx: [facility], TAKE ONE CAPSULE BY MOUTH TWICE DAILY Start Date: 06/03/15 Status: Ordered ONE TOUCH ULTRA BLUE TEST STP See Instructions, USE TO TEST BLOOD SUGARS TWO DAYS PER WEEK ( FASTING AND 2 HOURS POST PRANDAL)., # 100 strip, 1 Refill(s), eRx: [facility], USE TO TEST BLOOD SUGARS TWO DAYS PER WEEK ( FASTING AND 2 HOURS POST PRANDAL). Start Date: 11/09/14 Status: Ordered Onglyza 5 mg oral tablet See Instructions, TAKE ONE TABLET BY MOUTH ONCE DAILY, # 30 tabs, 3 Refill(s), Pharmacy: [facility], TAKE ONE TABLET BY MOUTH ONCE DAILY Start Date: 06/03/15 Status: Ordered predniSONE 1 mg oral tablet See Instructions, 3 tabs Oral Daily,Instr:TO BE TAKEN WITH PREDNISONE 5 MG TABLETS, # 90 tabs, 0 Refill(s), Pharmacy: [place] [address], please note change in dose, 3 tabs Oral Daily,Instr:TO BE TAKEN WITH PREDNISONE 5 MG TABLETS Start Date: 05/07/15 Status: Ordered predniSONE 10 mg oral tablet See Instructions, Start with 6 tabs PO daily for 3 days and decrease by one tablet every 3 days, # 63 tabs, 0 Refill(s), Pharmacy: [place] [address], Start with 6 tabs PO daily for 3 days and decrease by one tablet every 3 days Start Date: 07/15/15 Stop Date: 07/29/15 Status: Ordered predniSONE 20 mg oral tablet See Instructions, , 60 for 3 days, 40 for 3 days, 20 for 3 days, # 20 tabs, 0 Refill(s), Pharmacy: [facility], , 60 for 3 days, 40 for [...] pm., # 90 tabs, 2 Refill(s), eRx: [facility], 1 tab in am and 2 in pm. Start Date: 05/20/15 Status: Ordered VESIcare 10 mg oral tablet See Instructions, 1 tabs Oral Daily, # 30 tabs, 5 Refill(s), eRx: [facility], 1 tabs Oral Daily Start Date: 02/18/15 Status: Ordered Vitamin D3 2000 intl units oral tablet 2,000 Intl_Units 1 tabs, Oral, Daily, 0 Refill(s) Start Date: 12/19/13 Status: Ordered Wellbutrin 75 mg oral tablet See Instructions, 1 tabs Oral BID, # 60 tabs, 5 Refill(s), eRx: [facility], 1 tabs Oral BID Start [...]
--- OUTSIDE RECORDS SUMMARY | 2016-10-06 09:28 | XMS REPORT | Referral Summary ---
Author Author [facility] Organization [facility] Address Unknown Phone Unavailable Care Team Providers Care Rope Walker Name Role Phone Sarmad Kwan Primary Care Physician [phone] Encounter Date(s): 11/20/14 - 11/20/14 [facility] [address] [place] [address] [place] [id number] Discharge Diagnosis: Encounter for long-term (current) [...] with Dr. Kwan, # 30 tabs, eRx: [facility], 1 tabs Oral Bedtime (once a day),Instr:* LAST REFILL UNTIL SEEN *; you will... Start Date: 04/30/15 Status: Ordered Benadryl 25 mg, Oral, Once, 1 tab, prior to remicade, 0 Refill(s) Start Date: 09/08/14 Status: Ordered Bystolic 10 mg oral tablet See Instructions, TAKE ONE TABLET BY MOUTH ONCE DAILY, # 30 tabs, 3 Refill(s), eRx: [facility], TAKE ONE TABLET BY MOUTH ONCE DAILY Start Date: 01/29/15 Status: Ordered Calcium 600+D 1 tabs, Oral, Daily, 0 Refill(s) Start Date: 11/11/14 Status: Ordered DULoxetine 60 mg oral delayed release capsule See Instructions, TAKE ONE CAPSULE BY MOUTH TWICE DAILY, # 180 caps, 2 Refill(s) , eRx: [facility], TAKE ONE CAPSULE BY MOUTH TWICE DAILY Start Date: 08/28/14 Status: Ordered Effient 10 mg oral tablet See Instructions, TAKE ONE TABLET BY MOUTH ONCE DAILY, # 30 tabs, 12 Refill(s), eRx: [facility], TAKE ONE TABLET [...] # 4 tabs, 3 Refill(s) , Pharmacy: [facility], 1 tabs Oral qWeek,Instr:with 6 to 8 ounces of plain water, a... Start Date: 07/31/14 Status: Ordered glimepiride 4 mg oral tablet 4 mg 1 tabs, Oral, BID, PT NEEDS TO ESTABLISH WITH DR. KWAN BEFORE ANYMORE REFILLS, # 60 tabs, 1 Refill(s), Pharmacy: [facility], 1 tabs Oral [...] MOUTH ONCE DAILY, # 90 tabs, eRx: [facility], TAKE ONE TABLET BY MOUTH ONCE DAILY Start Date: 04/19/15 Status: Ordered Levsin SL mg, SubLingual, q4hr, 0 Refill(s) Start Date: 04/09/15 Status: Ordered metFORMIN 500 mg oral tablet See Instructions, 2 tabs Oral BID,Instr:PT NEEDS TO ESTABLISH WITH DR. KWAN BEFORE ANYMORE REFILLS, # 120 tabs, eRx: [facility], 2 tabs Oral BID, Instr:PT NEEDS TO ESTABLISH WITH DR. KWAN BEFORE ANYMORE REFILLS Start Date: 04/30/15 Status: Ordered [place] 5 mg-325 mg oral tablet 1 tabs, Oral, q6hr, as needed for pain, # 60 tabs, 0 Refill(s) Start Date: 05/07/15 Status: Ordered omeprazole 20 mg oral delayed release capsule See Instructions, TAKE ONE CAPSULE BY MOUTH TWICE DAILY, # 60 caps, 5 Refill(s) , eRx: [facility], TAKE ONE CAPSULE BY MOUTH TWICE DAILY Start Date: 11/30/14 Status: Ordered ONE TOUCH ULTRA BLUE TEST STP See Instructions, USE TO TEST BLOOD SUGARS TWO DAYS PER WEEK ( FASTING AND 2 HOURS POST PRANDAL)., # 100 strip, 1 Refill(s), eRx: [facility], USE TO TEST BLOOD SUGARS TWO DAYS PER WEEK ( FASTING AND 2 HOURS POST PRANDAL). Start Date: 11/09/14 Status: Ordered Onglyza 5 mg oral tablet See Instructions, TAKE ONE TABLET BY MOUTH ONCE DAILY, # 30 tabs, 3 Refill(s), eRx: [facility], TAKE ONE TABLET BY MOUTH ONCE DAILY Start Date: 01/29/15 Status: Ordered predniSONE 1 mg oral tablet See Instructions, 3 tabs Oral Daily,Instr:TO BE TAKEN WITH PREDNISONE 5 MG TABLETS, # 90 tabs, 0 Refill(s), Pharmacy: [facility]93, please note change in dose, [...] pm., # 90 tabs, 2 Refill(s), eRx: [facility], 1 tab in am and 2 in pm. Start Date: 02/18/15 Status: Ordered VESIcare 10 mg oral tablet See Instructions, 1 tabs Oral Daily, # 30 tabs, 5 Refill(s), eRx: [facility], 1 tabs Oral Daily Start Date: 02/18/15 Status: Ordered Vitamin D3 2000 intl units oral tablet 2,000 Intl_Units 1 tabs, Oral, Daily, 0 Refill(s) Start Date: 12/19/13 Status: Ordered Wellbutrin 75 mg oral tablet See Instructions, 1 tabs Oral BID, # 60 tabs, 5 Refill(s), eRx: [facility], 1 tabs Oral BID Start [...]
--- OUTSIDE RECORDS SUMMARY | 2016-10-06 09:28 | XMS REPORT | Referral Summary ---
Author Author [facility], Family Medicine Organization [facility] Address Unknown Phone Unavailable Care Team Providers Care Drier And Pulverizer Tender Name Role Phone Sarmad Kwan Primary Care Physician [phone] Encounter VC Date(s): 10/29/14 - 10/29/14 [facility], [address] [place] [id number] Discharge Diagnosis: TAKAYASU'S DISEASE Discharge Disposition: [...] Active methotrexate Active penicillin Anaphylaxis Active Angiodema Anaphylaxis Angiodema tetanus toxoid Active Medications acyclovir 400 [...] with Dr. Kwan, # 30 tabs, eRx: [facility], 1 tabs Oral Bedtime (once a day),Instr:* LAST REFILL UNTIL SEEN *; you will... Start Date: 04/30/15 Status: Ordered Benadryl 25 mg, Oral, Once, 1 tab, prior to remicade, 0 Refill(s) Start Date: 09/08/14 Status: Ordered Bystolic 10 mg oral tablet See Instructions, TAKE ONE TABLET BY MOUTH ONCE DAILY, # 30 tabs, 3 Refill(s), eRx: [facility], TAKE ONE TABLET BY MOUTH ONCE DAILY Start Date: 01/29/15 Status: Ordered Calcium 600+D 1 tabs, Oral, Daily, 0 Refill(s) Start Date: 11/11/14 Status: Ordered DULoxetine 60 mg oral delayed release capsule See Instructions, TAKE ONE CAPSULE BY MOUTH TWICE DAILY, # 180 caps, 2 Refill(s) , eRx: [facility], TAKE ONE CAPSULE BY MOUTH TWICE DAILY Start Date: 08/28/14 Status: Ordered Effient 10 mg oral tablet See Instructions, TAKE ONE TABLET BY MOUTH ONCE DAILY, # 30 tabs, 12 Refill(s), eRx: [facility], TAKE ONE TABLET [...] 4 tabs, 3 Refill(s) , Pharmacy: [facility], 1 tabs Oral qWeek,Instr:with 6 to 8 ounces of plain water, a... Start Date: 07/31/14 Status: Ordered glimepiride 4 mg oral tablet 4 mg 1 tabs, Oral, BID, PT NEEDS TO ESTABLISH WITH DR. KWAN BEFORE ANYMORE REFILLS, # 60 tabs, 1 Refill(s), Pharmacy: [facility], 1 tabs Oral [...] ONCE DAILY, # 90 tabs, eRx: [facility], TAKE ONE TABLET BY MOUTH ONCE DAILY Start Date: 04/19/15 Status: Ordered Levsin SL mg, SubLingual, q4hr, 0 Refill(s) Start Date: 04/09/15 Status: Ordered metFORMIN 500 mg oral tablet See Instructions, 2 tabs Oral BID,Instr:PT NEEDS TO ESTABLISH WITH DR. KWAN BEFORE ANYMORE REFILLS, # 120 tabs, eRx: [facility], 2 tabs Oral BID, Instr:PT NEEDS TO ESTABLISH WITH DR. KWAN BEFORE ANYMORE REFILLS Start Date: 04/30/15 Status: Ordered [place] 5 mg-325 mg oral tablet 1 tabs, Oral, q6hr, as needed for pain, # 60 tabs, 0 Refill(s) Start Date: 03/29/15 Status: Ordered omeprazole 20 mg oral delayed release capsule See Instructions, TAKE ONE CAPSULE BY MOUTH TWICE DAILY, # 60 caps, 5 Refill(s) , eRx: [facility], TAKE ONE CAPSULE BY MOUTH TWICE DAILY Start Date: 11/30/14 Status: Ordered ONE TOUCH ULTRA BLUE TEST STP See Instructions, USE TO TEST BLOOD SUGARS TWO DAYS PER WEEK ( FASTING AND 2 HOURS POST PRANDAL)., # 100 strip, 1 Refill(s), eRx: [facility], USE TO TEST BLOOD SUGARS TWO DAYS PER WEEK ( FASTING AND 2 HOURS POST PRANDAL). Start Date: 11/09/14 Status: Ordered Onglyza 5 mg oral tablet See Instructions, TAKE ONE TABLET BY MOUTH ONCE DAILY, # 30 tabs, 3 Refill(s), eRx: [facility], TAKE ONE TABLET BY MOUTH ONCE DAILY Start Date: 01/29/15 Status: Ordered predniSONE 1 mg oral tablet See Instructions, 4 tabs Oral Daily,Instr:TO BE TAKEN WITH PREDNISONE 5 MG TABLETS, # 120 tabs, 1 Refill(s), Pharmacy: [facility]93, 4 tabs Oral Daily,Instr:TO BE [...] pm., # 90 tabs, 2 Refill(s), eRx: [facility], 1 tab in am and 2 in pm. Start Date: 02/18/15 Status: Ordered VESIcare 10 mg oral tablet See Instructions, 1 tabs Oral Daily, # 30 tabs, 5 Refill(s), eRx: [facility], 1 tabs Oral Daily Start Date: 02/18/15 Status: Ordered Vitamin D3 2000 intl units oral tablet 2,000 Intl_Units 1 tabs, Oral, Daily, 0 Refill(s) Start Date: 12/19/13 Status: Ordered Wellbutrin 75 mg oral tablet See Instructions, 1 tabs Oral BID, # 60 tabs, eRx: [facility], 1 tabs Oral [...] THOUS [0.80-3.30 THOUS] *LOW* (10/29/14 1:30 PM) [place] Absolute 0.00 THOUS [0.30-1.00 THOUS] *LOW* (10/29/14 [...]
--- OUTSIDE RECORDS SUMMARY | 2016-10-06 09:28 | XMS REPORT | Referral Summary ---
Author Author [facility], Cardiology Organization [facility] Address Unknown Phone Unavailable Care Team Providers Care Restaurant Supervisor Name Role Phone Sarmad Kwan Primary Care Physician [phone] Encounter Date(s): 11/11/14 - 11/11/14 [facility], Cardiology [address] [place] [address] [place] [address] Discharge Diagnosis: MVP (mitral valve prolapse) Discharge [...] Kwan, # 30 tabs, eRx: [facility], 1 tabs Oral Bedtime (once a day),Instr:* LAST REFILL UNTIL SEEN *; you will... Start Date: 04/30/15 Status: Ordered Benadryl 25 mg, Oral, Once, 1 tab, prior to remicade, 0 Refill(s) Start Date: 09/08/14 Status: Ordered Bystolic 10 mg oral tablet See Instructions, TAKE ONE TABLET BY MOUTH ONCE DAILY, # 30 tabs, 3 Refill(s), eRx: [facility], TAKE ONE TABLET BY MOUTH ONCE DAILY Start Date: 01/29/15 Status: Ordered Calcium 600+D 1 tabs, Oral, Daily, 0 Refill(s) Start Date: 11/11/14 Status: Ordered DULoxetine 60 mg oral delayed release capsule See Instructions, TAKE ONE CAPSULE BY MOUTH TWICE DAILY, # 180 caps, 2 Refill(s) , eRx: [facility], TAKE ONE CAPSULE BY MOUTH TWICE DAILY Start Date: 08/28/14 Status: Ordered Effient 10 mg oral tablet See Instructions, TAKE ONE TABLET BY MOUTH ONCE DAILY, # 30 tabs, 12 Refill(s), eRx: [facility], TAKE ONE [...] # 4 tabs, 3 Refill(s) , Pharmacy: [facility], 1 tabs Oral qWeek,Instr:with 6 to 8 ounces of plain water, a... Start Date: 07/31/14 Status: Ordered glimepiride 4 mg oral tablet 4 mg 1 tabs, Oral, BID, PT NEEDS TO ESTABLISH WITH DR. KWAN BEFORE ANYMORE REFILLS, # 60 tabs, 1 Refill(s), Pharmacy: [facility]93, 1 tabs Oral BID,Instr:PT NEEDS TO [...] MOUTH ONCE DAILY, # 90 tabs, eRx: [facility], TAKE ONE TABLET BY MOUTH ONCE DAILY Start Date: 04/19/15 Status: Ordered Levsin SL mg, SubLingual, q4hr, 0 Refill(s) Start Date: 04/09/15 Status: Ordered metFORMIN 500 mg oral tablet See Instructions, 2 tabs Oral BID,Instr:PT NEEDS TO ESTABLISH WITH DR. KWAN BEFORE ANYMORE REFILLS, # 120 tabs, eRx: [facility], 2 tabs Oral BID, Instr:PT NEEDS TO ESTABLISH WITH DR. KWAN BEFORE ANYMORE REFILLS Start Date: 04/30/15 Status: Ordered [place] 5 mg-325 mg oral tablet 1 tabs, Oral, q6hr, as needed for pain, # 60 tabs, 0 Refill(s) Start Date: 05/07/15 Status: Ordered omeprazole 20 mg oral delayed release capsule See Instructions, TAKE ONE CAPSULE BY MOUTH TWICE DAILY, # 60 caps, 5 Refill(s) , eRx: [facility], TAKE ONE CAPSULE BY MOUTH TWICE DAILY Start Date: 11/30/14 Status: Ordered ONE TOUCH ULTRA BLUE TEST STP See Instructions, USE TO TEST BLOOD SUGARS TWO DAYS PER WEEK ( FASTING AND 2 HOURS POST PRANDAL)., # 100 strip, 1 Refill(s), eRx: [facility]93, USE TO TEST BLOOD SUGARS TWO DAYS PER WEEK ( FASTING AND 2 HOURS POST PRANDAL). Start Date: 11/09/14 Status: Ordered Onglyza 5 mg oral tablet See Instructions, TAKE ONE TABLET BY MOUTH ONCE DAILY, # 30 tabs, 3 Refill(s), eRx: [facility]93, TAKE ONE TABLET BY MOUTH ONCE DAILY Start Date: 01/29/15 Status: Ordered predniSONE 1 mg oral tablet See Instructions, 3 tabs Oral Daily,Instr:TO BE TAKEN WITH PREDNISONE 5 MG TABLETS, # 90 tabs, 0 Refill(s), Pharmacy: [place] [address], please note change in dose, 3 tabs [...] 90 tabs, 2 Refill(s), eRx: [facility], 1 tab in am and 2 in pm. Start Date: 02/18/15 Status: Ordered VESIcare 10 mg oral tablet See Instructions, 1 tabs Oral Daily, # 30 tabs, 5 Refill(s), eRx: [facility], 1 tabs Oral Daily Start Date: 02/18/15 Status: Ordered Vitamin D3 2000 intl units oral tablet 2,000 Intl_Units 1 tabs, Oral, Daily, 0 Refill(s) Start Date: 12/19/13 Status: Ordered Wellbutrin 75 mg oral tablet See Instructions, 1 tabs Oral BID, # 60 tabs, 5 Refill(s), eRx: [facility], 1 tabs Oral BID Start [...] Extracted from: Title: Office Visit Note Author: Olag Jones Date: 11/11/14 Assessment/Plan 1.Hypertension Encouraged patient [...] draw 4.Takayasu Managed by Dr. Guevaramatologurbano and [facility] 5.Diabetes Currently managed by PCP, patient requesting evaluation by art installer 6.Disease/MTFHR mutation Continue folic acid, aspirin and Effient I discussed the patient with the preceptor. Follow-up with Dr. Espana 6 months Orders: Return to Clinic Future Scheduled TestsReferral* Return to Clinic 11/11/14 10:59 AM Referrals to Other Providers Referred by: Olga Jones
--- OUTSIDE RECORDS SUMMARY | 2016-10-06 09:28 | XMS REPORT | Referral Summary ---
Author Author [facility], [employer] Medicine Organization [facility] Address Unknown Phone Unavailable Care Team Providers Care Sommelier Name Role Phone Sarmad Salcido Primary Care Physician [phone] Encounter VC Date(s): 12/18/14 - 12/18/14 [facility] [address] [place] [id number] Discharge Diagnosis: TAKAYASU'S DISEASE Discharge Diagnosis: [...] # 4 tabs , 2 Refill(s), eRx: [facility], TAKE ONE TABLET BY MOUTH [...] # 30 tabs, 6 Refill(s), Pharmacy: [facility], 1 tabs Oral Bedtime (once a day) Start Date: 05/31/15 Status: Ordered Benadryl 25 mg, Oral, Once, 1 tab, prior to remicade, 0 Refill(s) Start Date: 09/08/14 Status: Ordered Bystolic 10 mg oral tablet See Instructions, TAKE ONE TABLET BY MOUTH ONCE DAILY, # 30 tabs, 6 Refill(s), Pharmacy: [facility]93, TAKE ONE TABLET BY MOUTH ONCE DAILY Start Date: 05/31/15 Status: Ordered Calcium 600+D 1 tabs, Oral, Daily, 0 Refill(s) Start Date: 11/11/14 Status: Ordered DULoxetine 60 mg oral delayed release capsule See Instructions, TAKE ONE CAPSULE BY MOUTH TWICE DAILY, # 180 caps, 6 Refill(s) , Pharmacy: [facility]93, TAKE ONE CAPSULE BY MOUTH TWICE DAILY Start Date: 05/31/15 Status: Ordered Effient 10 mg oral tablet See Instructions, TAKE ONE TABLET BY MOUTH ONCE DAILY, # 30 tabs, 12 Refill(s), eRx: [facility]93, TAKE ONE TABLET BY MOUTH [...] BID, # 60 tabs, 1 Refill(s), Pharmacy: [facility] , 1 tabs Oral BID [...] # 45 tabs, 2 Refill( s), eRx: [facility], TAKE ONE-HALF TABLET BY MOUTH ONCE DAILY Start Date: 06/18/15 Status: Ordered levothyroxine 75 mcg (0.075 mg) oral tablet See Instructions, TAKE ONE TABLET BY MOUTH ONCE DAILY, # 90 tabs, eRx: [facility]93, TAKE ONE TABLET BY MOUTH ONCE DAILY Start Date: 04/19/15 Status: Ordered Levsin SL mg, SubLingual, q4hr, 0 Refill(s) Start Date: 04/09/15 Status: Ordered metFORMIN 500 mg oral tablet See Instructions, 2 tabs Oral BID, # 120 tabs, 1 Refill(s), Pharmacy: [facility]93, 2 tabs Oral BID Start Date: 06/03/15 Status: Ordered [place] 5 mg-325 mg oral tablet 1 tabs, Oral, q6hr, as needed for pain, # 60 tabs, 0 Refill(s) Start Date: 06/04/15 Status: Ordered omeprazole 20 mg oral delayed release capsule See Instructions, TAKE ONE CAPSULE BY MOUTH TWICE DAILY, # 60 caps, 5 Refill(s) , eRx: [facility]93, TAKE ONE CAPSULE BY MOUTH TWICE DAILY Start Date: 06/03/15 Status: Ordered ONE TOUCH ULTRA BLUE TEST STP See Instructions, USE TO TEST BLOOD SUGARS TWO DAYS PER WEEK ( FASTING AND 2 HOURS POST PRANDAL)., # 100 strip, 1 Refill(s), eRx: [facility], USE TO TEST BLOOD SUGARS TWO DAYS PER WEEK ( FASTING AND 2 HOURS POST PRANDAL). Start Date: 11/09/14 Status: Ordered Onglyza 5 mg oral tablet See Instructions, TAKE ONE TABLET BY MOUTH ONCE DAILY, # 30 tabs, 3 Refill(s), Pharmacy: [facility], TAKE ONE TABLET BY MOUTH ONCE DAILY Start Date: 06/03/15 Status: Ordered predniSONE 1 mg oral tablet See Instructions, 3 tabs Oral Daily,Instr:TO BE TAKEN WITH PREDNISONE 5 MG TABLETS, # 90 tabs, 0 Refill(s), Pharmacy: [place] [address], please note change in dose, 3 tabs Oral Daily,Instr:TO BE TAKEN WITH PREDNISONE 5 MG TABLETS Start Date: 05/07/15 Status: Ordered predniSONE 20 mg oral tablet See Instructions, , 60 for 3 days, 40 for 3 days, 20 for 3 days, # 20 tabs, 0 Refill(s), Pharmacy: [place] [address], , 60 for 3 days, 40 for [...] pm., # 90 tabs, 2 Refill(s), eRx: [facility] 993, 1 tab in am and 2 in pm. Start Date: 05/20/15 Status: Ordered VESIcare 10 mg oral tablet See Instructions, 1 tabs Oral Daily, # 30 tabs, 5 Refill(s), eRx: [facility]93, 1 tabs Oral Daily Start Date: 02/18/15 Status: Ordered Vitamin D3 2000 intl units oral tablet 2,000 Intl_Units 1 tabs, Oral, Daily, 0 Refill(s) Start Date: 12/19/13 Status: Ordered Wellbutrin 75 mg oral tablet See Instructions, 1 tabs Oral BID, # 60 tabs, 5 Refill(s), [facility]Rx: [facility], 1 tabs Oral BID Start [...]
--- OUTSIDE RECORDS SUMMARY | 2016-10-06 09:29 | XMS REPORT | Referral Summary ---
Author Author [facility], Urology Organization [facility] Address Unknown Phone Unavailable Care Team Providers Care Digital Archivist Name Role Phone Sarmad Salcido Primary Care Physician [phone] Encounter VC Date(s): 02/15/15 - 02/15/15 [facility], Urology [address] [place] [address] [place] [address] Discharge Diagnosis: Overactive bladder Discharge Disposition: 01-Home [...] day), # 30 tabs, 6 Refill(s), Pharmacy: [facility] 99, 1 tabs Oral Bedtime (once a day) [...] OV, # 30 tabs, 2 Refill(s), eRx: [facility]93, TAKE ONE TABLET BY MOUTH ONCE DAILY; Need TSH at next OV Start Date: 08/19/15 Status: Ordered Levsin SL mg, SubLingual, q4hr, 0 Refill(s) Start Date: 04/09/15 Status: Ordered metFORMIN 500 mg oral tablet See Instructions, 2 tabs Oral BID, # 120 tabs, 1 Refill(s), eRx: [facility]93, 2 tabs Oral BID Start Date: 07/29/15 Status: Ordered [place] 5 mg-325 mg oral tablet 1 tabs, [...] PRANDAL)., # 100 strip, 1 Refill(s), eRx: [facility], USE TO TEST BLOOD SUGARS TWO DAYS PER WEEK ( FASTING AND 2 HOURS POST PRANDAL). Start Date: 11/09/14 Status: Ordered Onglyza 5 mg oral tablet See Instructions, TAKE ONE TABLET BY MOUTH ONCE DAILY, # 30 tabs, 3 Refill(s), Pharmacy: [facility] 993, TAKE ONE TABLET BY MOUTH ONCE DAILY Start Date: 06/03/15 Status: Ordered predniSONE 1 mg oral tablet See Instructions, 3 tabs Oral Daily,Instr:TO BE TAKEN WITH PREDNISONE 5 MG TABLETS, # 90 tabs, 0 Refill(s), Pharmacy: [facility]93, please note change in dose, 3 tabs Oral Daily,Instr:TO BE TAKEN WITH PREDNISONE 5 MG TABLETS Start Date: 05/07/15 Status: Ordered predniSONE 20 mg oral tablet See Instructions, , 60 for 3 days, 40 for 3 days, 20 for 3 days, # 20 tabs, 0 Refill(s), Pharmacy: [facility]93, , 60 for 3 [...] pm., # 90 tabs, 2 Refill(s), eRx: [facility]93, 1 tab in am and 2 in pm. Start Date: 08/19/15 Status: Ordered VESIcare 10 mg oral tablet See Instructions, 1 tabs Oral Daily, # 30 tabs, 5 Refill(s), eRx: [facility] [...] Follow Up With: Where: When: [employer] [address] [place] [address] Drive; [place], [place] [id number] [phone] (1) Within 3 to 5 days Comments: Follow Up With: Where: When: Montez Ralph [address]; [place], [place] [id number] Business (1) In 6 months 08/18/2015 Comments: [...] patient. Ordered: Office Visit Level 4 Est 15250 Future Scheduled TestsReferral* Return to Clinic 11/11/14 10:59 AM Referrals to Other Providers Referred by: Olga Jones
--- OUTSIDE RECORDS SUMMARY | 2016-10-06 09:29 | XMS REPORT | Referral Summary ---
Author Author [facility], Rheumatology Organization [facility] Address Unknown Phone Unavailable Care Team Providers Care Roentgenologist Name Role Phone Sarmad Saclido Primary Care Physician [phone] Encounter [facility] [id number] Date(s): 03/12/15 - 03/12/15 [facility], Rheumatology [address] [place] [address] [place] [address] Discharge Diagnosis: Takayasu's arteritis Discharge Diagnosis: Diabetes mellitus Discharge Diagnosis: Headache Discharge Diagnosis: Encounter for long-term (current) use of high-risk medication Discharge Diagnosis: Diarrhea Discharge Disposition: 01-Home or Self Care Attending Physician: Rozina Gramajo MD Admitting Physician: Rozina Gramajo MD Referring Physician: Aleena Salcido DO Vital Signs Most recent to 1 oldest [Reference Range]: Peripheral Pulse 95 bpm Rate [60-100 bpm] (03/12/15 8:31 AM) Blood Pressure 138/97 mmHg [90-140/60-90 mmHg] (03/12/15 8:31 AM) Problem List Condition Effective Dates Status [...] # 4 tabs , 2 Refill(s), eRx: [facility], TAKE ONE TABLET [...] day), # 30 tabs, 6 Refill(s), Pharmacy: [facility]93, 1 tabs Oral Bedtime (once a day) Start Date: 05/31/15 Status: Ordered Benadryl 25 mg, Oral, Once, 1 tab, prior to remicade, 0 Refill(s) Start Date: 09/08/14 Status: Ordered Bystolic 10 mg oral tablet See Instructions, TAKE ONE TABLET BY MOUTH ONCE DAILY, # 30 tabs, 6 Refill(s), Pharmacy: [facility]93, TAKE ONE TABLET BY MOUTH ONCE DAILY Start Date: 05/31/15 Status: Ordered Calcium 600+D 1 tabs, Oral, Daily, 0 Refill(s) Start Date: 11/11/14 Status: Ordered DULoxetine 60 mg oral delayed release capsule See Instructions, TAKE ONE CAPSULE BY MOUTH TWICE DAILY, # 180 caps, 6 Refill(s) , Pharmacy: [facility]93, TAKE ONE CAPSULE BY MOUTH TWICE DAILY Start Date: 05/31/15 Status: Ordered Effient 10 mg oral tablet See Instructions, TAKE ONE TABLET BY MOUTH ONCE DAILY, # 30 tabs, 12 Refill(s), eRx: [facility]93, TAKE ONE TABLET [...] # 45 tabs, 2 Refill( s), eRx: [facility]93, TAKE ONE-HALF TABLET BY MOUTH ONCE DAILY Start Date: 06/18/15 Status: Ordered levothyroxine 75 mcg (0.075 mg) oral tablet See Instructions, TAKE ONE TABLET BY MOUTH ONCE DAILY; Need TSH at next OV, # 30 tabs, 2 Refill(s), eRx: [facility] 993, TAKE ONE TABLET BY MOUTH ONCE DAILY; Need TSH at next OV Start Date: 08/19/15 Status: Ordered Levsin SL mg, SubLingual, q4hr, 0 Refill(s) Start Date: 04/09/15 Status: Ordered metFORMIN 500 mg oral tablet See Instructions, 2 tabs Oral BID, # 120 tabs, 1 Refill(s), eRx: [facility] 993, 2 tabs Oral BID Start Date: 07/29/15 Status: Ordered [place] 5 mg-325 mg oral tablet 1 tabs, Oral, q6hr, as needed for pain, # 60 tabs, 0 Refill(s) Start Date: 07/05/15 Status: Ordered omeprazole 20 mg oral delayed release capsule See Instructions, TAKE ONE CAPSULE BY MOUTH TWICE DAILY, # 60 caps, 5 Refill(s) , eRx: [facility] 993, TAKE ONE CAPSULE BY MOUTH TWICE DAILY Start Date: 06/03/15 Status: Ordered ONE TOUCH ULTRA BLUE TEST STP See Instructions, USE TO TEST BLOOD SUGARS TWO DAYS PER WEEK ( FASTING AND 2 HOURS POST PRANDAL)., # 100 strip, 1 Refill(s), eRx: [facility] 993, USE TO TEST BLOOD SUGARS TWO DAYS PER WEEK ( FASTING AND 2 HOURS POST PRANDAL). Start Date: 11/09/14 Status: Ordered Onglyza 5 mg oral tablet See Instructions, TAKE ONE TABLET BY MOUTH ONCE DAILY, # 30 tabs, 3 Refill(s), Pharmacy: [facility] 99, TAKE ONE TABLET BY MOUTH ONCE DAILY Start Date: 06/03/15 Status: Ordered predniSONE 1 mg oral tablet See Instructions, 3 tabs Oral Daily,Instr:TO BE TAKEN WITH PREDNISONE 5 MG TABLETS, # 90 tabs, 0 Refill(s), Pharmacy: [place] [address], please note change in dose, 3 tabs Oral Daily,Instr:TO BE TAKEN WITH PREDNISONE 5 MG TABLETS Start Date: 05/07/15 Status: Ordered predniSONE 20 mg oral tablet See Instructions, , 60 for 3 days, 40 for 3 days, 20 for 3 days, # 20 tabs, 0 Refill(s), Pharmacy: [place] [address], , 60 for 3 days, 40 for [...] 90 tabs, 2 Refill(s), eRx: [facility] 993, 1 tab in am and 2 in pm. Start Date: 08/19/15 Status: Ordered VESIcare 10 mg oral tablet See Instructions, 1 tabs Oral Daily, # 30 tabs, 5 Refill(s), eRx: [facility] 993, 1 tabs Oral Daily Start Date: 02/18/15 Status: Ordered Vitamin D3 2000 intl units oral tablet 2,000 Intl_Units 1 tabs, Oral, Daily, 0 Refill(s) Start Date: 12/19/13 Status: Ordered Wellbutrin 75 mg oral tablet See Instructions, 1 tabs Oral BID, # 60 tabs, 5 Refill(s), eRx: [facility] 993, 1 tabs Oral BID Start Date: [...] Visit Note Author: Rozina Gramajo MD Date: 03/12/15 Assessment/Plan 1.Takayasu's arteritis She will get herinfliximab today which I will increase to800 mg. we will continue the prednisone. I will stop the leflunomide. 2.Headache Continue the topiramate 3.Diabetes mellitus I will refer her to pilot plant operator, Dr. Soctt. 4.Diarrhea We will stop the leflunomide which may be contributing to her diarrhea. 5.Encounter for long-term (current) use of high-risk medication No labs needed today. Future Scheduled TestsReferral* Return to Clinic 11/11/14 10:59 AM Referrals to Other Providers Referred by: Olga Jones
--- OUTSIDE RECORDS SUMMARY | 2016-10-06 09:29 | XMS REPORT | Referral Summary ---
Author Author [facility] Medicine Organization [facility]in [facility] Address Unknown Phone Unavailable Care Team Providers Care Sheriff'S Detective Name Role Phone Sarmad Salcido Primary Care Physician [phone] Encounter VC Date(s): 03/12/15 - 03/12/15 [facility] [address] [place] [address] Discharge Disposition: 01-Home or Self Care Attending Physician: Rozina Gramajo MD Admitting Physician: Rozina Gramajo MD Referring Physician: Aleena Salcido DO Vital Signs No data available for this [...] # 45 tabs, 2 Refill( s), eRx: [facility] 993, TAKE ONE-HALF TABLET BY MOUTH ONCE [...] BID, # 120 tabs, 1 Refill(s), eRx: [facility] 993, 2 tabs Oral BID Start Date: 07/29/15 Status: Ordered [place] 5 mg-325 mg oral tablet 1 tabs, Oral, q6hr, as needed for pain, # 60 tabs, 0 Refill(s) Start Date: 07/05/15 Status: Ordered omeprazole 20 mg oral delayed release capsule See Instructions, TAKE ONE CAPSULE BY MOUTH TWICE DAILY, # 60 caps, 5 Refill(s) , eRx: [facility] 993, TAKE ONE CAPSULE BY MOUTH TWICE [...] DAILY, # 30 tabs, 3 Refill(s), Pharmacy: [facility] 993, TAKE ONE TABLET BY MOUTH ONCE DAILY Start Date: 06/03/15 Status: Ordered predniSONE 1 mg oral tablet See Instructions, 3 tabs Oral Daily,Instr:TO BE TAKEN WITH PREDNISONE 5 MG TABLETS, # 90 tabs, 0 Refill(s), Pharmacy: [facility] 993, please note change in dose, [...] pm., # 90 tabs, 2 Refill(s), eRx: [facility]93, 1 tab in [...]
--- OUTSIDE RECORDS SUMMARY | 2016-10-06 09:29 | XMS REPORT | Referral Summary ---
Author Author [facility] Organization [facility] Address Unknown Phone Unavailable Care Team Providers Care Executive Communications Manager Name Role Phone Sarmad Kwan Primary Care Physician [phone] Encounter VC Date(s): 11/20/14 - 11/20/14 [facility] [address] [place] [address] Discharge Diagnosis: Hematuria Discharge Disposition: 01-Home [...] with Dr. Kwan, # 30 tabs, eRx: [facility], 1 tabs Oral Bedtime (once a day),Instr:* LAST REFILL UNTIL SEEN *; you will... Start Date: 04/30/15 Status: Ordered Benadryl 25 mg, Oral, Once, 1 tab, prior to remicade, 0 Refill(s) Start Date: 09/08/14 Status: Ordered Bystolic 10 mg oral tablet See Instructions, TAKE ONE TABLET BY MOUTH ONCE DAILY, # 30 tabs, 3 Refill(s), eRx: [facility], TAKE ONE TABLET BY MOUTH ONCE DAILY Start Date: 01/29/15 Status: Ordered Calcium 600+D 1 tabs, Oral, Daily, 0 Refill(s) Start Date: 11/11/14 Status: Ordered DULoxetine 60 mg oral delayed release capsule See Instructions, TAKE ONE CAPSULE BY MOUTH TWICE DAILY, # 180 caps, 2 Refill(s) , eRx: [facility], TAKE ONE CAPSULE BY MOUTH TWICE DAILY Start Date: 08/28/14 Status: Ordered Effient 10 mg oral tablet See Instructions, TAKE ONE TABLET BY MOUTH ONCE DAILY, # 30 tabs, 12 Refill(s), eRx: [facility], TAKE ONE TABLET BY [...] # 4 tabs, 3 Refill(s) , Pharmacy: [facility], 1 tabs Oral qWeek,Instr:with 6 to 8 ounces of plain water, a... Start Date: 07/31/14 Status: Ordered glimepiride 4 mg oral tablet 4 mg 1 tabs, Oral, BID, PT NEEDS TO ESTABLISH WITH DR. KWAN BEFORE ANYMORE REFILLS, # 60 tabs, 1 Refill(s), Pharmacy: [facility], 1 tabs Oral BID,Instr:PT [...] MOUTH ONCE DAILY, # 90 tabs, eRx: [facility], TAKE ONE TABLET BY MOUTH ONCE DAILY Start Date: 04/19/15 Status: Ordered Levsin SL mg, SubLingual, q4hr, 0 Refill(s) Start Date: 04/09/15 Status: Ordered metFORMIN 500 mg oral tablet See Instructions, 2 tabs Oral BID,Instr:PT NEEDS TO ESTABLISH WITH DR. KWAN BEFORE ANYMORE REFILLS, # 120 tabs, eRx: [facility], 2 tabs Oral BID, Instr:PT NEEDS TO ESTABLISH WITH DR. KWAN BEFORE ANYMORE REFILLS Start Date: 04/30/15 Status: Ordered Alkol 5 mg-325 mg oral tablet 1 tabs, Oral, q6hr, as needed for pain, # 60 tabs, 0 Refill(s) Start Date: 05/07/15 Status: Ordered omeprazole 20 mg oral delayed release capsule See Instructions, TAKE ONE CAPSULE BY MOUTH TWICE DAILY, # 60 caps, 5 Refill(s) , eRx: [facility], TAKE ONE CAPSULE BY MOUTH TWICE DAILY Start Date: 11/30/14 Status: Ordered ONE TOUCH ULTRA BLUE TEST STP See Instructions, USE TO TEST BLOOD SUGARS TWO DAYS PER WEEK ( FASTING AND 2 HOURS POST PRANDAL)., # 100 strip, 1 Refill(s), eRx: [facility], USE TO TEST BLOOD SUGARS TWO DAYS PER WEEK ( FASTING AND 2 HOURS POST PRANDAL). Start Date: 11/09/14 Status: Ordered Onglyza 5 mg oral tablet See Instructions, TAKE ONE TABLET BY MOUTH ONCE DAILY, # 30 tabs, 3 Refill(s), eRx: [facility], TAKE ONE TABLET BY MOUTH ONCE DAILY Start Date: 01/29/15 Status: Ordered predniSONE 1 mg oral tablet See Instructions, 3 tabs Oral Daily,Instr:TO BE TAKEN WITH PREDNISONE 5 MG TABLETS, # 90 tabs, 0 Refill(s), Pharmacy: [facility]93, please note change in [...] pm., # 90 tabs, 2 Refill(s), eRx: [facility], 1 tab in am and 2 in pm. Start Date: 02/18/15 Status: Ordered VESIcare 10 mg oral tablet See Instructions, 1 tabs Oral Daily, # 30 tabs, 5 Refill(s), eRx: [facility], 1 tabs Oral Daily Start Date: 02/18/15 Status: Ordered Vitamin D3 2000 intl units oral tablet 2,000 Intl_Units 1 tabs, Oral, Daily, 0 Refill(s) Start Date: 12/19/13 Status: Ordered Wellbutrin 75 mg oral tablet See Instructions, 1 tabs Oral BID, # 60 tabs, 5 Refill(s), eRx: [facility], 1 tabs Oral BID [...]
--- OUTSIDE RECORDS SUMMARY | 2016-10-06 09:29 | XMS REPORT | Referral Summary ---
Author Author [facility], [facility] Organization [facility] Address Unknown Phone Unavailable Care Team Providers Care Director Product Management Name Role Phone Sarmad Kwan Primary Care Physician [phone] Encounter VC Date(s): 12/18/14 - 12/18/14 [facility] [address] [place] [id number] Discharge Diagnosis: TAKAYASU'S DISEASE Discharge Diagnosis: [...] with Dr. Kwan, # 30 tabs, eRx: [facility], 1 tabs Oral Bedtime (once a day),Instr:* LAST REFILL UNTIL SEEN *; you will... Start Date: 04/30/15 Status: Ordered Benadryl 25 mg, Oral, Once, 1 tab, prior to remicade, 0 Refill(s) Start Date: 09/08/14 Status: Ordered Bystolic 10 mg oral tablet See Instructions, TAKE ONE TABLET BY MOUTH ONCE DAILY, # 30 tabs, 3 Refill(s), eRx: [facility], TAKE ONE TABLET BY MOUTH ONCE DAILY Start Date: 01/29/15 Status: Ordered Calcium 600+D 1 tabs, Oral, Daily, 0 Refill(s) Start Date: 11/11/14 Status: Ordered DULoxetine 60 mg oral delayed release capsule See Instructions, TAKE ONE CAPSULE BY MOUTH TWICE DAILY, # 180 caps, 2 Refill(s) , eRx: [facility], TAKE ONE CAPSULE BY MOUTH TWICE DAILY Start Date: 08/28/14 Status: Ordered Effient 10 mg oral tablet See Instructions, TAKE ONE TABLET BY MOUTH ONCE DAILY, # 30 tabs, 12 Refill(s), eRx: [facility], TAKE ONE TABLET BY [...] # 4 tabs, 3 Refill(s) , Pharmacy: [facility], 1 tabs Oral qWeek,Instr:with 6 to 8 ounces of plain water, a... Start Date: 07/31/14 Status: Ordered glimepiride 4 mg oral tablet 4 mg 1 tabs, Oral, BID, PT NEEDS TO ESTABLISH WITH DR. KWAN BEFORE ANYMORE REFILLS, # 60 tabs, 1 Refill(s), Pharmacy: [facility], 1 tabs Oral BID,Instr:PT [...] MOUTH ONCE DAILY, # 90 tabs, eRx: [facility], TAKE ONE TABLET BY MOUTH ONCE DAILY Start Date: 04/19/15 Status: Ordered Levsin SL mg, SubLingual, q4hr, 0 Refill(s) Start Date: 04/09/15 Status: Ordered metFORMIN 500 mg oral tablet See Instructions, 2 tabs Oral BID,Instr:PT NEEDS TO ESTABLISH WITH DR. KWAN BEFORE ANYMORE REFILLS, # 120 tabs, eRx: [facility], 2 tabs Oral BID, Instr:PT NEEDS TO ESTABLISH WITH DR. KWAN BEFORE ANYMORE REFILLS Start Date: 04/30/15 Status: Ordered [place] 5 mg-325 mg oral tablet 1 tabs, Oral, q6hr, as needed for pain, # 60 tabs, 0 Refill(s) Start Date: 05/07/15 Status: Ordered omeprazole 20 mg oral delayed release capsule See Instructions, TAKE ONE CAPSULE BY MOUTH TWICE DAILY, # 60 caps, 5 Refill(s) , eRx: [facility], TAKE ONE CAPSULE BY MOUTH TWICE DAILY Start Date: 11/30/14 Status: Ordered ONE TOUCH ULTRA BLUE TEST STP See Instructions, USE TO TEST BLOOD SUGARS TWO DAYS PER WEEK ( FASTING AND 2 HOURS POST PRANDAL)., # 100 strip, 1 Refill(s), eRx: [facility], USE TO TEST BLOOD SUGARS TWO DAYS PER WEEK ( FASTING AND 2 HOURS POST PRANDAL). Start Date: 11/09/14 Status: Ordered Onglyza 5 mg oral tablet See Instructions, TAKE ONE TABLET BY MOUTH ONCE DAILY, # 30 tabs, 3 Refill(s), eRx: [facility], TAKE ONE TABLET BY MOUTH ONCE DAILY Start Date: 01/29/15 Status: Ordered predniSONE 1 mg oral tablet See Instructions, 3 tabs Oral Daily,Instr:TO BE TAKEN WITH PREDNISONE 5 MG TABLETS, # 90 tabs, 0 Refill(s), Pharmacy: [facility] 993, please note change in [...] pm., # 90 tabs, 2 Refill(s), eRx: [facility], 1 tab in am and 2 in pm. Start Date: 02/18/15 Status: Ordered VESIcare 10 mg oral tablet See Instructions, 1 tabs Oral Daily, # 30 tabs, 5 Refill(s), eRx: [facility], 1 tabs Oral Daily Start Date: 02/18/15 Status: Ordered Vitamin D3 2000 intl units oral tablet 2,000 Intl_Units 1 tabs, Oral, Daily, 0 Refill(s) Start Date: 12/19/13 Status: Ordered Wellbutrin 75 mg oral tablet See Instructions, 1 tabs Oral BID, # 60 tabs, 5 Refill(s), eRx: [facility], 1 tabs Oral BID [...]
--- OUTSIDE RECORDS SUMMARY | 2016-10-06 09:29 | XMS REPORT | Referral Summary ---
Author Author [facility] Organization [facility] Address Unknown Phone Unavailable Care Team Providers Care Agronomy Specialist Name Role Phone Sarmad Salcido Primary Care Physician [phone] Encounter VC Date(s): 12/14/14 - 12/14/14 [facility], [address] [place] [address] Discharge Diagnosis: Hematuria, unspecified Discharge Diagnosis: Anxiety Discharge Diagnosis: Depression Discharge Disposition: 01-Home or Self Care Attending Physician: Dora Chavez APRN Admitting Physician: Dora Chavez APRN Vital Signs No data available for this [...] # 4 tabs , 2 Refill(s), eRx: [facility], TAKE ONE TABLET [...] day), # 30 tabs, 6 Refill(s), Pharmacy: [facility]93, 1 tabs Oral Bedtime (once a day) Start Date: 05/31/15 Status: Ordered Benadryl 25 mg, Oral, Once, 1 tab, prior to remicade, 0 Refill(s) Start Date: 09/08/14 Status: Ordered Bystolic 10 mg oral tablet See Instructions, TAKE ONE TABLET BY MOUTH ONCE DAILY, # 30 tabs, 6 Refill(s), Pharmacy: [facility], TAKE ONE TABLET BY MOUTH ONCE DAILY Start Date: 05/31/15 Status: Ordered Calcium 600+D 1 tabs, Oral, Daily, 0 Refill(s) Start Date: 11/11/14 Status: Ordered DULoxetine 60 mg oral delayed release capsule See Instructions, TAKE ONE CAPSULE BY MOUTH TWICE DAILY, # 180 caps, 6 Refill(s) , Pharmacy: [facility], TAKE ONE CAPSULE BY MOUTH TWICE DAILY Start Date: 05/31/15 Status: Ordered Effient 10 mg oral tablet See Instructions, TAKE ONE TABLET BY MOUTH ONCE DAILY, # 30 tabs, 12 Refill(s), eRx: [facility], TAKE ONE TABLET [...] BID, # 60 tabs, 1 Refill(s), Pharmacy: [facility] , 1 tabs Oral BID Start Date: 06/03/15 Status: Ordered inFLIXimab 100 mg intravenous injection See Instructions, Infuse 800 mg every 4 weeks as an infusion for 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 premedicate with solumedrol 125mg IVP, tylenol 1000mg po and laruen 180mg po as an infusion, # 1 vials, 0 Refill(s), other reason (Rx) Start Date: 03/30/14 Status: Ordered insulin detemir 15 units, SubCutaneous, Bedtime (once a day), 0 Refill(s) Start Date: 03/04/15 Status: Ordered leflunomide 20 mg oral tablet See Instructions, TAKE ONE-HALF TABLET BY MOUTH ONCE DAILY, # 45 tabs, 2 Refill( s), eRx: [facility], TAKE ONE-HALF TABLET BY MOUTH ONCE DAILY Start Date: 06/18/15 Status: Ordered levothyroxine 75 mcg (0.075 mg) oral tablet See Instructions, TAKE ONE TABLET BY MOUTH ONCE DAILY, # 90 tabs, eRx: [facility], TAKE ONE TABLET BY MOUTH ONCE DAILY Start Date: 04/19/15 Status: Ordered Levsin SL mg, SubLingual, q4hr, 0 Refill(s) Start Date: 04/09/15 Status: Ordered metFORMIN 500 mg oral tablet See Instructions, 2 tabs Oral BID, # 120 tabs, 1 Refill(s), Pharmacy: [facility], 2 tabs Oral BID Start Date: 06/03/15 Status: Ordered [place] 5 mg-325 mg oral tablet 1 tabs, Oral, q6hr, as needed for pain, # 60 tabs, 0 Refill(s) Start Date: 06/04/15 Status: Ordered omeprazole 20 mg oral delayed release capsule See Instructions, TAKE ONE CAPSULE BY MOUTH TWICE DAILY, # 60 caps, 5 Refill(s) , eRx: [facility], TAKE ONE CAPSULE BY MOUTH TWICE DAILY Start Date: 06/03/15 Status: Ordered ONE TOUCH ULTRA BLUE TEST STP See Instructions, USE TO TEST BLOOD SUGARS TWO DAYS PER WEEK ( FASTING AND 2 HOURS POST PRANDAL)., # 100 strip, 1 Refill(s), eRx: [facility], USE TO TEST BLOOD SUGARS TWO DAYS PER WEEK ( FASTING AND 2 HOURS POST PRANDAL). Start Date: 11/09/14 Status: Ordered Onglyza 5 mg oral tablet See Instructions, TAKE ONE TABLET BY MOUTH ONCE DAILY, # 30 tabs, 3 Refill(s), Pharmacy: [facility], TAKE ONE TABLET BY MOUTH ONCE DAILY Start Date: 06/03/15 Status: Ordered predniSONE 1 mg oral tablet See Instructions, 3 tabs Oral Daily,Instr:TO BE TAKEN WITH PREDNISONE 5 MG TABLETS, # 90 tabs, 0 Refill(s), Pharmacy: [facility], please note change in dose, 3 tabs Oral Daily,Instr:TO BE TAKEN WITH PREDNISONE 5 MG TABLETS Start Date: 05/07/15 Status: Ordered predniSONE 20 mg oral tablet See Instructions, , 60 for 3 days, 40 for 3 days, 20 for 3 days, # 20 tabs, 0 Refill(s), Pharmacy: [place] [facility] [address], , 60 for 3 days, 40 for [...] # 90 tabs, 2 Refill(s), eRx: [facility]93, 1 tab in am and 2 in pm. Start Date: 05/20/15 Status: Ordered VESIcare 10 mg oral tablet See Instructions, 1 tabs Oral Daily, # 30 tabs, 5 Refill(s), eRx: [facility], 1 tabs Oral Daily Start Date: 02/18/15 Status: Ordered Vitamin D3 2000 intl units oral tablet 2,000 Intl_Units 1 tabs, Oral, Daily, 0 Refill(s) Start Date: 12/19/13 Status: Ordered Wellbutrin 75 mg oral tablet See Instructions, 1 tabs Oral BID, # 60 tabs, 5 Refill(s), eRx: [facility], 1 tabs Oral BID Start Date: 05/07/15 Status: Ordered Results Hematology Most recent to 1 oldest [Reference Range]: WBC [5.0-10.0 10.0 10*3/uL 10*3/uL] (12/14/14 12:16 PM) RBC [3.70-5.20 4.32 10*6/uL 10*6/uL] (12/14/14 12:16 PM) Hgb [12.0-16.0 11.2 gm/dL gm/dL] *LOW* (12/14/14 12:16 PM) Hct [37.0-47.0 %] 35.7 % *LOW* (12/14/14 12:16 PM) MCV [80.0-96.0 fL] 82.6 fL (12/14/14 12:16 PM) MCH [26.0-34.0 pg] 25.9 pg *LOW* (12/14/14 12:16 PM) MCHC [32.0-36.0 31.4 gm/dL gm/dL] *LOW* (12/14/14 12:16 PM) RDW [0.0-14.5 %] 15.0 % *HI* (12/14/14 12:16 PM) Platelet [150-400 415 10*3/uL 10*3/uL] *HI* (12/14/14 12:16 PM) MPV [8.8-14.8 fL] 8.6 fL *LOW* (12/14/14 12:16 PM) Neutrophils [50-70 67 % %] (12/14/14 12:16 PM) Band Man [0-6 %] 17 % *HI* (12/14/14 12:16 PM) Lymphocytes [20-40 11 % %] *LOW* (12/14/14 12:16 PM) Monocytes [4-8 %] 4 % (12/14/14 12:16 PM) Eosinophils [0-6 %] 1 % (12/14/14 12:16 PM) Basophils [0-2 %] 0 % (12/14/14 12:16 PM) Neutro Absolute 8.40 10*3 [2.50-7.00 10*3] *HI* (12/14/14 12:16 PM) Lymph Absolute 1.10 10*3 [1.00-4.00 10*3] (12/14/14 12:16 PM) [place] Absolute 0.40 10*3 [0.20-0.80 10*3] (12/14/14 12:16 PM) Eos Absolute 0.10 10*3 [0.00-0.60 10*3] (12/14/14 12:16 PM) Baso Absolute 0.00 10*3 [0.00-0.30 10*3] (12/14/14 12:16 PM) Ovalocytes Occasional *ABN* (12/14/14 12:16 PM) Differential Manual *ABN* (12/14/14 12:16 PM) Urinalysis Most recent to 1 oldest [Reference Range]: UA Color Yellow (12/14/14 12:20 PM) UA Appear Clear (12/14/14 12:20 PM) UA pH [5.0-8.0] 6.5 (12/14/14 12:20 PM) UA Leuk Est Negative [Negative] (12/14/14 12:20 PM) UA Nitrite Negative [Negative] (12/14/14 12:20 PM) UA Protein Negative [Negative] (12/14/14 12:20 PM) UA Glucose Negative [Negative] (12/14/14 12:20 PM) UA Ketones Negative [Negative] (12/14/14 12:20 PM) UA Urobilinogen 0.2 mg/dL (12/14/14 12:20 PM) UA Bili [Negative] Negative (12/14/14 12:20 PM) UA Blood Pos 1+ *ABN* (12/14/14 12:20 PM) UA Spec Grav 1.010 [1.003-1.030] (12/14/14 12:20 PM) Type Clean Catch (12/14/14 12:20 PM) UA RBC [0-2] 0-2 (12/14/14 12:20 PM) Immunizations Vaccine Date Refusal Reason influenza virus vaccine, inactivated 04/14/15 influenza virus vaccine, live 05/05/13 influenza virus vaccine, live 04/22/08 Procedures Procedure Date Related Diagnosis Body Site Collection of venous blood by venipuncture 12/14/14 Bypass, 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 In general, there are two kinds of depression: Normal sadness or grief. This can happen after something upsetting. It often goes away on its own within 2 weeks. After losing a loved one ( bereavement ), normal sadness and grief may last longer than two weeks. It usually gets better with time. Clinical depression. This kind lasts longer than normal sadness or grief. It keeps you from doing the things you normally do in life. It is often hard to function at home, work, or at school. It may affect your relationships with others. Treatment is often needed. GET HELP RIGHT AWAY IF: You have thoughts about hurting yourself or others. You lose touch with reality (psychotic symptoms ). You may: See or hear things that are not real. Have untrue beliefs about your life or people around you. Your medicine is giving you problems. MAKE SURE YOU: Understand these instructions. Will watch your condition. Will get help right away if you are not doing well or get worse. Document Released: 07/21/2011 Document Revised: 03/12/2013 Document Reviewed: [employer] Patient Information 2014 [employer]. No follow up information was provided. Extracted from: Title: Office Visit Note Author: Dora Chavez Date: 12/14/14 Assessment/Plan Anxiety wellbutrin-se discussed. cont with therapy. rtc in 1 mo. Depression Hematuria, unspecified Orders: buPROPion, 75 mg 1 tabs, Oral, BID, # 60 tabs, 0 Refill(s), [facility], 1 tabs Oral BID HYDROcodone-acetaminophen, 1 tabs, Oral, q6hr, as needed for pain, # 60 tabs, 0 Refill(s) Future Scheduled TestsReferral* Return to Clinic 11/11/14 10:59 AM Referrals to Other Providers Referred by: Olga Jones
--- OUTSIDE RECORDS SUMMARY | 2016-10-06 09:29 | XMS REPORT | Referral Summary ---
Author Author [facility] Organization [facility] Address Unknown Phone Unavailable Care Team Providers Care Transplant Rn Name Role Phone Sarmad Salcido Primary Care Physician [phone] Encounter VC Date(s): 09/24/15 - 09/24/15 [facility] [address] [place] [id number] Discharge Disposition: 01-Home or Self [...] # 4 tabs , 2 Refill(s), eRx: [facility], [...] day), # 30 tabs, 6 Refill(s), Pharmacy: [facility], 1 tabs Oral Bedtime (once a day) Start Date: 05/31/15 Status: Ordered Benadryl 25 mg, Oral, Once, 1 tab, prior to remicade, 0 Refill(s) Start Date: 09/08/14 Status: Ordered Bystolic 10 mg oral tablet See Instructions, TAKE ONE TABLET BY MOUTH ONCE DAILY, # 30 tabs, 6 Refill(s), Pharmacy: [facility], TAKE ONE TABLET BY MOUTH ONCE DAILY Start Date: 05/31/15 Status: Ordered Calcium 600+D 1 tabs, Oral, Daily, 0 Refill(s) Start Date: 11/11/14 Status: Ordered DULoxetine 60 mg oral delayed release capsule See Instructions, TAKE ONE CAPSULE BY MOUTH TWICE DAILY, # 180 caps, 6 Refill(s) , Pharmacy: [facility], TAKE ONE [...] tabs, 2 Refill( s), eRx: [facility]93, TAKE ONE-HALF TABLET BY MOUTH ONCE DAILY Start Date: 06/18/15 Status: Ordered levothyroxine 75 mcg (0.075 mg) oral tablet See Instructions, TAKE ONE TABLET BY MOUTH ONCE DAILY; Need TSH at next OV, # 30 tabs, 2 Refill(s), eRx: [facility], TAKE ONE TABLET BY MOUTH ONCE DAILY; Need TSH at next OV Start Date: 08/19/15 Status: Ordered Levsin SL mg, SubLingual, q4hr, 0 Refill(s) Start Date: 04/09/15 Status: Ordered metFORMIN 500 mg oral tablet See Instructions, 2 tabs Oral BID, # 120 tabs, 1 Refill(s), eRx: [facility], 2 tabs Oral BID Start Date: 07/29/15 Status: Ordered [place] 5 mg-325 mg oral tablet 1 tabs, Oral, q6hr, as needed for pain, # 60 tabs, 0 Refill(s) Start Date: 09/24/15 Status: Ordered omeprazole 20 mg oral delayed release capsule See Instructions, TAKE ONE CAPSULE BY MOUTH TWICE DAILY, # 60 caps, 5 Refill(s) , eRx: [facility]93, TAKE ONE CAPSULE BY MOUTH TWICE [...] 30 tabs, 3 Refill(s), Pharmacy: [facility]93, TAKE ONE TABLET BY MOUTH ONCE DAILY Start Date: 06/03/15 Status: Ordered predniSONE 1 mg oral tablet See Instructions, 3 tabs Oral Daily,Instr:TO BE TAKEN WITH PREDNISONE 5 MG TABLETS, # 90 tabs, 0 Refill(s), Pharmacy: [facility]93, please note change in dose, 3 tabs Oral Daily,Instr:TO BE TAKEN WITH PREDNISONE 5 MG TABLETS Start Date: 05/07/15 Status: Ordered predniSONE 20 mg oral tablet See Instructions, , 60 for 3 days, 40 for 3 days, 20 for 3 days, # 20 tabs, 0 Refill(s), Pharmacy: [facility], , 60 for 3 [...] pm., # 90 tabs, 2 Refill(s), eRx: [facility], 1 tab in am and 2 in pm. Start Date: 08/19/15 Status: Ordered VESIcare 10 mg oral tablet See Instructions, TAKE ONE TABLET BY MOUTH ONCE DAILY, # 30 tabs, eRx: [facility], [...]
--- OUTSIDE RECORDS SUMMARY | 2016-10-06 09:29 | XMS REPORT | Continuity of Care Document ---
Author Author [facility] Address Unknown Phone Unavailable Care Team Providers Care Direct Entry Midwife Name Role Phone HARPAL NORMAN DO Primary Care Physician [phone] Insurance Providers Payer Name Policy Number Subscriber Name Relationship [facility] [id number] Broderick Vidal 01 Advance Directives Directive Response Recorded Date/Time Advanced Directives No 01/24/16 3:57pm Chief Complaint and Reason for Visit Chief Complaint GI Complaint Reason for Visit Chronic diarrhea Problems Active Problems Medical Problem Onset Date Status Abrasion, knee Unknown Acute Chronic diarrhea Unknown Acute Concussion without loss of consciousness Unknown Acute Hypoglycemia Unknown Acute Weakness Unknown Acute Medications Current [...] Mg/1 Ml Unknown Dose ORAL Daily 03/10/15 Lch015/Iron Fumarate/Fa/Dss 1 Each Unknown Dose ORAL Daily [...] discharge instructions. Plan of Care Discharge Date 01/24/16 5:39pm Disposition 01 HOME OR SELF-CARE Condition at Discharge Stable Instructions/Education Provided Chronic Diarrhea (ED) Prescriptions See Medication Section Referrals HARPAL NORMAN DO - Additional Instructions/Education return stool sample as soon as possible Some of your test results may not [...] worrisome symptoms. * Emergency Department phone number: [phone], x [phone]* MEDICAL RECORD If you need copies of your X-rays, call [phone]. If you need copies of [...] the billing parties for services. SERVICE BILLING LIBERTARIAN Emergency Room Services [facility] Physician Services [facility] X-rays [place] [facility] Patients will receive bills for services from the appropriate provider. If you have any questions about your [facility] bill, our staff will be happy to assist you. Please call [phone], and ask for the billing department. THANK YOU for choosing [facility] as your emergency care provider! Care Plan and Goals ~~Discharge Care Plan~~ Problem: Nausea, vomiting or diarrhea Goal: Decrease in nausea, vomiting or diarrhea Instructions: Encourage fluids approximately 6-8 glasses of water or noncarbonated fluids. Take medication(s) as directed. Follow home discharge instructions. Follow up with primary care physicians or disk and tape machine tender as directed. Functional Status No functional status results. Allergies, Adverse Reactions, Alerts Allergen Type Severity Reaction Status Last Updated Penicillin Allergy Severe Active 01/24/16 Tetanus Vaccines & Toxoid Allergy Unknown Active 01/24/16 Methotrexate Allergy Intermediate Active 01/24/16 Immunizations No immunization records. Vital Signs Acute Vital Signs Vital Response Date/Time Temperature (Fahrenheit) 97.5 01/24/2016 5:38pm Pulse 87 bpm 01/24/2016 5:38pm Respirations 16 01/24/2016 5:38pm Height 5 ft 5 in Weight 165 lb Body Mass Index 27.0 kg/m^2 Results [...] with a timed collection. Test Performed by: [address] [address] Appeals Specialist: Keith Toro II, M.D., Ph.D. Corrected result; previously reported as RANDOM on 07/20/16 at 17:12 by V/AUT --- 01/22/16 0911 [...] with a timed collection. Test Performed by: [place] [address] Appeals Specialist: Keith Toro II, M.D., Ph.D. Corrected result; previously reported as RANDOM on 01/19/16 at 17:12 by V/iFollo --- 01/22/16 0911 --- Fecal Fat HR previously reported as: RANDOM Stool Percent Fat 10 % fat < 20 01/19/2016 10:20am 01/22/2016 9:44am Test Performed by: [place] [address] Appeals Specialist: Keith Toro II, M.D., Ph.D. Pending Laboratory Results Test Name Collection Date/Time Procedures No known history of procedures. Encounters Encounter Location Arrival/Admit Date Discharge/Depart Date Attending Provider Registered Emergency Room [facility] 01/24/16 3:52pm NAVID MUNGUIA MD Registered Clinic [facility] 01/19/16 10:39am WILMER GRANT MD Recent Diagnosis
--- OUTSIDE RECORDS SUMMARY | 2016-10-06 09:29 | XMS REPORT | Continuity of Care Document ---
Author Author [facility] Organization [facility] Address Unknown Phone Unavailable Care Team Providers Care Warehouse Shipping Associate Name Role Phone JOE COSTELLO MD Primary Care Physician [phone] Insurance Providers Payer Name Policy Number Subscriber Name Relationship [facility] [id number] Broderick Vidal 01 Chief Complaint and Reason for Visit Chief Complaint Injury Reason for Visit Concussion without loss of consciousness Hypoglycemia Weakness Chronic diarrhea [id number] Problems Medical Problems Problem Onset Date Status Concussion without loss of consciousness Unknown Active Weakness Unknown Active Chronic diarrhea Unknown Active Abrasion, knee Unknown Active Hypoglycemia Unknown Active Medications Medication Dose Route Sig Days/Qty Instructions Order Date Discontinued Date Status Infliximab Unknown Dose INTRAVENOUS DIRECTED 03/10/15 Active Atorvastatin Unknown Dose ORAL DAILY 03/10/15 Active Metformin Hcl (Glucophage) Unknown Dose ORAL DAILY 03/10/15 Active Saxagliptin Hcl Unknown Dose ORAL DAILY 03/10/15 Active Prasugrel Hcl Unknown Dose ORAL DAILY 03/10/15 Active Aspirin Unknown Dose ORAL DAILY 03/10/15 Active Folic Acid Unknown Dose ORAL DAILY 03/10/15 Active Levothyroxine Sodium Unknown Dose MC DAILY 03/10/15 Active Prednisone Micronized Unknown Dose MC DAILY 03/10/15 Active Insulin Detemir (Insulin Levemir) Unknown Dose SUBCUTANEOUS DAILY 03/16 Active Nebivolol Hcl Unknown Dose ORAL DAILY 03/10/15 Active Ferrous Sulfate Unknown Dose ORAL DAILY 03/10/15 Active Kjn601/Iron Fumarate/Fa/Dss Unknown Dose ORAL DAILY 03/10/15 Active Cholecalciferol (Vitamin D3) Unknown Dose ORAL DAILY 03/10/15 Active Calcium Carbonate Unknown Dose ORAL DAILY 03/10/15 Active Duloxetine HCl Unknown Dose ORAL DAILY 03/10/15 Active Social History No social history. Hospital Discharge Instructions No hospital discharge instructions. Plan of Care Discharge Date 03/10/15 11:02pm Disposition 01 HOME OR SELF-CARE Condition at Discharge Stable Instructions/Education Provided Diabetic Hypoglycemia (ED) Concussion (ED) Chronic Diarrhea (ED) Prescriptions See Medications Section Referrals JOE COSTELLO MD Additional Instructions/Education Be sure to eat something on arrival home, and recommend awakening custodial through the night and eat again, due to low blood sugar and weakness. You need to remain in the company of a responsible adult for the next 48 hours, one who has read the dismissal instructions re: Concussion; return to ER immediately if any of the signs or symptoms listed occur. Push fluids, especially electrolyte balanced fluids such as Gatorade or All Sport. Follow up with PCP or specialist within 2 days, as scheduled. Some of your test results may not [...] worrisome symptoms. * Emergency Department phone number: [phone], x [phone]* MEDICAL RECORD If you need copies of your X-rays, call [phone] x [phone]. If you need copies of [...] the billing parties for services. SERVICE BILLING DEMOCRAT Emergency Room Services [facility] Physician Services [facility] X-rays [place] [facility] Patients will receive bills for services from the appropriate provider. If you have any questions about your [facility] bill, our staff will be happy to assist you. Please call [phone], and ask for the billing department. THANK YOU for choosing [facility] as your emergency care provider! Functional Status No functional status results. Allergies, Adverse Reactions, Alerts Allergen Type Severity Reaction Status Last Updated Penicillin Allergy Severe Active 03/10/15 Methotrexate Allergy Intermediate Active 03/10/15 Immunizations No immunization records. Vital Signs Acute Vital Signs Vital Response Date/Time Temperature (Fahrenheit) 97.3 Pulse 99 bpm Height 5 ft 3 in Weight 139 lb Body Mass Index 24.0 kg/m^2 Results Test Source Date Result Interp. Ref. Range Comments Calcium Level March 10, 2015 9:46pm 9.9 mg/dL N 8.8-10.8 Glucose Level March 10, 2015 9:46pm 55 mg/dL L 70-110 Estimated GFR (Non- March 10, 2015 9:46pm 73.7 Estimat Glomerular Filtration Rate March 10, 2015 9:46pm 89.1 BUN/Creatinine Ratio March 10, 2015 9:46pm 6 L 10-20 Creatinine March 10, 2015 9:46pm 0.87 mg/dL N 0.6-1.2 Blood Urea Nitrogen March 10, 2015 9:46pm 5 mg/dL L 7-18 Anion Gap March 10, 2015 9:46pm 19.7 MEQ/L H 3-15 Carbon Dioxide Level March 10, 2015 9:46pm 21 mmol/L L 22-29 Chloride Level March 10, 2015 9:46pm 107 mmol/L N 98-108 Potassium Level March 10, 2015 9:46pm 3.6 mmol/L N 3.5-5.1 Sodium Level March 10, 2015 9:46pm 143 mmol/L N 135-150 Basophils # (Auto) March 10, 2015 9:46pm 0.0 10^3uL Eosinophils # (Auto) March 10, 2015 9:46pm 0.1 10^3uL Monocytes # (Auto) March 10, 2015 9:46pm 0.9 X10^3 Lymphocytes # (Auto) March 10, 2015 9:46pm 2.3 X10^3 Neutrophils # (Auto) March 10, 2015 9:46pm 6.3 X10^3 Basophils (%) (Auto) March 10, 2015 9:46pm 0 % N 0-2 Eosinophils (%) (Auto) March 10, 2015 9:46pm 1 % N 0-4 Monocytes (%) (Auto) March 10, 2015 9:46pm 9 % N 3-11 Lymphocytes (%) (Auto) March 10, 2015 9:46pm 24 % N 20-46 Neutrophils (%) (Auto) March 10, 2015 9:46pm 66 % N 51-67 Mean Platelet Volume March 10, 2015 9:46pm 9.4 FL N 6.0-9.5 Platelet Count March 10, 2015 9:46pm 390 10^3uL N 150-450 Red Cell Distribution Width March 10, 2015 9:46pm 16.1 % H 11.8- 15.6 Mean Corpuscular Hemoglobin Concent March 10, 2015 9:46pm 31.9 g/dL N 31.0-37.0 Mean Corpuscular Hemoglobin March 10, 2015 9:46pm 25.4 PG L 26.0- 34.0 Mean Corpuscular Volume March 10, 2015 9:46pm 80 FL N 80-100 Hematocrit March 10, 2015 9:46pm 37.00 % N 35.00-45.00 Hemoglobin March 10, 2015 9:46pm 11.8 g/dL L 12.0-15.5 Red Blood Count March 10, 2015 9:46pm 4.64 10^6uL N 4.00-5.00 White Blood Count March 10, 2015 9:46pm 9.59 10^3uL N 4.0-11.0 Alanine Aminotransferase (ALT/SGPT) January 09, 2013 9:35am 48 U/L N 30-65 FAX [phone] Aspartate Amino Transf (AST/SGOT) January 09, 2013 9:35am 48 U/L H 15-37 FAX [phone] Cholesterol Level January 29, 2013 8:44am 132 mg/dL 0-199 HDL Cholesterol January 29, 2013 8:44am 27 mg/dL L 40-84 Hemoglobin A1c January 29, 2013 8:44am 10.0 % H 4.8-6.0 LDL Cholesterol, Calculated January 29, 2013 8:44am 73 mg/dL 0-130 Prothromb Time International Ratio February 19, 2012 8:09am 1.9 H 0.8-1.[address] [facility] [phone] NATALYA VIDALYA Prothrombin Time February 19, 2012 8:09am 21.1 SEC H 12.3-14.[address] OTERO DICKEY [phone] NATALYA VIDALYA Triglycerides Level January 29, 2013 8:44am 159 mg/dL H 0-149 Urine Bilirubin May 15, 2014 3:30pm Negative Negative Urine Blood May 15, 2014 3:30pm Negative Negative Urine Clarity May 15, 2014 3:30pm Clear Urine Collection Type May 15, 2014 3:30pm Clean catch Urine Color May 15, 2014 3:30pm Yellow Urine Glucose (UA) May 15, 2014 3:30pm 2+ H Negative Urine Ketones May 15, 2014 3:30pm Trace H Negative Urine Leukocyte Esterase May 15, 2014 3:30pm Negative Negative Urine Nitrite May 15, 2014 3:30pm Negative Negative Urine Protein May 15, 2014 3:30pm Negative Negative Urine Random Microalbumin January 29, 2013 2:00pm 3.5 mg/dL H 0.0-1.7 Urine Specific [place] May 15, 2014 3:30pm 1.015 1.005-1.030 Urine Urobilinogen May 15, 2014 3:30pm 0.2 mg/dL 0.2-1.0 Urine pH May 15, 2014 3:30pm 5.5 5.0 - 8.0 VLDL Cholesterol January 29, 2013 8:44am 32 mg/dL H 0-28 Procedures No known history of procedures. Encounters Encounter Location Date/Time Departed Emergency Room [facility] 03/10/15 8:00pm Recent Diagnosis
--- OUTSIDE RECORDS SUMMARY | 2016-10-06 09:30 | XMS REPORT | Referral Summary ---
Author Author [facility] Organization [facility] Address Unknown Phone Unavailable Care Team Providers Care Airplane Mechanic Name Role Phone Sarmad Kwan Primary Care Physician [phone] Encounter VC Date(s): 02/15/15 - 02/15/15 [facility] [address] [place] [address] BIANCA Patterson [id number] Discharge Diagnosis: Overactive bladder Discharge [...] DAILY, # 30 tabs, 3 Refill(s), eRx: [facility], TAKE ONE TABLET BY MOUTH ONCE DAILY Start Date: 01/29/15 Status: Ordered Calcium 600+D 1 tabs, Oral, Daily, 0 Refill(s) Start Date: 11/11/14 Status: Ordered DULoxetine 60 mg oral delayed release capsule See Instructions, TAKE ONE CAPSULE BY MOUTH TWICE DAILY, # 180 caps, 2 Refill(s) , eRx: [facility], TAKE ONE CAPSULE BY MOUTH TWICE DAILY Start Date: 08/28/14 Status: Ordered Effient 10 mg oral tablet See Instructions, TAKE ONE TABLET BY MOUTH ONCE DAILY, # 30 tabs, 12 Refill(s), eRx: [facility], TAKE ONE TABLET BY [...] # 4 tabs, 3 Refill(s) , Pharmacy: [facility], 1 tabs Oral qWeek,Instr:with 6 to 8 ounces of plain water, a... Start Date: 07/31/14 Status: Ordered glimepiride 4 mg oral tablet 4 mg 1 tabs, Oral, BID, PT NEEDS TO ESTABLISH WITH DR. KWAN BEFORE ANYMORE REFILLS, # 60 tabs, 1 Refill(s), Pharmacy: [facility], 1 tabs Oral BID,Instr:PT NEEDS TO [...] MOUTH ONCE DAILY, # 90 tabs, eRx: [facility], TAKE ONE TABLET BY MOUTH ONCE DAILY Start Date: 04/19/15 Status: Ordered Levsin SL mg, SubLingual, q4hr, 0 Refill(s) Start Date: 04/09/15 Status: Ordered metFORMIN 500 mg oral tablet See Instructions, 2 tabs Oral BID,Instr:PT NEEDS TO ESTABLISH WITH DR. KWAN BEFORE ANYMORE REFILLS, # 120 tabs, eRx: [facility], 2 tabs Oral BID, Instr:PT NEEDS TO ESTABLISH WITH DR. KWAN BEFORE ANYMORE REFILLS Start Date: 04/30/15 Status: Ordered [place] 5 mg-325 mg oral tablet 1 tabs, Oral, q6hr, as needed for pain, # 60 tabs, 0 Refill(s) Start Date: 05/07/15 Status: Ordered omeprazole 20 mg oral delayed release capsule See Instructions, TAKE ONE CAPSULE BY MOUTH TWICE DAILY, # 60 caps, 5 Refill(s) , eRx: [facility], TAKE ONE CAPSULE BY MOUTH TWICE DAILY Start Date: 11/30/14 Status: Ordered ONE TOUCH ULTRA BLUE TEST STP See Instructions, USE TO TEST BLOOD SUGARS TWO DAYS PER WEEK ( FASTING AND 2 HOURS POST PRANDAL)., # 100 strip, 1 Refill(s), eRx: [facility], USE TO TEST BLOOD SUGARS TWO DAYS PER WEEK ( FASTING AND 2 HOURS POST PRANDAL). Start Date: 11/09/14 Status: Ordered Onglyza 5 mg oral tablet See Instructions, TAKE ONE TABLET BY MOUTH ONCE DAILY, # 30 tabs, 3 Refill(s), eRx: [facility], TAKE ONE TABLET BY MOUTH ONCE DAILY Start Date: 01/29/15 Status: Ordered predniSONE 1 mg oral tablet See Instructions, 3 tabs Oral Daily,Instr:TO BE TAKEN WITH PREDNISONE 5 MG TABLETS, # 90 tabs, 0 Refill(s), Pharmacy: [facility]93, please note change in [...] Daily, # 30 tabs, 5 Refill(s), eRx: [facility], 1 tabs Oral Daily Start Date: 02/18/15 Status: Ordered Vitamin D3 2000 intl units oral tablet 2,000 Intl_Units 1 tabs, Oral, Daily, 0 Refill(s) Start Date: 12/19/13 Status: Ordered Wellbutrin 75 mg oral tablet See Instructions, 1 tabs Oral BID, # 60 tabs, 5 Refill(s), eRx: [facility], 1 tabs Oral BID Start [...] Follow Up With: Where: When: [facility] [address] [place] [address] Drive; [address] [place], [place] [id number] Business (1) Within 3 to 5 days Comments: Follow Up With: Where: When: Montez Weems[address]; [address] [place], [place] [id number] Business (1) In 6 months 08/18/2015 Comments: [...] patient. Ordered: Office Visit Level 4 Est 66087 Future Scheduled TestsReferral* Return to Clinic 11/11/14 10:59 AM Referrals to Other Providers Referred by: Olga Jones
--- OUTSIDE RECORDS SUMMARY | 2016-10-06 09:30 | XMS REPORT | Referral Summary ---
Author Author [facility] Organization [facility] Address Unknown Phone Unavailable Care Team Providers Care Inspector Hairspring Name Role Phone Sarmad Salcido Primary Care Physician [phone] Encounter Date(s): 04/09/15 - 04/09/15 [facility] [address] [place] [address] BIANCA Patterson [id number] Discharge Diagnosis: Chronic headache [...] # 4 tabs , 2 Refill(s), eRx: [facility], TAKE ONE TABLET BY [...] day), # 30 tabs, 6 Refill(s), Pharmacy: [facility], 1 tabs Oral Bedtime (once a day) Start Date: 05/31/15 Status: Ordered Benadryl 25 mg, Oral, Once, 1 tab, prior to remicade, 0 Refill(s) Start Date: 09/08/14 Status: Ordered Bystolic 10 mg oral tablet See Instructions, TAKE ONE TABLET BY MOUTH ONCE DAILY, # 30 tabs, 6 Refill(s), Pharmacy: [facility], TAKE ONE TABLET BY MOUTH ONCE DAILY Start Date: 05/31/15 Status: Ordered Calcium 600+D 1 tabs, Oral, Daily, 0 Refill(s) Start Date: 11/11/14 Status: Ordered DULoxetine 60 mg oral delayed release capsule See Instructions, TAKE ONE CAPSULE BY MOUTH TWICE DAILY, # 180 caps, 6 Refill(s) , Pharmacy: [facility], TAKE ONE CAPSULE BY MOUTH TWICE DAILY Start Date: 05/31/15 Status: Ordered Effient 10 mg oral tablet See Instructions, TAKE ONE TABLET BY MOUTH ONCE DAILY, # 30 tabs, 12 Refill(s), eRx: [facility], TAKE ONE TABLET BY [...] # 45 tabs, 2 Refill( s), eRx: [facility], TAKE ONE-HALF TABLET BY MOUTH ONCE DAILY Start Date: 06/18/15 Status: Ordered levothyroxine 75 mcg (0.075 mg) oral tablet See Instructions, TAKE ONE TABLET BY MOUTH ONCE DAILY; Need TSH at next OV, # 30 tabs, 2 Refill(s), eRx: [facility]93, TAKE ONE TABLET BY MOUTH ONCE DAILY; Need TSH at next OV Start Date: 08/19/15 Status: Ordered Levsin SL mg, SubLingual, q4hr, 0 Refill(s) Start Date: 04/09/15 Status: Ordered metFORMIN 500 mg oral tablet See Instructions, 2 tabs Oral BID, # 120 tabs, 1 Refill(s), eRx: [facility]93, 2 tabs Oral BID Start Date: 09/30/15 Status: Ordered [place] 5 mg-325 mg oral tablet 1 tabs, Oral, q6hr, as needed for pain, # 60 tabs, 0 Refill(s) Start Date: 09/24/15 Status: Ordered omeprazole 20 mg oral delayed release capsule See Instructions, TAKE ONE CAPSULE BY MOUTH TWICE DAILY, # 60 caps, 5 Refill(s) , eRx: [facility]93, TAKE ONE CAPSULE BY MOUTH TWICE DAILY Start Date: 06/03/15 Status: Ordered ONE TOUCH ULTRA BLUE TEST STP See Instructions, USE TO TEST BLOOD SUGARS TWO DAYS PER WEEK ( FASTING AND 2 HOURS POST PRANDAL)., # 100 strip, 1 Refill(s), eRx: [facility] 993, USE TO TEST BLOOD SUGARS TWO DAYS PER WEEK ( FASTING AND 2 HOURS POST PRANDAL). Start Date: 11/09/14 Status: Ordered Onglyza 5 mg oral tablet See Instructions, TAKE ONE TABLET BY MOUTH ONCE DAILY, # 30 tabs, eRx: [facility], TAKE ONE TABLET BY MOUTH ONCE DAILY Start Date: 09/30/15 Status: Ordered predniSONE 1 mg oral tablet See Instructions, 3 tabs Oral Daily,Instr:TO BE TAKEN WITH PREDNISONE 5 MG TABLETS, # 90 tabs, 0 Refill(s), Pharmacy: [facility], please note change in dose, 3 tabs Oral Daily,Instr:TO BE TAKEN WITH PREDNISONE 5 MG TABLETS Start Date: 05/07/15 Status: Ordered predniSONE 20 mg oral tablet See Instructions, , 60 for 3 days, 40 for 3 days, 20 for 3 days, # 20 tabs, 0 Refill(s), Pharmacy: [facility], , 60 for 3 days, [...] pm., # 90 tabs, 2 Refill(s), eRx: [facility], 1 tab in am and 2 in pm. Start Date: 08/19/15 Status: Ordered VESIcare 10 mg oral tablet See Instructions, TAKE ONE TABLET BY MOUTH ONCE DAILY, # 30 tabs, eRx: [facility], TAKE ONE TABLET BY MOUTH ONCE DAILY Start Date: 09/24/15 Status: Ordered Vitamin D3 2000 intl units oral tablet 2,000 Intl_Units 1 tabs, Oral, Daily, 0 Refill(s) Start Date: 12/19/13 Status: Ordered Wellbutrin 75 mg oral tablet See Instructions, 1 tabs Oral BID, # 60 tabs, 5 Refill(s), eRx: [facility], 1 tabs Oral BID Start [...]
--- OUTSIDE RECORDS SUMMARY | 2016-10-06 09:30 | XMS REPORT | Referral Summary ---
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 Start Date: 06/23/15 Status: Ordered Jesika See Instructions, 180 mg Oral 1 tab prior to infusion, 0 Refill(s) Start Date: 03/27/14 Status: Ordered apremilast 30 mg oral tablet 30 mg 1 tabs, Oral, BID, # 60 tabs, 0 Refill(s), Pharmacy: [facility] 993 , 1 tabs Oral BID Start Date: 10/22/15 Status: Ordered aspirin 81 mg, Oral, Daily, 1 tab, 0 Refill(s) Start Date: 12/19/13 Status: Ordered atorvastatin 40 mg oral tablet 40 mg 1 tabs, Oral, Bedtime (once a day), # 30 tabs, 6 Refill(s), Pharmacy: [facility], 1 tabs Oral Bedtime (once a day) Start Date: 05/31/15 Status: Ordered Benadryl 25 mg, Oral, Once, 1 tab, prior to remicade, 0 Refill(s) Start Date: 09/08/14 Status: Ordered Bystolic 10 mg oral tablet See Instructions, TAKE ONE TABLET BY MOUTH ONCE DAILY, # 30 tabs, 6 Refill(s), Pharmacy: [facility], TAKE ONE TABLET BY MOUTH ONCE DAILY Start Date: 05/31/15 Status: Ordered Calcium 600+D 1 tabs, Oral, Daily, 0 Refill(s) Start Date: 11/11/14 Status: Ordered DULoxetine 60 mg oral delayed release capsule See Instructions, TAKE ONE CAPSULE BY MOUTH TWICE DAILY, # 180 caps, 6 Refill(s) , Pharmacy: [facility], TAKE ONE CAPSULE BY MOUTH TWICE DAILY Start Date: 05/31/15 Status: Ordered Effient 10 mg oral tablet See Instructions, TAKE ONE TABLET BY MOUTH ONCE DAILY, # 30 tabs, 12 Refill(s), [facility] # 45 tabs, 2 Refill( s), eRx: [facility], TAKE ONE-HALF TABLET BY MOUTH ONCE DAILY Start Date: 06/18/15 Status: Ordered levothyroxine 75 mcg (0.075 mg) oral tablet See Instructions, TAKE ONE TABLET BY MOUTH ONCE DAILY; Need TSH at next OV, # 30 tabs, 2 Refill(s), eRx: [facility] 993, TAKE ONE TABLET BY MOUTH ONCE DAILY; Need TSH at next OV Start Date: 08/19/15 Status: Ordered Levsin SL mg, SubLingual, q4hr, 0 Refill(s) Start Date: 04/09/15 Status: Ordered metFORMIN 500 mg oral tablet See Instructions, 2 tabs Oral BID, # 120 tabs, 1 Refill(s), eRx: [facility] 993, 2 tabs Oral BID Start Date: 09/30/15 Status: Ordered [place] 5 mg-325 mg oral tablet 1 tabs, Oral, q6hr, as needed for pain, # 60 tabs, 0 Refill(s) Start Date: 10/22/15 Status: Ordered omeprazole 20 mg oral delayed release capsule See Instructions, TAKE ONE CAPSULE BY MOUTH TWICE DAILY, # 60 caps, 5 Refill(s) , eRx: [facility] 993, TAKE ONE CAPSULE BY MOUTH TWICE DAILY Start Date: 06/03/15 Status: Ordered ONE TOUCH ULTRA BLUE TEST STP See Instructions, USE TO TEST BLOOD SUGARS TWO DAYS PER WEEK ( FASTING AND 2 HOURS POST PRANDAL)., # 100 strip, 1 Refill(s), eRx: [facility] 993, USE TO TEST BLOOD SUGARS TWO DAYS PER WEEK ( FASTING AND 2 HOURS POST PRANDAL). Start Date: 11/09/14 Status: Ordered Onglyza 5 mg oral tablet See Instructions, TAKE ONE TABLET BY MOUTH ONCE DAILY, # 30 tabs, eRx: [facility], TAKE ONE TABLET BY MOUTH ONCE DAILY Start Date: 09/30/15 Status: Ordered predniSONE 1 mg oral tablet See Instructions, 3 tabs Oral Daily,Instr:TO BE TAKEN WITH PREDNISONE 5 MG TABLETS, # 90 tabs, 0 Refill(s), Pharmacy: [facility], please note change in [...] dys., # 21 tabs, 0 Refill(s), Pharmacy: [facility], 4 a dy for [...] days, # 20 tabs, 0 Refill(s), Pharmacy: [facility], , 60 for 3 days, 40 [...] MOUTH ONCE DAILY, # 30 tabs, eRx: [facility], TAKE ONE TABLET BY MOUTH ONCE DAILY Start Date: 09/24/15 Status: Ordered Vitamin D3 2000 intl units oral tablet 2,000 Intl_Units 1 tabs, Oral, Daily, 0 Refill(s) Start Date: 12/19/13 Status: Ordered Wellbutrin 75 mg oral tablet See Instructions, 1 tabs Oral BID, # 60 tabs, 5 Refill(s), eRx: [facility], 1 tabs Oral BID Start Date: 05/07/15 Status: Ordered Results Hematology Most recent to 1 oldest [Reference Range]: WBC [4.8-10.8 14.9 10*3/uL 10*3/uL] *HI* (10/22/15 12: AM) RBC [4.00-5.20] 4.53 (10/22/15 12: AM) Hgb [12.0-16.0 13.6 gm/dL gm/dL] (10/22/15: AM) Hct [37.0-47.0 %] 41.3 % (10/22/15: AM) MCV [82.0-99.0 fL] 91.2 fL (10/22/15: AM) MCH [27.0-32.0 pg] 30.0 pg (10/22/15: AM) MCHC [32.0-36.0 32.9 gm/dL gm/dL] (10/22/15 12: AM) RDW [11.5-14.5 %] 12.8 % (10/22/15 12: AM) Platelet [150-400 431 10*3/uL 10*3/uL] *HI* (10/22/15 12:33 AM) MPV [8.8-14.8 fL] 9.5 fL (10/22/15 12:33 AM) Immature 0.3 % Granulocytes (10/22/15 AM) [0.0-1.0 %] Neutrophils [51-75 85 % %] *HI* (10/22/15: AM) Lymphocytes [20-46 9 % %] *LOW* (10/22/15: AM) Monocytes [4-11 %] 5 % (10/22/15 12:33 AM) Eosinophils [0-4 %] 1 % (10/22/15 12:33 AM) Basophils [0-2 %] 0 % (10/22/15 12: AM) Neutro Absolute 12.63 10*3 [1.90-7.00 10*3] *HI* (10/22/15 AM) Lymph Absolute 1.28 10*3 [0.80-3.30 10*3] (10/22/15 AM) [place] Absolute 0.79 10*3 [0.30-1.00 10*3] (10/22/15 AM) Eos Absolute 0.08 10*3 [0.00-0.50 10*3] (10/22/15 AM) Baso Absolute 0.06 10*3 [0.00-0.20 10*3] (10/22/15 AM) Sed Rate [0-23] 18 (10/22/15 AM) Chemistry Most recent to 1 oldest [Reference Range]: Sodium Lvl [135-144 137 mEq/L mEq/L] (10/22/15 AM) Potassium Lvl 4.1 mEq/L [3.5-5.2 mEq/L] (10/22/15 AM) Chloride [99-111 102 mEq/L mEq/L] (10/22/15 AM) CO2 [22-31 mEq/L] 23 mEq/L (10/22/15 AM) AGAP [3-20] 12 (10/22/15 AM) BUN [7-19 mg/dL] 11 mg/dL (10/22/15 AM) Glucose Lvl [70-99 118 mg/dL mg/dL] *HI* (10/22/15 AM) Creatinine Lvl 0.83 mg/dL [0.57-1.11 mg/dL] (10/22/15 AM) eGFR [>60 mL/min] >60 mL/min 1 (10/22/15 AM) Calcium Lvl 9.6 mg/dL [8.9-10.5 mg/dL] (10/22/15 AM) Albumin Lvl [3.5-5.0 4.4 gm/dL gm/dL] (10/22/15 AM) Total Protein 7.3 gm/dL [6.4-8.3 gm/dL] (10/22/15 12:33 AM) Globulin [1.8-4.0 2.9 gm/dL gm/dL] (10/22/15 12:33 AM) ALT [0-55 U/L] 16 U/L (10/22/15 12:33 AM) AST [5-34 U/L] 11 U/L (10/22/15 12:33 AM) Alk Phos [40-150 64 U/L U/L] (10/22/15 12:33 AM) Bili Total [0.2-1.2 0.2 mg/dL mg/dL] (10/22/15 12:33 AM) 1Result Comment: Multiply eGFR results by 1.21 for race. 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
--- OUTSIDE RECORDS SUMMARY | 2016-10-06 09:30 | XMS REPORT | Referral Summary ---
Author Author [facility] Organization [facility] Address Unknown Phone Unavailable Care Team Providers Care Animal Care Worker Name Role Phone Sarmad Salcido Primary Care Physician [phone] Encounter Date(s): 11/20/14 - 11/20/14 [facility] [address] [place] [address] BIANCA Patterson [id number] Discharge Diagnosis: Encounter for long-term (current) [...] day), # 30 tabs, 6 Refill(s), Pharmacy: [facility], 1 tabs Oral Bedtime (once a day) Start Date: 05/31/15 Status: Ordered Benadryl 25 mg, Oral, Once, 1 tab, prior to remicade, 0 Refill(s) Start Date: 09/08/14 Status: Ordered Bystolic 10 mg oral tablet See Instructions, TAKE ONE TABLET BY MOUTH ONCE DAILY, # 30 tabs, 6 Refill(s), Pharmacy: [facility], TAKE ONE TABLET BY MOUTH ONCE DAILY Start Date: 05/31/15 Status: Ordered Calcium 600+D 1 tabs, Oral, Daily, 0 Refill(s) Start Date: 11/11/14 Status: Ordered DULoxetine 60 mg oral delayed release capsule See Instructions, TAKE ONE CAPSULE BY MOUTH TWICE DAILY, # 180 caps, 6 Refill(s) , Pharmacy: [facility], TAKE ONE CAPSULE BY MOUTH TWICE DAILY Start Date: 05/31/15 Status: Ordered Effient 10 mg oral tablet See Instructions, TAKE ONE TABLET BY MOUTH ONCE DAILY, # 30 tabs, 12 Refill(s), eRx: [facility], TAKE ONE TABLET BY MOUTH [...] # 4 tabs, 3 Refill(s) , Pharmacy: [facility], 1 tabs Oral qWeek,Instr:with 6 to 8 ounces of plain water, a... Start Date: 07/31/14 Status: Ordered glimepiride 4 mg oral tablet 4 mg 1 tabs, Oral, BID, PT NEEDS TO ESTABLISH WITH DR. SALCIDO BEFORE ANYMORE REFILLS, # 60 tabs, 1 Refill(s), Pharmacy: [facility] 99, 1 tabs Oral BID,Instr:PT NEEDS TO ESTABLISH WITH DR. SALCIDO BEFORE ANYMORE REFILLS Start Date: 03/04/15 Status: [...] DAILY, # 90 tabs, eRx: [facility], TAKE ONE TABLET BY MOUTH ONCE DAILY Start Date: 04/19/15 Status: Ordered Levsin SL mg, SubLingual, q4hr, 0 Refill(s) Start Date: 04/09/15 Status: Ordered metFORMIN 500 mg oral tablet See Instructions, 2 tabs Oral BID,Instr:PT NEEDS TO ESTABLISH WITH DR. SALCIDO BEFORE ANYMORE REFILLS, # 120 tabs, eRx: [facility], 2 tabs Oral BID, Instr:PT NEEDS TO ESTABLISH WITH DR. SALCIDO BEFORE ANYMORE REFILLS Start Date: 04/30/15 Status: Ordered [place] 5 mg-325 mg oral tablet 1 tabs, Oral, q6hr, as needed for pain, # 60 tabs, 0 Refill(s) Start Date: 05/07/15 Status: Ordered omeprazole 20 mg oral delayed release capsule See Instructions, TAKE ONE CAPSULE BY MOUTH TWICE DAILY, # 60 caps, 5 Refill(s) , eRx: [facility], TAKE ONE CAPSULE BY MOUTH TWICE DAILY Start Date: 11/30/14 Status: Ordered ONE TOUCH ULTRA BLUE TEST STP See Instructions, USE TO TEST BLOOD SUGARS TWO DAYS PER WEEK ( FASTING AND 2 HOURS POST PRANDAL)., # 100 strip, 1 Refill(s), eRx: [facility], USE TO TEST BLOOD SUGARS TWO DAYS PER WEEK ( FASTING AND 2 HOURS POST PRANDAL). Start Date: 11/09/14 Status: Ordered Onglyza 5 mg oral tablet See Instructions, TAKE ONE TABLET BY MOUTH ONCE DAILY, # 30 tabs, 3 Refill(s), eRx: [facility], TAKE ONE TABLET BY MOUTH ONCE DAILY Start Date: 01/29/15 Status: Ordered predniSONE 1 mg oral tablet See Instructions, 3 tabs Oral Daily,Instr:TO BE TAKEN WITH PREDNISONE 5 MG TABLETS, # 90 tabs, 0 Refill(s), Pharmacy: [facility] 99, please note change in dose, 3 [...] pm., # 90 tabs, 2 Refill(s), eRx: [facility], 1 tab in am and 2 in pm. Start Date: 05/20/15 Status: Ordered VESIcare 10 mg oral tablet See Instructions, 1 tabs Oral Daily, # 30 tabs, 5 Refill(s), eRx: [facility], 1 tabs Oral Daily Start Date: 02/18/15 Status: Ordered Vitamin D3 2000 intl units oral tablet 2,000 Intl_Units 1 tabs, Oral, Daily, 0 Refill(s) Start Date: 12/19/13 Status: Ordered Wellbutrin 75 mg oral tablet See Instructions, 1 tabs Oral BID, # 60 tabs, 5 Refill(s), eRx: [facility], 1 tabs Oral BID Start [...]
--- OUTSIDE RECORDS SUMMARY | 2016-10-06 09:30 | XMS REPORT | Referral Summary ---
Author Organization Unknown Address Unknown Phone Unavailable Care Team Providers Care Pencil Maker Name Role Phone Eva Painting Primary Care Physician [phone] Encounter VC Date(s): 10/29/14 - 10/29/14 [facility], [address] [place], [place] [address] Discharge Diagnosis: TAKAYASU'S DISEASE Discharge Disposition: Home [...] DAILY, # 30 tabs, 2 Refill(s), eRx: [facility], TAKE ONE TABLET BY MOUTH ONCE DAILY Special Instructions: TAKE ONE TABLET BY MOUTH ONCE DAILY Start Date: 07/27/14 Status: Ordered DULoxetine 60 mg oral delayed release capsule See Instructions, TAKE ONE CAPSULE BY MOUTH TWICE DAILY, # 180 caps, 2 Refill(s) , eRx: [facility]93, TAKE ONE CAPSULE BY MOUTH TWICE DAILY Special Instructions: TAKE ONE CAPSULE BY MOUTH TWICE DAILY Start Date: 08/28/14 Status: Ordered Effient 10 mg oral tablet 1 tabs, Oral, Daily, # 30 tabs, 3 Refill(s), Pharmacy: [facility], 1 tabs Oral [...] # 4 tabs, 3 Refill(s) , Pharmacy: [facility], 1 tabs Oral qWeek,Instr:with 6 to 8 ounces of plain water, a... Special Instructions: with 6 to 8 ounces of plain water, at least 30 minutes before the first food, beverage, or medication of the day Start Date: 07/31/14 Status: Ordered glimepiride 4 mg oral tablet 1 tabs, Oral, BID, # 60 tabs, 0 Refill(s), Pharmacy: [facility], 1 tabs Oral [...] Daily, # 30 tabs, 2 Refill(s), Pharmacy: [facility] 993, 1 tabs Oral Daily Start Date: 10/01/14 Status: Ordered Levemir FlexPen 100 units/mL subcutaneous solution 10 units, SubCutaneous, Bedtime (once a day), DX. 250.00, # 15 mL, 11 Refill(s) , Pharmacy: [facility] 993, 10 units SubCutaneous Bedtime (once a day), Instr:DX. 250.00 Special Instructions: DX. 250.00 Start Date: 10/16/14 Status: Ordered Lipitor 40 mg oral tablet tabs, Oral, Bedtime (once a day), 0 Refill(s) Start Date: 12/19/13 Status: Ordered metFORMIN 500 mg oral tablet See Instructions, 2 tabs Oral BID, # 120 tabs, 2 Refill(s), eRx: [facility]93, 2 tabs Oral BID Special Instructions: 2 tabs Oral BID Start Date: 08/28/14 Status: Ordered multivitamin Daily, 0 Refill(s) Start Date: 12/19/13 Status: Ordered [place] 5 mg-325 mg oral tablet 1 tabs, Oral, q6hr, as needed for pain, # 60 tabs, 0 Refill(s) Start Date: 09/07/14 Status: Ordered omeprazole 20 mg oral delayed release capsule See Instructions, TAKE ONE CAPSULE BY MOUTH TWICE DAILY, # 60 caps, eRx: [facility] 993, TAKE ONE CAPSULE BY MOUTH TWICE DAILY Special Instructions: TAKE ONE CAPSULE BY MOUTH TWICE DAILY Start Date: 09/28/14 Status: Ordered Onglyza 5 mg oral tablet See Instructions, TAKE ONE TABLET BY MOUTH ONCE DAILY, # 30 tabs, 2 Refill(s), eRx: [facility] 993, TAKE ONE TABLET BY MOUTH ONCE DAILY Special Instructions: TAKE ONE TABLET BY MOUTH ONCE DAILY Start Date: 07/27/14 Status: Ordered predniSONE 5 mg oral tablet 2 tabs, Oral, Daily, # 60 tabs, 0 Refill(s), Pharmacy: [facility] 993, 2 tabs Oral Daily Start Date: 10/01/14 Status: Ordered Synthroid 75 mcg (0.075 mg) oral tablet 1 tabs, Oral, Daily, # 90 tabs, 1 Refill(s), Pharmacy: [facility]93, 1 tabs Oral Daily Start Date: 02/03/14 Status: Ordered Topamax 50 mg oral tablet 1 tabs, Oral, BID, # 60 tabs, 1 Refill(s), Pharmacy: [facility]93, 1 tabs Oral BID Start Date: 10/29/14 Status: Ordered Tylenol Extra Strength See Instructions, 1,000 mg Oral prior to infusion, 0 Refill(s) Special Instructions: 1,000 mg Oral prior to infusion Start Date: 03/27/14 Status: Ordered VESIcare 10 mg oral tablet See Instructions, 1 tabs Oral Daily, # 30 tabs, 1 Refill(s), eRx: [facility], 1 tabs Oral [...] THOUS [0.80-3.30 THOUS] *LOW* (10/29/14 1:30 PM) [place] Absolute 0.00 THOUS [0.30-1.00 THOUS] *LOW* (10/29/14 [...]
--- OUTSIDE RECORDS SUMMARY | 2016-10-06 09:30 | XMS REPORT | Referral Summary ---
Author Author [facility] Organization [facility] Address Unknown Phone Unavailable Care Team Providers Care Healthcare Marketer Name Role Phone Sarmad Salcido Primary Care Physician [phone] Encounter VC Date(s): 11/20/14 - 11/20/14 [facility] [address] BIANCA [place] [address] Discharge Diagnosis: Hematuria Discharge Disposition: 01-Home or Self Care Attending Physician: Rozina Gramajo MD Admitting Physician: Rzoina Gramajo MD Referring Physician: Felisa Painting MD [...] day), # 30 tabs, 6 Refill(s), Pharmacy: [facility] 993, 1 tabs Oral Bedtime (once a day) Start Date: 05/31/15 Status: Ordered Benadryl 25 mg, Oral, Once, 1 tab, prior to remicade, 0 Refill(s) Start Date: 09/08/14 Status: Ordered Bystolic 10 mg oral tablet See Instructions, TAKE ONE TABLET BY MOUTH ONCE DAILY, # 30 tabs, 6 Refill(s), Pharmacy: [facility], TAKE ONE TABLET BY MOUTH ONCE DAILY Start Date: 05/31/15 Status: Ordered Calcium 600+D 1 tabs, Oral, Daily, 0 Refill(s) Start Date: 11/11/14 Status: Ordered DULoxetine 60 mg oral delayed release capsule See Instructions, TAKE ONE CAPSULE BY MOUTH TWICE DAILY, # 180 caps, 6 Refill(s) , Pharmacy: [facility] 99, TAKE ONE CAPSULE BY MOUTH TWICE DAILY Start Date: 05/31/15 Status: Ordered Effient 10 mg oral tablet See Instructions, TAKE ONE TABLET BY MOUTH ONCE DAILY, # 30 tabs, 12 Refill(s), eRx: [facility], TAKE ONE TABLET [...] # 4 tabs, 3 Refill(s) , Pharmacy: [facility], 1 tabs Oral qWeek,Instr:with 6 to 8 ounces of plain water, a... Start Date: 07/31/14 Status: Ordered glimepiride 4 mg oral tablet 4 mg 1 tabs, Oral, BID, PT NEEDS TO ESTABLISH WITH DR. SALCIDO BEFORE ANYMORE REFILLS, # 60 tabs, 1 Refill(s), Pharmacy: [facility] 993, 1 tabs Oral BID,Instr:PT NEEDS [...] MOUTH ONCE DAILY, # 90 tabs, eRx: [facility], TAKE ONE TABLET BY MOUTH ONCE DAILY Start Date: 04/19/15 Status: Ordered Levsin SL mg, SubLingual, q4hr, 0 Refill(s) Start Date: 04/09/15 Status: Ordered metFORMIN 500 mg oral tablet See Instructions, 2 tabs Oral BID,Instr:PT NEEDS TO ESTABLISH WITH DR. SALCIDO BEFORE ANYMORE REFILLS, # 120 tabs, eRx: [facility], 2 tabs Oral BID, Instr:PT NEEDS TO ESTABLISH WITH DR. SALCIDO BEFORE ANYMORE REFILLS Start Date: 04/30/15 Status: Ordered [place] 5 mg-325 mg oral tablet 1 tabs, Oral, q6hr, as needed for pain, # 60 tabs, 0 Refill(s) Start Date: 05/07/15 Status: Ordered omeprazole 20 mg oral delayed release capsule See Instructions, TAKE ONE CAPSULE BY MOUTH TWICE DAILY, # 60 caps, 5 Refill(s) , eRx: [facility], TAKE ONE CAPSULE BY MOUTH TWICE DAILY Start Date: 11/30/14 Status: Ordered ONE TOUCH ULTRA BLUE TEST STP See Instructions, USE TO TEST BLOOD SUGARS TWO DAYS PER WEEK ( FASTING AND 2 HOURS POST PRANDAL)., # 100 strip, 1 Refill(s), eRx: [facility] 993, USE TO TEST BLOOD SUGARS TWO DAYS PER WEEK ( FASTING AND 2 HOURS POST PRANDAL). Start Date: 11/09/14 Status: Ordered Onglyza 5 mg oral tablet See Instructions, TAKE ONE TABLET BY MOUTH ONCE DAILY, # 30 tabs, 3 Refill(s), eRx: [facility] 993, TAKE ONE TABLET BY MOUTH ONCE DAILY Start Date: 01/29/15 Status: Ordered predniSONE 1 mg oral tablet See Instructions, 3 tabs Oral Daily,Instr:TO BE TAKEN WITH PREDNISONE 5 MG TABLETS, # 90 tabs, 0 Refill(s), Pharmacy: [place] [id number], please note change in dose, 3 tabs [...] pm., # 90 tabs, 2 Refill(s), eRx: [facility] 993, 1 tab in am and 2 in pm. Start Date: 05/20/15 Status: Ordered VESIcare 10 mg oral tablet See Instructions, 1 tabs Oral Daily, # 30 tabs, 5 Refill(s), eRx: [facility] 993, 1 tabs Oral Daily Start Date: 02/18/15 Status: Ordered Vitamin D3 2000 intl units oral tablet 2,000 Intl_Units 1 tabs, Oral, Daily, 0 Refill(s) Start Date: 12/19/13 Status: Ordered Wellbutrin 75 mg oral tablet See Instructions, 1 tabs Oral BID, # 60 tabs, 5 Refill(s), eRx: [facility]93, 1 tabs Oral BID Start [...]
--- OUTSIDE RECORDS SUMMARY | 2016-10-06 09:30 | XMS REPORT | Referral Summary ---
Author Author [facility] Organization [facility] Address Unknown Phone Unavailable Care Team Providers Care Emanations Analysis Technician Name Role Phone Sarmad Kwan Primary Care Physician [phone] Encounter VC Date(s): 04/09/15 - 04/09/15 [facility] [address] [place] [id number] Discharge Disposition: 01-Home or Self Care Attending [...] Kwan, # 30 tabs, 0 Refill(s), Pharmacy: [facility] 993, 1 tabs Oral Bedtime (once a day),Instr:* LAST REFILL UNTIL SEEN *; you wi... Start Date: 04/01/15 Status: Ordered Benadryl 25 mg, Oral, Once, 1 tab, prior to remicade, 0 Refill(s) Start Date: 09/08/14 Status: Ordered Bystolic 10 mg oral tablet See Instructions, TAKE ONE TABLET BY MOUTH ONCE DAILY, # 30 tabs, 3 Refill(s), eRx: [facility]93, TAKE ONE TABLET BY MOUTH ONCE DAILY Start Date: 01/29/15 Status: Ordered Calcium 600+D 1 tabs, Oral, Daily, 0 Refill(s) Start Date: 11/11/14 Status: Ordered DULoxetine 60 mg oral delayed release capsule See Instructions, TAKE ONE CAPSULE BY MOUTH TWICE DAILY, # 180 caps, 2 Refill(s) , eRx: [facility]93, TAKE ONE CAPSULE BY MOUTH TWICE DAILY Start Date: 08/28/14 Status: Ordered Effient 10 mg oral tablet See Instructions, TAKE ONE TABLET BY MOUTH ONCE DAILY, # 30 tabs, 12 Refill(s), eRx: [facility]93, TAKE ONE TABLET BY [...] # 4 tabs, 3 Refill(s) , Pharmacy: [facility], 1 tabs Oral qWeek,Instr:with 6 to 8 ounces of plain water, a... Start Date: 07/31/14 Status: Ordered glimepiride 4 mg oral tablet 4 mg 1 tabs, Oral, BID, PT NEEDS TO ESTABLISH WITH DR. KWAN BEFORE ANYMORE REFILLS, # 60 tabs, 1 Refill(s), Pharmacy: [facility]93, 1 tabs Oral BID,Instr:PT [...] MOUTH ONCE DAILY, # 90 tabs, eRx: [facility]93, TAKE ONE TABLET BY MOUTH ONCE DAILY Start Date: 01/21/15 Status: Ordered Levsin SL mg, SubLingual, q4hr, 0 Refill(s) Start Date: 04/09/15 Status: Ordered metFORMIN 500 mg oral tablet 1,000 mg 2 tabs, Oral, BID, PT NEEDS TO ESTABLISH WITH DR. KWAN BEFORE ANYMORE REFILLS, # 120 tabs, 1 Refill(s), Pharmacy: [facility]93, 2 tabs Oral BID,Instr:PT NEEDS TO ESTABLISH WITH DR. KWAN BEFORE ANYMORE REFILLS Start Date: 03/04/15 Status: Ordered [place] 5 mg-325 mg oral tablet 1 tabs, Oral, q6hr, as needed for pain, # 60 tabs, 0 Refill(s) Start Date: 03/29/15 Status: Ordered omeprazole 20 mg oral delayed release capsule See Instructions, TAKE ONE CAPSULE BY MOUTH TWICE DAILY, # 60 caps, 5 Refill(s) , eRx: [facility] 993, TAKE ONE CAPSULE BY MOUTH TWICE DAILY Start Date: 11/30/14 Status: Ordered ONE TOUCH ULTRA BLUE TEST STP See Instructions, USE TO TEST BLOOD SUGARS TWO DAYS PER WEEK ( FASTING AND 2 HOURS POST PRANDAL)., # 100 strip, 1 Refill(s), eRx: [facility] 993, USE TO TEST BLOOD SUGARS TWO DAYS PER WEEK ( FASTING AND 2 HOURS POST PRANDAL). Start Date: 11/09/14 Status: Ordered Onglyza 5 mg oral tablet See Instructions, TAKE ONE TABLET BY MOUTH ONCE DAILY, # 30 tabs, 3 Refill(s), eRx: [facility] 993, TAKE ONE TABLET BY MOUTH ONCE DAILY Start Date: 01/29/15 Status: Ordered predniSONE 5 mg oral tablet See Instructions, TAKE ONE TABLET BY MOUTH INSTRUCTED WITH 1MG TABLETS, # 30 tabs, 2 Refill(s), eRx: [facility] 993, TAKE ONE TABLET BY MOUTH INSTRUCTED [...] 90 tabs, 2 Refill(s), eRx: [facility] 993, 1 tab in am and [...] tabs Oral BID, # 60 tabs, eRx: [facility] 993, 1 tabs Oral BID Start [...]
--- OUTSIDE RECORDS SUMMARY | 2016-10-06 09:30 | XMS REPORT | Referral Summary ---
Author Author [facility] Organization [facility] Address Unknown Phone Unavailable Care Team Providers Care Digital Strategist Senior Manager Name Role Phone Sarmad Kwan Primary Care Physician [phone] Encounter VC Date(s): 05/07/15 - 05/07/15 [facility] [address] [place] [id number] Discharge Disposition: 01-Home or Self Care Attending [...] with Dr. Kwan, # 30 tabs, eRx: [facility] 993, 1 tabs Oral Bedtime (once a day),Instr:* LAST REFILL UNTIL SEEN *; you will... Start Date: 04/30/15 Status: Ordered Benadryl 25 mg, Oral, Once, 1 tab, prior to remicade, 0 Refill(s) Start Date: 09/08/14 Status: Ordered Bystolic 10 mg oral tablet See Instructions, TAKE ONE TABLET BY MOUTH ONCE DAILY, # 30 tabs, 3 Refill(s), eRx: [facility] 993, TAKE ONE TABLET BY MOUTH ONCE DAILY Start Date: 01/29/15 Status: Ordered Calcium 600+D 1 tabs, Oral, Daily, 0 Refill(s) Start Date: 11/11/14 Status: Ordered DULoxetine 60 mg oral delayed release capsule See Instructions, TAKE ONE CAPSULE BY MOUTH TWICE DAILY, # 180 caps, 2 Refill(s) , eRx: [facility] 993, TAKE ONE CAPSULE BY MOUTH TWICE DAILY Start Date: 08/28/14 Status: Ordered Effient 10 mg oral tablet See Instructions, TAKE ONE TABLET BY MOUTH ONCE DAILY, # 30 tabs, 12 Refill(s), eRx: [facility] 993, TAKE ONE TABLET BY MOUTH [...] # 4 tabs, 3 Refill(s) , Pharmacy: [facility] 99, 1 tabs Oral qWeek,Instr:with 6 to 8 ounces of plain water, a... Start Date: 07/31/14 Status: Ordered glimepiride 4 mg oral tablet 4 mg 1 tabs, Oral, BID, PT NEEDS TO ESTABLISH WITH DR. KWAN BEFORE ANYMORE REFILLS, # 60 tabs, 1 Refill(s), Pharmacy: [facility]93, 1 tabs Oral [...] MOUTH ONCE DAILY, # 90 tabs, eRx: [facility]93, TAKE ONE TABLET BY MOUTH ONCE DAILY Start Date: 04/19/15 Status: Ordered Levsin SL mg, SubLingual, q4hr, 0 Refill(s) Start Date: 04/09/15 Status: Ordered metFORMIN 500 mg oral tablet See Instructions, 2 tabs Oral BID,Instr:PT NEEDS TO ESTABLISH WITH DR. KWAN BEFORE ANYMORE REFILLS, # 120 tabs, eRx: [facility] 993, 2 tabs Oral BID, Instr:PT NEEDS TO ESTABLISH WITH DR. KWAN BEFORE ANYMORE REFILLS Start Date: 04/30/15 Status: Ordered [place] 5 mg-325 mg oral tablet 1 tabs, Oral, q6hr, as needed for pain, # 60 tabs, 0 Refill(s) Start Date: 05/07/15 Status: Ordered omeprazole 20 mg oral delayed release capsule See Instructions, TAKE ONE CAPSULE BY MOUTH TWICE DAILY, # 60 caps, 5 Refill(s) , eRx: [facility] 993, TAKE ONE CAPSULE BY MOUTH TWICE DAILY Start Date: 11/30/14 Status: Ordered ONE TOUCH ULTRA BLUE TEST STP See Instructions, USE TO TEST BLOOD SUGARS TWO DAYS PER WEEK ( FASTING AND 2 HOURS POST PRANDAL)., # 100 strip, 1 Refill(s), eRx: [facility]93, USE TO TEST BLOOD SUGARS TWO DAYS PER WEEK ( FASTING AND 2 HOURS POST PRANDAL). Start Date: 11/09/14 Status: Ordered Onglyza 5 mg oral tablet See Instructions, TAKE ONE TABLET BY MOUTH ONCE DAILY, # 30 tabs, 3 Refill(s), eRx: [facility] 993, TAKE ONE TABLET BY MOUTH ONCE DAILY Start Date: 01/29/15 Status: Ordered predniSONE 1 mg oral tablet See Instructions, 3 tabs Oral Daily,Instr:TO BE TAKEN WITH PREDNISONE 5 MG TABLETS, # 90 tabs, 0 Refill(s), Pharmacy: [facility] 99, please note change in dose, [...] pm., # 90 tabs, 2 Refill(s), eRx: [facility] 993, 1 tab in am and 2 in pm. Start Date: 02/18/15 Status: Ordered VESIcare 10 mg oral tablet See Instructions, 1 tabs Oral Daily, # 30 tabs, 5 Refill(s), eRx: [facility] 993, 1 tabs Oral Daily Start Date: 02/18/15 Status: Ordered Vitamin D3 2000 intl units oral tablet 2,000 Intl_Units 1 tabs, Oral, Daily, 0 Refill(s) Start Date: 12/19/13 Status: Ordered Wellbutrin 75 mg oral tablet See Instructions, 1 tabs Oral BID, # 60 tabs, 5 Refill(s), eRx: [facility]93, 1 tabs Oral BID Start Date: 05/07/15 Status: Ordered Results Hematology Most recent to 1 oldest [Reference Range]: WBC [4.8-10.8 9.1 10*3/uL 10*3/uL] (05/07/15 8:00 AM) RBC [4.00-5.20] 4.42 (05/07/15 8:00 AM) Hgb [12.0-16.0 12.2 gm/dL gm/dL] (05/07/15 8:00 AM) Hct [37.0-47.0 %] 37.5 % (05/07/15 8:00 AM) MCV [82.0-99.0 fL] 84.8 fL (05/07/15 8:00 AM) MCH [27.0-32.0 pg] 27.6 pg (05/07/15 8:00 AM) MCHC [32.0-36.0 32.5 gm/dL gm/dL] (05/07/15 8:00 AM) RDW [11.5-14.5 %] 15.2 % *HI* (05/07/15 8:00 AM) Platelet [150-400 374 10*3/uL 10*3/uL] (05/07/15 8:00 AM) MPV [8.8-14.8 fL] 9.7 fL (05/07/15 8:00 AM) Immature 0.1 % Granulocytes (05/07/15 8:00 AM) [0.0-1.0 %] Neutrophils [51-75 78 % %] *HI* (05/07/15 8:00 AM) Lymphocytes [20-46 14 % %] *LOW* (05/07/15 8:00 AM) Monocytes [4-11 %] 7 % (05/07/15 8:00 AM) Eosinophils [0-4 %] 1 % (05/07/15 8:00 AM) Basophils [0-2 %] 0 % (05/07/15 8:00 AM) Neutro Absolute 7.07 10*3 [1.90-7.00 10*3] *HI* (05/07/15 8:00 AM) Lymph Absolute 1.28 10*3 [0.80-3.30 10*3] (05/07/15 8:00 AM) Jackson Absolute 0.62 10*3 [0.30-1.00 10*3] (05/07/15 8:00 AM) Eos Absolute 0.11 10*3 [0.00-0.50 10*3] (05/07/15 8:00 AM) Baso Absolute 0.02 10*3 [0.00-0.20 10*3] (05/07/15 8:00 AM) Chemistry Most recent to 1 oldest [Reference Range]: Sodium Lvl [135-144 136 mEq/L mEq/L] (05/07/15 8:00 AM) Potassium Lvl 3.8 mEq/L [3.5-5.2 mEq/L] (05/07/15 8:00 AM) Chloride [99-111 107 mEq/L mEq/L] (05/07/15 8:00 AM) CO2 [22-31 mEq/L] 20 mEq/L *LOW* (05/07/15 8:00 AM) AGAP [3-20] 9 (05/07/15 8:00 AM) BUN [7-19 mg/dL] 8 mg/dL (05/07/15 8:00 AM) Glucose Lvl [70-99 107 mg/dL mg/dL] *HI* (05/07/15 8:00 AM) Creatinine Lvl 0.81 mg/dL [0.57-1.11 mg/dL] (05/07/15 8:00 AM) eGFR [>60 mL/min] >60 mL/min 1 (05/07/15 8:00 AM) Calcium Lvl 9.3 mg/dL [8.9-10.5 mg/dL] (05/07/15 8:00 AM) Albumin Lvl [3.5-5.0 4.2 gm/dL gm/dL] (05/07/15 8:00 AM) Total Protein 7.1 gm/dL [6.4-8.3 gm/dL] (05/07/15 8:00 AM) Globulin [1.8-4.0 2.9 gm/dL gm/dL] (05/07/15 8:00 AM) ALT [0-55 U/L] 12 U/L (05/07/15 8:00 AM) AST [5-34 U/L] 12 U/L (05/07/15 8:00 AM) Alk Phos [40-150 52 U/L U/L] (05/07/15 8:00 AM) Bili Total [0.2-1.2 0.3 mg/dL mg/dL] (05/07/15 8:00 AM) 1Result Comment: Multiply eGFR results by [...]
--- OUTSIDE RECORDS SUMMARY | 2016-10-06 09:30 | XMS REPORT | Referral Summary ---
Author Organization Unknown Address Unknown Phone Unavailable Care Team Providers Care Genetic Counselor Name Role Phone Eva Painting Primary Care Physician [phone] Encounter VC Date(s): 08/06/14 - 08/06/14 [facility] Rheumatology [address] [place] [address] [place], [place] [address] Discharge Diagnosis: Arteritis, Takayasu Discharge Diagnosis: Encounter for long-term (current) use of high-risk medication Discharge Disposition: Home or Self Care Attending Physician: Rozina Gramajo MD Admitting Physician: Rozina Gramajo MD Referring Physician: Felisa Painting MD Vital Signs Most recent to 1 oldest [Reference Range]: Peripheral Pulse 107 bpm Rate [60-100 bpm] *HI* (08/06/14 5:40 PM) Blood Pressure 111/77 mmHg [90-140/60-90 mmHg] (08/06/14 5:40 PM) Problem List Condition Effective Dates Status [...] DAILY, # 30 tabs, 2 Refill(s), eRx: [facility]93, TAKE ONE TABLET BY MOUTH ONCE DAILY Special Instructions: TAKE ONE TABLET BY MOUTH ONCE DAILY Start Date: 07/27/14 Status: Ordered Cymbalta 60 mg oral delayed release capsule caps, Oral, BID, 0 Refill(s) Start Date: 12/19/13 Status: Ordered Diflucan 150 mg oral tablet 1 tabs, Oral, q72hr, # 10 tabs, 2 Refill(s), Pharmacy: [facility]93, 1 tabs Oral q72hr Start Date: 08/06/14 Status: Ordered Effient 10 mg oral tablet See Instructions, TAKE ONE TABLET BY MOUTH EVERY DAY, # 30 tabs, 3 Refill(s), eRx: [facility]93, TAKE ONE TABLET [...] # 4 tabs, 3 Refill(s) , Pharmacy: [facility]93, 1 tabs Oral qWeek,Instr:with 6 to 8 ounces of plain water, a... Special Instructions: with 6 to 8 ounces of plain water, at least 30 minutes before the first food, beverage, or medication of the day Start Date: 07/31/14 Status: Ordered gabapentin 300 mg oral capsule 1-2 caps, Oral, TID, # 180 tabs, 1 Refill(s), Pharmacy: [facility] 993, please see change in dose, 1-2 caps Oral TID Start Date: 06/01/14 Status: Ordered glimepiride 2 mg oral tablet 1 tabs, Oral, BID, # 180 tabs, 0 Refill(s), Pharmacy: [facility] 993, 1 tabs Oral BID Start Date: [...] Daily, # 30 tabs, 1 Refill(s), Pharmacy: [facility] 99, please note change in dose, 1 tabs Oral Daily Start Date: 06/08/14 Status: Ordered Lipitor 40 mg oral tablet tabs, Oral, Bedtime (once a day), 0 Refill(s) Start Date: 12/19/13 Status: Ordered metFORMIN 500 mg oral tablet See Instructions, 2 tabs Oral BID, # 120 tabs, 2 Refill(s), eRx: [facility]93, 2 tabs Oral BID Special Instructions: 2 tabs Oral BID Start Date: 06/01/14 Status: Ordered multivitamin Daily, 0 Refill(s) Start Date: 12/19/13 Status: Ordered [place] 5 mg-325 mg oral tablet 1 tabs, Oral, q6hr, as needed for pain, # 60 tabs, 0 Refill(s) Start Date: 08/04/14 Status: Ordered omeprazole 20 mg oral delayed release capsule See Instructions, 1 caps Oral BID, # 60 caps, 2 Refill(s), eRx: [facility] 993, 1 caps Oral BID Special Instructions: 1 caps Oral BID Start Date: 06/12/14 Status: Ordered Onglyza 5 mg oral tablet See Instructions, TAKE ONE TABLET BY MOUTH ONCE DAILY, # 30 tabs, 2 Refill(s), eRx: [facility]93, TAKE ONE TABLET BY MOUTH ONCE DAILY Special Instructions: TAKE ONE TABLET BY MOUTH ONCE DAILY Start Date: 07/27/14 Status: Ordered predniSONE 10 mg oral tablet See Instructions, 3 and half tabs Daily for 2 weeks and then 3 tabs daily for 2 weeks then 2 and half until follow up, # 120 tabs, 0 Refill(s), Pharmacy: [facility]93, 3 and half tabs [...] Daily, # 90 tabs, 1 Refill(s), Pharmacy: [facility]93, 1 tabs Oral Daily Start Date: 02/03/14 Status: Ordered Tylenol Extra Strength See Instructions, 1,000 mg Oral prior to infusion, 0 Refill(s) Special Instructions: 1,000 mg Oral prior to infusion Start Date: 03/27/14 Status: Ordered VESIcare 10 mg oral tablet 1 tabs, Oral, Daily, # 30 tabs, 2 Refill(s), Pharmacy: [facility]93, 1 tabs Oral [...]
--- OUTSIDE RECORDS SUMMARY | 2016-10-06 09:31 | XMS REPORT | Referral Summary ---
Author Author [facility] Organization [facility] Address Unknown Phone Unavailable Care Team Providers Care Glass Block Bender Name Role Phone Sarmad Salcido Primary Care Physician [phone] Encounter VC Date(s): 08/17/15 - 08/17/15 [facility] [place] [address] Discharge Diagnosis: Rash Discharge Disposition: 01-Home or Self Care Attending Physician: Ben Mcallister MD Admitting Physician: Ben Mcallister MD Vital Signs Most recent to 1 oldest [Reference Range]: Peripheral Pulse 110 bpm Rate [60-100 bpm] *HI* (08/17/15 3:59 PM) Blood Pressure 180/60 mmHg [90-140/60-90 mmHg] *HI* (08/17/15 3:59 PM) SpO2 98 % (08/17/15 3:59 PM) Problem List Condition Effective Dates Status [...] # 4 tabs , 2 Refill(s), eRx: [facility]93, TAKE ONE TABLET [...] day), # 30 tabs, 6 Refill(s), Pharmacy: [facility]93, 1 tabs Oral Bedtime (once a day) Start Date: 05/31/15 Status: Ordered Benadryl 25 mg, Oral, Once, 1 tab, prior to remicade, 0 Refill(s) Start Date: 09/08/14 Status: Ordered Bystolic 10 mg oral tablet See Instructions, TAKE ONE TABLET BY MOUTH ONCE DAILY, # 30 tabs, 6 Refill(s), Pharmacy: [facility] 993, TAKE ONE TABLET BY MOUTH ONCE DAILY Start Date: 05/31/15 Status: Ordered Calcium 600+D 1 tabs, Oral, Daily, 0 Refill(s) Start Date: 11/11/14 Status: Ordered DULoxetine 60 mg oral delayed release capsule See Instructions, TAKE ONE CAPSULE BY MOUTH TWICE DAILY, # 180 caps, 6 Refill(s) , Pharmacy: [facility] 993, TAKE ONE CAPSULE BY MOUTH TWICE DAILY Start Date: 05/31/15 Status: Ordered Effient 10 mg oral tablet See Instructions, TAKE ONE TABLET BY MOUTH ONCE DAILY, # 30 tabs, 12 Refill(s), eRx: [facility] 993, TAKE ONE TABLET [...] BID, # 60 tabs, 1 Refill(s), Pharmacy: [facility] 993 , 1 tabs Oral BID [...] # 45 tabs, 2 Refill( s), eRx: [facility]93, TAKE ONE-HALF TABLET BY MOUTH ONCE DAILY Start Date: 06/18/15 Status: Ordered levothyroxine 75 mcg (0.075 mg) oral tablet See Instructions, TAKE ONE TABLET BY MOUTH ONCE DAILY Need TSH at next OV, # 30 tabs, 0 Refill(s), Pharmacy: [facility]93, TAKE ONE TABLET BY MOUTH ONCE DAILY; Need TSH at next OV Start Date: 07/22/15 Status: Ordered Levsin SL mg, SubLingual, q4hr, 0 Refill(s) Start Date: 04/09/15 Status: Ordered metFORMIN 500 mg oral tablet See Instructions, 2 tabs Oral BID, # 120 tabs, 1 Refill(s), eRx: [facility]93, 2 tabs Oral BID Start Date: 07/29/15 Status: Ordered [place] 5 mg-325 mg oral tablet 1 tabs, Oral, q6hr, as needed for pain, # 60 tabs, 0 Refill(s) Start Date: 07/05/15 Status: Ordered omeprazole 20 mg oral delayed release capsule See Instructions, TAKE ONE CAPSULE BY MOUTH TWICE DAILY, # 60 caps, 5 Refill(s) , eRx: [facility]93, TAKE ONE CAPSULE BY MOUTH TWICE DAILY Start Date: 06/03/15 Status: Ordered ONE TOUCH ULTRA BLUE TEST STP See Instructions, USE TO TEST BLOOD SUGARS TWO DAYS PER WEEK ( FASTING AND 2 HOURS POST PRANDAL)., # 100 strip, 1 Refill(s), eRx: [facility]93, USE TO TEST BLOOD SUGARS TWO DAYS PER WEEK ( FASTING AND 2 HOURS POST PRANDAL). Start Date: 11/09/14 Status: Ordered Onglyza 5 mg oral tablet See Instructions, TAKE ONE TABLET BY MOUTH ONCE DAILY, # 30 tabs, 3 Refill(s), Pharmacy: [facility] 99, TAKE ONE TABLET BY MOUTH ONCE DAILY Start Date: 06/03/15 Status: Ordered predniSONE 1 mg oral tablet See Instructions, 3 tabs Oral Daily,Instr:TO BE TAKEN WITH PREDNISONE 5 MG TABLETS, # 90 tabs, 0 Refill(s), Pharmacy: [place] [id number], please note change in dose, 3 tabs Oral Daily,Instr:TO BE TAKEN WITH PREDNISONE 5 MG TABLETS Start Date: 05/07/15 Status: Ordered predniSONE 20 mg oral tablet See Instructions, , 60 for 3 days, 40 for 3 days, 20 for 3 days, # 20 tabs, 0 Refill(s), Pharmacy: [facility] 99, , 60 for 3 days, 40 [...] pm., # 90 tabs, 2 Refill(s), eRx: [facility]93, 1 tab in am and 2 in pm. Start Date: 05/20/15 Status: Ordered VESIcare 10 mg oral tablet See Instructions, 1 tabs Oral Daily, # 30 tabs, 5 Refill(s), eRx: [facility]93, 1 tabs Oral Daily Start Date: 02/18/15 Status: Ordered Vitamin D3 2000 intl units oral tablet 2,000 Intl_Units 1 tabs, Oral, Daily, 0 Refill(s) Start Date: 12/19/13 Status: Ordered Wellbutrin 75 mg oral tablet See Instructions, 1 tabs Oral BID, # 60 tabs, 5 Refill(s), eRx: [facility]93, 1 tabs Oral BID Start [...] Extracted from: Title: Office Visit Note Author: Ben Mcallister MD Date: 08/17/15 Assessment/Plan Rash I suspect this is related to her arteritis but it does not seem to be an acute/threatening process. I advised that she follow-up with rheumatology as planned, and follow-up if symptoms get worse in the meantime. Future Scheduled TestsReferral* Return to Clinic 11/11/14 10:59 AM Referrals to Other Providers Referred by: Olga Jones
--- OUTSIDE RECORDS SUMMARY | 2016-10-06 09:31 | XMS REPORT | Referral Summary ---
Author Author [facility], [facility] Medicine Organization [facility] Address Unknown Phone Unavailable Care Team Providers Care Assisted Living Assistant Name Role Phone Sarmad Salcido Primary Care Physician [phone] Encounter VC Date(s): 01/22/15 - 01/22/15 [facility] [address] [place] [id number] Discharge Diagnosis: Takayasu Discharge Diagnosis: Diabetes Discharge Diagnosis: Fatigue Discharge Disposition: 01-Home or Self Care Attending Physician: Felisa Painting MD Admitting Physician: Felisa Painting MD Vital Signs Most recent to 1 oldest [Reference Range]: Temperature Tympanic 36.5 degC [36.6-38.1 degC] *LOW* (01/22/15 7:42 AM) Peripheral Pulse 78 bpm Rate [60-100 bpm] (01/22/15 7:42 AM) Blood Pressure 130/80 mmHg [90-140/60-90 mmHg] (01/22/15 7:42 AM) Problem List Condition Effective Dates Status [...] # 4 tabs , 2 Refill(s), eRx: [facility], TAKE ONE TABLET BY [...] day), # 30 tabs, 6 Refill(s), Pharmacy: [facility], 1 tabs Oral Bedtime (once a day) Start Date: 05/31/15 Status: Ordered Benadryl 25 mg, Oral, Once, 1 tab, prior to remicade, 0 Refill(s) Start Date: 09/08/14 Status: Ordered Bystolic 10 mg oral tablet See Instructions, TAKE ONE TABLET BY MOUTH ONCE DAILY, # 30 tabs, 6 Refill(s), Pharmacy: [facility], TAKE ONE TABLET BY MOUTH ONCE DAILY Start Date: 05/31/15 Status: Ordered Calcium 600+D 1 tabs, Oral, Daily, 0 Refill(s) Start Date: 11/11/14 Status: Ordered DULoxetine 60 mg oral delayed release capsule See Instructions, TAKE ONE CAPSULE BY MOUTH TWICE DAILY, # 180 caps, 6 Refill(s) , Pharmacy: [facility], TAKE ONE CAPSULE BY MOUTH TWICE DAILY Start Date: 05/31/15 Status: Ordered Effient 10 mg oral tablet See Instructions, TAKE ONE TABLET BY MOUTH ONCE DAILY, # 30 tabs, 12 Refill(s), eRx: [facility], TAKE ONE TABLET BY [...] BID, # 60 tabs, 1 Refill(s), Pharmacy: [facility] , 1 tabs Oral [...] # 45 tabs, 2 Refill( s), eRx: [facility], TAKE ONE-HALF TABLET BY MOUTH ONCE DAILY Start Date: 06/18/15 Status: Ordered levothyroxine 75 mcg (0.075 mg) oral tablet See Instructions, TAKE ONE TABLET BY MOUTH ONCE DAILY Need TSH at next OV, # 30 tabs, 0 Refill(s), Pharmacy: [facility], TAKE ONE TABLET BY MOUTH ONCE DAILY; Need TSH at next OV Start Date: 07/22/15 Status: Ordered Levsin SL mg, SubLingual, q4hr, 0 Refill(s) Start Date: 04/09/15 Status: Ordered metFORMIN 500 mg oral tablet See Instructions, 2 tabs Oral BID, # 120 tabs, 1 Refill(s), eRx: [facility], 2 tabs Oral BID Start Date: 07/29/15 Status: Ordered [place] 5 mg-325 mg oral tablet 1 tabs, Oral, q6hr, as needed for pain, # 60 tabs, 0 Refill(s) Start Date: 07/05/15 Status: Ordered omeprazole 20 mg oral delayed release capsule See Instructions, TAKE ONE CAPSULE BY MOUTH TWICE DAILY, # 60 caps, 5 Refill(s) , eRx: [facility], TAKE ONE CAPSULE BY MOUTH TWICE DAILY Start Date: 06/03/15 Status: Ordered ONE TOUCH ULTRA BLUE TEST STP See Instructions, USE TO TEST BLOOD SUGARS TWO DAYS PER WEEK ( FASTING AND 2 HOURS POST PRANDAL)., # 100 strip, 1 Refill(s), eRx: [facility], USE TO TEST BLOOD SUGARS TWO DAYS PER WEEK ( FASTING AND 2 HOURS POST PRANDAL). Start Date: 11/09/14 Status: Ordered Onglyza 5 mg oral tablet See Instructions, TAKE ONE TABLET BY MOUTH ONCE DAILY, # 30 tabs, 3 Refill(s), Pharmacy: [facility], TAKE ONE TABLET BY MOUTH ONCE DAILY Start Date: 06/03/15 Status: Ordered predniSONE 1 mg oral tablet See Instructions, 3 tabs Oral Daily,Instr:TO BE TAKEN WITH PREDNISONE 5 MG TABLETS, # 90 tabs, 0 Refill(s), Pharmacy: [facility], please note change in dose, 3 tabs Oral Daily,Instr:TO BE TAKEN WITH PREDNISONE 5 MG TABLETS Start Date: 05/07/15 Status: Ordered predniSONE 20 mg oral tablet See Instructions, , 60 for 3 days, 40 for 3 days, 20 for 3 days, # 20 tabs, 0 Refill(s), Pharmacy: [facility], , 60 for 3 days, 40 [...] pm., # 90 tabs, 2 Refill(s), eRx: [facility], 1 tab in am and 2 in pm. Start Date: 05/20/15 Status: Ordered VESIcare 10 mg oral tablet See Instructions, 1 tabs Oral Daily, # 30 tabs, 5 Refill(s), [facility], 1 tabs Oral Daily Start Date: 02/18/15 Status: Ordered Vitamin D3 2000 intl units oral tablet 2,000 Intl_Units 1 tabs, Oral, Daily, 0 Refill(s) Start Date: 12/19/13 Status: Ordered Wellbutrin 75 mg oral tablet See Instructions, 1 tabs Oral BID, # 60 tabs, 5 Refill(s), [facility]: [facility], 1 tabs Oral BID Start Date: 05/07/15 Status: Ordered Results Chemistry Most recent to 1 oldest [Reference Range]: Hgb A1c [4.1-5.6 %] 5.7 % *HI* (01/22/15 8:20 AM) eAvg Glucose 116.9 mg/dL (01/22/15 8:20 AM) Immunizations Vaccine Date Refusal Reason influenza virus vaccine, inactivated 04/14/15 influenza virus vaccine, live 05/05/13 influenza virus vaccine, live 04/22/08 Procedures Procedure Date Related Diagnosis Body Site Collection of venous blood by venipuncture 01/22/15 Bypass, 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 Takayasu Arteritis mainly affects the aorta, which is a large blood vessel that carries blood away from the heart. Areas of the aorta or other affected blood vessels can become narrowed, blocked, or weakened because of the inflammation. This causes reduced blood flow to important body organs and can result in many complications or even . CAUSES The exact cause of Takayasu Arteritis is not known. It may be due to an autoimmune disorder where the body's defense system attacks its own cells. Takayasu Arteritis most commonly occurs in females between the ages of 15- 35. SYMPTOMS Takayasu Arteritis symptoms depend upon the blood vessels that are affected and may include: Light-headedness or fainting. Dizziness. Chest pain, especially during physical activity. Stroke-like symptoms such as: Sudden weakness or numbness in your arms, legs, or face, especially on one side of the body. Problems speaking or slurred speech. Trouble walking or loss of balance. Problems seeing or hearing. Severe headache. High blood pressure. Arm pain, especially during physical activity. Pain in the abdomen, especially after eating. Joint pain or general muscle weakness. Fatigue or tiredness. Nausea and vomiting. Poor appetite. Weight loss. Fever. Night sweats. DIAGNOSIS Because Takayasu Arteritis is uncommon, diagnosis may not be immediate. Diagnosis usually does not occur until there are severe symptoms. You may have high blood pressure or there may be a difference in blood pressure readings between your right arm and left arm. Your caregiver may conduct the following tests to help diagnose Takayasu Arteritis: Chest x-ray. Arteriogram. This a test that uses x-rays and a special dye to look at the arteries. An MRI or CT scan. These are imaging tests that look at internal body organs. CT Angiography. This test combines an Arteriogram and a CT scan. CT angiography shows images of the blood vessels and arteries. Magnetic Resonance Angiogram (MRA). This test combines an MRI and an Arteriogram. MRA also shows images of the arteries. A Doppler ultrasound study to look at blood flow in the arteries and organs. Blood tests. TREATMENT You may be treated with medicines such as: Steroids to help reduce inflammation. Immunosuppressant's to inhibit or prevent the body's defense system from attacking itself. You may be treated with procedures such as: Angioplasty , a procedure to help widen a narrowed or blocked blood vessel. Stent placement, which is an expandable coil that is placed inside a narrowed blood vessel that helps to keep it open. The treatment of Takayasu Arteritis can be very challenging. When there are many blood vessels that have narrowing, treatment may only be partially corrective. HOME CARE INSTRUCTIONS Follow all instructions given by your caregiver. Take all medicines as prescribed by your caregiver. Monitor your blood pressure and heart beat (pulse) at home. Schedule regular follow-ups with your caregiver. SEEK MEDICAL CARE IF: Your heart beat (pulse) is slower than before. You have trouble breathing. Your pain/ache worsens. Any of the above symptoms develop. Medication you are taking does not seem to help your symptoms. SEEK IMMEDIATE MEDICAL CARE IF: You have severe chest pain. Your breathing gets worse despite medicine you are taking. You experience stroke-like symptoms such as: Sudden weakness or numbness in your arms, legs, or face, especially on one side of the body. Problems speaking or slurred speech. Trouble walking or loss of balance. Problems seeing or hearing. Severe headache. MAKE SURE YOU: Understand these instructions. Will watch your condition. Will get help right away if you are not doing well or get worse. Document Released: 09/14/2009 Document Revised: 04/08/2014 Document Reviewed: [facility] Patient Information 2015 [employer]. This information is not intended to replace advice given to you by your health care provider. Make sure you discuss any questions you have with your health care provider. No follow up information was provided. Extracted from: Title: Office Visit Note Author: Felisa Painting MD Date: 01/22/15 Assessment/Plan Diabetes Fatigue Takayasu appt with Dr. Sierra pending. She is a very appropriate candidate for disability Future Scheduled TestsReferral* Return to Clinic 11/11/14 10:59 AM Referrals to Other Providers Referred by: Olga Jones
--- OUTSIDE RECORDS SUMMARY | 2016-10-06 09:31 | XMS REPORT | Referral Summary ---
Author Author [facility], [facility] Organization [facility] Address Unknown Phone Unavailable Care Team Providers Care Grab Jack Man Name Role Phone Sarmad Salcido Primary Care Physician [phone] Encounter VC Date(s): 08/20/15 - 08/20/15 [facility] [address] [place] [address] [place] [id number] Discharge Diagnosis: Osteoporosis Discharge Diagnosis: Type II diabetes mellitus Discharge Diagnosis: Chronic GERD Discharge Diagnosis: Overactive bladder Discharge Diagnosis: Hypercholesterolemia Discharge Diagnosis: Depression Discharge Disposition: -Home or Self Care Attending Physician: Montez Gómez JR, MD Admitting Physician: Montez Gómez JR, MD Referring Physician: Aleena Salcido DO Vital Signs Most recent to 1 oldest [Reference Range]: Peripheral Pulse 78 bpm Rate [60-100 bpm] (08/20/15 2:07 PM) Blood Pressure 134/72 mmHg [90-140/60-90 mmHg] (08/20/15 2:07 PM) Problem List Condition Effective Dates Status [...] # 4 tabs , 2 Refill(s), eRx: [facility], [...] 30 tabs, 6 Refill(s), Pharmacy: [facility], 1 tabs Oral Bedtime (once a day) Start Date: 05/31/15 Status: Ordered Benadryl 25 mg, Oral, Once, 1 tab, prior to remicade, 0 Refill(s) Start Date: 09/08/14 Status: Ordered Bystolic 10 mg oral tablet See Instructions, TAKE ONE TABLET BY MOUTH ONCE DAILY, # 30 tabs, 6 Refill(s), Pharmacy: [facility], TAKE ONE TABLET BY MOUTH ONCE DAILY Start Date: 05/31/15 Status: Ordered Calcium 600+D 1 tabs, Oral, Daily, 0 Refill(s) Start Date: 11/11/14 Status: Ordered DULoxetine 60 mg oral delayed release capsule See Instructions, TAKE ONE CAPSULE BY MOUTH TWICE DAILY, # 180 caps, 6 Refill(s) , Pharmacy: [facility], TAKE ONE [...] # 45 tabs, 2 Refill( s), eRx: [facility], TAKE ONE-HALF TABLET BY MOUTH ONCE DAILY Start Date: 06/18/15 Status: Ordered levothyroxine 75 mcg (0.075 mg) oral tablet See Instructions, TAKE ONE TABLET BY MOUTH ONCE DAILY; Need TSH at next OV, # 30 tabs, 2 Refill(s), eRx: [facility], TAKE ONE TABLET BY MOUTH ONCE DAILY; Need TSH at next OV Start Date: 08/19/15 Status: Ordered Levsin SL mg, SubLingual, q4hr, 0 Refill(s) Start Date: 04/09/15 Status: Ordered metFORMIN 500 mg oral tablet See Instructions, 2 tabs Oral BID, # 120 tabs, 1 Refill(s), eRx: [email or web address], 2 tabs Oral BID Start Date: 07/29/15 Status: Ordered [place] 5 mg-325 mg oral tablet 1 tabs, Oral, q6hr, as needed for pain, # 60 tabs, 0 Refill(s) Start Date: 07/05/15 Status: Ordered omeprazole 20 mg oral delayed release capsule See Instructions, TAKE ONE CAPSULE BY MOUTH TWICE DAILY, # 60 caps, 5 Refill(s) , [facility], TAKE ONE CAPSULE BY MOUTH TWICE DAILY Start Date: 06/03/15 Status: Ordered ONE TOUCH ULTRA BLUE TEST STP See Instructions, USE TO TEST BLOOD SUGARS TWO DAYS PER WEEK ( FASTING AND 2 HOURS POST PRANDAL)., # 100 strip, 1 Refill(s), eRx: [facility], USE TO TEST BLOOD SUGARS TWO DAYS PER WEEK ( FASTING AND 2 HOURS POST PRANDAL). Start Date: 11/09/14 Status: Ordered Onglyza 5 mg oral tablet See Instructions, TAKE ONE TABLET BY MOUTH ONCE DAILY, # 30 tabs, 3 Refill(s), Pharmacy: [facility], TAKE ONE TABLET BY MOUTH ONCE DAILY Start Date: 06/03/15 Status: Ordered predniSONE 1 mg oral tablet See Instructions, 3 tabs Oral Daily,Instr:TO BE TAKEN WITH PREDNISONE 5 MG TABLETS, # 90 tabs, 0 Refill(s), Pharmacy: [place] [id number], please note change in dose, 3 tabs Oral Daily,Instr:TO BE TAKEN WITH PREDNISONE 5 MG TABLETS Start Date: 05/07/15 Status: Ordered predniSONE 20 mg oral tablet See Instructions, , 60 for 3 days, 40 for 3 days, 20 for 3 days, # 20 tabs, 0 Refill(s), Pharmacy: [place] [id number], , 60 for 3 days, 40 for [...] 90 tabs, 2 Refill(s), eRx: [facility]93, 1 tab in am and 2 in pm. Start Date: 08/19/15 Status: Ordered VESIcare 10 mg oral tablet See Instructions, 1 tabs Oral Daily, # 30 tabs, 5 Refill(s), eRx: [facility], 1 tabs Oral Daily Start Date: 02/18/15 Status: Ordered Vitamin D3 2000 intl units oral tablet 2,000 Intl_Units 1 tabs, Oral, Daily, 0 Refill(s) Start Date: 12/19/13 Status: Ordered Wellbutrin 75 mg oral tablet See Instructions, 1 tabs Oral BID, # 60 tabs, 5 Refill(s), eRx: [facility], 1 tabs Oral BID Start Date: [...] Author: Montez Gómez JR, MD Date : 08/20/15 Follow Up With: Where: When: Aleena Omari [address] [place] [address] [place] [address] Business (1) Within 3 to 5 days Comments: Follow Up With: Where: When: Montez Weems[address]; [place] [address] [employer] (1) In 6 months 02/18/2016 Comments: Extracted from: Title: Office Visit Note Author: Montez Gómez JR, MD Date: 08/20/15 Assessment/Plan 1.Overactive bladder Continue [id number] mg daily. Reduce intake of caffeine highly acidic highly spiced food. Recheck in my office in 6 months or sooner if needed 2.Depression Continue duloxetine,and lorazepam. 3.Type II diabetes mellitus Continue metformin and glimepiride 4.Chronic GERD Continue omeprazole Ordered: Office Visit Level 3 Est 68190 5.Osteoporosis Continue Fosamax 70mg once a week Ordered: Office Visit Level 3 Est 73233 6.Hypercholesterolemia Continue [id number] mg tablet daily Ordered: Office Visit Level 3 Est 39062 Future Scheduled TestsReferral* Return to Clinic 11/11/14 10:59 AM Referrals to Other Providers Referred by: Olga Jones
--- OUTSIDE RECORDS SUMMARY | 2016-10-06 09:31 | XMS REPORT | Referral Summary ---
Author Author [facility] Organization [facility] Address Unknown Phone Unavailable Care Team Providers Care Drill Press Set Up Operator Radial Name Role Phone Sarmad Salcido Primary Care Physician [phone] Encounter VC Date(s): 05/11/16 - 05/11/16 [facility] [address] [place], [place] [address] Discharge Diagnosis: Diabetes Discharge Diagnosis: Occlusion of artery/R ICA Discharge Diagnosis: Benign essential HTN Discharge Diagnosis: MVP (mitral valve prolapse) Discharge Diagnosis: Stroke Discharge Diagnosis: High blood cholesterol Discharge Disposition: 01-Home or Self Care Attending Physician: Cooper Harrison MD Admitting Physician: Cooper Harrison MD Referring Physician: Aleena Salcido DO Vital Signs Most recent to 1 oldest [Reference Range]: Peripheral Pulse 102 bpm Rate [60-100 bpm] *HI* (05/11/16 1:28 PM) Blood Pressure 124/76 mmHg [90-140/60-90 mmHg] (05/11/16 1:28 PM) Problem List Condition Effective Dates Status [...] # 4 tabs , 2 Refill(s), eRx: [facility], TAKE ONE TABLET BY MOUTH ONCE A WEEK IN THE MORNING... Start Date: 06/23/15 Status: Ordered Jesika See Instructions, 180 mg Oral 1 tab prior to infusion, 0 Refill(s) Start Date: 03/27/14 Status: Ordered apremilast 30 mg oral tablet 30 mg 1 tabs, Oral, BID, # 60 tabs, 0 Refill(s), Pharmacy: [place] [id number] , 1 tabs Oral BID Start Date: 10/22/15 Status: Ordered aspirin 81 mg, Oral, Daily, 1 tab, 0 Refill(s) Start Date: 12/19/13 Status: Ordered atorvastatin 40 mg oral tablet See Instructions, TAKE ONE TABLET BY MOUTH AT BEDTIME, # 30 tabs, eRx: [facility], TAKE ONE TABLET BY MOUTH AT BEDTIME Start Date: 04/24/16 Status: Ordered Benadryl 25 mg, Oral, Once, 1 tab, prior to remicade, 0 Refill(s) Start Date: 09/08/14 Status: Ordered buPROPion 75 mg oral tablet See Instructions, TAKE ONE TABLET BY MOUTH TWICE DAILY, # 60 tabs, 2 Refill(s), eRx: [facility], TAKE ONE TABLET BY MOUTH TWICE DAILY Start Date: 02/12/16 Status: Ordered Bystolic 10 mg oral tablet See Instructions, TAKE ONE TABLET BY MOUTH ONCE DAILY, # 30 tabs, 2 Refill(s), eRx: [facility], TAKE ONE TABLET BY MOUTH ONCE DAILY Start Date: 04/17/16 Status: Ordered Calcium 600+D 1 tabs, Oral, Daily, 0 Refill(s) Start Date: 11/11/14 Status: Ordered dicyclomine 20 mg oral tablet See Instructions, TAKE ONE TABLET BY MOUTH 4 TIMES DAILY FOR 14 DAYS, # 56 tabs , eRx: [facility], TAKE ONE TABLET BY MOUTH 4 TIMES DAILY FOR 14 DAYS Start Date: 02/10/16 Status: Ordered dicyclomine 20 mg oral tablet 1-2 tabs, Oral, QID, 0 Refill(s) Start Date: 03/10/16 Status: Ordered DULoxetine 60 mg oral delayed release capsule See Instructions, TAKE ONE CAPSULE BY MOUTH TWICE DAILY, # 180 caps, 6 Refill(s) , Pharmacy: [place] [id number], TAKE ONE CAPSULE BY MOUTH TWICE DAILY Start Date: 05/31/15 Status: Ordered Effient 10 mg oral tablet See Instructions, TAKE ONE TABLET BY MOUTH ONCE DAILY, # 30 tabs, 12 Refill(s), eRx: [facility]93, TAKE ONE TABLET BY MOUTH ONCE DAILY Start Date: 04/08/15 Status: Ordered Effient 10 mg oral tablet See Instructions, TAKE ONE TABLET BY MOUTH ONCE DAILY, # 30 tabs, 1 Refill(s), eRx: [facility], TAKE ONE TABLET BY MOUTH ONCE DAILY Start Date: 04/24/16 Status: Ordered ferrous sulfate 325 mg, Oral, Daily, 1 tab, 0 Refill(s) Start Date: 03/04/15 Status: Ordered FiberCon 0 Refill(s) Start Date: 04/09/15 Status: Ordered folic acid 1 mg oral tablet 5 tabs, Oral, Daily, 0 Refill(s) Start Date: 12/19/13 Status: Ordered leflunomide 20 mg oral tablet See Instructions, TAKE ONE-HALF TABLET BY MOUTH ONCE DAILY, # 45 tabs, 2 Refill( s), eRx: [facility], TAKE ONE-HALF TABLET BY MOUTH ONCE DAILY Start Date: 05/08/16 Status: Ordered levothyroxine 75 mcg (0.075 mg) oral tablet See Instructions, TAKE ONE TABLET BY MOUTH ONCE DAILY, # 30 tabs, 5 Refill(s), eRx: [facility], TAKE ONE TABLET BY MOUTH ONCE DAILY Start Date: 02/15/16 Status: Ordered Levsin SL mg, SubLingual, q4hr, 0 Refill(s) Start Date: 04/09/15 Status: Ordered loperamide 2 mg oral capsule 2 mg 1 caps, Oral, QID, as needed for loose stool, # 60 caps, 0 Refill(s) Start Date: 12/13/15 Status: Ordered metFORMIN 1000 mg oral tablet, extended release See Instructions, TAKE ONE TABLET BY MOUTH TWICE DAILY, # 60 tabs, 2 Refill(s), eRx: [facility], TAKE ONE TABLET BY MOUTH TWICE DAILY Start Date: 02/12/16 Status: Ordered [place] 5 mg-325 mg oral tablet 1 tabs, Oral, q6hr, as needed for pain, # 60 tabs, 0 Refill(s) Start Date: 03/10/16 Status: Ordered omeprazole 20 mg oral delayed release capsule See Instructions, TAKE ONE CAPSULE BY MOUTH TWICE DAILY, # 60 caps, 5 Refill(s) , eRx: [facility], TAKE ONE CAPSULE BY MOUTH TWICE DAILY Start Date: 12/20/15 Status: Ordered ONE TOUCH ULTRA BLUE TEST STP See Instructions, USE TO TEST BLOOD SUGARS TWO DAYS PER WEEK ( FASTING AND 2 HOURS POST PRANDAL)., # 100 strip, 1 Refill(s), eRx: [facility], USE TO TEST BLOOD SUGARS TWO DAYS PER WEEK ( FASTING AND 2 HOURS POST PRANDAL). Start Date: 11/09/14 Status: Ordered Onglyza 5 mg oral tablet See Instructions, TAKE ONE TABLET BY MOUTH ONCE DAILY, # 30 tabs, eRx: [facility], TAKE ONE TABLET BY MOUTH ONCE DAILY Start Date: 04/24/16 Status: Ordered predniSONE 1 mg oral tablet See Instructions, 3 tabs Oral Daily,Instr:TO BE TAKEN WITH PREDNISONE 5 MG TABLETS, # 90 tabs, 3 Refill(s), Pharmacy: [facility], 3 tabs Oral Daily,Instr:TO BE TAKEN WITH PREDNISONE 5 MG TABLETS Start Date: 03/29/16 Status: Ordered predniSONE 20 mg oral tablet See Instructions, , 60 for 3 days, 40 for 3 days, 20 for 3 days, # 20 tabs, 0 Refill(s), Pharmacy: [facility], , 60 for 3 [...] , # 90 tabs, 2 Refill(s), eRx: [facility], TAKE ONE TABLET BY MOUTH IN THE MORNING AND TWO IN THE EVENING Start Date: 03/17/16 Status: Ordered VESIcare 10 mg oral tablet See Instructions, TAKE ONE TABLET BY MOUTH ONCE DAILY, # 30 tabs, 2 Refill(s), eRx: [facility], TAKE ONE TABLET BY [...] Visit Note Author: Cooper Harrison MD Date: 05/11/16 Assessment/Plan 1.MVP (mitral valve prolapse) No significant regurgitationper last echo. 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 continue ASA and effient. 3.Stroke Continue ASA, effient ( was started by neurosurgery and was asked to take indefinitely ),statin. 4.High blood cholesterol continue statin. 5.Benign essential HTN well controlled, continue current meds. 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 Patient will follow with me in 12months, sooner if needed. Thank you Dr. Salcidofor giving me the opportunity to participate in the care of this very pleasant patient.
--- OUTSIDE RECORDS SUMMARY | 2016-10-06 09:31 | XMS REPORT | Referral Summary ---
Author Organization Unknown Address Unknown Phone Unavailable Care Team Providers Care Entertainment Agent Name Role Phone Eva Painting Primary Care Physician [phone] Encounter VC Date(s): 08/18/14 - 08/18/14 [facility], [place], Urology [address] [place] [address] [place], [place] [address] Discharge Diagnosis: Overactive bladder Discharge Disposition: Home or Self Care Attending Physician: Montez Gómez JR, MD Admitting Physician: Montez Gómez JR, MD Referring Physician: Felisa Painting MD Vital Signs Most recent to 1 oldest [Reference Range]: Peripheral Pulse 98 bpm Rate [60-100 bpm] (08/18/14 10:29 AM) Blood Pressure 122/76 mmHg [90-140/60-90 mmHg] (08/18/14 10:29 AM) Most recent to 1 oldest [Reference Range]: SpO2 98 % (08/18/14 10:29 AM) Problem List Condition Effective Dates Status [...] as needed. Start Date: 12/19/13 Status: Ordered Jesika See Instructions, 180 mg Oral prior to infusion, 0 Refill(s) Special Instructions: 180 mg Oral prior to infusion Start Date: 03/27/14 Status: Ordered aspirin 81 mg, 0 Refill(s) Start Date: 12/19/13 Status: Ordered Bystolic 10 mg oral tablet See Instructions, TAKE ONE TABLET BY MOUTH ONCE DAILY, # 30 tabs, 2 Refill(s), eRx: [facility], TAKE ONE TABLET BY MOUTH ONCE DAILY Special Instructions: TAKE ONE TABLET BY MOUTH ONCE DAILY Start Date: 07/27/14 Status: Ordered Cymbalta 60 mg oral delayed release capsule caps, Oral, BID, 0 Refill(s) Start Date: 12/19/13 Status: Ordered Diflucan 150 mg oral tablet 1 tabs, Oral, q72hr, # 10 tabs, 2 Refill(s), Pharmacy: [facility], 1 tabs Oral q72hr Start Date: 08/06/14 Status: Ordered Effient 10 mg oral tablet See Instructions, TAKE ONE TABLET BY MOUTH EVERY DAY, # 30 tabs, 3 Refill(s), eRx: [facility], TAKE ONE TABLET BY [...] # 4 tabs, 3 Refill(s) , Pharmacy: [facility], 1 tabs Oral qWeek,Instr:with 6 to 8 ounces of plain water, a... Special Instructions: with 6 to 8 ounces of plain water, at least 30 minutes before the first food, beverage, or medication of the day Start Date: 07/31/14 Status: Ordered gabapentin 300 mg oral capsule 1-2 caps, Oral, TID, # 180 tabs, 1 Refill(s), Pharmacy: [facility], please see change in dose, 1-2 caps Oral TID Start Date: 06/01/14 Status: Ordered glimepiride 2 mg oral tablet 1 tabs, Oral, BID, # 180 tabs, 0 Refill(s), Pharmacy: [facility], 1 tabs Oral BID Start Date: 05/08/14 Status: Ordered inFLIXimab 100 mg intravenous injection See Instructions, 600 mg every 6 weeks. premed tylenol 1000mg po and jesika 180mg po as an infusion, # 1 vials, 0 Refill(s), other reason (Rx) Special Instructions: 600 mg every 6 weeks. premed tylenol 1000mg po and jesika 180mg po as an infusion Start Date: 03/30/14 Status: Ordered leflunomide 10 mg oral tablet See Instructions, 1 tabs Oral Daily, # 30 tabs, 2 Refill(s), eRx: [facility], 1 tabs Oral Daily Special Instructions: 1 tabs Oral Daily Start Date: 08/17/14 Status: Ordered Lipitor 40 mg oral tablet tabs, Oral, Bedtime (once a day), 0 Refill(s) Start Date: 12/19/13 Status: Ordered metFORMIN 500 mg oral tablet See Instructions, 2 tabs Oral BID, # 120 tabs, 2 Refill(s), eRx: [facility], 2 tabs Oral BID Special Instructions: 2 tabs Oral BID Start Date: 06/01/14 Status: Ordered multivitamin Daily, 0 Refill(s) Start Date: 12/19/13 Status: Ordered [place] 5 mg-325 mg oral tablet 1 tabs, Oral, q6hr, as needed for pain, # 60 tabs, 0 Refill(s) Start Date: 08/04/14 Status: Ordered omeprazole 20 mg oral delayed release capsule See Instructions, 1 caps Oral BID, # 60 caps, 2 Refill(s), eRx: [facility], 1 caps Oral BID Special Instructions: 1 caps Oral BID Start Date: 06/12/14 Status: Ordered Onglyza 5 mg oral tablet See Instructions, TAKE ONE TABLET BY MOUTH ONCE DAILY, # 30 tabs, 2 Refill(s), eRx: [facility], TAKE ONE TABLET BY MOUTH ONCE DAILY Special Instructions: TAKE ONE TABLET BY MOUTH ONCE DAILY Start Date: 07/27/14 Status: Ordered predniSONE 10 mg oral tablet See Instructions, 3 and half tabs Daily for 2 weeks and then 3 tabs daily for 2 weeks then 2 and half until follow up, # 120 tabs, 0 Refill(s), Pharmacy: [facility], 3 and half tabs [...] Daily, # 90 tabs, 1 Refill(s), Pharmacy: [facility], 1 tabs Oral Daily Start Date: 02/03/14 Status: Ordered Tylenol Extra Strength See Instructions, 1,000 mg Oral prior to infusion, 0 Refill(s) Special Instructions: 1,000 mg Oral prior to infusion Start Date: 03/27/14 Status: Ordered VESIcare 10 mg oral tablet 1 tabs, Oral, Daily, # 30 tabs, 2 Refill(s), Pharmacy: [facility], 1 tabs Oral Daily [...] Author: Montez Gómez JR, MD Date : 08/18/14 Follow Up With: Where: When: Felisa Painting [address] [place] [address] Drive; [place] [address] Business (1) Within 3 to 5 days Comments: Follow Up With: Where: When: Montez Gómez [address] [place] [address] Drive; [place] [address] Business (1) In 6 months 02/15/2015 Comments:
--- OUTSIDE RECORDS SUMMARY | 2016-10-06 09:31 | XMS REPORT | Referral Summary ---
Author Organization Unknown Address Unknown Phone Unavailable Care Team Providers Care Retanner Name Role Phone Eva Painting Primary Care Physician [phone] Encounter VC Date(s): 10/15/14 - 10/15/14 [facility], [place], [address] [place] [address] Discharge Diagnosis: Sinusitis Discharge Diagnosis: Diabetes Discharge Diagnosis: Takayasu Discharge Diagnosis: Sore throat Discharge Diagnosis: Uncontrolled diabetes mellitus Discharge Disposition: Home or Self Care Attending Physician: Felisa Painting MD Admitting Physician: Felisa Painting MD Vital Signs Most recent to 1 oldest [Reference Range]: Temperature Tympanic 37.6 degC [36.6-38.1 degC] (10/15/14 8:48 AM) Peripheral Pulse 88 bpm Rate [60-100 bpm] (10/15/14 8:48 AM) Blood Pressure 118/70 mmHg [90-140/60-90 mmHg] (10/15/14 8:48 AM) Problem List Condition Effective Dates Status [...] DAILY, # 30 tabs, 2 Refill(s), eRx: [facility], TAKE ONE TABLET BY MOUTH ONCE DAILY Special Instructions: TAKE ONE TABLET BY MOUTH ONCE DAILY Start Date: 07/27/14 Status: Ordered Cipro 500 mg oral tablet 1 tabs, Oral, q12hr, X 10 days, # 20 tabs, 0 Refill(s), Pharmacy: [facility], 1 tabs Oral q12hr,x10 days Start Date: 10/15/14 Stop Date: 10/25/14 Status: Ordered DULoxetine 60 mg oral delayed release capsule See Instructions, TAKE ONE CAPSULE BY MOUTH TWICE DAILY, # 180 caps, 2 Refill(s) , eRx: [facility], TAKE ONE CAPSULE BY MOUTH TWICE DAILY Special Instructions: TAKE ONE CAPSULE BY MOUTH TWICE DAILY Start Date: 08/28/14 Status: Ordered Effient 10 mg oral tablet 1 tabs, Oral, Daily, # 30 tabs, 3 Refill(s), Pharmacy: [facility], 1 tabs Oral Daily [...] # 4 tabs, 3 Refill(s) , Pharmacy: [facility], 1 tabs Oral qWeek,Instr:with [...] stop, # 60 caps, 0 Refill(s), Pharmacy: [facility], 2 tabs tid for [...] TID, # 180 tabs, 1 Refill(s), Pharmacy: [facility], please see change in dose, 1-2 caps Oral TID Start Date: 06/01/14 Status: Ordered glimepiride 4 mg oral tablet 1 tabs, Oral, BID, # 60 tabs, 0 Refill(s), Pharmacy: [facility], 1 tabs Oral BID [...] Daily, # 30 tabs, 2 Refill(s), Pharmacy: [facility], 1 tabs Oral Daily Start Date: 10/01/14 Status: Ordered Lipitor 40 mg oral tablet tabs, Oral, Bedtime (once a day), 0 Refill(s) Start Date: 12/19/13 Status: Ordered metFORMIN 500 mg oral tablet See Instructions, 2 tabs Oral BID, # 120 tabs, 2 Refill(s), eRx: [facility], 2 tabs Oral BID Special Instructions: 2 tabs Oral BID Start Date: 08/28/14 Status: Ordered multivitamin Daily, 0 Refill(s) Start Date: 12/19/13 Status: Ordered [place] 5 mg-325 mg oral tablet 1 tabs, Oral, q6hr, as needed for pain, # 60 tabs, 0 Refill(s) Start Date: 09/07/14 Status: Ordered omeprazole 20 mg oral delayed release capsule See Instructions, TAKE ONE CAPSULE BY MOUTH TWICE DAILY, # 60 caps, eRx: [facility], TAKE ONE CAPSULE BY MOUTH TWICE DAILY Special Instructions: TAKE ONE CAPSULE BY MOUTH TWICE DAILY Start Date: 09/28/14 Status: Ordered Onglyza 5 mg oral tablet See Instructions, TAKE ONE TABLET BY MOUTH ONCE DAILY, # 30 tabs, 2 Refill(s), eRx: [facility], TAKE ONE TABLET BY MOUTH ONCE DAILY Special Instructions: TAKE ONE TABLET BY MOUTH ONCE DAILY Start Date: 07/27/14 Status: Ordered predniSONE 5 mg oral tablet 2 tabs, Oral, Daily, # 60 tabs, 0 Refill(s), Pharmacy: [facility], 2 tabs Oral Daily Start Date: 10/01/14 Status: Ordered Synthroid 75 mcg (0.075 mg) oral tablet 1 tabs, Oral, Daily, # 90 tabs, 1 Refill(s), Pharmacy: [facility], 1 tabs Oral Daily Start Date: 02/03/14 Status: Ordered Topamax 25 mg oral tablet See Instructions, 1 tabs Oral daily for 7 days then 1 tab bid, # 60 tabs, 0 Refill(s), Pharmacy: [facility], 1 tabs Oral daily [...] Daily, # 30 tabs, 1 Refill(s), eRx: [facility], 1 tabs Oral Daily Special Instructions: 1 tabs Oral Daily Start Date: 10/05/14 Status: Ordered Vitamin D3 2000 intl units oral tablet tabs, Oral, Daily, 0 Refill(s) Start Date: 12/19/13 Status: Ordered Results Chemistry Most recent to 1 oldest [Reference Range]: Hgb A1c [4.1-5.6 %] 8.8 % *HI* (10/15/14 9:15 AM) eAvg Glucose 205.9 mg/dL (10/15/14 9:15 AM) Immunizations Vaccine Date Refusal Reason influenza virus vaccine, live 05/05/13 influenza virus vaccine, live 04/22/08 Procedures Procedure Date Related Diagnosis Body Site Collection of venous blood by venipuncture 10/15/14 Bypass, s/p EC-IC1 04/2012 Appendectomy delivery 1Dr Francois Molina Social History Social History Type Response Smoking Status Never smoker Assessment and Plan Extracted from: Title: Ambulatory Patient Education Author: Felisa Painting MD Date: 10/15/14 Allergy Sinusitis Sinusitis is redness, soreness, and swelling (inflammation ) of the paranasal sinuses. Paranasal sinuses are air pockets within the bones of your face ( beneath the eyes, the middle of the forehead, or above the eyes). In healthy paranasal sinuses, mucus is able to drain out, and air is able to circulate through them by way of your nose. However, when your paranasal sinuses are inflamed, mucus and air can become trapped. This can allow bacteria and other germs to grow and cause infection. Sinusitis can develop quickly and last only a short time (acute ) or continue over a long period (chronic ). Sinusitis that lasts for more than 12 weeks is considered chronic. CAUSES Causes of sinusitis include: Allergies. Structural abnormalities, such as displacement of the cartilage that separates your nostrils (deviated septum ), which can decrease the air flow through your nose and sinuses and affect sinus drainage. Functional abnormalities, such as when the small hairs (cilia ) that line your sinuses and help remove mucus do not work properly or are not present. SYMPTOMS Symptoms of acute and chronic sinusitis are the same. The primary symptoms are pain and pressure around the affected sinuses. Other symptoms include: Upper toothache. Earache. Headache. Bad breath. Decreased sense of smell and taste. A cough, which worsens when you are lying flat. Fatigue. Fever. Thick drainage from your nose, which often is green and may contain pus ( purulent ). Swelling and warmth over the affected sinuses. DIAGNOSIS Your caregiver will perform a physical exam. During the exam, your caregiver may : Look in your nose for signs of abnormal growths in your nostrils (nasal polyps) . Tap over the affected sinus to check for signs of infection. View the inside of your sinuses (endoscopy ) with a special imaging device with a light attached (endoscope ), which is inserted into your sinuses. If your caregiver suspects that you have chronic sinusitis, one or more of the following tests may be recommended: Allergy tests. Nasal cultureA sample of mucus is taken from your nose and sent to a lab and screened for bacteria. Nasal cytologyA sample of mucus is taken from your nose and examined by your caregiver to determine if your sinusitis is related to an allergy. TREATMENT Most cases of acute sinusitis are related to a viral infection and will resolve on their own within 10 days. Sometimes medicines are prescribed to help relieve symptoms (pain medicine, decongestants, nasal steroid sprays, or saline sprays) . However, for sinusitis related to a bacterial infection, your caregiver will prescribe antibiotic medicines. These are medicines that will help kill the bacteria causing the infection. Rarely, sinusitis is caused by a fungal infection. In theses cases, your caregiver will prescribe antifungal medicine. For some cases of chronic sinusitis, surgery is needed. Generally, these are cases in which sinusitis recurs more than 3 times per year, despite other treatments. HOME CARE INSTRUCTIONS Drink plenty of water. Water helps thin the mucus so your sinuses can drain more easily. Use a humidifier. Inhale steam 3 to 4 times a day (for example, sit in the bathroom with the shower running). Apply a warm, moist washcloth to your face 3 to 4 times a day, or as directed by your caregiver. Use saline nasal sprays to help moisten and clean your sinuses. Take [id number] or prescription medicines for pain, discomfort, or fever only as directed by your caregiver. SEEK IMMEDIATE MEDICAL CARE IF: You have increasing pain or severe headaches. You have nausea, vomiting, or drowsiness. You have swelling around your face. You have vision problems. You have a stiff neck. You have difficulty breathing. MAKE SURE YOU: Understand these instructions. Will watch your condition. Will get help right away if you are not doing well or get worse. Document Released: 06/18/2006 Document Revised: 09/09/2012 Document Reviewed: [facility] Patient Information 2014 [employer] [facility]. No follow up information was provided. Extracted from: Title: Office Visit Note Author: Felisa Painting MD Date: 10/15/14 Assessment/Plan Diabetes Ordered: Hemoglobin A1c Sinusitis Sore throat Takayasu Uncontrolled diabetes mellitus Orders: ciprofloxacin, 1 tabs, Oral, q12hr, X 10 days, # 20 tabs, 0 Refill(s) , Pharmacy: [facility], 1 tabs Oral q12hr,x10 days Group A Strep Culture
--- OUTSIDE RECORDS SUMMARY | 2016-10-06 09:31 | XMS REPORT | Referral Summary ---
Author Author [facility] Organization [facility] Address Unknown Phone Unavailable Care Team Providers Care Dock Builder Name Role Phone Sarmad Salcido Primary Care Physician [phone] Encounter Date(s): 02/12/15 - 02/12/15 [facility] [place] [address] [place] [address] BIANCA Patterson [id number] Discharge Diagnosis: Chronic headaches Discharge Diagnosis: Encounter for long-term (current) use of high-risk medication Discharge Diagnosis: Takayasu's arteritis Discharge Disposition: 01-Home or Self Care Attending Physician: Rozina Gramajo MD Admitting Physician: Rozina Gramajo MD Referring Physician: Felisa Painting MD Vital Signs Most recent to 1 oldest [Reference Range]: Peripheral Pulse 90 bpm Rate [60-100 bpm] (02/12/15 10:43 AM) Blood Pressure 127/68 mmHg [90-140/60-90 mmHg] (02/12/15 10:43 AM) Problem List Condition Effective Dates Status [...] 4 tabs , 2 Refill(s), eRx: [facility], [...] 30 tabs, 6 Refill(s), Pharmacy: [facility], 1 tabs Oral Bedtime (once a day) Start Date: 05/31/15 Status: Ordered Benadryl 25 mg, Oral, Once, 1 tab, prior to remicade, 0 Refill(s) Start Date: 09/08/14 Status: Ordered Bystolic 10 mg oral tablet See Instructions, TAKE ONE TABLET BY MOUTH ONCE DAILY, # 30 tabs, 6 Refill(s), Pharmacy: [facility], TAKE ONE TABLET BY MOUTH ONCE DAILY Start Date: 05/31/15 Status: Ordered Calcium 600+D 1 tabs, Oral, Daily, 0 Refill(s) Start Date: 11/11/14 Status: Ordered DULoxetine 60 mg oral delayed release capsule See Instructions, TAKE ONE CAPSULE BY MOUTH TWICE DAILY, # 180 caps, 6 Refill(s) , Pharmacy: [facility], TAKE ONE [...] 45 tabs, 2 Refill( s), eRx: [facility], TAKE ONE-HALF TABLET BY MOUTH ONCE DAILY Start Date: 06/18/15 Status: Ordered levothyroxine 75 mcg (0.075 mg) oral tablet See Instructions, TAKE ONE TABLET BY MOUTH ONCE DAILY; Need TSH at next OV, # 30 tabs, 2 Refill(s), eRx: [facility], TAKE ONE TABLET BY MOUTH ONCE DAILY; Need TSH at next OV Start Date: 08/19/15 Status: Ordered Levsin SL mg, SubLingual, q4hr, 0 Refill(s) Start Date: 04/09/15 Status: Ordered metFORMIN 500 mg oral tablet See Instructions, 2 tabs Oral BID, # 120 tabs, 1 Refill(s), eRx: [facility], 2 tabs Oral BID Start Date: 07/29/15 Status: Ordered [place] 5 mg-325 mg oral tablet 1 tabs, Oral, q6hr, as needed for pain, # 60 tabs, 0 Refill(s) Start Date: 07/05/15 Status: Ordered omeprazole 20 mg oral delayed release capsule See Instructions, TAKE ONE CAPSULE BY MOUTH TWICE DAILY, # 60 caps, 5 Refill(s) , eRx: [facility], TAKE ONE CAPSULE BY MOUTH TWICE DAILY Start Date: 06/03/15 Status: Ordered ONE TOUCH ULTRA BLUE TEST STP See Instructions, USE TO TEST BLOOD SUGARS TWO DAYS PER WEEK ( FASTING AND 2 HOURS POST PRANDAL)., # 100 strip, 1 Refill(s), eRx: [facility], USE TO TEST BLOOD SUGARS TWO DAYS PER WEEK ( FASTING AND 2 HOURS POST PRANDAL). Start Date: 11/09/14 Status: Ordered Onglyza 5 mg oral tablet See Instructions, TAKE ONE TABLET BY MOUTH ONCE DAILY, # 30 tabs, 3 Refill(s), Pharmacy: [facility], TAKE ONE TABLET BY MOUTH ONCE DAILY Start Date: 06/03/15 Status: Ordered predniSONE 1 mg oral tablet See Instructions, 3 tabs Oral Daily,Instr:TO BE TAKEN WITH PREDNISONE 5 MG TABLETS, # 90 tabs, 0 Refill(s), Pharmacy: [facility], please note change in dose, 3 tabs Oral Daily,Instr:TO BE TAKEN WITH PREDNISONE 5 MG TABLETS Start Date: 05/07/15 Status: Ordered predniSONE 20 mg oral tablet See Instructions, , 60 for 3 days, 40 for 3 days, 20 for 3 days, # 20 tabs, 0 Refill(s), Pharmacy: [facility], , 60 for 3 days, [...] pm., # 90 tabs, 2 Refill(s), eRx: [facility], 1 tab in am and 2 in pm. Start Date: 08/19/15 Status: Ordered VESIcare 10 mg oral tablet See Instructions, 1 tabs Oral Daily, # 30 tabs, 5 Refill(s), eRx: [facility], 1 tabs Oral Daily Start Date: 02/18/15 Status: Ordered Vitamin D3 2000 intl units oral tablet 2,000 Intl_Units 1 tabs, Oral, Daily, 0 Refill(s) Start Date: 12/19/13 Status: Ordered Wellbutrin 75 mg oral tablet See Instructions, 1 tabs Oral BID, # 60 tabs, 5 Refill(s), eRx: [facility], 1 tabs Oral BID Start Date: [...] Visit Note Author: Rozina Gramajo MD Date: 02/12/15 Assessment/Plan 1.Takayasu's arteritis She will get her infusion infliximab today. Also continue leflunomide. The leflunomide may be maria luisa to her diarrhea. I suggested trying Imodium. I will check her inflammatory markers today. She has an appointment upcoming today with the vascular surgeon. Hopefully he may be able toprovide recommendations toaddress thetinnitus and also determine if she may be candidate at this time to proceed with the surgery to bypass the subclavian artery. I discussed at this time I given the complexity of her disease, I think it be worthwhile to her to have established care also at [facility] for intermittent follow up. She was seen previously at [facility]. The physician she saw that time,is no longer practicing but doing research suggested a colleague who is currently establishing a vasculitis center in [place]. I will refer her tohim for intermittent visits for any recommendations regarding her treatment. Ordered: C-Reactive Protein (CRP) CBC w/ Differential Comprehensive Metabolic Panel Sedimentation Rate 2.Chronic headaches Continue the Topamax. 3.Encounter for long-term (current) use of high-risk medication I will check her blood counts liver tests today. Orders: inFLIXimab, See Instructions, 700 mg every 4 weeks, DX: 446.7. premed tylenol 1000mg po and lauren 180mg po as an infusion, # 1 vials, 0 Refill(s), other reason (Rx) Future Scheduled TestsReferral* Return to Clinic 11/11/14 10:59 AM Referrals to Other Providers Referred by: Olga Jones
--- OUTSIDE RECORDS SUMMARY | 2016-10-06 09:31 | XMS REPORT | Referral Summary ---
Author Author [facility] Organization [facility] Address Unknown Phone Unavailable Care Team Providers Care Nanotechnologist Name Role Phone Sarmad Salcido Primary Care Physician [phone] Encounter [facility] Date(s): 01/21/16 - 01/21/16 [facility] [address] [place] [address] Discharge Diagnosis: Depression Discharge Diagnosis: Dyslipidemia, goal LDL below 70 Discharge Diagnosis: Hypothyroidism Discharge Diagnosis: Hypertension Discharge Diagnosis: Diabetes Discharge Disposition: 01-Home or Self Care Attending Physician: Aleena Salcido DO Admitting Physician: Aleena Salcido DO Vital Signs Most recent to 1 oldest [Reference Range]: Peripheral Pulse 95 bpm Rate [60-100 bpm] (01/21/16 10:17 AM) Respiratory Rate 18 br/min [14-20 br/min] (01/21/16 10:17 AM) Blood Pressure 132/80 mmHg [90-140/60-90 mmHg] (01/21/16 10:17 AM) SpO2 98 % (01/21/16 10:17 AM) Problem List Condition Effective Dates Status [...] # 4 tabs , 2 Refill(s), eRx: [facility], TAKE ONE TABLET BY MOUTH ONCE A WEEK IN THE MORNING... Start Date: 06/23/15 Status: Ordered Jesika See Instructions, 180 mg Oral 1 tab prior to infusion, 0 Refill(s) Start Date: 03/27/14 Status: Ordered apremilast 30 mg oral tablet 30 mg 1 tabs, Oral, BID, # 60 tabs, 0 Refill(s), Pharmacy: [facility] , 1 tabs Oral BID Start Date: 10/22/15 Status: Ordered aspirin 81 mg, Oral, Daily, 1 tab, 0 Refill(s) Start Date: 12/19/13 Status: Ordered atorvastatin 40 mg oral tablet See Instructions, TAKE ONE TABLET BY MOUTH AT BEDTIME (ONCE A DAY), # 30 tabs, 1 Refill(s), eRx: [facility], TAKE ONE TABLET BY MOUTH AT BEDTIME ( ONCE A DAY) Start Date: 01/21/16 Status: Ordered Benadryl 25 mg, Oral, Once, 1 tab, prior to remicade, 0 Refill(s) Start Date: 09/08/14 Status: Ordered buPROPion 75 mg oral tablet See Instructions, TAKE ONE TABLET BY MOUTH TWICE DAILY, # 60 tabs, eRx: [facility], TAKE ONE TABLET BY MOUTH TWICE DAILY Start Date: 01/17/16 Status: Ordered Bystolic 10 mg oral tablet See Instructions, TAKE ONE TABLET BY MOUTH ONCE DAILY, # 30 tabs, eRx: [facility], TAKE ONE TABLET BY MOUTH ONCE DAILY Start Date: 01/17/16 Status: Ordered Bystolic 10 mg oral tablet See Instructions, TAKE ONE TABLET BY MOUTH ONCE DAILY, # 30 tabs, 6 Refill(s), Pharmacy: [facility], TAKE ONE TABLET BY MOUTH ONCE DAILY Start Date: 05/31/15 Status: Ordered Calcium 600+D 1 tabs, Oral, Daily, 0 Refill(s) Start Date: 11/11/14 Status: Ordered DULoxetine 60 mg oral delayed release capsule See Instructions, TAKE ONE CAPSULE BY MOUTH TWICE DAILY, # 180 caps, 6 Refill(s) , Pharmacy: [facility] [address], TAKE ONE CAPSULE BY MOUTH TWICE DAILY Start Date: 05/31/15 Status: Ordered Effient 10 mg oral tablet See Instructions, TAKE ONE TABLET BY MOUTH ONCE DAILY, # 30 tabs, 12 Refill(s), eRx: [facility] [address], TAKE ONE TABLET BY MOUTH ONCE DAILY [...] # 45 tabs, 2 Refill( s), eRx: [facility] [address], TAKE ONE-HALF TABLET BY MOUTH ONCE DAILY [...] MOUTH TWICE DAILY, # 60 tabs, eRx: [facility], TAKE ONE TABLET BY MOUTH TWICE DAILY Start Date: 01/10/16 Status: Ordered [place] 5 mg-325 mg oral tablet 1 tabs, [...] DAILY, # 30 tabs, 1 Refill(s), eRx: [facility], TAKE ONE TABLET BY MOUTH ONCE DAILY Start Date: 01/21/16 Status: Ordered predniSONE 1 mg oral tablet See Instructions, 3 tabs Oral Daily,Instr:TO BE TAKEN WITH PREDNISONE 5 MG TABLETS, # 90 tabs, 0 Refill(s), Pharmacy: [facility], please note change in dose, 3 tabs Oral Daily,Instr:TO BE TAKEN WITH PREDNISONE 5 MG TABLETS Start Date: 05/07/15 Status: Ordered predniSONE 20 mg oral tablet See Instructions, , 60 for 3 days, 40 for 3 days, 20 for 3 days, # 20 tabs, 0 Refill(s), Pharmacy: [facility], , 60 for 3 [...] , # 90 tabs, 2 Refill(s), eRx: [facility], TAKE ONE TABLET BY MOUTH IN THE MORNING AND TWO IN THE EVENING Start Date: 11/15/15 Status: Ordered VESIcare 10 mg oral tablet See Instructions, TAKE ONE TABLET BY MOUTH ONCE DAILY, # 30 tabs, 2 Refill(s), eRx: [facility], TAKE ONE TABLET BY MOUTH ONCE DAILY Start Date: 11/01/15 Status: Ordered Vitamin D3 2000 intl units oral tablet 2,000 Intl_Units 1 tabs, Oral, Daily, 0 Refill(s) Start Date: 12/19/13 Status: Ordered Wellbutrin 75 mg oral tablet See Instructions, 1 tabs Oral BID, # 60 tabs, 1 Refill(s), Pharmacy: [facility], 1 tabs Oral BID Start [...] Visit Note Author: Aleena Salcido DO Date: 01/21/16 Assessment/Plan Depression Currently doing well, continue current regimen, return to clinic in 6 months. Ordered: Office Visit Level 4 Est 75155 Diabetes Keep appointment with endocrinology in January. If she is not able to make this she should contact me so that I can do the appropriatelab work. Ordered: Office Visit Level 4 Est 31943 Dyslipidemia, goal LDL below 70 CMP wasdone within the last 6 months. Continue current regimen,return to clinic 6 months. Ordered: Office Visit Level 4 Est 80797 Hypertension Stable at this time, no changes, lab workup today. Ordered: Office Visit Level 4 Est 82716 Hypothyroidism She will get lab work with endocrinology. If she is not able to keep her appointment she will let methat I can do appropriate lab work.
--- OUTSIDE RECORDS SUMMARY | 2016-10-06 09:32 | XMS REPORT | Referral Summary ---
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 Discharge Disposition: 01-Home or Self Care Attending Physician: Rozina Gramajo MD Admitting Physician: Rozina Gramajo MD Referring Physician: Aleena Salcido DO Vital Signs Most recent to 1 oldest [Reference Range]: Peripheral Pulse 103 bpm Rate [60-100 bpm] *HI* (06/08/16 9:55 AM) Blood Pressure 116/72 mmHg [90-140/60-90 mmHg] (06/08/16 9:55 AM) Problem List Condition Effective Dates Status [...] # 4 tabs , 2 Refill(s), eRx: [facility], TAKE ONE TABLET BY [...] MOUTH AT BEDTIME, # 30 tabs, eRx: [facility], TAKE ONE TABLET BY MOUTH AT BEDTIME Start Date: 04/24/16 Status: Ordered atorvastatin 40 mg oral tablet See Instructions, TAKE ONE TABLET BY MOUTH AT BEDTIME, # 30 tabs, eRx: [facility], TAKE ONE TABLET BY MOUTH AT BEDTIME Start Date: 05/17/16 Status: Ordered Benadryl 25 mg, Oral, Once, 1 tab, prior to remicade, 0 Refill(s) Start Date: 09/08/14 Status: Ordered buPROPion 75 mg oral tablet See Instructions, TAKE ONE TABLET BY MOUTH TWICE DAILY, # 60 tabs, 2 Refill(s), eRx: [facility], TAKE ONE TABLET BY MOUTH TWICE DAILY Start Date: 02/12/16 Status: Ordered buPROPion 75 mg oral tablet See Instructions, TAKE ONE TABLET BY MOUTH TWICE DAILY, # 60 tabs, eRx: [facility], TAKE ONE TABLET BY MOUTH TWICE DAILY Start Date: 05/17/16 Status: Ordered Bystolic 10 mg oral tablet See Instructions, TAKE ONE TABLET BY MOUTH ONCE DAILY, # 30 tabs, 2 Refill(s), eRx: [facility] [address], TAKE ONE TABLET BY MOUTH ONCE DAILY Start Date: 04/17/16 Status: Ordered Calcium 600+D 1 tabs, Oral, Daily, 0 Refill(s) Start Date: 11/11/14 Status: Ordered dicyclomine 20 mg oral tablet See Instructions, TAKE ONE TABLET BY MOUTH 4 TIMES DAILY FOR 14 DAYS, # 56 tabs , eRx: [facility] [address], TAKE ONE TABLET BY MOUTH 4 TIMES DAILY FOR 14 DAYS Start Date: 02/10/16 Status: Ordered dicyclomine 20 mg oral tablet 1-2 tabs, Oral, QID, 0 Refill(s) Start Date: 03/10/16 Status: Ordered DULoxetine 60 mg oral delayed release capsule See Instructions, TAKE ONE CAPSULE BY MOUTH TWICE DAILY, # 180 caps, 6 Refill(s) , Pharmacy: [facility] [place] [address], TAKE ONE CAPSULE BY MOUTH TWICE DAILY Start Date: 05/31/15 Status: Ordered Effient 10 mg oral tablet See Instructions, TAKE ONE TABLET BY MOUTH ONCE DAILY, # 30 tabs, 12 Refill(s), eRx: [place] [address], TAKE ONE TABLET BY MOUTH ONCE DAILY Start Date: 04/08/15 Status: Ordered Effient 10 mg oral tablet See Instructions, TAKE ONE TABLET BY MOUTH ONCE DAILY, # 30 tabs, 1 Refill(s), eRx: [place] [address], TAKE ONE TABLET BY MOUTH ONCE DAILY [...] tabs, 2 Refill( s), eRx: [facility], TAKE ONE-HALF TABLET BY MOUTH ONCE DAILY Start Date: 05/08/16 Status: Ordered levothyroxine 75 mcg (0.075 mg) oral tablet See Instructions, TAKE ONE TABLET BY MOUTH ONCE DAILY, # 30 tabs, 5 Refill(s), eRx: [facility]93, TAKE [...] DAILY, # 60 tabs, eRx: [facility], TAKE ONE TABLET BY MOUTH TWICE DAILY Start Date: 05/17/16 Status: Ordered [place] 5 mg-325 mg oral tablet 1 tabs, [...] DAILY, # 30 tabs, eRx: [facility], TAKE ONE TABLET BY MOUTH ONCE DAILY Start Date: 04/24/16 Status: Ordered Onglyza 5 mg oral tablet See Instructions, TAKE ONE TABLET BY MOUTH ONCE DAILY, # 30 tabs, eRx: [facility]93, TAKE ONE TABLET BY MOUTH ONCE DAILY Start Date: 05/17/16 Status: Ordered predniSONE 1 mg oral tablet See Instructions, 3 tabs Oral Daily,Instr:TO BE TAKEN WITH PREDNISONE 5 MG TABLETS, # 90 tabs, 3 Refill(s), Pharmacy: [facility], 3 tabs Oral Daily,Instr:TO BE TAKEN WITH PREDNISONE 5 MG TABLETS Start Date: 03/29/16 Status: Ordered predniSONE 20 mg oral tablet See Instructions, , 60 for 3 days, 40 for 3 days, 20 for 3 days, # 20 tabs, 0 Refill(s), Pharmacy: [facility] 99, , 60 for 3 days, 40 [...] , # 90 tabs, 2 Refill(s), eRx: [facility]93, TAKE ONE TABLET BY MOUTH IN THE MORNING AND TWO IN THE EVENING Start Date: 03/17/16 Status: Ordered VESIcare 10 mg oral tablet See Instructions, TAKE ONE TABLET BY MOUTH ONCE DAILY, # 30 tabs, 2 Refill(s), eRx: [facility], TAKE ONE TABLET BY [...] Visit Note Author: Rozina Gramajo MD Date: 06/08/16 Assessment/Plan 1.Takayasu's arteritis She appears overall to be stable. She will get her Tocilizumab today. Continue the leflunomide 10 mg. She will be having her imaging done in a weekto be reassessed. 2.High risk medication use Labs overall has been stable. 3.Chronic headaches Continue the Topamax. 4.Other psoriatic arthropathy Continue the apremilast. Discussed that it can take an extendedtime for the full effect of this medication. I will try to determine if there is a topical she can use for her ears. 5.Chronic diarrhea We will get the records from the [facility] and try to refer her to someone locally.
--- OUTSIDE RECORDS SUMMARY | 2016-10-06 09:32 | XMS REPORT | Referral Summary ---
Author Author [facility] Organization [facility] Address Unknown Phone Unavailable Care Team Providers Care Parks Recreation Director Name Role Phone Sarmad Salcido Primary Care Physician [phone] Encounter Date(s): 01/15/15 - 01/15/15 [facility] [address] [place] [address] [place] [id number] Discharge Diagnosis: Takayasu's arteritis Discharge Diagnosis: Encounter for long-term (current) use of high-risk medication Discharge Diagnosis: Dyspnea Discharge Diagnosis: Chronic headache Discharge Disposition: 01-Home or Self Care Attending Physician: Rozina Gramajo MD Admitting Physician: Rozina Gramajo MD Vital Signs Most recent to 1 oldest [Reference Range]: Peripheral Pulse 93 bpm Rate [60-100 bpm] (01/15/15 11:36 AM) Blood Pressure 117/86 mmHg [90-140/60-90 mmHg] (01/15/15 11:36 AM) Problem List Condition Effective Dates Status [...] # 4 tabs , 2 Refill(s), eRx: [facility], TAKE ONE TABLET [...] day), # 30 tabs, 6 Refill(s), Pharmacy: [facility], 1 tabs Oral Bedtime (once a day) Start Date: 05/31/15 Status: Ordered Benadryl 25 mg, Oral, Once, 1 tab, prior to remicade, 0 Refill(s) Start Date: 09/08/14 Status: Ordered Bystolic 10 mg oral tablet See Instructions, TAKE ONE TABLET BY MOUTH ONCE DAILY, # 30 tabs, 6 Refill(s), Pharmacy: [facility], TAKE ONE TABLET BY MOUTH ONCE DAILY Start Date: 05/31/15 Status: Ordered Calcium 600+D 1 tabs, Oral, Daily, 0 Refill(s) Start Date: 11/11/14 Status: Ordered DULoxetine 60 mg oral delayed release capsule See Instructions, TAKE ONE CAPSULE BY MOUTH TWICE DAILY, # 180 caps, 6 Refill(s) , Pharmacy: [facility], TAKE ONE CAPSULE BY MOUTH TWICE DAILY Start Date: 05/31/15 Status: Ordered Effient 10 mg oral tablet See Instructions, TAKE ONE TABLET BY MOUTH ONCE DAILY, # 30 tabs, 12 Refill(s), eRx: [facility], TAKE ONE TABLET [...] BID, # 60 tabs, 1 Refill(s), Pharmacy: [facility] , 1 tabs Oral [...] # 45 tabs, 2 Refill( s), eRx: [facility], TAKE ONE-HALF TABLET BY MOUTH ONCE DAILY Start Date: 06/18/15 Status: Ordered levothyroxine 75 mcg (0.075 mg) oral tablet See Instructions, TAKE ONE TABLET BY MOUTH ONCE DAILY Need TSH at next OV, # 30 tabs, 0 Refill(s), Pharmacy: [facility], TAKE ONE TABLET BY MOUTH ONCE DAILY; Need TSH at next OV Start Date: 07/22/15 Status: Ordered Levsin SL mg, SubLingual, q4hr, 0 Refill(s) Start Date: 04/09/15 Status: Ordered metFORMIN 500 mg oral tablet See Instructions, 2 tabs Oral BID, # 120 tabs, 1 Refill(s), Pharmacy: [facility], 2 tabs Oral BID Start Date: 06/03/15 Status: Ordered [place] 5 mg-325 mg oral tablet 1 tabs, Oral, q6hr, as needed for pain, # 60 tabs, 0 Refill(s) Start Date: 07/05/15 Status: Ordered omeprazole 20 mg oral delayed release capsule See Instructions, TAKE ONE CAPSULE BY MOUTH TWICE DAILY, # 60 caps, 5 Refill(s) , eRx: [facility], TAKE ONE CAPSULE BY MOUTH TWICE DAILY Start Date: 06/03/15 Status: Ordered ONE TOUCH ULTRA BLUE TEST STP See Instructions, USE TO TEST BLOOD SUGARS TWO DAYS PER WEEK ( FASTING AND 2 HOURS POST PRANDAL)., # 100 strip, 1 Refill(s), eRx: [facility], USE TO TEST BLOOD SUGARS TWO DAYS PER WEEK ( FASTING AND 2 HOURS POST PRANDAL). Start Date: 11/09/14 Status: Ordered Onglyza 5 mg oral tablet See Instructions, TAKE ONE TABLET BY MOUTH ONCE DAILY, # 30 tabs, 3 Refill(s), Pharmacy: [facility]93, TAKE ONE TABLET BY MOUTH ONCE DAILY Start Date: 06/03/15 Status: Ordered predniSONE 1 mg oral tablet See Instructions, 3 tabs Oral Daily,Instr:TO BE TAKEN WITH PREDNISONE 5 MG TABLETS, # 90 tabs, 0 Refill(s), Pharmacy: [facility] 99, please note change in dose, 3 tabs Oral Daily,Instr:TO BE TAKEN WITH PREDNISONE 5 MG TABLETS Start Date: 05/07/15 Status: Ordered predniSONE 10 mg oral tablet See Instructions, Start with 6 tabs PO daily for 3 days and decrease by one tablet every 3 days, # 63 tabs, 0 Refill(s), Pharmacy: [facility], Start with 6 tabs PO daily for 3 days and decrease by one tablet every 3 days Start Date: 07/15/15 Stop Date: 07/29/15 Status: Ordered predniSONE 20 mg oral tablet See Instructions, , 60 for 3 days, 40 for 3 days, 20 for 3 days, # 20 tabs, 0 Refill(s), Pharmacy: [facility]93, , 60 for 3 days, 40 [...] pm., # 90 tabs, 2 Refill(s), eRx: [facility], 1 tab in am and 2 in pm. Start Date: 05/20/15 Status: Ordered VESIcare 10 mg oral tablet See Instructions, 1 tabs Oral Daily, # 30 tabs, 5 Refill(s), eRx: [facility], 1 tabs Oral Daily Start Date: 02/18/15 Status: Ordered Vitamin D3 2000 intl units oral tablet 2,000 Intl_Units 1 tabs, Oral, Daily, 0 Refill(s) Start Date: 12/19/13 Status: Ordered Wellbutrin 75 mg oral tablet See Instructions, 1 tabs Oral BID, # 60 tabs, 5 Refill(s), eRx: [facility], 1 tabs Oral BID Start [...] Visit Note Author: Rozina Gramajo MD Date: 01/15/15 Assessment/Plan 1.Takayasu's arteritis She will get her infliximab today. I will recheck her inflammatory markers determine if these are rising. I will have her follow-up with the vascular surgeon. She did have MRI done 3 months ago which appeared to be improved.will consider no carotid Dopplers I will try to get his input before doing further imaging currently. Ordered: C-Reactive Protein (CRP) Comprehensive Metabolic Panel Sedimentation Rate 2.Chronic headache This is stable currently. 3.Dyspnea I do not believe that her dyspnea is related to Takayasu's arteritis. There can be cardiac involvement withTA but this evaluation was recently negative. She has mild anemia and I suggested increased iron intake day. Otherwise was suggested evaluation by primary care doctor. 4.Encounter for long-term (current) use of high-risk medication I will check liver tests today. Future Scheduled TestsReferral* Return to Clinic 11/11/14 10:59 AM Referrals to Other Providers Referred by: Olga Jones
--- OUTSIDE RECORDS SUMMARY | 2016-10-06 09:32 | XMS REPORT | Referral Summary ---
Author Author [facility] Organization [facility] Address Unknown Phone Unavailable Care Team Providers Care Slitter Operator Name Role Phone Sarmad Salcido Primary Care Physician [phone] Encounter [facility] [phone] Date(s): 01/14/16 - 01/14/16 [facility] [address] [place] [address] BIANCA Patterson [id number] Discharge Diagnosis: Takayasu's arteritis Discharge Diagnosis: High risk medication use Discharge Diagnosis: Chronic diarrhea Discharge Diagnosis: Headache Discharge Diagnosis: Other psoriatic arthropathy Discharge Disposition: 01-Home or Self Care Attending Physician: Rozina Gramajo MD Admitting Physician: Rozina Gramajo MD Referring Physician: Rozina Gramajo MD Vital Signs Most recent to 1 oldest [Reference Range]: Peripheral Pulse 108 bpm Rate [60-100 bpm] *HI* (01/14/16 8:31 AM) Problem List Condition Effective Dates [...] # 4 tabs , 2 Refill(s), eRx: [facility], TAKE ONE TABLET BY MOUTH ONCE A WEEK IN THE MORNING... Start Date: 06/23/15 Status: Ordered Jesika See Instructions, 180 mg Oral 1 tab prior to infusion, 0 Refill(s) Start Date: 03/27/14 Status: Ordered apremilast 30 mg oral tablet 30 mg 1 tabs, Oral, BID, # 60 tabs, 0 Refill(s), Pharmacy: [facility] , 1 tabs Oral BID Start Date: 10/22/15 Status: Ordered aspirin 81 mg, Oral, Daily, 1 tab, 0 Refill(s) Start Date: 12/19/13 Status: Ordered atorvastatin 40 mg oral tablet 40 mg 1 tabs, Oral, Bedtime (once a day), # 30 tabs, 6 Refill(s), Pharmacy: [facility], 1 tabs Oral Bedtime (once a day) Start Date: 05/31/15 Status: Ordered Benadryl 25 mg, Oral, Once, 1 tab, prior to remicade, 0 Refill(s) Start Date: 09/08/14 Status: Ordered Bystolic 10 mg oral tablet See Instructions, TAKE ONE TABLET BY MOUTH ONCE DAILY, # 30 tabs, 6 Refill(s), Pharmacy: [facility], TAKE ONE TABLET BY MOUTH ONCE DAILY Start Date: 05/31/15 Status: Ordered Calcium 600+D 1 tabs, Oral, Daily, 0 Refill(s) Start Date: 11/11/14 Status: Ordered DULoxetine 60 mg oral delayed release capsule See Instructions, TAKE ONE CAPSULE BY MOUTH TWICE DAILY, # 180 caps, 6 Refill(s) , Pharmacy: [facility], TAKE ONE CAPSULE BY MOUTH TWICE DAILY Start Date: 05/31/15 Status: Ordered Effient 10 mg oral tablet See Instructions, TAKE ONE TABLET BY MOUTH ONCE DAILY, # 30 tabs, 12 Refill(s), eRx: [facility], TAKE ONE TABLET BY MOUTH [...] # 45 tabs, 2 Refill( s), eRx: [facility], TAKE ONE-HALF TABLET BY MOUTH ONCE DAILY Start Date: 06/18/15 Status: Ordered levothyroxine 75 mcg (0.075 mg) oral tablet See Instructions, TAKE ONE TABLET BY MOUTH ONCE DAILY, # 30 tabs, 2 Refill(s), eRx: [facility], TAKE ONE TABLET BY MOUTH [...] MOUTH TWICE DAILY, # 60 tabs, eRx: [facility], TAKE ONE TABLET BY MOUTH TWICE DAILY Start Date: 01/10/16 Status: Ordered [place] 5 mg-325 mg oral tablet 1 tabs, Oral, q6hr, as needed for pain, # 60 tabs, 0 Refill(s) Start Date: 12/29/15 Status: Ordered omeprazole 20 mg oral delayed release capsule See Instructions, TAKE ONE CAPSULE BY MOUTH TWICE DAILY, # 60 caps, 5 Refill(s) , eRx: [facility], TAKE ONE CAPSULE BY MOUTH TWICE DAILY Start Date: 12/20/15 Status: Ordered ONE TOUCH ULTRA BLUE TEST STP See Instructions, USE TO TEST BLOOD SUGARS TWO DAYS PER WEEK ( FASTING AND 2 HOURS POST PRANDAL)., # 100 strip, 1 Refill(s), eRx: [facility], USE TO TEST BLOOD SUGARS TWO DAYS PER WEEK ( FASTING AND 2 HOURS POST PRANDAL). Start Date: 11/09/14 Status: Ordered Onglyza 5 mg oral tablet See Instructions, TAKE ONE TABLET BY MOUTH ONCE DAILY, # 30 tabs, eRx: [facility], TAKE ONE TABLET BY MOUTH ONCE DAILY Start Date: 12/20/15 Status: Ordered predniSONE 1 mg oral tablet See Instructions, 3 tabs Oral Daily,Instr:TO BE TAKEN WITH PREDNISONE 5 MG TABLETS, # 90 tabs, 0 Refill(s), Pharmacy: [facility], please note change in dose, 3 tabs Oral Daily,Instr:TO BE TAKEN WITH PREDNISONE 5 MG TABLETS Start Date: 05/07/15 Status: Ordered predniSONE 20 mg oral tablet See Instructions, , 60 for 3 days, 40 for 3 days, 20 for 3 days, # 20 tabs, 0 Refill(s), Pharmacy: [facility], , 60 for 3 days, 40 [...] , # 90 tabs, 2 Refill(s), eRx: [facility], TAKE ONE TABLET BY MOUTH IN THE MORNING AND TWO IN THE EVENING Start Date: 11/15/15 Status: Ordered VESIcare 10 mg oral tablet See Instructions, TAKE ONE TABLET BY MOUTH ONCE DAILY, # 30 tabs, 2 Refill(s), eRx: [facility], TAKE ONE TABLET BY MOUTH ONCE DAILY Start Date: 11/01/15 Status: Ordered Vitamin D3 2000 intl units oral tablet 2,000 Intl_Units 1 tabs, Oral, Daily, 0 Refill(s) Start Date: 12/19/13 Status: Ordered Wellbutrin 75 mg oral tablet See Instructions, 1 tabs Oral BID, # 60 tabs, 1 Refill(s), Pharmacy: [facility], 1 tabs Oral BID [...] Extracted from: Title: Ambulatory Patient Education Author: Rozina Gramajo MD Date: Home Health Care Psoriasis Psoriasis is a common, long-lasting (chronic) inflammation of the skin. It affects both men and women equally, of all ages and all races. Psoriasis cannot be passed from person to person (not contagious). Psoriasis varies from mild to very severe. When severe, it can greatly affect your quality of life. Psoriasis is an inflammatory disorder affecting the skin as well as other organs including the joints (causing an arthritis). With psoriasis, the skin sheds its top layer of cells more rapidly than it does in someone without psoriasis. CAUSES The cause of psoriasis is largely unknown. Genetics, your immune system, and the environment seem to play a role in causing psoriasis. Factors that can make psoriasis worse include: Damage or trauma to the skin, such as cuts, scrapes, and sunburn. This damage often causes new areas of psoriasis (lesions). Winter dryness and lack of sunlight. Medicines such as lithium, beta-blockers, antimalarial drugs, JOHNY inhibitors, nonsteroidal anti-inflammatory drugs (ibuprofen, aspirin), and terbinafine. Let your caregiver know if you are taking any of these drugs. Alcohol. Excessive alcohol use should be avoided if you have psoriasis. Drinking large amounts of alcohol can affect: How well your psoriasis treatment works. How safe your psoriasis treatment is. Smoking. If you smoke, ask your caregiver for help to quit. Stress. Bacterial or viral infections. Arthritis. Arthritis associated with psoriasis (psoriatic arthritis) affects less than 10% of patients with psoriasis. The arthritic intensity does not always match the skin psoriasis intensity. It is important to let your caregiver know if your joints hurt or if they are stiff. SYMPTOMS The most common form of psoriasis begins with little red bumps that gradually become larger. The bumps begin to form scales that flake off easily. The lower layers of scales stick together. When these scales are scratched or removed, the underlying skin is tender and bleeds easily. These areas then grow in size and may become large. Psoriasis often creates a rash that looks the same on both sides of the body (symmetrical). It often affects the elbows, knees, groin , genitals, arms, legs, scalp, and nails. Affected nails often have pitting, loosen, thicken, crumble, and are difficult to treat. "Inverse psoriasis"occurs in the armpits, under breasts, in skin folds , and around the groin, buttocks, and genitals. "Guttate psoriasis" generally occurs in children and young adults following a recent sore throat (strep throat). It begins with many small, red, scaly spots on the skin. It clears spontaneously in weeks or a few months without treatment. DIAGNOSIS Psoriasis is diagnosed by physical exam. A tissue sample (biopsy) may also be taken. TREATMENT The treatment of psoriasis depends on your age, health, and living conditions. Steroid (cortisone) creams, lotions, and ointments may be used. These treatments are associated with thinning of the skin, blood vessels that get larger (dilated), loss of skin pigmentation, and easy bruising. It is important to use these steroids as directed by your caregiver. Only treat the affected areas and not the normal, unaffected skin. People on long-term steroid treatment should wear a medical alert bracelet. Injections may be used in areas that are difficult to treat. Scalp treatments are available as shampoos, solutions, sprays, foams, and oils. Avoid scratching the scalp and picking at the scales. Anthralin medicine works well on areas that are difficult to treat. However, it stains clothes and skin and may cause temporary irritation. Synthetic vitamin D (calcipotriene)can be used on small areas. It is available by prescription. The forms of synthetic vitamin D available in health food stores do not help with psoriasis. [place] tarsare available in various strengths for psoriasis that is difficult to treat. They are one of the longest used treatments for difficult to treat psoriasis. However, they are messy to use. Light therapy (UV therapy) can be carefully and professionally monitored in a stoneworker's office. Careful sunbathing is helpful for many people as directed by your caregiver. The exposure should be just long enough to cause a mild redness (erythema) of your skin. Avoid sunburn as this may make the condition worse. Sunscreen (SPF of 30 or higher) should be used to protect against sunburn. Cataracts, wrinkles, and skin aging are some of the harmful side effects of light therapy. If creams (topical medicines) fail, there are several other options for systemic or oral medicines your caregiver can suggest. Psoriasis can sometimes be very difficult to treat. It can come and go. It is necessary to follow up with your caregiver regularly if your psoriasis is difficult to treat. Usually, with persistence you can get a good amount of relief. Maintaining consistent care is important. Do not change caregivers just because you do not see immediate results. It may take several trials to find the right combination of treatment for you. PREVENTING FLARE-UPS Wear gloves while you wash dishes, while cleaning, and when you are outside in the cold. If you have radiators, place a bowl of water or damp towel on the radiator. This will help put water back in the air. You can also use a humidifier to keep the air moist. Try to keep the humidity at about 60% in your home. Apply moisturizer while your skin is still damp from bathing or showering. This traps water in the skin. Avoid long, hot baths or showers. Keep soap use to a minimum. Soaps dry out the skin and wash away the protective oils. Use a fragrance free, dye free soap. Drink enough water and fluids to keep your urine clear or pale yellow. Not drinking enough water depletes your skin's water supply. Turn off the heat at night and keep it low during the day. Cool air is less drying. SEEK MEDICAL CARE IF: You have increasing pain in the affected areas. You have uncontrolled bleeding in the affected areas. You have increasing redness or warmth in the affected areas. You start to have pain or stiffness in your joints. You start feeling depressed about your condition. You have a fever. This information is not intended to replace advice given to you by your health care provider. Make sure you discuss any questions you have with your health care provider. Document Released: 06/15/2001 Document Revised: 09/09/2012 Document Reviewed: [facility] Patient Information 2016 [employer], [facility]. No follow up information was provided.
[2016-10-06] MEDS ORDERED: CLINDAMYCIN 900mg in D5W 50ml IV ONE (09:45)
[2016-10-06 10:03] LABS: BASOPHILS % (AUTO) 0.5 % (0-2); EOSINOPHILS # (AUTO) 0.1 T/MM3 (0-0.5); EOSINOPHILS % (AUTO) 1.8 % (0-4); HCT - HEMATOCRIT 38.8 % (36-46); HGB - HEMOGLOBIN 12.9 GM/DL (12-16); IMMATURE GRANULOCYTE # (AUTO) 0.01 T/MM3 (0.00-0.03); IMMATURE GRANULOCYTE % (AUTO) 0.2 % (0.0-0.5); LYMPHOCYTES # (AUTO) 2.2 T/MM3 (1-4.8); LYMPHOCYTES % (AUTO) 32.9 % (23-45); MEAN CORPUSCULAR HGB 30.2 UUG (26-34); MEAN CORPUSCULAR HGB CONC(MCHC 33.2 GM/DL (31-37); MEAN CORPUSCULAR VOLUME 90.9 UM3 (80-100); MEAN PLATELET VOLUME 9.5 UM3 (9.4-12.4); MONOCYTES # (AUTO) 0.4 T/MM3 (0-0.8); MONOCYTES % (AUTO) 6.1 % (0-9.0); NEUTROPHILS #(AUTO)-ABSOLUTE 3.8 T/MM3 (1.8-7.7); NEUTROPHILS % (AUTO) 58.5 % (33-66); RED BLOOD COUNT 4.27 M/MM3 (4.00-5.20); WBC - WHITE BLOOD COUNT 6.6 T/MM3 (4.5-11.0)
[2016-10-06 10:11] LABS: BLOOD, URINE 3+ (NEGATIVE); COLOR,URINE YELLOW (YELLOW); LEUKOCYTE ESTERASE ,URINE NEGATIVE (NEGATIVE); NITRITE,URINE NEGATIVE (NEGATIVE); UROBILINOGEN,URINE 0.2 EU/DL (NORMAL)
[2016-10-06 10:13] LABS: WBC,URINE NONE SEEN /HPF (0-5)
[2016-10-06 10:14] LABS: ANION GAP 11 MEQ/L (5-15); BUN/CREATININE RATIO 3 RATIO (6-26); CALCIUM 8.9 MG/DL (8.4-10.2); CHLORIDE 108 MEQ/L (98-107); CO2 - CARBON DIOXIDE 25 MEQ/L (22-30); CREATININE 0.9 MG/DL (0.7-1.2); GLOMERULAR FILTRATION RATE 70; GLUCOSE 108 MG/DL (65-110); POTASSIUM 3.3 MEQ/L (3.6-5); SODIUM 144 MEQ/L (134-144)
[2016-10-06 10:14] LABS: BACTERIA,URINE 2+ (NEGATIVE); SQUAMOUS EPITHELIAL CELL,UR 0-5
[2016-10-06 10:15] LABS: RBC,URINE 20-30 /HPF (0-3)
--- NOTE | 2016-10-06 10:41 | ANESPREOP ---
Anesthesia Record Date and Time DATE: 10/06/16 TIME: 10:36 Pre-Op Diagnosis sterilization and menonetorrhagia Proposed Surgical Procedure LAPAROSCOPIC TUBAL LIGATION/ ABLATION NPO since: mn Allergies: Coded Allergies: latex (Verified Allergy, Mild, RASH, 10/06/16) Penicillins (Verified Allergy, Unknown, RASH, 10/06/16) adalimumab (Verified Allergy, Unknown, 10/06/16) methotrexate (Verified Allergy, Unknown, 10/06/16) tetanus immune globulin (Verified Allergy, Unknown, 10/06/16) Ht/Wt/BMI Height: 5 ' 6.00 " Weight: 71.500 kg BMI: 25.4 kg/m2 Vital Signs Date Time Temp Pulse Resp B/P Pulse Ox O2 Delivery O2 Flow Rate FiO2 10/06/16 09:45 97.4 89 16 125/86 100 Room Air Medications Inpatient Medications Current Medications Medications (Trade) Dose Ordered Sig/Merly Start Time Stop Time Status Last Admin Dose Admin Lactated Ringer's (Lactated Ringers) 1,000 ml @ 125 mls/hr Q8H 10/06/16 07:00 Acyclovir (Acyclovir) 400 Mg Tablet, 400 MG PO PRN, (Reported) Last Taken: on Unknown Date & Time Aspirin (Aspirin) 81 Mg Tab.chew, 81 MG PO DAILY, (Reported) Last Taken: on 09/28/16 Atenolol (Atenolol) 25 Mg Tablet, 25 MG PO DAILY, ( Reported) Last Taken: on 10/05/161999 Atorvastatin Calcium (Lipitor) 40 Mg Tablet, 40 MG PO DAILY, (Reported) Last Taken: on 10/05/161999 Calcium Carbonate/Vitamin D3 (Caltrate 600 + D Tablet) 1 Each Tablet, 1 TAB PO DAILY, (Reported) Last Taken: on 10/05/16 07 Cholecalciferol (Vitamin D3) (Vitamin D) 2,000 Unit Tablet, 2,000 UNIT PO DAILY, (Reported) Last Taken: on 10/05/16 07 Duloxetine Hcl (Cymbalta) 60 Mg Capsule.dr, 60 MG PO BID, (Reported) Last Taken: on 10/05/161999 Ferrous Sulfate (Ferrous Sulfate) 325 Mg Tablet.dr, 1 TAB PO WB, (Reported) BEST WITH FOOD. Last Taken: on 10/05/16 07 Folic Acid (Folic Acid) 1 Mg Tablet, 5 MG PO DAILY, (Reported) Last Taken: on 10/05/16699 Glimepiride (Glimepiride) 1 Mg Tablet, 4 TAB PO DAILY, (Reported) Last Taken: on 10/05/16699 Leflunomide (Arava) 20 Mg Tablet, 0.5 TAB PO DAILY, (Reported) Last Taken: on 10/05/16699 Levothyroxine Sodium (Tirosint) 75 Mcg Capsule, 1 CAP PO DAILY, (Reported) Last Taken: on 10/05/16599 Metformin Hcl (Metformin Hcl) 500 Mg Tablet, 2 TAB PO BID, (Reported) BEST TAKEN WITH MEALS Last Taken: on 10/05/161999 Multivitamins (Multivitamin) 1 Tab Tablet, 1 TAB PO DAILY, (Reported) Last Taken: on 10/05/16699 Nebivolol Hcl (Bystolic) 10 Mg Tablet, 10 MG PO DAILY, (Reported) Last Taken: on 10/06/16639 Omeprazole (Omeprazole) 20 Mg Capsule.dr, 20 MG PO ACB, (Reported) Take 1 capsule, by mouth, one time a day (before breakfast). Last Taken: on 10/05/16699 Prasugrel Hcl (Effient) 10 Mg Tablet, 10 MG PO DAILY, (Reported) Last Taken: on 09/28/16 Prednisone (Prednisone) 10 Mg Tablet, 9 MG PO DAILY , (Reported) Take 1 tablet, by mouth, two times a day with meals. Last Taken: on 10/05/16699 Saxagliptin Hydrochloride (Onglyza) 5 Mg Tablet , 5 MG PO DAILY, (Reported) Last Taken: on 10/05/16699 Solifenacin Succinate (Vesicare) 10 Mg Tablet, 1 TAB PO DAILY, (Reported) Last Taken: on 10/05/16699 Topiramate (Topamax) 25 Mg Tablet, 25 MG PO BID, (Reported) Take 1 tablet, by mouth, 2 times a day. Last Taken: on 10/06/16639 Tramadol HCl (Tramadol HCl) 50 Mg Tablet, PO Q8H PRN for PAIN, (Reported) Take 1 tablet, by mouth, every 6 hours. Last Taken: on 10/05/16 1200 Currently on Beta Patricia: Yes Beta Patricia Last Taken: 4/7/17 0640 Medical/Surgical History Anesthesia PMH: Reports: *Angina, *Diabetes (TYPE 2), *Hypertension (TAKES MEDS ), Arthritis (PSORIATIC ARTHRITIS), CVA/Stroke/TIA (LAST ONE IN 2012), Clotting Problems (TAKES EFFIENT), Thyroid Disease (HYPO), Denies: Anesthesia Reactions (NO AIRWAY ISSUES), Blood Transfusion Reac, Cancer, Glaucoma, Malignant Hyperthermia, Reflux, Sleep Apnea Smoking Status: Never smoker Has pt. smoked today?: No Use Chewing Tobacco?: No Second Hand Exposure: No Substance Use Type: does not use Alcohol Intake: none HX of Last Menstrual Period: SEPTEMBER 2016 Past Surgical History Orthopedic Surgeries: Yes - RIGHT KNEE ARTHOSCOPY Abdominal Surgeries: Yes - APPY PER H&[ Genitourinary Surgeries: Cardiac Surgeries: Yes - REPLACED RT BLOCKED CAROTID ARTERY Endocrine Surgeries: Reproductive Surgeries: Yes - C-SECT X3 Neurological Surgeries: Yes - ENTER OUTER CRANIAL BYPASS Ear Surgeries: Nose Surgeries: Throat Surgeries: Other Surgeries: Anesthesia Adverse Reactions: FOUND none Family Hx of Anesthesia Advers: none Hx of Motion Sickness: No Pertinent Findings Laboratory Tests 10/06/16 09:55 Test 10/06/16 09:55 Human Chorionic Gonadotropin, Qual Negative (NEGATIVE) EKG Rhythm: Sinus Rhythm Physical Exam Respiratory: Bilat breath sounds equal, Lungs clear Cardiovascular: FOUND Regular rate, rhythm, FOUND No murmur Airway Assessment Mallampati Score: I TMD: 3 Fingerbreadths Overall Assessment: No Airway Concerns ASA: 3 Plan Anesthesia Plan: GETA Discussion Discussed risks/options/alternatives of anesthesia and questions answered. Patient consents. Nursing pain assessment noted. Present: Parent Attestation Statement Prior to the delivery of any anesthetic medication, I examined the patient, developed the plan, obtained the patient's consent and discussed the risk and benefits of the procedure with the patient/guardian. MIRA VELAZQUEZ CRNA Oct 06, 2016 10:40
[2016-10-06] MEDS ORDERED: MIDAZOLAM 2mg/2ml INJECTION IV ONE (10:45)
[2016-10-06] MEDS ORDERED: LIDOCAINE (2%) 100 MG/5 ML PF SYRINGE IV ONE (10:54)
[2016-10-06] MEDS ORDERED: ROCURONIUM 50mg/5ml INJECTION IV ONE (10:54)
[2016-10-06] MEDS ORDERED: PROPOFOL 200mg 20 ML IV ONE (10:54)
[2016-10-06] MEDS ORDERED: FENTANYL 250mcg/5ml INJECTION ONE (10:55)
[2016-10-06] MEDS ORDERED: BUPIVACAINE 0.25%/EPI 1:200,000 30ml SDV ONE (11:11)
[2016-10-06] MEDS ORDERED: PHENYLEPHRINE 10mg/ml INJECTION ONE (11:24)
[2016-10-06] MEDS ORDERED: SALINE FLUSH 10ml SYRINGE ONE (11:25)
[2016-10-06] MEDS ORDERED: EPHEDRINE SULFATE 50mg/ml INJECTION ONE (11:40)
[2016-10-06] MEDS ORDERED: SUGAMMADEX 200 MG/2 ML INJECTION IV ONE (12:22)
--- NOTE | 2016-10-06 12:24 | GYNOPNOTE1 ---
EPIC KALEIDOSCOPE ANALYST Postoperative Note Date of Operation: 10/06/16 Preoperative Diagnosis: Menorrhagia, Sterilization Postoperative Diagnosis: Same as Preoperative Procedure: Tubal Ligation, Hysteroscopy with D&C, Endometrial Ablation Surgeon: Benita Davis MD Anesthesia Provider: Estuardo Avery CRNA Anesthesia Type: general Comments EBL 25cc BENITA DAVIS MD Oct 06, 2016 12:24
[2016-10-06] MEDS ORDERED: HYDR-4246 PO (12:27)
[2016-10-06] MEDS ORDERED: METOCLOPRAMIDE 10mg/2ml INJECTION IV PRN (12:30)
[2016-10-06] MEDS ORDERED: MORPHINE SULFATE 4 MG SYRINGE IV PRN (12:30)
[2016-10-06] MEDS ORDERED: HYDROCODONE/APAP 5 mg/325 mg TABLET PO PRN (12:30)
[2016-10-06] MEDS ORDERED: ONDANSETRON 4mg/2ml INJECTION IV PRN (12:30)
[2016-10-06] MEDS ORDERED: IBUPROFEN 800 MG TABLET PO PRN (12:30)
[2016-10-06] MEDS ORDERED: FENTANYL 100mcg/2ml INJECTION IV PRN (12:30)
[2016-10-06] MEDS: FENTANYL 100mcg/2ml INJECTION IV PRN ×4 (12:53→13:20)
--- NOTE | 2016-10-06 14:35 | ANESPO ---
Post-Op Note Date 10/06/16 Time: 14:34 Status Pt Participated in Evaluation: Pt participated in person Vital Signs Date Time Temp Pulse Resp B/P Pulse Ox O2 Delivery O2 Flow Rate FiO2 10/06/16 14:20 67 20 123/84 97 Room Air 10/06/16 13:35 97.9 Respiratory Function: Airway patent, Regular respirations Cardiovascular Function: Regular pulse Telemetry Pattern: SR Mental Status: Alert/oriented Pain Level Intensity: 5 Hydration: Taking po fluids Complications during Recovery None apparent Follow-Up Instructions Instructions Per Surgeon MIRA VELAZQUEZ CRNA Oct 06, 2016 14:35
--- NOTE | 2016-10-07 09:56 | OPNOTEF ---
DATE OF OPERATION 10/06/2016 PREOPERATIVE DIAGNOSES 1. Undesired fertility. 2. Menorrhagia. POSTOPERATIVE DIAGNOSES 1. Undesired fertility. 2. Menorrhagia. PROCEDURE 1. Laparoscopic bilateral tubal fulguration. 2. Hysteroscopy with D&C, endometrial ablation (HTA). SURGEON Benita Granger MD ANESTHESIA General endotracheal, LAURI Begum. EBL 25 mL. DESCRIPTION OF PROCEDURE Ms. Vidal was brought to the OR and placed on the OR table in a comfortable supine position. She was given general anesthesia and intubated without difficulty. She was then placed in the standard lithotomy position, and I performed a bimanual exam. The abdomen, perineum, and vagina were prepped and draped in the usual sterile fashion, and the bladder drained with a sterile in-and-out catheter. The cervix was visualized with a Freeway speculum. The cervix was then grasped with an Allis clamp. The uterine cavity sounded to a depth of 8 cm. The ELVPHD uterine manipulator was inserted and the balloon filled with air. The other instruments were then removed and we regloved. The infraumbilical region was then infiltrated with dilute Marcaine. A 5-mm incision was made with a sharp knife. Tenting up the abdomen, a Veress needle was inserted through the incision. The abdomen was then insufflated with CO2 until pressures of 12 to 15 mmHg were achieved. We removed the Veress needle. Tenting up the abdomen again, the 5-mm trocar was placed through this incision. We left the sheath in place and we placed a 0 degree laparoscope through this port. We explored. Liver edge was smooth and free of lesions. Gallbladder was free of lesions. The appendix was not seen. The uterus, tubes, and ovaries bilaterally were normal with a small, simple-appearing cyst on the right ovary. There were apparent adhesions between the bladder and lower uterine segment. These were not in our way. There were some omental adhesions to the right of our camera, but again these were not in our way. We then transilluminated the suprapubic region. It was infiltrated with dilute Marcaine. A 5-mm incision was made. Under direct visualization, a 5-mm trocar was placed through this incision. We then placed the patient in Trendelenburg and gently swept the bowel clear of the pelvis. The uterus was elevated using the uterine manipulator. The left fallopian tube was visualized to its fimbria. It was grasped at its midpoint with a bipolar Kleppinger paddles. It was then cauterized thoroughly until no viable tissue remained. I then moved about 1.5 cm proximal and repeated the cautery and then at about 2 cm distal to the initial site and cauterized again thoroughly. I then took sharp scissors and cut through each of these areas for a total of three areas of burned and cut fallopian tube on the left. I observed carefully for hemostasis. It was under good control. I then repeated the procedure in the exact same fashion on the right fallopian tube making sure that I had seen fimbria, and it was indeed fallopian tube, and again making sure hemostasis remained under control. We then reinspected. There were no other lesions. We removed the lower trocar under direct visualization. We allowed the CO2 to escape completely and then removed the camera and its port. The incisions were then reapproximated with Dermabond. We then covered with sterile dressings. I then turned my attention to the hysteroscopy. The uterine manipulator was removed. I reinserted the Freeway speculum and grasped the cervix with an Allis clamp. The cervix was serially dilated to 23. I then curetted sharply with a small sharp curet in all four quadrants and used polyp forceps to remove a small amount of tissue. We then prepared the HTA device per manager administration's instructions. It was inserted. I explored the uterus and saw normal anatomy with bilateral normal ostia. We then performed the test and therapy cycle without incident. After the cool-down portion, the device was removed. We removed the Allis clamp and watched for hemostasis. It again remained controlled. We removed the speculum and returned Ms. Vidal to the supine position. She was brought out from under anesthesia, extubated, and transferred to recovery in stable condition. TERELL
== END 2016-10-06 16:05 | disposition home or self-care (01) ==
LOC: SCU 09:18
PROVIDERS: ATTEND Obstetrics & Gynecology
DX: Z30.2 Encounter for sterilization (principal); N92.1 Excessive and frequent menstruation with irregular cycle; E03.9 Hypothyroidism, unspecified; I10 Essential (primary) hypertension; E11.9 Type 2 diabetes mellitus without complications; D64.89 Other specified anemias; K58.9 Irritable bowel syndrome, unspecified; M79.7 Fibromyalgia; M31.4 Aortic arch syndrome [Takayasu]; Z86.73 Personal history of transient ischemic attack (TIA), and cerebral infarction without residual deficits; Z79.899 Other long term (current) drug therapy
CPT/HCPCS: 36415; 58563; 58670; 80048; 81001; 82948; 84703; 85025; J2250; J2370; J2405; J2704; J2930; J3010; J7120